=== PATIENT | female | born 1945 | race Caucasian/White ===

== ENCOUNTER 2017-03-14 08:41 | Outpatient (CLI) | payer MEDICARE | END 2017-03-14 08:42 | disposition home or self-care (01) | LOC: LAB.F 08:41 | PROVIDERS: ATTEND Family Medicine | DX: I82.409 Acute embolism and thrombosis of unspecified deep veins of unspecified lower extremity (principal) | CPT/HCPCS: 85610 ==

== ENCOUNTER 2017-03-22 14:11 | Outpatient (CLI) | payer MEDICARE ==
[2017-03-22 18:02] LABS: INR 2.2 (0.8-1.2); PT - PROTHROMBIN TIME 25.1 secs (9.9-12.6)
== END 2017-03-22 14:12 | disposition home or self-care (01) ==
LOC: LAB.F 14:11
PROVIDERS: ATTEND Emergency Medicine
DX: I74.9 Embolism and thrombosis of unspecified artery (principal)
CPT/HCPCS: 36415; 85610

== ENCOUNTER 2017-05-23 15:56 | Outpatient (CLI) | payer MEDICARE ==
[2017-05-23 18:32] LABS: INR 2.6 (0.8-1.2)
== END 2017-05-23 15:57 | disposition home or self-care (01) ==
LOC: LAB.F 15:56
PROVIDERS: ATTEND Emergency Medicine
DX: I74.9 Embolism and thrombosis of unspecified artery (principal)
CPT/HCPCS: 36415; 85610

== ENCOUNTER 2017-11-03 14:09 | Outpatient (CLI) | payer MEDICARE ==
[2017-11-03 18:35] LABS: PT - PROTHROMBIN TIME 32.9 secs (9.9-12.6)
== END 2017-11-03 14:10 | disposition home or self-care (01) ==
LOC: LAB.F 14:09
PROVIDERS: ATTEND Emergency Medicine
DX: I74.9 Embolism and thrombosis of unspecified artery (principal)
CPT/HCPCS: 36415; 85610

== ENCOUNTER 2018-01-25 14:53 | Outpatient (CLI) | payer MEDICARE ==
[2018-01-25 17:32] LABS: PT - PROTHROMBIN TIME 32.2 secs (9.9-12.6)
== END 2018-01-25 14:54 | disposition home or self-care (01) ==
LOC: LAB.F 14:53
PROVIDERS: ATTEND Emergency Medicine
DX: I74.9 Embolism and thrombosis of unspecified artery (principal)
CPT/HCPCS: 36415; 85610

== ENCOUNTER 2018-03-01 10:30 | Outpatient (CLI) | payer MEDICARE ==
[2018-03-01 17:17] LABS: PT - PROTHROMBIN TIME 55.5 secs (9.9-12.6)
[2018-03-01 17:40] LABS: INR 5.2 (0.8-1.2)
== END 2018-03-01 10:31 | disposition home or self-care (01) ==
LOC: LAB.F 10:30
PROVIDERS: ATTEND Emergency Medicine
DX: I74.9 Embolism and thrombosis of unspecified artery (principal)
CPT/HCPCS: 36415; 85610

== ENCOUNTER 2018-03-08 13:27 | Outpatient (CLI) | payer MEDICARE ==
[2018-03-08 18:07] LABS: INR 2.8 (0.8-1.2); PT - PROTHROMBIN TIME 30.9 secs (9.9-12.6)
== END 2018-03-08 13:28 | disposition home or self-care (01) ==
LOC: LAB.F 13:27
PROVIDERS: ATTEND Emergency Medicine
DX: I74.9 Embolism and thrombosis of unspecified artery (principal)
CPT/HCPCS: 36415; 85610

== ENCOUNTER 2018-04-11 10:18 | Outpatient (CLI) | payer MEDICARE ==
[2018-04-11 18:07] LABS: INR 3.2 (0.8-1.2); PT - PROTHROMBIN TIME 35.6 secs (9.9-12.6)
== END 2018-04-11 10:19 | disposition home or self-care (01) ==
LOC: LAB.F 10:18
PROVIDERS: ATTEND Emergency Medicine
DX: I74.9 Embolism and thrombosis of unspecified artery (principal)
CPT/HCPCS: 36415; 85610

== ENCOUNTER 2018-04-19 11:14 | Outpatient (CLI) | payer MEDICARE ==
[2018-04-19 18:10] LABS: INR 2.8 (0.8-1.2); PT - PROTHROMBIN TIME 31.2 secs (9.9-12.6)
== END 2018-04-19 11:15 | disposition home or self-care (01) ==
LOC: LAB.F 11:14
PROVIDERS: ATTEND Emergency Medicine
DX: I74.9 Embolism and thrombosis of unspecified artery (principal)
CPT/HCPCS: 36415; 85610

== ENCOUNTER 2018-05-02 09:50 | Outpatient (CLI) | payer MEDICARE ==
[2018-05-02 17:55] LABS: INR 2.1 (0.8-1.2); PT - PROTHROMBIN TIME 23.9 secs (9.9-12.6)
== END 2018-05-02 09:51 | disposition home or self-care (01) ==
LOC: LAB.F 09:50
PROVIDERS: ATTEND Emergency Medicine
DX: I74.9 Embolism and thrombosis of unspecified artery (principal)
CPT/HCPCS: 36415; 85610

== ENCOUNTER 2018-06-07 11:27 | Outpatient (CLI) | payer MEDICARE ==
[2018-06-07 18:03] LABS: INR 2.4 (0.8-1.2); PT - PROTHROMBIN TIME 27.2 secs (9.9-12.6)
== END 2018-06-07 11:28 | disposition home or self-care (01) ==
LOC: LAB.F 11:27
PROVIDERS: ATTEND Emergency Medicine
DX: I74.9 Embolism and thrombosis of unspecified artery (principal)
CPT/HCPCS: 36415; 85610

== ENCOUNTER 2018-08-21 13:51 | Outpatient (CLI) | payer MEDICARE ==
[2018-08-21 17:47] LABS: PT - PROTHROMBIN TIME 51.9 secs (9.9-12.6)
[2018-08-21 18:05] LABS: INR 4.7 (0.8-1.2)
== END 2018-08-21 13:52 | disposition home or self-care (01) ==
LOC: LAB.F 13:51
PROVIDERS: ATTEND Emergency Medicine
DX: I74.9 Embolism and thrombosis of unspecified artery (principal)
CPT/HCPCS: 36415; 85610

== ENCOUNTER 2018-09-11 11:07 | Outpatient (CLI) | payer MEDICARE ==
[2018-09-11 17:39] LABS: INR 3.1 (0.8-1.2); PT - PROTHROMBIN TIME 34.1 secs (9.9-12.6)
== END 2018-09-11 11:08 | disposition home or self-care (01) ==
LOC: LAB.F 11:07
PROVIDERS: ATTEND Emergency Medicine
DX: I74.9 Embolism and thrombosis of unspecified artery (principal)
CPT/HCPCS: 36415; 85610

== ENCOUNTER 2018-09-26 14:00 | Outpatient (CLI) | payer MEDICARE ==
[2018-09-26 18:05] LABS: INR 2.5 (0.8-1.2); PT - PROTHROMBIN TIME 28.1 secs (9.9-12.6)
== END 2018-09-26 14:01 | disposition home or self-care (01) ==
LOC: LAB.F 14:00
PROVIDERS: ATTEND Emergency Medicine
DX: I74.9 Embolism and thrombosis of unspecified artery (principal)
CPT/HCPCS: 36415; 85610

== ENCOUNTER 2018-11-12 10:19 | Outpatient (CLI) | payer MEDICARE ==
[2018-11-12 18:32] LABS: INR 2.4 (0.8-1.2); PT - PROTHROMBIN TIME 26.4 secs (9.9-12.6)
== END 2018-11-12 10:20 | disposition home or self-care (01) ==
LOC: LAB.F 10:19
PROVIDERS: ATTEND Emergency Medicine
DX: I74.9 Embolism and thrombosis of unspecified artery (principal)
CPT/HCPCS: 36415; 85610

== ENCOUNTER 2019-01-09 14:49 | Outpatient (CLI) | payer MEDICARE ==
[2019-01-09 17:54] LABS: INR 1.8 (0.8-1.2); PT - PROTHROMBIN TIME 20.4 secs (9.9-12.6)
== END 2019-01-09 14:50 | disposition home or self-care (01) ==
LOC: LAB.S 14:49
PROVIDERS: ATTEND Emergency Medicine
DX: I74.9 Embolism and thrombosis of unspecified artery (principal)
CPT/HCPCS: 36415; 85610

== ENCOUNTER 2019-01-17 13:49 | Outpatient (CLI) | payer MEDICARE ==
[2019-01-17 17:40] LABS: INR 2.3 (0.8-1.2); PT - PROTHROMBIN TIME 25.7 secs (9.9-12.6)
== END 2019-01-17 13:50 | disposition home or self-care (01) ==
LOC: LAB.S 13:49
PROVIDERS: ATTEND Emergency Medicine
DX: I74.9 Embolism and thrombosis of unspecified artery (principal)
CPT/HCPCS: 36415; 85610

== ENCOUNTER 2019-02-01 13:17 | Outpatient (CLI) | payer MEDICARE ==
[2019-02-01 17:41] LABS: INR 3.1 (0.8-1.2); PT - PROTHROMBIN TIME 34.3 secs (9.9-12.6)
== END 2019-02-01 13:18 | disposition home or self-care (01) ==
LOC: LAB.S 13:17
PROVIDERS: ATTEND Emergency Medicine
DX: I74.9 Embolism and thrombosis of unspecified artery (principal)
CPT/HCPCS: 36415; 85610

== ENCOUNTER 2019-03-06 13:41 | Outpatient (CLI) | payer MEDICARE ==
[2019-03-06 17:28] LABS: INR 2.4 (0.8-1.2); PT - PROTHROMBIN TIME 25.9 secs (9.9-12.6)
== END 2019-03-06 13:42 | disposition home or self-care (01) ==
LOC: LAB.S 13:41
PROVIDERS: ATTEND Emergency Medicine
DX: I74.9 Embolism and thrombosis of unspecified artery (principal)
CPT/HCPCS: 36415; 85610

== ENCOUNTER 2019-04-11 11:00 | Outpatient (CLI) | payer MEDICARE ==
[2019-04-11 17:39] LABS: BASOPHILS # (AUTO) 0.1 10^3/uL (0.0-0.1); BASOPHILS % (AUTO) 0.7 %; EOSINOPHILS # (AUTO) 0.2 10^3/uL (0.0-0.7); EOSINOPHILS % (AUTO) 1.9 %; HGB - HEMOGLOBIN 9.1 g/dL (12.0-16.0); LYMPHOCYTES # (AUTO) 1.6 10^3/uL (1.5-3.5); LYMPHOCYTES % (AUTO) 19.3 %; MEAN CORPUSCULAR HEMOGLOBIN 30.4 pg (27.0-31.0); MEAN PLATELET VOLUME 11.8 fL (7.9-10.8); MONOCYTES # (AUTO) 0.9 10^3/uL (0.0-1.0); MONOCYTES % (AUTO) 10.7 %; NEUTROPHILS # (AUTO) 5.6 10^3/uL (1.5-6.6); NEUTROPHILS % (AUTO) 66.7 %; PLT - PLATELET COUNT 265 10^3/uL (130-450); RED BLOOD COUNT 2.99 10^6/uL (4.20-5.40); RED CELL DISTRIBUTION WIDTH 14.3 % (12.0-15.0); WHITE BLOOD COUNT 8.3 x10^3/uL (4.8-10.8)
[2019-04-11 17:44] LABS: PT - PROTHROMBIN TIME 22.4 secs (9.9-12.6)
== END 2019-04-11 11:01 | disposition home or self-care (01) ==
LOC: LAB.S 11:00
PROVIDERS: ATTEND Emergency Medicine
DX: I74.9 Embolism and thrombosis of unspecified artery (principal); I82.5Y1 Chronic embolism and thrombosis of unspecified deep veins of right proximal lower extremity
CPT/HCPCS: 36415; 82565; 85025; 85610

== ENCOUNTER 2019-04-15 12:30 | Outpatient (CLI) | payer MEDICARE ==
[2019-04-15 18:14] LABS: INR 2.2 (0.8-1.2); PT - PROTHROMBIN TIME 23.6 secs (9.9-12.6)
== END 2019-04-15 12:31 | disposition home or self-care (01) ==
LOC: LAB.S 12:30
PROVIDERS: ATTEND Emergency Medicine
DX: I74.9 Embolism and thrombosis of unspecified artery (principal)
CPT/HCPCS: 36415; 85610

== ENCOUNTER 2019-05-01 10:13 | Outpatient (CLI) | payer MEDICARE ==
[2019-05-01 17:20] LABS: INR 4.3 (0.8-1.2); PT - PROTHROMBIN TIME 44.9 secs (9.9-12.6)
== END 2019-05-01 10:14 | disposition home or self-care (01) ==
LOC: LAB.S 10:13
PROVIDERS: ATTEND Emergency Medicine
DX: I74.9 Embolism and thrombosis of unspecified artery (principal)
CPT/HCPCS: 36415; 85610

== ENCOUNTER 2019-05-08 14:24 | Outpatient (CLI) | payer MEDICARE ==
[2019-05-08 17:18] LABS: INR 2.6 (0.8-1.2); PT - PROTHROMBIN TIME 27.8 secs (9.9-12.6)
== END 2019-05-08 14:25 | disposition home or self-care (01) ==
LOC: LAB.S 14:24
PROVIDERS: ATTEND Emergency Medicine
DX: I74.9 Embolism and thrombosis of unspecified artery (principal)
CPT/HCPCS: 36415; 85610

== ENCOUNTER 2019-06-10 13:15 | Outpatient (CLI) | payer MEDICARE ==
[2019-06-10 18:02] LABS: PT - PROTHROMBIN TIME 48.2 secs (9.9-12.6)
[2019-06-10 19:18] LABS: INR 4.6 (0.8-1.2)
== END 2019-06-10 13:16 | disposition home or self-care (01) ==
LOC: LAB.S 13:15
PROVIDERS: ATTEND Emergency Medicine
DX: I74.9 Embolism and thrombosis of unspecified artery (principal)
CPT/HCPCS: 36415; 85610

== ENCOUNTER 2019-06-17 13:13 | Outpatient (CLI) | payer MEDICARE ==
[2019-06-17 17:34] LABS: INR 3.5 (0.8-1.2); PT - PROTHROMBIN TIME 37.6 secs (9.9-12.6)
== END 2019-06-17 13:14 | disposition home or self-care (01) ==
LOC: LAB.S 13:13
PROVIDERS: ATTEND Emergency Medicine
DX: I74.9 Embolism and thrombosis of unspecified artery (principal)
CPT/HCPCS: 36415; 85610

== ENCOUNTER 2019-06-27 13:23 | Outpatient (CLI) | payer MEDICARE ==
[2019-06-27 17:21] LABS: INR 2.8 (0.8-1.2); PT - PROTHROMBIN TIME 30.3 secs (9.9-12.6)
== END 2019-06-27 13:24 | disposition home or self-care (01) ==
LOC: LAB.S 13:23
PROVIDERS: ATTEND Emergency Medicine
DX: I74.9 Embolism and thrombosis of unspecified artery (principal)
CPT/HCPCS: 36415; 85610

== ENCOUNTER 2019-07-11 13:40 | Outpatient (CLI) | payer MEDICARE ==
[2019-07-11 17:58] LABS: PT - PROTHROMBIN TIME 21.9 secs (9.9-12.6)
== END 2019-07-11 13:41 | disposition home or self-care (01) ==
LOC: LAB.S 13:40
PROVIDERS: ATTEND Emergency Medicine
DX: I74.9 Embolism and thrombosis of unspecified artery (principal)
CPT/HCPCS: 36415; 85610

== ENCOUNTER 2019-07-26 12:05 | Outpatient (CLI) | payer MEDICARE ==
[2019-07-26 17:34] LABS: INR 1.8 (0.8-1.2)
== END 2019-07-26 12:06 | disposition home or self-care (01) ==
LOC: LAB.S 12:05
PROVIDERS: ATTEND Emergency Medicine
DX: I74.9 Embolism and thrombosis of unspecified artery (principal)
CPT/HCPCS: 36415; 85610

== ENCOUNTER 2019-09-05 12:44 | Outpatient (CLI) | payer MEDICARE ==
[2019-09-05 16:12] LABS: INR 1.6 (0.8-1.2)
== END 2019-09-05 12:45 | disposition home or self-care (01) ==
LOC: LAB.S 12:44
PROVIDERS: ATTEND Emergency Medicine
DX: I74.9 Embolism and thrombosis of unspecified artery (principal)
CPT/HCPCS: 36415; 85610

== ENCOUNTER 2019-11-20 10:57 | Outpatient (CLI) | payer MEDICARE ==
[2019-11-20 15:17] LABS: INR 2.4 (0.8-1.2); PT - PROTHROMBIN TIME 25.5 secs (9.9-12.6)
== END 2019-11-20 10:58 | disposition home or self-care (01) ==
LOC: LAB.S 10:57
PROVIDERS: ATTEND Emergency Medicine
DX: I74.9 Embolism and thrombosis of unspecified artery (principal)
CPT/HCPCS: 36415; 85610

== ENCOUNTER 2019-12-19 13:59 | Outpatient (CLI) | payer MEDICARE ==
[2019-12-19 20:20] LABS: INR 2.2 (0.8-1.2); PT - PROTHROMBIN TIME 23.6 secs (9.9-12.6)
== END 2019-12-19 14:00 | disposition home or self-care (01) ==
LOC: LAB.S 13:59
PROVIDERS: ATTEND Emergency Medicine
DX: I74.9 Embolism and thrombosis of unspecified artery (principal)
CPT/HCPCS: 36415; 85610

== ENCOUNTER 2020-02-12 14:11 | Outpatient (CLI) | payer MEDICARE ==
[2020-02-12 20:12] LABS: INR 2.5 (0.8-1.2); PT - PROTHROMBIN TIME 26.7 secs (9.9-12.6)
== END 2020-02-12 14:12 | disposition home or self-care (01) ==
LOC: LAB.S 14:11
PROVIDERS: ATTEND Emergency Medicine
DX: I74.9 Embolism and thrombosis of unspecified artery (principal)
CPT/HCPCS: 36415; 85610

== ENCOUNTER 2020-03-12 14:30 | Outpatient (CLI) | payer MEDICARE ==
[2020-03-12 20:13] LABS: INR 1.8 (0.8-1.2); PT - PROTHROMBIN TIME 19.1 secs (9.9-12.6)
== END 2020-03-12 14:31 | disposition home or self-care (01) ==
LOC: LAB.S 14:30
PROVIDERS: ATTEND Emergency Medicine
DX: I74.9 Embolism and thrombosis of unspecified artery (principal)
CPT/HCPCS: 36415; 85610

== ENCOUNTER 2020-04-03 13:28 | Outpatient (CLI) | payer MEDICARE ==
[2020-04-03 15:57] LABS: INR 2.8 (0.8-1.2); PT - PROTHROMBIN TIME 29.5 secs (9.9-12.6)
== END 2020-04-03 13:29 | disposition home or self-care (01) ==
LOC: LAB.S 13:28
PROVIDERS: ATTEND Emergency Medicine
DX: I74.9 Embolism and thrombosis of unspecified artery (principal)
CPT/HCPCS: 36415; 85610

== ENCOUNTER 2020-04-23 13:16 | Outpatient (CLI) | payer MEDICARE ==
[2020-04-23 20:15] LABS: INR 3.4 (0.8-1.2); PT - PROTHROMBIN TIME 34.8 secs (9.9-12.6)
== END 2020-04-23 13:17 | disposition home or self-care (01) ==
LOC: LAB.S 13:16
PROVIDERS: ATTEND Emergency Medicine
DX: I74.9 Embolism and thrombosis of unspecified artery (principal)
CPT/HCPCS: 36415; 85610

== ENCOUNTER 2020-06-08 13:41 | Outpatient (CLI) | payer MEDICARE ==
[2020-06-08 20:09] LABS: INR 2.5 (0.8-1.2); PT - PROTHROMBIN TIME 26.4 secs (9.9-12.6)
== END 2020-06-08 13:42 | disposition home or self-care (01) ==
LOC: LAB.S 13:41
PROVIDERS: ATTEND Emergency Medicine
DX: I74.9 Embolism and thrombosis of unspecified artery (principal)
CPT/HCPCS: 36415; 85610

== ENCOUNTER 2020-07-02 14:18 | Outpatient (CLI) | payer MEDICARE ==
[2020-07-02 20:11] LABS: INR 3.1 (0.8-1.2)
== END 2020-07-02 14:19 | disposition home or self-care (01) ==
LOC: LAB.S 14:18
PROVIDERS: ATTEND Emergency Medicine
DX: I74.9 Embolism and thrombosis of unspecified artery (principal)
CPT/HCPCS: 36415; 85610

== ENCOUNTER 2020-07-15 13:25 | Outpatient (CLI) | payer MEDICARE ==
[2020-07-15 20:21] LABS: INR 2.4 (0.8-1.2); PT - PROTHROMBIN TIME 25.1 secs (9.9-12.6)
== END 2020-07-15 13:26 | disposition home or self-care (01) ==
LOC: LAB.S 13:25
PROVIDERS: ATTEND Emergency Medicine
DX: I74.9 Embolism and thrombosis of unspecified artery (principal)
CPT/HCPCS: 36415; 85610

== ENCOUNTER 2020-08-12 13:39 | Outpatient (CLI) | payer MEDICARE ==
[2020-08-12 20:35] LABS: INR 2.7 (0.8-1.2); PT - PROTHROMBIN TIME 28.6 secs (9.9-12.6)
== END 2020-08-12 13:40 | disposition home or self-care (01) ==
LOC: LAB.S 13:39
PROVIDERS: ATTEND Internal Medicine Clinical Cardiac Electrophysiology
DX: I82.509 Chronic embolism and thrombosis of unspecified deep veins of unspecified lower extremity (principal)
CPT/HCPCS: 36415; 85610

== ENCOUNTER 2020-08-25 13:34 | Outpatient (CLI) | payer MEDICARE ==
[2020-08-25 20:16] LABS: INR 2.6 (0.8-1.2)
== END 2020-08-25 13:35 | disposition home or self-care (01) ==
LOC: LAB.S 13:34
PROVIDERS: ATTEND Internal Medicine Clinical Cardiac Electrophysiology
DX: I82.509 Chronic embolism and thrombosis of unspecified deep veins of unspecified lower extremity (principal)
CPT/HCPCS: 36415; 85610

== ENCOUNTER 2020-09-16 13:14 | Outpatient (CLI) | payer MEDICARE ==
[2020-09-16 20:17] LABS: INR 2.4 (0.8-1.2); PT - PROTHROMBIN TIME 25.5 secs (9.9-12.6)
== END 2020-09-16 13:15 | disposition home or self-care (01) ==
LOC: LAB.S 13:14
PROVIDERS: ATTEND Internal Medicine Clinical Cardiac Electrophysiology
DX: I82.509 Chronic embolism and thrombosis of unspecified deep veins of unspecified lower extremity (principal)
CPT/HCPCS: 36415; 85610

== ENCOUNTER 2020-11-17 14:23 | Outpatient (CLI) | payer MEDICARE ==
[2020-11-17 20:11] LABS: PT - PROTHROMBIN TIME 45.9 secs (9.9-12.6)
[2020-11-17 20:33] LABS: INR 4.5 (0.8-1.2)
== END 2020-11-17 14:24 | disposition home or self-care (01) ==
LOC: LAB.S 14:23
PROVIDERS: ATTEND Internal Medicine Clinical Cardiac Electrophysiology
DX: I82.509 Chronic embolism and thrombosis of unspecified deep veins of unspecified lower extremity (principal)
CPT/HCPCS: 36415; 85610

== ENCOUNTER 2021-01-25 11:09 | Outpatient (CLI) | payer MEDICARE ==
[2021-01-25 15:32] LABS: PT - PROTHROMBIN TIME 21.4 secs (9.9-12.6)
== END 2021-01-25 11:10 | disposition home or self-care (01) ==
LOC: LAB.S 11:09
PROVIDERS: ATTEND Internal Medicine Clinical Cardiac Electrophysiology
DX: I82.509 Chronic embolism and thrombosis of unspecified deep veins of unspecified lower extremity (principal)
CPT/HCPCS: 36415; 85610

== ENCOUNTER 2021-02-08 11:08 | Outpatient (CLI) | payer MEDICARE ==
[2021-02-08 15:40] LABS: INR 2.8 (0.8-1.2); PT - PROTHROMBIN TIME 31.3 secs (9.9-12.6)
== END 2021-02-08 11:09 | disposition home or self-care (01) ==
LOC: LAB.S 11:08
PROVIDERS: ATTEND Internal Medicine Clinical Cardiac Electrophysiology
DX: I82.509 Chronic embolism and thrombosis of unspecified deep veins of unspecified lower extremity (principal)
CPT/HCPCS: 36415; 85610

== ENCOUNTER 2021-04-12 10:38 | Outpatient (CLI) | payer MEDICARE ==
[2021-04-12 14:31] LABS: INR 3.3 (0.8-1.2); PT - PROTHROMBIN TIME 37.2 secs (9.9-12.6)
== END 2021-04-12 10:39 | disposition home or self-care (01) ==
LOC: LAB.S 10:38
PROVIDERS: ATTEND Internal Medicine Clinical Cardiac Electrophysiology
DX: I82.509 Chronic embolism and thrombosis of unspecified deep veins of unspecified lower extremity (principal)
CPT/HCPCS: 36415; 85610

== ENCOUNTER 2021-04-20 11:22 | Outpatient (CLI) | payer MEDICARE ==
[2021-04-20 15:33] LABS: INR 3.4 (0.8-1.2); PT - PROTHROMBIN TIME 37.7 secs (9.9-12.6)
== END 2021-04-20 11:23 | disposition home or self-care (01) ==
LOC: LAB.S 11:22
PROVIDERS: ATTEND Internal Medicine Clinical Cardiac Electrophysiology
DX: I82.509 Chronic embolism and thrombosis of unspecified deep veins of unspecified lower extremity (principal)
CPT/HCPCS: 36415; 85610

== ENCOUNTER 2021-04-26 12:10 | Outpatient (CLI) | payer MEDICARE ==
[2021-04-26 16:15] LABS: INR 2.1 (0.8-1.2); PT - PROTHROMBIN TIME 23.1 secs (9.9-12.6)
== END 2021-04-26 12:11 | disposition home or self-care (01) ==
LOC: LAB.S 12:10
PROVIDERS: ATTEND Internal Medicine Clinical Cardiac Electrophysiology
DX: I82.509 Chronic embolism and thrombosis of unspecified deep veins of unspecified lower extremity (principal)
CPT/HCPCS: 36415; 85610

== ENCOUNTER 2021-05-11 12:27 | Outpatient (CLI) | payer MEDICARE ==
[2021-05-11 15:06] LABS: INR 1.9 (0.8-1.2); PT - PROTHROMBIN TIME 21.7 secs (9.9-12.6)
== END 2021-05-11 12:28 | disposition home or self-care (01) ==
LOC: LAB.S 12:27
PROVIDERS: ATTEND Internal Medicine Clinical Cardiac Electrophysiology
DX: I82.509 Chronic embolism and thrombosis of unspecified deep veins of unspecified lower extremity (principal)
CPT/HCPCS: 36415; 85610

== ENCOUNTER 2021-05-25 13:23 | Outpatient (CLI) | payer MEDICARE ==
[2021-05-25 20:07] LABS: INR 1.8 (0.8-1.2); PT - PROTHROMBIN TIME 20.5 secs (9.9-12.6)
== END 2021-05-25 13:24 | disposition home or self-care (01) ==
LOC: LAB.S 13:23
PROVIDERS: ATTEND Internal Medicine Clinical Cardiac Electrophysiology
DX: I82.509 Chronic embolism and thrombosis of unspecified deep veins of unspecified lower extremity (principal)
CPT/HCPCS: 36415; 36416; 85610

== ENCOUNTER 2021-06-01 13:30 | Outpatient (CLI) | payer MEDICARE ==
[2021-06-01 20:22] LABS: INR 2.1 (0.8-1.2); PT - PROTHROMBIN TIME 23.3 secs (9.9-12.6)
== END 2021-06-01 13:31 | disposition home or self-care (01) ==
LOC: LAB.S 13:30
PROVIDERS: ATTEND Internal Medicine Clinical Cardiac Electrophysiology
DX: I82.509 Chronic embolism and thrombosis of unspecified deep veins of unspecified lower extremity (principal)
CPT/HCPCS: 36415; 36416; 85610

== ENCOUNTER 2021-06-15 13:25 | Outpatient (CLI) | payer MEDICARE ==
[2021-06-15 20:49] LABS: INR 2.7 (0.8-1.2); PT - PROTHROMBIN TIME 29.8 secs (9.9-12.6)
== END 2021-06-15 13:26 | disposition home or self-care (01) ==
LOC: LAB.S 13:25
PROVIDERS: ATTEND Internal Medicine Clinical Cardiac Electrophysiology
DX: I82.509 Chronic embolism and thrombosis of unspecified deep veins of unspecified lower extremity (principal)
CPT/HCPCS: 36415; 36416; 85610

== ENCOUNTER 2021-07-06 10:49 | Outpatient (CLI) | payer MEDICARE ==
[2021-07-06 15:13] LABS: INR 2.4 (0.8-1.2); PT - PROTHROMBIN TIME 26.5 secs (9.9-12.6)
== END 2021-07-06 10:50 | disposition home or self-care (01) ==
LOC: LAB.S 10:49
PROVIDERS: ATTEND Internal Medicine Clinical Cardiac Electrophysiology
DX: I82.509 Chronic embolism and thrombosis of unspecified deep veins of unspecified lower extremity (principal)
CPT/HCPCS: 36415; 85610

== ENCOUNTER 2021-08-09 13:52 | Outpatient (CLI) | payer MEDICARE ==
[2021-08-09 19:59] LABS: INR 2.6 (0.8-1.2); PT - PROTHROMBIN TIME 28.5 secs (9.9-12.6)
== END 2021-08-09 13:53 | disposition home or self-care (01) ==
LOC: LAB.S 13:52
PROVIDERS: ATTEND Internal Medicine Clinical Cardiac Electrophysiology
DX: I82.509 Chronic embolism and thrombosis of unspecified deep veins of unspecified lower extremity (principal)
CPT/HCPCS: 36415; 85610

== ENCOUNTER 2021-10-08 10:42 | Outpatient (CLI) | payer MEDICARE ==
[2021-10-08 16:01] LABS: PT - PROTHROMBIN TIME 22.7 secs (9.9-12.6)
== END 2021-10-08 10:43 | disposition home or self-care (01) ==
LOC: LAB.S 10:42
PROVIDERS: ATTEND Internal Medicine Clinical Cardiac Electrophysiology
DX: I82.509 Chronic embolism and thrombosis of unspecified deep veins of unspecified lower extremity (principal)
CPT/HCPCS: 36415; 85610

== ENCOUNTER 2021-11-05 13:33 | Outpatient (CLI) | payer MEDICARE ==
[2021-11-05 20:04] LABS: INR 2.1 (0.8-1.2); PT - PROTHROMBIN TIME 23.1 secs (9.9-12.6)
== END 2021-11-05 13:34 | disposition home or self-care (01) ==
LOC: LAB.S 13:33
PROVIDERS: ATTEND Internal Medicine Clinical Cardiac Electrophysiology
DX: I82.509 Chronic embolism and thrombosis of unspecified deep veins of unspecified lower extremity (principal)
CPT/HCPCS: 36415; 85610

== ENCOUNTER 2022-02-09 13:45 | Outpatient (CLI) | payer MEDICARE ==
[2022-02-09 19:48] LABS: INR 4.1 (0.8-1.2); PT - PROTHROMBIN TIME 41.4 secs (9.9-12.6)
== END 2022-02-09 13:46 | disposition home or self-care (01) ==
LOC: LAB.S 13:45
PROVIDERS: ATTEND Internal Medicine Clinical Cardiac Electrophysiology
DX: I82.509 Chronic embolism and thrombosis of unspecified deep veins of unspecified lower extremity (principal)
CPT/HCPCS: 36415; 85610

== ENCOUNTER 2022-03-24 10:49 | Outpatient (CLI) | payer MEDICARE ==
[2022-03-24 15:23] LABS: INR 2.5 (0.8-1.2); PT - PROTHROMBIN TIME 26.4 secs (9.9-12.6)
== END 2022-03-24 10:50 | disposition home or self-care (01) ==
LOC: LAB.S 10:49
PROVIDERS: ATTEND Internal Medicine Clinical Cardiac Electrophysiology
DX: I82.509 Chronic embolism and thrombosis of unspecified deep veins of unspecified lower extremity (principal)
CPT/HCPCS: 36415; 85610

== ENCOUNTER 2022-06-14 11:15 | Outpatient (CLI) | payer MEDICARE ==
[2022-06-14 14:35] LABS: INR 4.3 (0.8-1.2); PT - PROTHROMBIN TIME 43.7 secs (9.9-12.6)
== END 2022-06-14 11:16 | disposition home or self-care (01) ==
LOC: LAB.S 11:15
PROVIDERS: ATTEND Internal Medicine Clinical Cardiac Electrophysiology
DX: I82.509 Chronic embolism and thrombosis of unspecified deep veins of unspecified lower extremity (principal)
CPT/HCPCS: 36415; 85610

== ENCOUNTER 2022-06-24 13:46 | Outpatient (CLI) | payer MEDICARE ==
[2022-06-24 20:28] LABS: INR 3.4 (0.8-1.2); PT - PROTHROMBIN TIME 35.1 secs (9.9-12.6)
== END 2022-06-24 13:47 | disposition home or self-care (01) ==
LOC: LAB.S 13:46
PROVIDERS: ATTEND Internal Medicine Clinical Cardiac Electrophysiology
DX: I82.509 Chronic embolism and thrombosis of unspecified deep veins of unspecified lower extremity (principal)
CPT/HCPCS: 36415; 85610

== ENCOUNTER 2022-07-21 13:43 | Outpatient (CLI) | payer MEDICARE ==
[2022-07-21 19:55] LABS: INR 2.8 (0.8-1.2); PT - PROTHROMBIN TIME 29.3 secs (9.9-12.6)
== END 2022-07-21 13:44 | disposition home or self-care (01) ==
LOC: LAB.S 13:43
PROVIDERS: ATTEND Internal Medicine Clinical Cardiac Electrophysiology
DX: I82.509 Chronic embolism and thrombosis of unspecified deep veins of unspecified lower extremity (principal)
CPT/HCPCS: 36415; 85610

== ENCOUNTER 2022-08-25 10:51 | Outpatient (CLI) | payer MEDICARE ==
[2022-08-25 14:34] LABS: INR 2.9 (0.8-1.2); PT - PROTHROMBIN TIME 30.4 secs (9.9-12.6)
== END 2022-08-25 10:52 | disposition home or self-care (01) ==
LOC: LAB.S 10:51
PROVIDERS: ATTEND Internal Medicine Clinical Cardiac Electrophysiology
DX: I82.509 Chronic embolism and thrombosis of unspecified deep veins of unspecified lower extremity (principal)
CPT/HCPCS: 36415; 85610

== ENCOUNTER 2022-09-08 10:13 | Outpatient (CLI) | payer MEDICARE ==
[2022-09-08 14:11] LABS: PT - PROTHROMBIN TIME 51.1 secs (9.9-12.6)
== END 2022-09-08 10:14 | disposition home or self-care (01) ==
LOC: LAB.S 10:13
PROVIDERS: ATTEND Internal Medicine Clinical Cardiac Electrophysiology
DX: I82.509 Chronic embolism and thrombosis of unspecified deep veins of unspecified lower extremity (principal)
CPT/HCPCS: 36415; 85610

== ENCOUNTER 2022-09-15 14:06 | Outpatient (CLI) | payer MEDICARE ==
[2022-09-15 19:43] LABS: INR 2.3 (0.8-1.2); PT - PROTHROMBIN TIME 24.5 secs (9.9-12.6)
== END 2022-09-15 14:07 | disposition home or self-care (01) ==
LOC: LAB.S 14:06
PROVIDERS: ATTEND Internal Medicine Clinical Cardiac Electrophysiology
DX: I82.509 Chronic embolism and thrombosis of unspecified deep veins of unspecified lower extremity (principal)
CPT/HCPCS: 36415; 85610

== ENCOUNTER 2022-10-12 14:22 | Outpatient (CLI) | payer MEDICARE ==
[2022-10-12 20:22] LABS: PT - PROTHROMBIN TIME 21.7 secs (9.9-12.6)
== END 2022-10-12 14:23 | disposition home or self-care (01) ==
LOC: LAB.S 14:22
PROVIDERS: ATTEND Internal Medicine Clinical Cardiac Electrophysiology
DX: I82.509 Chronic embolism and thrombosis of unspecified deep veins of unspecified lower extremity (principal)
CPT/HCPCS: 36415; 85610

== ENCOUNTER 2022-11-16 14:15 | Outpatient (CLI) | payer MEDICARE ==
[2022-11-16 19:42] LABS: PT - PROTHROMBIN TIME 56.2 secs (9.9-12.6)
[2022-11-16 20:12] LABS: INR 5.6 (0.8-1.2)
== END 2022-11-16 14:16 | disposition home or self-care (01) ==
LOC: LAB.S 14:15
PROVIDERS: ATTEND Internal Medicine Clinical Cardiac Electrophysiology
DX: I82.509 Chronic embolism and thrombosis of unspecified deep veins of unspecified lower extremity (principal)
CPT/HCPCS: 36415; 85610

== ENCOUNTER 2022-11-22 10:23 | Outpatient (CLI) | payer MEDICARE ==
[2022-11-22 14:50] LABS: INR 2.5 (0.8-1.2)
== END 2022-11-22 10:24 | disposition home or self-care (01) ==
LOC: LAB.S 10:23
PROVIDERS: ATTEND Internal Medicine Clinical Cardiac Electrophysiology
DX: I82.509 Chronic embolism and thrombosis of unspecified deep veins of unspecified lower extremity (principal)
CPT/HCPCS: 36415; 85610

== ENCOUNTER 2023-05-26 13:40 | Outpatient (CLI) | payer MEDICARE ==
[2023-05-26 19:46] LABS: BASOPHILS # (AUTO) 0.1 10^3/uL (0.0-0.1); BASOPHILS % (AUTO) 0.9 %; EOSINOPHILS # (AUTO) 0.2 10^3/uL (0.0-0.7); EOSINOPHILS % (AUTO) 3.1 %; HCT - HEMATOCRIT 40.4 % (37.0-47.0); HGB - HEMOGLOBIN 13.3 g/dL (12.0-16.0); LYMPHOCYTES # (AUTO) 1.6 10^3/uL (1.5-3.5); LYMPHOCYTES % (AUTO) 25.3 %; MEAN CORPUSCULAR HEMOGLOBIN 30.3 pg (27.0-31.0); MEAN CORPUSCULAR HGB CONC 32.9 g/dL (32.0-36.0); MEAN PLATELET VOLUME 10.8 fL (7.9-10.8); MONOCYTES # (AUTO) 0.6 10^3/uL (0.0-1.0); MONOCYTES % (AUTO) 9.3 %; NEUTROPHILS # (AUTO) 3.9 10^3/uL (1.5-6.6); NEUTROPHILS % (AUTO) 60.9 %; PLT - PLATELET COUNT 357 10^3/uL (130-450); RED BLOOD COUNT 4.39 10^6/uL (4.20-5.40); RED CELL DISTRIBUTION WIDTH 13.6 % (12.0-15.0); WHITE BLOOD COUNT 6.5 x10^3/uL (4.8-10.8)
[2023-05-26 20:02] LABS: CREATININE 1.1 mg/dL (0.6-1.3)
[2023-05-26 20:14] LABS: THYROID STIMULATING HORMONE 0.26 uIU/mL (0.34-5.60)
== END 2023-05-26 13:41 | disposition home or self-care (01) ==
LOC: LAB.S 13:40
PROVIDERS: ATTEND Family Medicine
DX: Z51.81 Encounter for therapeutic drug level monitoring (principal)
CPT/HCPCS: 36415; 82565; 84439; 84443; 84460; 85025

== ENCOUNTER 2023-11-24 07:18 | Emergency (ER) | payer MEDICARE ==
--- NOTE | 2023-11-24 08:44 | ED Physician Documentation ---
PD [place] HEENT - Stated complaint Stated Complaint: RT SWOLLEN JAW - Chief complaint Chief Complaint: Heent - History obtained from History obtained from: Patient - Additional information Additional information: The patient comes to the emergency department chief complaint of swelling and pain of right jaw. She was seen for what is presumed to be a dental infection yesterday in the walk-in clinic and was started on antibiotics in the form of amoxicillin. She states that she did not take her first dose until yesterday evening, and she has had a total of 3 doses so far. The patient states that she was told that if she developed increased swelling, that she should come to the ER for IV antibiotics and that is why she is here today. She states she was put on tramadol and had a miserable night and the tramadol did not seem to control the pain at all. Patient denies any drainage from around the tooth/abscessed area. She has not been running a fever. No facial swelling beyond the immediate area of her mandible. No other complaints at this time. PD PAST MEDICAL HISTORY - Past Medical History Cardiovascular: Deep vein thrombosis, Pulmonary embolism Endocrine/Autoimmune: HyPOthyroidism Musculoskeletal: Osteoarthritis - Past Surgical History Past Surgical History: Yes Ortho: Knee replacement - Present Medications Home Medications: Ambulatory Orders Medication Instructions Recorded Confirmed [place]-3 Fatty Acids [[place]-3] 1,000 mg PO 11/16/12 11/16/12 Citalopram [CeleXA] 10 mg PO DAILY 05/12/13 05/12/13 Levothyroxine [Synthroid] 112 mcg PO QDAC 05/12/13 05/12/13 Aspirin Chewable [[place] 81 mg PO DAILY 01/28/16 01/28/16 Aspirin] HYDROcod/ACETAM 5/325 [[place] 5/325] 1 - 2 ea PO Q6H PRN #20 tablet 01/28/16 carvediloL [Carvedilol] 3.125 mg PO BID 01/28/16 01/28/16 HYDROcod/ACETAM 5/325 [[place] 5/325] 1 - 2 tablet PO Q4H PRN #14 tablet 11/24/23 Ondansetron Odt [Zofran] 4 mg TL Q6H PRN #10 tablet 11/24/23 - Allergies Allergies/Adverse Reactions: Allergies Allergy/AdvReac Type Severity Reaction Status Date / Time codeine [Codeine] Allergy Severe Nausea Verified 11/24/23 07:25 lidocaine Allergy Severe Respiratory Verified 11/24/23 07:25 Morpholine Analogues Allergy Severe Respiratory Verified 11/24/23 07:25 - Social History Does the pt smoke?: No Smoking Status: Never smoker Does the pt drink ETOH?: No Does the pt have substance abuse?: No - Immunizations Immunizations are current?: Yes - POLST Patient has POLST: No PD ED PE NORMAL - Vitals Vital signs reviewed: Yes - General General: Alert and oriented X 3, Well developed/nourished, Other (The patient appears uncomfortable but otherwise in no apparent distress.) - HEENT HEENT: Atraumatic, EOMI, Moist mucous membranes, Other (Moderate swelling over right mandible with edema of the gingiva around the mandibular molars on that side. No swelling or pain in/tenderness of the floor the mouth. No drooling. Slight extension of swelling into right neck.) - Respiratory Respiratory: No respiratory distress - Derm Derm: Warm and dry - Extremities Extremities: No deformity - Neuro Neuro: Alert and oriented X 3 - Psych Psych: Normal mood, Normal affect Results - Vitals Vitals: Oxygen O2 Source Room air PD Medical Decision Making - ED course Complexity details: considered differential, d/w patient, d/w family ED course: I discussed with the patient that she has been on antibiotics less than 24 hours and that the antibiotics likely have not had a chance to adequately kick in. As such, I do not feel that a dose of IV antibiotics is likely to be helpful. Certainly, she is not at the point of needing repeated doses of IV antibiotics. The patient has been treated symptomatically with IV Toradol, Decadron, and Dilaudid. The patient was feeling symptomatically better and is stable for discharge home. We have discussed her need to continue antibiotics at home, and the usual indications for return. Departure - Departure Disposition: 01 Home, Self Care Clinical Impression: Dental infection Condition: Stable Instructions: ED Abscess Dental Prescriptions: HYDROcod/ACETAM 5/325 [[place] 5/325] 1 - 2 tablet PO Q4H PRN #14 tablet PRN Reason: Pain Ondansetron Odt [Zofran] 4 mg TL Q6H PRN #10 tablet PRN Reason: Nausea / Vomiting Comments: You have been on antibiotics for not even 24 hours yet and as such, not enough time has passed to determine whether the antibiotics are working effectively or not. The antibiotic you are on is the first choice for dental infections and Can generally be expected to work well. Most likely, you simply need more time before you are going to see results. As far as increasing facial swelling leading to IV antibiotics, we generally switch to IV if it has been a few days on oral antibiotics and the symptoms are either not resolving or getting worse, or if there is dramatic swelling of the face, neck, or intraoral structures. Neither of these is the case at this time, and as such, there is no role for IV antibiotics yet. If you feel you are not improving at all after the first 3 days of antibiotics, or if you begin to develop swelling that is encompassing your right face or or developing any swelling in your throat leading to difficulty breathing we need to see you back right away. At this time, however, you need to continue on your oral antibiotics and allow them more time to take effect. A prescription for stronger pain medication plus nausea medicine will be electronically transmitted to the pharmacy of your choice. Please pick that up today and begin taking it as needed for pain and nausea. Forms: PCP List Discharge Date/Time: 11/24/23 09:55
[2023-11-24] MEDS: KETOROLAC 30 MG/ML VIAL IVP STA (08:45)
[2023-11-24] MEDS: ONDANSETRON 4 MG/2 ML VIAL IVP STA (08:46)
[2023-11-24] MEDS: DEXAMETHASONE 10 MG/ML VIAL IV STA (08:46)
[2023-11-24] MEDS: HYDROmorphone 1 MG/ML CARPUJECT IVP STA (08:47)
[2023-11-24 10:02] VITALS: BP 112/52; O2SAT 96
== END 2023-11-24 09:55 | disposition home or self-care (01) ==
LOC: ED 07:18
DX: K04.7 Periapical abscess without sinus (principal); E03.9 Hypothyroidism, unspecified; Z79.899 Other long term (current) drug therapy; Z79.82 Long term (current) use of aspirin
CPT/HCPCS: 96374; 96375; 99283; J1170

== ENCOUNTER 2024-09-13 11:40 | Inpatient (IN) ==
--- NOTE | 2024-09-13 12:05 | ED Physician Documentation ---
PD HPI Fall Stated complaint Stated Complaint: GLF Chief complaint Chief Complaint: Trauma Hd/Nk Additional information Additional information: 79-year-old female with history of 2 pulmonary embolisms in the 1980s has been anticoagulated On Coumadin presents to emergency department via ambulance after patient had loss of consciousness. Patient says that she has been feeling unwell for last 2 to 3 days she is worried that maybe she is having UTI symptoms she has been having dysuria urinary urgency and frequency with lower back pain. Today she fell backwards after syncopal episode in the back of her head and there was loss of consciousness after waking she was having some nausea and vomiting. She denies any neck pain but does have some ongoing lower back pain and severe head throbbing. Patient arrived on backboard with c-collar on. Meds/Allgy Home Medications Ambulatory Orders Medication Instructions Recorded Confirmed omega-3 fatty acids 1,000 mg 1,000 mg PO DAILY 11/16/12 09/13/24 capsule citalopram 10 mg tablet 10 mg PO DAILY 05/12/13 09/13/24 levothyroxine 112 mcg tablet 112 mcg PO QDAC 05/12/13 09/13/24 aspirin 81 mg chewable tablet 81 mg PO DAILY 01/28/16 09/13/24 carvedilol 3.125 mg tablet 3.125 mg PO BID 01/28/16 09/13/24 apixaban 5 mg tablet (Eliquis) 5 mg PO DAILY 09/13/24 09/13/24 Allergies Allergies Allergy/AdvReac Type Severity Reaction Status Date / Time codeine (Codeine) Allergy Severe Nausea Verified 09/13/24 11:57 lidocaine Allergy Severe Respiratory Verified 09/13/24 11:57 Morpholine Analogues Allergy Severe Respiratory Verified 09/13/24 11:57 cillins Allergy Intermediate Rash Uncoded 09/13/24 11:57 PFSH Active Problems All Active Problems (Updated 09/13/24 @ 18:36 by Olga Martini DNP) Leukocytosis (Acute) Urinary tract infection (Acute) Syncope and collapse (Acute) Medical History Medical History (Updated 09/13/24 @ 18:36 by Olga Martini DNP) Pulmonary embolism Surgical History Surgical History (Updated 09/13/24 @ 12:04 by Mague Clarke RN) No pertinent past surgical history Social History Social History (Updated 09/13/24 @ 12:04 by Mague Clarke RN) Smoking Status: Never smoker Living arrangement: At home Living Condition: With spouse/s.o. Support Person: No Relationship: Level: Independent Do you feel safe in your home environment?: Yes Suffered physical, verbal, emotional, or financial abuse?: No History of Abuse: No Frequency: Daily POLST Patient has POLST: No Exam Exam Vital Signs: Vital Signs x48h Temp Pulse Resp BP Pulse Ox 09/13/24 16:00 67 20 97 09/13/24 14:43 70 20 190/93 H 95 09/13/24 12:07 60 20 150/93 H 97 09/13/24 11:48 36.4 C L 83 20 190/93 H 97 Constitutional normal general appearance, no apparent distress, average body habitus, no limitations and alert HENMT head/scalp traumatic (tenderness), (hematoma) and (laceration) 3cm posterior scalp laceration wtih hematoma Eyes PERRL, EOMs intact bilaterally and no nystagmus Neck/C-Spine visual inspection normal, trachea midline, cervical spine nontender, cervical full ROM noted and supple Chest inspection of chest normal and palpation of chest normal Respiratory breath sounds equal bilaterally, normal respiratory effort, clear to auscultation bilaterally and no wheezes Cardiovascular normal heart rate noted and regular rhythm noted Gastrointestinal abdomen normal to inspection and abdomen soft to palpation Genitourinary CVA tenderness noted Left CVA tenderness Back/Pelvis spine normal to inspection, no thoracic spine tenderness and no lumbar spine tenderness Extremities normal to inspection, normal to palpation, no tenderness, full ROM, no joint enlargement and no deformity Neurology telephone order clerk II-XII intact, no movement abnormality noted, no pronator drift noted and GCS 15 Psychiatry mental status grossly normal, oriented x3, thought process normal and cooperative Results Vitals Vitals: Vital Signs - 24 hr 09/13/24 11:48 09/13/24 12:07 09/13/24 12:40 Temperature 36.4 C L Temperature Source Temporal Artery Scan Pulse Rate 83 60 Respiratory Rate 20 20 Blood Pressure 190/93 H 150/93 H O2 Saturation 97 97 O2 Source Room air Room air Pain Intensity 5 5 7 09/13/24 14:30 09/13/24 14:43 09/13/24 16:00 Temperature Temperature Source Pulse Rate 70 67 Respiratory Rate 20 20 Blood Pressure 190/93 H O2 Saturation 95 97 O2 Source Room air Room air Pain Intensity 4 4 5 Oxygen O2 Source Room air EKG (time done) 1626: EKG releavant findings:: EKG personally interpreted by author of this note. Relevant findings are: Rate: Rate (enter#) (67) Rhythm: NSR and Other (Borderline low voltage) [place]: Normal Intervals: Normal [place] QRS: QRS normal Ischemia: Normal ST segments Computer interpretation: Agree with computer Labs Labs: Laboratory Tests 09/13/24 09/13/24 09/13/24 12:11 12:24 12:57 WBC 18.5 H RBC 4.40 Hgb 13.8 Hct 41.2 MCV 93.6 MCH 31.4 H MCHC 33.5 RDW 13.2 Plt Count 322 MPV 9.6 Neut # (Auto) 17.1 H Lymph # (Auto) 0.7 L [place] # (Auto) 0.5 Eos # (Auto) 0.0 Baso # (Auto) 0.1 Absolute Nucleated RBC 0.00 Nucleated RBC % 0.0 PT 16.8 H INR 1.6 H APTT 29.7 Sodium 133 L Potassium 4.2 Chloride 101 Carbon Dioxide 23 Anion Gap 9.0 BUN 19 Creatinine 1.4 H Estimated GFR (MDRD) 36 L Glucose 126 H Calcium 8.9 Total Bilirubin 0.7 AST 18 ALT 14 Alkaline Phosphatase 90 Troponin I High Sens 8.6 Total Protein 6.8 Albumin 3.7 Globulin 3.1 Albumin/Globulin Ratio 1.2 Lipase 13 Urine Color YELLOW Urine Clarity HAZY Urine pH 6.0 Ur Specific [place] 1.015 Urine Protein 30 H Urine Glucose (UA) NEGATIVE Urine Ketones TRACE Urine Occult Blood LARGE H Urine Nitrite POSITIVE H Urine Bilirubin NEGATIVE Urine Urobilinogen 0.2 (NORMAL) Ur Leukocyte Esterase SMALL H Urine RBC 11-25 H Urine WBC 11-25 H Urine WBC Clumps PRESENT Ur Squamous Epith Cells RARE Squamous Urine Bacteria Moderate H Ur Microscopic Review INDICATED Urine Culture Comments INDICATED Blood Type A POSITIVE Blood Type Recheck A POSITIVE Antibody Screen NEGATIVE Rads (name of study) Head CT wo: Relevant Findings:: Final report received and EMP independent interpretation of test Interpretation: IMPRESSION: 1. No acute intracranial process. 2. Moderate atrophy and chronic microvascular ischemic changes. CT cervical spine without: Relevant Findings:: Final report received and EMP independent interpretation of test Interpretation: IMPRESSION: No acute, displaced fracture or traumatic subluxation. Multilevel cervical spondylosis. Straightening of cervical lordosis likely related to positioning and/or concurrent muscle spasms. CT lumbar spine without: Relevant Findings:: Final report received and EMP independent interpretation of test Interpretation: IMPRESSION: Multilevel degenerative changes. No visualized fracture. PD Medical Decision Making ED course Complexity details: reviewed results, re-evaluated patient and d/w patient ED course: 79-year-old female presents emergency department after a syncopal episode losing consciousness hitting the back of her head. There is a 3 cm laceration to the posterior scalp patient has anaphylaxis to anything lidocaine or bupivacaine so she would like to forego stitches or hiram if at all possible so we opted for the hair apposition technique to repair the posterior scalp laceration. 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 Her white count is quite elevated at 18.5 no anemia, creatinine 1.4, GFR 36, she does have stage III chronic kidney disease but she was given a liter of IV fluids as this is most likely some dehydration contributing to these numbers. Urinalysis is positive for hematuria and nitrites and leukocytes. She has no pain out of proportion but she does have some left CVA tenderness I am concerned that she is experiencing pyelonephritis. 2 sets of blood cultures were collected and patient was started on IV Rocephin. she is anticoagulated on Eliquis due to history of pulmonary embolisms, head CT without as well as cervical spine without was completed for further evaluation do not reveal any acute abnormalities or findings no intracranial hemorrhage she is found to have moderate atrophy and chronic microvascular ischemic changes which is appropriate for her age and her CT cervical shows multilevel cervical spondylosis with no acute displaced fracture or traumatic subluxation. Patient was also complaining of some lower back pain CT lumbar was completed which did not reveal any acute fractures she does appear to have multilevel degenerative changes. CT scan does not show any hydronephrosis or dilated ureters it does not go all the way to the bladder but I do have a low suspicion that there is a possible infected stone. Every time patient attempts to sit up she is very dizzy having a hard time ambu lating I am do not feel comfortable discharging the patient at this point in time so I reached out to the hospitalist who have graciously agreed to admit the patient. Patient is agreeable to say although she is very worried about her who has dementia and they have limited support to care for him. Discharge Plan Discharge Patient Disposition: 66 [facility] DC/Xfer Condition: Good Clinical Impression: Syncope and collapse Urinary tract infection Qualifiers: Urinary tract infection type: site unspecified Hematuria presence: with hematuria Qualified Code(s): N39.0 - Urinary tract infection, site not specified Leukocytosis Qualifiers: Leukocytosis type: unspecified Qualified Code(s): D72.829 - Elevated white blood cell count, unspecified Interventions: ED Admission Assessment Last Done: 09/13/24 18:00
[2024-09-13] MEDS: BUPIVACAINE 0.25%-EPI 1:200000 PF 30 ML VIAL SUBQ ONE (12:14)
[2024-09-13 12:20] LABS: BASOPHILS # (AUTO) 0.1 10^3/uL (0.0-0.1); BASOPHILS % (AUTO) 0.3 %; HCT - HEMATOCRIT 41.2 % (37.0-47.0); HGB - HEMOGLOBIN 13.8 g/dL (12.0-16.0); LYMPHOCYTES # (AUTO) 0.7 10^3/uL (1.5-3.5); LYMPHOCYTES % (AUTO) 3.9 %; MEAN CORPUSCULAR HEMOGLOBIN 31.4 pg (27.0-31.0); MEAN CORPUSCULAR HGB CONC 33.5 g/dL (32.0-36.0); MEAN CORPUSCULAR VOLUME 93.6 fL (81.0-99.0); MEAN PLATELET VOLUME 9.6 fL (7.9-10.8); MONOCYTES # (AUTO) 0.5 10^3/uL (0.0-1.0); MONOCYTES % (AUTO) 2.5 %; NEUTROPHILS # (AUTO) 17.1 10^3/uL (1.5-6.6); NEUTROPHILS % (AUTO) 92.7 %; PLT - PLATELET COUNT 322 10^3/uL (130-450); RED CELL DISTRIBUTION WIDTH 13.2 % (12.0-15.0); WHITE BLOOD COUNT 18.5 x10^3/uL (4.8-10.8)
[2024-09-13 12:28] LABS: PARTIAL THROMBOPLASTIN TIME 29.7 secs (24.9-33.3)
[2024-09-13 12:33] LABS: INR 1.6 (0.8-1.2); PT - PROTHROMBIN TIME 16.8 secs (9.9-12.6)
[2024-09-13] MEDS: ACETAMINOPHEN 500 MG TABLET PO STA (12:40)
[2024-09-13 12:45] LABS: ALBUMIN 3.7 g/dL (3.2-5.5); ALBUMIN/GLOBULIN RATIO 1.2 (1.0-2.2); BILIRUBIN,TOTAL 0.7 mg/dL (0.2-1.0); CALCIUM 8.9 mg/dL (8.5-10.3); CREATININE 1.4 mg/dL (0.6-1.3); POTASSIUM 4.2 mmol/L (3.5-4.5); TOTAL PROTEIN 6.8 g/dL (6.4-8.9)
--- OUTSIDE RECORDS SUMMARY | 2024-09-13 12:50 | EXTERNAL MEDICAL SUMMARY RPT | Continuity of Care Document ---
Author Organization [facility] Address [address] [place] [id number] Phone Results/Labs test date facility value unit notes Result panel 1 NUCLEATED RED BLOOD CELLS AUTO 2024-09-13 12:11 [facility] 0.0 /100wbc (missing) EOSINOPHILS # (AUTO) 2024-09-13 12:11 [facility] 0.0 10 3/ul (missing) NRBC ABSOLUTE COUNT (AUTO) 2024-09-13 12:11 [facility] 0 .00 x10 3/ul (missing) BASOPHILS # (AUTO) 2024-09-13 12:11 [facility] 0.1 10 3/ul (missing) MONOCYTES # (AUTO) 2024-09-13 12:11 [facility] 0.5 10 3/ul (missing) LYMPHOCYTES # (AUTO) 2024-09-13 12:11 [facility] 0.7 10 3/ul (missing) RED CELL DISTRIBUTION WIDTH 2024-09-13 12:11 [facility] 13.2 % (missing) HGB - HEMOGLOBIN 2024-09-13 12:11 [facility] 13.8 g /dl (missing) NEUTROPHILS # (AUTO) 2024-09-13 12:11 [facility] 17.1 10 3/ul (missing) WHITE BLOOD COUNT 2024-09-13 12:11 [facility] 18.5 x10 3/ul (missing) MEAN CORPUSCULAR HEMOGLOBIN 2024-09-13 12:11 [facility] 31.4 pg (missing) PLT - PLATELET COUNT 2024-09-13 12:11 [facility] 322 10 3/ul (missing) MEAN CORPUSCULAR HGB CONC 2024-09-13 12:11 [facility] 33 .5 g/dl (missing) RED BLOOD COUNT 2024-09-13 12:11 [facility] 4.40 10 6/ul (missing) HCT - HEMATOCRIT 2024-09-13 12:11 [facility] 41.2 % (missing) MEAN PLATELET VOLUME 2024-09-13 12:11 [facility] 9.6 fl (missing) MEAN CORPUSCULAR VOLUME 2024-09-13 12:11 [facility] 93.6 fl (missing) Social History date description facility
[2024-09-13 13:09] LABS: BILIRUBIN,URINE NEGATIVE (NEGATIVE); GLUCOSE, URINE (UA) NEGATIVE (NEGATIVE); KETONES,URINE (UA) TRACE mg/dL (NEGATIVE); LEUKOCYTE ESTERASE, URINE SMALL (NEGATIVE); NITRITE,URINE POSITIVE (NEGATIVE); OCCULT BLOOD,URINE LARGE (NEGATIVE); PROTEIN,URINE 30 mg/dL (NEGATIVE); UROBILINOGEN,URINE 0.2 (NORMAL) E.U./dL (NORMAL)
[2024-09-13 13:11] LABS: CLARITY,URINE HAZY (CLEAR)
[2024-09-13 13:20] LABS: BACTERIA,URINE Moderate /HPF (None Seen); SQUAMOUS EPITHELIAL CELL,UR RARE Squamous (<= Few); WBC CLUMPS,URINE PRESENT
--- NOTE | 2024-09-13 13:46 | CT Report ---
PROCEDURE: CT Head WO INDICATIONS: Head trauma, Loss of consciousnes, Anticoagulated, TECHNIQUE: Noncontrast 4.5 mm thick angled axial sections acquired from the foramen magnum to the vertex. For r adiation dose reduction, the following was used: automated exposure control, adjustment of mA and/or kV according to patient size. COMPARISON: None. FINDINGS: Image quality: Excellent. The ventricular system and cortical sulci demonstrate atrophy, consistent for patient's stated age. There are areas of hypodensity in the periventricular and subcortical white matter. There is no acut e intra or extra-axial fluid collection. No acute hemorrhage, mass lesion or midline shift. Brainst em is unremarkable. Low-attenuation bifrontal subdural hygromas, chronic. Globes are symmetrical. Sinuses demonstrate occlusion of the maxillary sinuses bilaterally as well as frontal sinuses and partial opacification of the ethmoid air cells and sphenoid sinuses.. Osseous st ructures are intact. IMPRESSION: 1. No acute intracranial process. 2. Moderate atrophy and chronic microvascular ischemic changes. Reviewed by: Terri Delgadillo MD on 09/13/2024 1:44 PM PDT Approved by: Terri Delgadillo MD on 09/13/2024 1:44 PM PDT Station ID: [id number]
--- NOTE | 2024-09-13 13:49 | CT Report ---
PROCEDURE: CT Lumbar Spine WO INDICATIONS: back pain after GLF TECHNIQUE: Noncontrast 3 mm thick sections acquired from the T12 level to the sacrum. Sagittal and coronal refo rmats were constructed. For radiation dose reduction, the following was used: automated exposure co ntrol, adjustment of mA and/or kV according to patient size. COMPARISON: None. FINDINGS: Image quality: There is limited visualization of the pelvis secondary to artifact from hip arthropla sty. Bones: There is normal bony alignment. No acute vertebral body compression fractures. No suspiciou s lytic or blastic bony lesions. Multilevel disc bulges are present. Multilevel scattered mild spinal stenosis between L2-3 and L4-5. Multilevel foraminal narrowing is present most severe at L5-S1 demonstrating moderate to severe narro wing with slight compression of the exiting L5 nerve roots. Facet and ligamentum flavum hypertrophy a re present. Soft tissues: Perinephric stranding is present within the left kidney partially visualized. Visualize d aorta is normal in caliber. IMPRESSION: Multilevel degenerative changes. No visualized fracture. Reviewed by: Terri Delgadillo MD on 09/13/2024 1:48 PM PDT Approved by: Terri Delgadillo MD on 09/13/2024 1:48 PM PDT Station ID: [id number]
[2024-09-13] MEDS: SODIUM CHLORIDE 0.9% 1,000 ML IV STA (14:30)
[2024-09-13] MEDS: cefTRIAXone 1 GM in SODIUM CHLORIDE 0.9% MINIBAG 100 ML IV STA (14:30)
[2024-09-13] MEDS: ONDANSETRON 4 MG/2 ML VIAL IVP STA (14:36)
--- NOTE | 2024-09-13 14:49 | CT Report ---
PROCEDURE: CT Cervical Spine WO INDICATIONS: GLF, head injury, LOC TECHNIQUE: Noncontrast 3 mm thick sections acquired from the skull base to the T4 level. Sagittal and coronal r eformats were then constructed. For radiation dose reduction, the following was used: automated exp osure control, adjustment of mA and/or kV according to patient size. COMPARISON: None. FINDINGS: Image quality: Diagnostic. Bones: No acute fractures or dislocations. No acute compression fractures of the vertebral bodies. C raniocervical junction is intact. C1-C2 relationship is preserved. Visualized superior ribs are intac t. Moderate multilevel thrombosis. Straightening of cervical lordosis likely related to positioning and/or concurrent muscle spasms. Soft tissues: Prevertebral soft tissues are normal in thickness. No paravertebral hematomas. No ap ical pneumothoraces. IMPRESSION: No acute, displaced fracture or traumatic subluxation. Multilevel cervical spondylosis. Straightening of cervical lordosis likely related to positioning and/or concurrent muscle spasms. Reviewed by: Soto Horner MD on 09/13/2024 2:48 PM PDT Approved by: Soto Horner MD on 09/13/2024 2:48 PM PDT Station ID: [id number]
--- NOTE | 2024-09-13 15:42 | HISTORY & PHYSICAL EXAMINATION ---
Chief Complaint Chief Complaint Chief Complaint: Dizziness, syncope History of Present Illness Admitted From Admitted From:: Home History Obtained From Records Reviewed: EMR History obtained from: Patient Exam Limitations: None History of Present Illness HPI Comment/Other: Patient is a 79-year-old female with a history of PE on Eliquis, hypothyroidism who presented after syncopal episode. Patient states over the past 2 to 3 days, she has had increasing malaise and fatigue. She also had fevers and chills. She endorsed some dysuria, as well as urinary incontinence. She was wearing her 's diaper for the past few days because she said that with every step, she had some urine leakage, which is new for her. Earlier this morning, she was feeling very dizzy. She got up to make team, and then she does not remember the rest. She reports feeling lightheaded, and believes she hit her counter. As such she decided to come in. On admission, patient was afebrile with a temperature of 97.5, heart rate was 83, respiratory rate was 20, oxygen saturation was 97% on room air, she was hypertensive at 190/93. Lab work revealed leukocytosis of 18.5, sodium of 133, creatinine of 1.4, up from her baseline of around 1, UA showed large blood, positive nitrites, leukocyte esterase, RBCs, moderate bacteria. Patient was admitted for syncope, as well as urinary tract infection. Meds/Allgy Home Medications Ambulatory Orders Medication Instructions Recorded Confirmed omega-3 fatty acids 1,000 mg 1,000 mg PO DAILY 11/16/12 09/13/24 capsule citalopram 10 mg tablet 10 mg PO DAILY 05/12/13 09/13/24 levothyroxine 112 mcg tablet 112 mcg PO QDAC 05/12/13 09/13/24 aspirin 81 mg chewable tablet 81 mg PO DAILY 01/28/16 09/13/24 carvedilol 3.125 mg tablet 3.125 mg PO BID 01/28/16 09/13/24 apixaban 5 mg tablet (Eliquis) 5 mg PO DAILY 09/13/24 09/13/24 Allergies Allergies Allergy/AdvReac Type Severity Reaction Status Date / Time codeine (Codeine) Allergy Severe Nausea Verified 09/13/24 11:57 lidocaine Allergy Severe Respiratory Verified 09/13/24 11:57 Morpholine Analogues Allergy Severe Respiratory Verified 09/13/24 11:57 cillins Allergy Intermediate Rash Uncoded 09/13/24 11:57 PFSH Active Problems All Active Problems (Updated 09/13/24 @ 17:17 by Yaakov Sullivan MD) Leukocytosis (Acute) Urinary tract infection (Acute) Syncope and collapse (Acute) Medical History Medical History (Updated 09/13/24 @ 17:17 by Yaakov Sullivan MD) Pulmonary embolism Surgical History Surgical History (Updated 09/13/24 @ 12:04 by Mague Clarke, RN) No pertinent past surgical history Social History Social History (Updated 09/13/24 @ 12:04 by Mague Clarke RN) Smoking Status: Never smoker Living arrangement: At home Living Condition: With spouse/s.o. Support Person: No Relationship: Do you feel safe in your home environment?: Yes Suffered physical, verbal, emotional, or financial abuse?: No History of Abuse: No Frequency: Daily POLST Patient has POLST: No Review of Systems Constitutional Reports: Fatigue, Fever, Chills, Malaise and Weakness; Denies: Poor appetite Eyes Denies: Pain, Irritation, Blurry vision, Vision loss, Diplopia or Eye discomfort Ears, nose, mouth, and throat Denies: Ear pain, Hearing loss, Tinnitus, Nose bleeds, Nasal discharge, Mouth lesions, Bleeding gums or Neck pain Cardiovascular Reports: Syncope; Denies: Irregular heart rate, chest pain, palpitations, edema or shortness of breath with exertion Respiratory Denies: Shortness of breath, Cough, Sputum production or Wheezing Gastrointestinal Denies: Abdominal pain, Abdominal distention, Nausea, Vomiting, Heartburn, Diarrhea or Constipation Genitourinary Reports: Painful urination, Urinary frequency, Urinary urgency and Urinary incontinence Musculoskeletal Reports: Back pain; Denies: Neck pain, Extremity pain, Extremity swelling or Joint pain Integumentary/Breast Denies: Rash, Itching, Dryness, Redness or Skin pain Neurological Reports: General weakness; Denies: Headache, Weakness in extremities, Numbness in extremities, Abnormal gait or Dizziness Psychiatric Denies: Depression, Anxiety, Mood swings or Panic attacks Endocrine Reports: Excessive urination and Fatigue; Denies: Excessive thirst Hematologic/Lymphatic Denies: Anemia, Easy bruising or Easy bleeding Allergic/Immunologic Denies: Hives, Tongue swelling, Facial swelling or Wheezing Prior Level of Functionality: Independent of ADLs. Exam Exam Vital Signs: Vital Signs x48h Temp Pulse Resp BP Pulse Ox 09/13/24 16:00 67 20 97 09/13/24 14:43 70 20 190/93 H 95 09/13/24 12:07 60 20 150/93 H 97 09/13/24 11:48 97.5 F L 83 20 190/93 H 97 Constitutional normal general appearance, no apparent distress, abnormal body habitus (thin), no limitations and alert HENMT normocephalic and head/scalp traumatic (laceration) Eyes PERRL, EOMs intact bilaterally and conjunctivae normal Chest inspection of chest normal Respiratory breath sounds equal bilaterally, normal respiratory effort, clear to auscultation bilaterally, no wheezes and no rales Cardiovascular normal heart rate noted, regular rhythm noted, no gallop, no rub and no murmur Gastrointestinal abdomen normal to inspection, abdomen soft to palpation and nontender to palpation Genitourinary CVA tenderness noted (L sided CVA tenderness) and bladder normal to palpation Back/Pelvis spine normal to inspection and no thoracic spine tenderness Extremities normal to inspection, normal to palpation and no tenderness Neurology no movement abnormality noted, no focal motor deficit noted and no sensory deficits noted Psychiatry mental status grossly normal, oriented x3, thought process normal, cooperative and affect normal Skin skin color normal, no rash and no lesions Conclusion/Plan Problem List (1) Syncope and collapse: Plan: Likely due to profound dehydration which is continued, severe and persistent. Patient does have a cardiac history, including an arrhythmia for which she was advised to take carvedilol, although she does not remember what this was. Will continue aggressive IV fluid rehydration. Echo ordered, pending. (2) Urinary tract infection: Plan: Patient with dysuria, urinary incontinence, urinary frequency. UA showed positive for moderate bacteria. Urine culture ordered, pending. Blood cultures ordered. Continue IV Rocephin 1 g daily. Qualifiers: Hematuria presence: with hematuria Urinary tract infection type: site unspecified Qualified Code(s): N39.0 - Urinary tract infection, site not specified; R31.9 - Hematuria, unspecified (3) Leukocytosis: Plan: Likely secondary to above, continue to trend. Qualifiers: Leukocytosis type: unspecified Qualified Code(s): D72.829 - Elevated white blood cell count, unspecified (4) Pulmonary embolism: Plan: Continue Eliquis. Qualifiers: Acute cor pulmonale presence: unspecified Chronicity: unspecified P ulmonary embolism type: unspecified Qualified Code(s): I26.99 - Other pulmonary embolism without acute cor pulmonale Lab Results Lab results reviewed: Yes 09/13/24 12:11 09/13/24 12:11 Diagnostic Imaging Results Diagnostic Imaging Results: positive Final report reviewed EKG Results EKG Interpreted Independently: Yes Core Measures Anticipated LOS I expect patient to be DC'd or transferred within 96 hours.: Yes Issues Hospital Issues and Management Plan: None anticipated. DVT/VTE - Prophylaxis VTE/DVT Device ordered at admit?: Yes VTE/DVT Prophylaxis med ordered at admit?: Yes
--- OUTSIDE RECORDS SUMMARY | 2024-09-13 17:59 | EXTERNAL MEDICAL SUMMARY RPT | Continuity of Care Document ---
Author Organization [facility] Address [address] [place] [id number] Phone Results/Labs test date facility value unit notes Result panel 1 NUCLEATED RED BLOOD CELLS AUTO 2024-09-13 12:11 [facility] 0.0 /100wbc (missing) EOSINOPHILS # (AUTO) 2024-09-13 12:11 [facility] 0.0 10 3/ul (missing) NRBC ABSOLUTE COUNT (AUTO) 2024-09-13 12:11 [facility] 0.00 x10 3/ul (missing) BASOPHILS # (AUTO) 2024-09-13 12:11 [facility] 0.1 10 3/ul (missing) MONOCYTES # (AUTO) 2024-09-13 12:11 [facility] 0.5 10 3/ul (missing) LYMPHOCYTES # (AUTO) 2024-09-13 12:11 [facility] 0.7 10 3/ul (missing) BILIRUBIN,TOTAL 2024-09-13 12:11 [facility] 0.7 mg/dl As of December 2022 testing method has changed, this may include reference ranges. ALBUMIN/GLOBULIN RATIO 2024-09-13 12:11 [facility] 1.2 (missing) (missing) CREATININE 2024-09-13 12:11 [email or web address] 1.4 mg/dl As of December 2022 testing method has changed, this may include reference ranges. INR 2024-09-13 12:11 [facility] 1.6 (missing) Oral Anticoagulant Indication INR range Venous Thrombosis, P.E. 2.0 - 3.0 Mechanical Valve 2.5 - 3.5 CHLORIDE 2024-09-13 12:11 [facility] 101 mmol/l As of December 2022 testing method has changed, this may include reference ranges. GLUCOSE 2024-09-13 12:11 [facility] 126 mg/dl As of December 2022 testing method has changed, this may include reference ranges. LIPASE 2024-09-13 12[facility] 13 u/l As of December 2022 testing method has changed, this may include reference ranges. RED CELL DISTRIBUTION WIDTH 2024-09-13 12[facility] 13.2 % (missing) HGB - HEMOGLOBIN 2024-09-13 12:11 [facility] 13.8 g/dl (missing) SODIUM 2024-09-13 12:11 [facility] 133 mmol/l As of December 2022 testing method has changed, this may include reference ranges. ALT ALANINE AMINOTRANSFERASE 2024-09-13 12:11 [facility] 14 iu/l As of December 2022 testing method has changed, this may include reference ranges. PT - PROTHROMBIN TIME 2024-09-13 12:11 [facility] 16.8 secs (missing) NEUTROPHILS # (AUTO) 2024-09-13 12:11 [facility] 17.1 10 3/ul (missing) AST ASPARTATE AMINOTRANSFERASE 2024-09-13 12:11 [facility] 18 iu/l As of December 2022 testing method has changed, this may include reference ranges. WHITE BLOOD COUNT 2024-09-13 12:11 [facility] 18.5 x10 3/ul (missing) BUN - BLOOD UREA NITROGEN 2024-09-13 12:11 [facility] 19 mg/dl As of December 2022 testing method has changed, this may include reference ranges. CARBON DIOXIDE - CO2 2024-09-13 12:11 [facility] 23 mmol/l As of December 2022 testing method has changed, this may include reference ranges. PARTIAL THROMBOPLASTIN TIME 2024-09-13 12:11 [facility] 29.7 secs (missing) GLOBULIN 2024-09-13 12:11 [facility] 3.1 g/dl (missing) ALBUMIN 2024-09-13 12:11 [facility] 3.7 g/dl As of December 2022 testing method has changed, this may include reference ranges. MEAN CORPUSCULAR HEMOGLOBIN 2024-09-13 12:11 [facility] 31.4 pg (missing) PLT - PLATELET COUNT 2024-09-13 12:11 [facility] 322 10 3/ul (missing) MEAN CORPUSCULAR HGB CONC 2024-09-13 12:11 [facility] 33.5 g/dl (missing) GFR - MDRD 2024-09-13 12:11 [facility] 36 (missing) Social History date description facility
[2024-09-13] MEDS: LACTATED RINGERS 1,000 ML IV SCH (18:47)
[2024-09-13] MEDS: SODIUM CHLORIDE FLUSH 0.9% 10 ML SYRINGE IVP SCH (18:48)
--- NOTE | 2024-09-13 18:51 | PHARMACY PROGRESS NOTE ---
Best Possible Medication History Admit Date and Time: 09/13/24 1657 Home Medications Medication Instructions Recorded Confirmed Type omega-3 fatty acids 1,000 mg 1,000 mg PO DAILY 11/16/12 09/13/24 History capsule citalopram 10 mg tablet 10 mg PO DAILY 05/12/13 09/13/24 History levothyroxine 112 mcg tablet 112 mcg PO QDAC 05/12/13 09/13/24 History carvedilol 3.125 mg tablet 3.125 mg PO BID 01/28/16 09/13/24 History apixaban 5 mg tablet (Eliquis) 5 mg PO DAILY 09/13/24 09/13/24 History fluticasone propionate 50 1 spray intranasal BID 09/13/24 09/13/24 History mcg/actuation nasal spray,suspension Processed by: Pharmacy Medications reviewed in ED?: No Medication History completed: Yes Patient Interview: Completed Secondary Source(s): Insurance records [facility] Statement: Per [facility] interview with patient and review of [employer] insurance records. As the person ultimately responsible for medication therapy, providers are able to order a medication from an existing home medication list in [facility] via the "Reconcile Routine" prior to Confirmation of that medication by credit support counselor. Such practice is discouraged except when the physician, in their clinical judgment, deems that a medical need exists for a medication without regard to previous use.
[2024-09-13] MEDS: carvediloL 3.125 MG TABLET PO SCH (20:16)
[2024-09-13] MEDS: ACETAMINOPHEN 325 MG TABLET PO PRN (20:16)
[2024-09-14 06:07] LABS: HCT - HEMATOCRIT 36.3 % (37.0-47.0); HGB - HEMOGLOBIN 12.1 g/dL (12.0-16.0); MEAN CORPUSCULAR HEMOGLOBIN 31.3 pg (27.0-31.0); MEAN CORPUSCULAR HGB CONC 33.3 g/dL (32.0-36.0); RED BLOOD COUNT 3.86 10^6/uL (4.20-5.40); RED CELL DISTRIBUTION WIDTH 13.6 % (12.0-15.0); WHITE BLOOD COUNT 30.8 x10^3/uL (4.8-10.8)
[2024-09-14] MEDS: LEVOTHYROXINE 112 MCG TABLET PO SCH (06:24)
[2024-09-14 08:51] LABS: CALCIUM 8.4 mg/dL (8.5-10.3); CREATININE 2.1 mg/dL (0.6-1.3); MAGNESIUM 1.8 mg/dL (1.7-2.3); POTASSIUM 4.4 mmol/L (3.5-4.5)
[2024-09-14] MEDS ORDERED: CEFEPIME 2 GM VIAL IVP SCH (09:00)
[2024-09-14] MEDS ORDERED: cefTRIAXone 1 GM VIAL IVP SCH (09:00)
[2024-09-14] MEDS: CEFEPIME 1 GM in SODIUM CHLORIDE 0.9% MINIBAG 100 ML IV SCH (09:55)
[2024-09-14] MEDS: OMEGA-3 ACID ETHYL ESTERS 1 GM CAPSULE PO SCH (10:03)
[2024-09-14] MEDS: ASPIRIN CHEW 81 MG TABLET PO SCH (10:04)
[2024-09-14] MEDS: APIXABAN 5 MG TABLET PO SCH (10:05)
[2024-09-14] MEDS: CITALOPRAM 10 MG TABLET PO SCH (10:05)
[2024-09-14] MEDS: VANCOMYCIN INJ 1 GM, VANCOMYCIN INJ 250 MG in SODIUM CHLORIDE 0.9% 500 ML IV ONE (10:45)
--- NOTE | 2024-09-14 11:51 | PROVIDER PROGRESS NOTE ---
Subjective Subjective Subjective: Overnight, patient had an episode of rigors and chills. This morning, she does feel better. She denies any dysuria. She has some pain in her left flank, but she attributes this to gardening and bending over, which she states is fairly common for her. We talked about why I wanted to do a CT scan, but she would prefer not to. She is okay with a retroperitoneal ultrasound. Current Medications Current Medications Current Medications: Current Medications Generic Name Dose Route Start Last Admin Trade Name Freq PRN Reason Stop Dose Admin Acetaminophen 650 mg 09/13/24 18:14 09/13/24 20:16 Acetaminophen 325 Mg Tablet PO 650 mg Q4HR PRN Administration Pain 1 to 4, or Fever Apixaban 5 mg 09/14/24 09:00 09/14/24 10:05 Apixaban 5 Mg Tablet PO 5 mg DAILY TORIBIO Administration Aspirin 81 mg 09/14/24 09:00 09/14/24 10:04 Aspirin Chew 81 Mg Tablet PO Not Given DAILY TORIBIO Carvedilol 3.125 mg 09/13/24 21:00 09/14/24 10:05 Carvedilol 3.125 Mg Tablet PO 3.125 mg BID TORIBIO Administration Citalopram Hydrobromide 10 mg 09/14/24 09:00 09/14/24 10:05 Citalopram 10 Mg Tablet PO 10 mg DAILY TORIBIO Administration Cefepime HCl 1 gm/ Sodium 100 mls @ 200 mls/hr 09/14/24 09:00 09/14/24 10:25 Chloride IV Infused BID TORIBIO Infusion Vancomycin HCl 750 mg/ Sodium 250 mls @ 167 mls/hr 09/15/24 09:30 Chloride IV Q24H TORIBIO Levothyroxine Sodium 112 mcg 09/14/24 07:00 09/14/24 06:24 Levothyroxine 112 Mcg Tablet PO 112 mcg QDAC TORIBIO Administration [id number] Ethyl Esters 1 gm 09/14/24 09:00 09/14/24 10:03 [place]-3 Acid Ethyl Esters 1 Gm Capsule PO Not Given DAILY TORIBIO Ondansetron HCl 4 mg 09/13/24 18:14 Ondansetron Odt 4 Mg Tablet TL Q6HR PRN Nausea / Vomiting Ondansetron HCl 4 mg 09/13/24 18:14 Ondansetron 4 Mg/2 Ml Vial IVP Q6HR PRN Nausea / Vomiting Sodium Chloride 10 ml 09/13/24 18:14 Sodium Chloride Flush 0.9% 10 Ml Syringe IVP PRN PRN NEEDED PER PROVIDER ORDERS Sodium Chloride 10 ml 09/13/24 18:14 09/14/24 10:05 Sodium Chloride Flush 0.9% 10 Ml Syringe IVP 10 ml 0100,0900,1700 TORIBIO Administration Objective Vital Signs/Intake & Output Reviewed Vital Signs: Yes Vital Signs: Vital Signs x48h Temp Pulse Pulse Resp BP Pulse Ox O2 Flow Rate 09/14/24 07:53 97.5 F L 67 20 126/55 L 99 2 09/14/24 07:14 2 09/14/24 05:00 97.7 F 73 18 117/67 100 2 Intake & Output: Intake & Output 09/11/24 09/12/24 09/13/24 09/14/24 23:59 23:59 23:59 23:59 Intake Total 1462 / 1462 960 / 960 Output Total 400 / 400 200 / 200 Balance 1062 / 1062 760 / 760 Weight (kg) 58.967 kg Objective General Appearance: positive No acute distress and Alert; negative Anxious Eyes Bilateral: positive Normal inspection, PERRL and EOMI ENT: positive ENT inspection nml, Pharynx nml and No signs of dehydration Neck: positive Nml inspection, Thyroid nml and No JVD Respiratory: positive Chest non-tender and No respiratory distress; negative Wheezes, Rales or Rhonchi Cardiovascular: positive Regular rate & rhythm, No murmur and No gallop; negative Systolic murmur or Diastolic murmur Abdomen: positive Non-tender and Nml bowel sounds; negative Guarding, Hepatomegaly or Splenomegaly Back: positive Nml inspection and CVA tenderness (L) (mild tenderness ) Skin: positive Color nml, No rash and Warm Extremities: positive Non-tender, Full ROM and Nml appearance Neurologic/Psychiatric: positive Oriented x3, Motor nml and Mood/affect nml Lab Results 09/14/24 05:40 09/14/24 05:40 Other Labs: Lab Results x24hrs 09/14/24 09/14/24 09/13/24 Range/Units 10:05 05:40 17:33 WBC 30.8 H (4.8-10.8) x10^3/uL RBC 3.86 L (4.20-5.40) 10^6/uL Hgb 12.1 (12.0-16.0) g/dL Hct 36.3 L (37.0-47.0) % MCV 94.0 (81.0-99.0) fL MCH 31.3 H (27.0-31.0) pg MCHC 33.3 (32.0-36.0) g/dL RDW 13.6 (12.0-15.0) % Plt Count 304 (130-450) 10^3/uL MPV 10.0 (7.9-10.8) fL Neut # (Auto) (1.5-6.6) 10^3/uL Lymph # (Auto) (1.5-3.5) 10^3/uL [place] # (Auto) (0.0-1.0) 10^3/uL Eos # (Auto) (0.0-0.7) 10^3/uL Baso # (Auto) (0.0-0.1) 10^3/uL Absolute Nucleated RBC x10^3/uL Nucleated RBC % /100WBC PT (9.9-12.6) secs INR (0.8-1.2) APTT (24.9-33.3) secs Sodium 136 (135-145) mmol/L Potassium 4.4 (3.5-4.5) mmol/L Chloride 105 (101-111) mmol/L Carbon Dioxide 21 (21-32) mmol/L Anion Gap 10.0 (6-13) BUN 27 H (6-20) mg/dL Creatinine 2.1 H (0.6-1.3) mg/dL Estimated GFR (MDRD) 23 L (>89) Glucose 112 H (74-104) mg/dL Lactic Acid 0.7 (0.5-2.2) mmol/L Calcium 8.4 L (8.5-10.3) mg/dL Magnesium 1.8 (1.7-2.3) mg/dL Total Bilirubin (0.2-1.0) mg/dL AST (10-42) IU/L ALT (10-60) IU/L Alkaline Phosphatase (42-121) IU/L Total Creatine Kinase 43 (30-223) IU/L Troponin I High Sens 11.4 (2.3-14.8) ng/L B-Natriuretic Peptide (5-100) pg/mL Total Protein (6.4-8.9) g/dL Albumin (3.2-5.5) g/dL Globulin (2.1-4.2) g/dL Albumin/Globulin Ratio (1.0-2.2) Lipase (11-82) U/L Urine Color Urine Clarity (CLEAR) Urine pH (5.0-7.5) PH Ur Specific [place] (1.002-1.030) Urine Protein (NEGATIVE) mg/dL Urine Glucose (UA) (NEGATIVE) mg/dL Urine Ketones (NEGATIVE) mg/dL Urine Occult Blood (NEGATIVE) Urine Nitrite (NEGATIVE) Urine Bilirubin (NEGATIVE) Urine Urobilinogen (NORMAL) E.U./dL Ur Leukocyte Esterase (NEGATIVE) Urine RBC (0-5) /HPF Urine WBC (0-5) /HPF Urine WBC Clumps Ur Squamous Epith Cells (<= Few) Urine Bacteria (None Seen) /HPF Ur Microscopic Review Urine Culture Comments Blood Type Blood Type Recheck Antibody Screen 09/13/24 09/13/24 09/13/24 Range/Units 12:57 12:24 12:11 WBC 18.5 H (4.8-10.8) x10^3/uL RBC 4.40 (4.20-5.40) 10^6/uL Hgb 13.8 (12.0-16.0) g/dL Hct 41.2 (37.0-47.0) % MCV 93.6 (81.0-99.0) fL MCH 31.4 H (27.0-31.0) pg MCHC 33.5 (32.0-36.0) g/dL RDW 13.2 (12.0-15.0) % Plt Count 322 (130-450) 10^3/uL MPV 9.6 (7.9-10.8) fL Neut # (Auto) 17.1 H (1.5-6.6) 10^3/uL Lymph # (Auto) 0.7 L (1.5-3.5) 10^3/uL [place] # (Auto) 0.5 (0.0-1.0) 10^3/uL Eos # (Auto) 0.0 (0.0-0.7) 10^3/uL Baso # (Auto) 0.1 (0.0-0.1) 10^3/uL Absolute Nucleated RBC 0.00 x10^3/uL Nucleated RBC % 0.0 /100WBC PT 16.8 H (9.9-12.6) secs INR 1.6 H (0.8-1.2) APTT 29.7 (24.9-33.3) secs Sodium 133 L (135-145) mmol/L Potassium 4.2 (3.5-4.5) mmol/L Chloride 101 (101-111) mmol/L Carbon Dioxide 23 (21-32) mmol/L Anion Gap 9.0 (6-13) BUN 19 (6-20) mg/dL Creatinine 1.4 H (0.6-1.3) mg/dL Estimated GFR (MDRD) 36 L (>89) Glucose 126 H (74-104) mg/dL Lactic Acid (0.5-2.2) mmol/L Calcium 8.9 (8.5-10.3) mg/dL Magnesium (1.7-2.3) mg/dL Total Bilirubin 0.7 (0.2-1.0) mg/dL AST 18 (10-42) IU/L ALT 14 (10-60) IU/L Alkaline Phosphatase 90 (42-121) IU/L Total Creatine Kinase (30-223) IU/L Troponin I High Sens 8.6 (2.3-14.8) ng/L B-Natriuretic Peptide 228 H (5-100) pg/mL Total Protein 6.8 (6.4-8.9) g/dL Albumin 3.7 (3.2-5.5) g/dL Globulin 3.1 (2.1-4.2) g/dL Albumin/Globulin Ratio 1.2 (1.0-2.2) Lipase 13 (11-82) U/L Urine Color YELLOW Urine Clarity HAZY (CLEAR) Urine pH 6.0 (5.0-7.5) PH Ur Specific [place] 1.015 (1.002-1.030) Urine Protein 30 H (NEGATIVE) mg/dL Urine Glucose (UA) NEGATIVE (NEGATIVE) mg/dL Urine Ketones TRACE (NEGATIVE) mg/dL Urine Occult Blood LARGE H (NEGATIVE) Urine Nitrite POSITIVE H (NEGATIVE) Urine Bilirubin NEGATIVE (NEGATIVE) Urine Urobilinogen 0.2 (NORMAL) (NORMAL) E.U./dL Ur Leukocyte Esterase SMALL H (NEGATIVE) Urine RBC 11-25 H (0-5) /HPF Urine WBC 11-25 H (0-5) /HPF Urine WBC Clumps PRESENT Ur Squamous Epith Cells RARE Squamous (<= Few) Urine Bacteria Moderate H (None Seen) /HPF Ur Microscopic Review INDICATED Urine Culture Comments INDICATED Blood Type A POSITIVE Blood Type Recheck A POSITIVE Antibody Screen NEGATIVE Assessment/Plan Problem List (1) Syncope and collapse: Impression: Patient has had persistent dizziness over the last week or so. Likely due to profound dehydration which is continued, severe and persistent. She endorses a decreased p.o. intake due to generalized malaise, as well as urinary symptoms as outlined below. Patient states that she does have a cardiac history, including an arrhythmia for which she was advised to take carvedilol for in 1996. She does not recall what this is exactly. Patient is placed on cardiac telemetry, no abnormal heart rhythms have been noted at this time. EKG was reviewed, no ST segment elevations or depressions or any concern for cardiac ischemia noted. Troponin was negative. Continue aggressive IV fluid rehydration, patient remains on LR at 75 cc an hour. (2) Urinary tract infection: Impression: Patient presented with urinary incontinence, dysuria. UA is positive for leukocyte esterase, WBCs, bacteria. Urine culture has been sentpreliminary shows gram-negative rods. Patient was initially started on Rocephin. Overnight, her leukocytosis increased from 18-30. I have broaden her antibiotics to include cefepime and vancomycin. MRSA swab is ordered. Blood cultures are ordered, remain pending. Patient refused a CT scan to assess for perinephric abscess, versus infected stone. She is okay with the retroperitoneal ultrasound at this time. Bladder scan does not show retention. Qualifiers: Hematuria presence: with hematuria Urinary tract infection type: site unspecified Qualified Code(s): N39.0 - Urinary tract infection, site not specified; R31.9 - Hematuria, unspecified (3) Acute kidney injury: Impression: Creatinine continues to worsen, baseline around 1, it was 1.4 yesterday, and it is now 2.1. She is not retaining urine. Initially was attributed to be prerenal, due to dehydration, but she has been adequately hydrated. Concern for ATN due to active infection. Continue IV fluid rehydration, retroperitoneal ultrasound ordered, pending. (4) Leukocytosis: Impression: White count increased from 18.5-30.8. Management as above. Qualifiers: Leukocytosis type: unspecified Qualified Code(s): D72.829 - Elevated white blood cell count, unspecified (5) Pulmonary embolism: Impression: Continue her home medications. She was taking Eliquis 5 mg once a day. I have changed her to 2.5 mg twice daily, she is a candidate for lower dose Eliquis with her age, and renal function. Qualifiers: Acute cor pulmonale presence: unspecified Chronicity: unspecified P ulmonary embolism type: unspecified Qualified Code(s): I26.99 - Other pulmonary embolism without acute cor pulmonale
[2024-09-14] MEDS: LACTATED RINGERS 1,000 ML IV SCH (12:50)
--- NOTE | 2024-09-14 20:25 | XRAY Report ---
PROCEDURE: XR Chest 1V INDICATIONS: WAGNER TECHNIQUE: One view of the chest was acquired. COMPARISON: 05/12/2013. FINDINGS: Surgical changes and devices: None. Lungs and pleura: No pneumothorax. Mild blunting of the right costophrenic angle may represent pleur al thickening versus very small pleural effusion. No consolidation. Mediastinum: Mediastinal contours appear normal. Heart size is normal. Bones and chest wall: No suspicious bony lesions. Overlying soft tissues appear unremarkable. IMPRESSION: Mild blunting of the right costophrenic angle which may represent pleural thickening versus small ple ural effusion. Otherwise, no focal consolidation seen. No acute cardiopulmonary abnormalities identif ied. Reviewed by: Soto Horner MD on 09/14/2024 8:24 PM PDT Approved by: Soto Horner MD on 09/14/2024 8:24 PM PDT Station ID: [id number]
[2024-09-14] MEDS: APIXABAN 2.5 MG TABLET PO SCH (20:52)
--- NOTE | 2024-09-14 22:42 | Ultrasound Report ---
PROCEDURE: US Renal (Retroperitoneal) INDICATIONS: worsening SHAUNA, rule out hydro TECHNIQUE: Real-time scanning was performed of the retroperitoneal organs, with image documentation. COMPARISON: None. FINDINGS AND IMPRESSION: Slightly smaller right kidney measuring 8 cm. Left kidney measures 11 cm. 6 mm right lower pole suspe cted nonobstructing calculus. No hydronephrosis. Overall sonographic windows limited by rib artifact Reviewed by: Paresh Elias MD on 09/14/2024 10:41 PM PDT Approved by: Paresh Elias MD on 09/14/2024 10:41 PM PDT Station ID: [id number]
[2024-09-15 05:55] LABS: HCT - HEMATOCRIT 36.2 % (37.0-47.0); HGB - HEMOGLOBIN 12.3 g/dL (12.0-16.0); MEAN CORPUSCULAR HEMOGLOBIN 31.5 pg (27.0-31.0); MEAN CORPUSCULAR VOLUME 92.6 fL (81.0-99.0); MEAN PLATELET VOLUME 10.1 fL (7.9-10.8); RED BLOOD COUNT 3.91 10^6/uL (4.20-5.40); RED CELL DISTRIBUTION WIDTH 13.5 % (12.0-15.0); WHITE BLOOD COUNT 18.7 x10^3/uL (4.8-10.8)
[2024-09-15 06:05] LABS: MAGNESIUM 2.1 mg/dL (1.7-2.3)
[2024-09-15 06:11] LABS: CALCIUM 8.5 mg/dL (8.5-10.3); POTASSIUM 4.2 mmol/L (3.5-4.5)
[2024-09-15] MEDS ORDERED: MECLIZINE 12.5 MG TABLET PO PRN (06:22)
[2024-09-15] MEDS: ONDANSETRON ODT 4 MG TABLET TL PRN (06:44)
[2024-09-15] MEDS ORDERED: VANCOMYCIN INJ 750 MG in SODIUM CHLORIDE 0.9% 250 ML IV SCH (09:30)
[2024-09-15] MEDS: PROCHLORPERAZINE 10 MG/2 ML VIAL IVP PRN (10:05)
--- NOTE | 2024-09-15 10:18 | PROVIDER PROGRESS NOTE ---
Subjective Subjective Subjective: Patient has severe dizziness when she turns her head to the left. She also has rapid eye movements. This sounds typical of BPPV. We talked about repeating the CT scan, she because she did hit her head when she first got here. We talked about how the head CT did not show any acute intracranial process, so this will be a progression study. Our physical therapist is also going to attempt Ashley-Hallpike on her to see if she has any symptomatic relief. Current Medications Current Medications Current Medications: Current Medications Generic Name Dose Route Start Last Admin Trade Name Freq PRN Reason Stop Dose Admin Acetaminophen 650 mg 09/13/24 18:14 09/15/24 05:54 Acetaminophen 325 Mg Tablet PO 650 mg Q4HR PRN Administration Pain 1 to 4, or Fever Apixaban 2.5 mg 09/14/24 21:00 09/15/24 09:07 Apixaban 2.5 Mg Tablet PO 2.5 mg BID TORIBIO Administration Aspirin 81 mg 09/14/24 09:00 09/14/24 10:04 Aspirin Chew 81 Mg Tablet PO Not Given DAILY TORIBIO Carvedilol 3.125 mg 09/13/24 21:00 09/15/24 09:14 Carvedilol 3.125 Mg Tablet PO Not Given BID TORIBIO Citalopram Hydrobromide 10 mg 09/14/24 09:00 09/15/24 09:07 Citalopram 10 Mg Tablet PO 10 mg DAILY TORIBIO Administration Cefepime HCl 1 gm/ Sodium 100 mls @ 200 mls/hr 09/16/24 09:00 Chloride IV Q24H TORIBIO Levothyroxine Sodium 112 mcg 09/14/24 07:00 09/15/24 05:54 Levothyroxine 112 Mcg Tablet PO 112 mcg QDAC TORIBIO Administration Meclizine HCl 12.5 mg 09/15/24 06:22 Meclizine 12.5 Mg Tablet PO Q6HR PRN Dizziness Ondansetron HCl 4 mg 09/13/24 18:14 09/15/24 06:44 Ondansetron Odt 4 Mg Tablet TL 4 mg Q6HR PRN Administration Nausea / Vomiting Ondansetron HCl 4 mg 09/13/24 18:14 Ondansetron 4 Mg/2 Ml Vial IVP Q6HR PRN Nausea / Vomiting Prochlorperazine Edisylate 10 mg 09/15/24 09:41 09/15/24 10:05 Prochlorperazine 10 Mg/2 Ml Vial IVP 10 mg Q6HR PRN Administration Nausea / Vomiting Sodium Chloride 10 ml 09/13/24 18:14 Sodium Chloride Flush 0.9% 10 Ml Syringe IVP PRN PRN NEEDED PER PROVIDER ORDERS Sodium Chloride 10 ml 09/13/24 18:14 09/15/24 09:07 Sodium Chloride Flush 0.9% 10 Ml Syringe IVP 10 ml 0100,0900,1700 TORIBIO Administration Objective Vital Signs/Intake & Output Reviewed Vital Signs: Yes Vital Signs: Vital Signs x48h Temp Pulse Resp BP BP Pulse Ox 09/15/24 08:23 97.3 F L 60 16 151/74 H 98 09/15/24 04:43 97.9 F 61 16 154/70 H 96 Intake & Output: Intake & Output 09/12/24 09/13/24 09/14/24 09/15/24 23:59 23:59 23:59 23:59 Intake Total 1462 / 1462 3124 / 3124 100 / 100 Output Total 400 / 400 1100 / 1100 1100 / 1100 Balance 1062 / 1062 2023 / 2023 -1000 / -1000 Weight (kg) 58.967 kg Objective General Appearance: positive No acute distress and Alert; negative Anxious Eyes Bilateral: positive Normal inspection, PERRL and EOMI ENT: positive ENT inspection nml, Pharynx nml and No signs of dehydration Neck: positive Nml inspection, Thyroid nml and No JVD Respiratory: positive Chest non-tender and No respiratory distress; negative Wheezes, Rales or Rhonchi Cardiovascular: positive Regular rate & rhythm, No murmur and No gallop; negative Systolic murmur or Diastolic murmur Abdomen: positive Non-tender and Nml bowel sounds; negative Guarding, Hepatomegaly or Splenomegaly Back: positive Nml inspection and CVA tenderness (L) (mild tenderness ) Skin: positive Color nml, No rash and Warm Extremities: positive Non-tender, Full ROM and Nml appearance Neurologic/Psychiatric: positive Oriented x3, Motor nml and Mood/affect nml Lab Results 09/15/24 05:35 09/15/24 05:35 Other Labs: Lab Results x24hrs 09/15/24 09/14/24 09/14/24 Range/Units 05:35 15:15 10:05 WBC 18.7 H (4.8-10.8) x10^3/uL RBC 3.91 L (4.20-5.40) 10^6/uL Hgb 12.3 (12.0-16.0) g/dL Hct 36.2 L (37.0-47.0) % MCV 92.6 (81.0-99.0) fL MCH 31.5 H (27.0-31.0) pg MCHC 34.0 (32.0-36.0) g/dL RDW 13.5 (12.0-15.0) % Plt Count 292 (130-450) 10^3/uL MPV 10.1 (7.9-10.8) fL Sodium 135 (135-145) mmol/L Potassium 4.2 (3.5-4.5) mmol/L Chloride 107 (101-111) mmol/L Carbon Dioxide 22 (21-32) mmol/L Anion Gap 6.0 (6-13) BUN 35 H (6-20) mg/dL Creatinine 2.0 H (0.6-1.3) mg/dL Estimated GFR (MDRD) 24 L (>89) Glucose 114 H (74-104) mg/dL Calcium 8.5 (8.5-10.3) mg/dL Magnesium 2.1 (1.7-2.3) mg/dL Troponin I High Sens 11.4 (2.3-14.8) ng/L Nasal Screen MRSA (PCR) NEGATIVE (NEGATIVE) Assessment/Plan Problem List (1) Syncope and collapse: Impression: Patient has had persistent dizziness over the last week or so. Likely due to profound dehydration which is continued, severe and persistent. She endorses a decreased p.o. intake due to generalized malaise, as well as urinary symptoms as outlined below. This morning, she states the dizziness has changed. It is exacerbated by quick head movements, and associated with nystagmus. Repeat CT head ordered to assess for any delayed acute intracranial process. I have also asked our physical therapist to complete the Ashley-Hallpike maneuver, symptoms are very typical of BPPV. Patient states that she does have a cardiac history, including an arrhythmia for which she was advised to take carvedilol for in 1996. She does not recall what this is exactly. Patient is placed on cardiac telemetry, no abnormal heart rhythms have been noted at this time. EKG was reviewed, no ST segment elevations or depressions or any concern for cardiac ischemia noted. Troponin was negative. Continue to encourage P.O. intake. (2) Urinary tract infection: Impression: Patient presented with urinary incontinence, dysuria. UA is positive for leukocyte esterase, WBCs, bacteria. Urine culture has been sentpreliminary shows gram-negative rods. Patient was initially started on Rocephin. Yesterday, her leukocytosis increased from 18-30. Broadenrd her antibiotics to include cefepime and vancomycin. MRSA swab is ordered, was negative. Back down to just cefepime. White count improved today. Blood cultures are ordered, remain pending. Patient refused a CT scan to assess for perinephric abscess, versus infected stone. She is okay with the retroperitoneal ultrasound at this time which just showed non-obstructive stone. Qualifiers: Hematuria presence: with hematuria Urinary tract infection type: site unspecified Qualified Code(s): N39.0 - Urinary tract infection, site not specified; R31.9 - Hematuria, unspecified (3) Acute kidney injury: Impression: Creatinine stable around 2. She is not retaining urine. Initially was attributed to be prerenal, due to dehydration, but she has been adequately hydrated. Concern for ATN due to active infection. Continue to trend. (4) Leukocytosis: Impression: Stable, due to active infection. Qualifiers: Leukocytosis type: unspecified Qualified Code(s): D72.829 - Elevated white blood cell count, unspecified (5) Pulmonary embolism: Impression: Continue her home medications. She was taking Eliquis 5 mg once a day. I have changed her to 2.5 mg twice daily, she is a candidate for lower dose Eliquis with her age, and renal function. Qualifiers: Acute cor pulmonale presence: unspecified Chronicity: unspecified P ulmonary embolism type: unspecified Qualified Code(s): I26.99 - Other pulmonary embolism without acute cor pulmonale
--- NOTE | 2024-09-15 11:58 | CT Report ---
PROCEDURE: CT Head WO INDICATIONS: dizziness TECHNIQUE: Helical axial CT of the brain was obtained without contrast and reformatted in multiple p lanes. Radiation dose reduction was achieved using automated exposure control or adjustment of mA and /or kV according to patient size. COMPARISON: 09/13/2024 FINDINGS: CSF spaces: Ventricles are appropriate in size and position. No hydrocephalus. Basal cisterns unre markable. Brain: No midline shift. No intracranial masses or hemorrhage. Tran-white matter interface is norm al. Skull and face: Calvarium and skull base are unremarkable without suspicious lesion. Bilateral intr aocular lens replacements noted. Sinuses: Bilateral complete maxillary sinus opacification with osseous wall thickening reflecting ch ronic sinusitis, unchanged. Frontal and anterior ethmoid opacification noted as well IMPRESSION: Stable atrophy and chronic ischemic change without acute hemorrhage or mass effect. Chronic maxillary, ethmoid and frontal sinusitis Reviewed by: Glenn Hamm MD on 09/15/2024 10:57 AM KAREN Approved by: Glenn Hamm MD on 09/15/2024 10:57 AM AKMARTIN Station ID: [id number]
--- NOTE | 2024-09-15 14:03 | PT Plan of Care ---
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 Please see chart for complete medical hx. The pt was received resting comfortably supine in bed on her R side and presented today with good overall strength and mobility. She did have findings with L posterior canal dysfunction and was treated for this using an Epely maneuver 4x, each tx there was a decrease in duration of nystagmus and afterwards she was able to stand, ambulate, and sit up in a chair without vertigo. At this time recommend continued skilled PT intervention while in the acute setting and DC home once pt medically stable, it is anticipated that she will not require follow up PT after DC, however, if BPPV symptoms persist then recommend OPPT for this. This plan was discussed with the pt and she was in agreement with this. At the end of the session the pt was sitting up in a chair with call light in reach and all needs met while eating lunch and visiting with her and a friend. RN and hospitalist updated on pt's status and DC rec. PATIENT/FAMILY GOALS Patient/Family Goals: To stop the vertigo so that she can return to PLOF GOALS Improve supine to sit to:: Independent Improve sit to stand to:: Independent Improve pivot transfer ability to:: Independent Improve sit to supine to:: Independent Improve gait ability to:: Ind Advance Assistive Device to:: None Increase distance walked to (in feet):: 300 PLAN Frequency: 1-2x/day Duration: until BPPV have resolved DISCHARGE RECOMMENDATIONS Discharge Location: Previous Living Situation Support/Services Needed: No needs Other Discharge Equipment: pt owns all recommended DME Transport Needs at Discharge: Personal vehicle
[2024-09-16 05:30] LABS: HCT - HEMATOCRIT 36.9 % (37.0-47.0); HGB - HEMOGLOBIN 12.2 g/dL (12.0-16.0); MEAN CORPUSCULAR HEMOGLOBIN 31.1 pg (27.0-31.0); MEAN CORPUSCULAR HGB CONC 33.1 g/dL (32.0-36.0); MEAN CORPUSCULAR VOLUME 94.1 fL (81.0-99.0); MEAN PLATELET VOLUME 10.1 fL (7.9-10.8); RED BLOOD COUNT 3.92 10^6/uL (4.20-5.40); RED CELL DISTRIBUTION WIDTH 13.4 % (12.0-15.0); WHITE BLOOD COUNT 10.3 x10^3/uL (4.8-10.8)
[2024-09-16 05:44] LABS: CALCIUM 8.6 mg/dL (8.5-10.3); CREATININE 1.8 mg/dL (0.6-1.3); POTASSIUM 4.6 mmol/L (3.5-4.5)
[2024-09-16] MEDS ORDERED: CEFEPIME 1 GM in SODIUM CHLORIDE 0.9% MINIBAG 100 ML IV SCH (09:00)
--- NOTE | 2024-09-16 09:17 | PROVIDER PROGRESS NOTE ---
Subjective Subjective Subjective: After working with physical therapy yesterday, patient feels much improved symptoms of her dizziness. The physical therapist did the Ashley-Hallpike maneuver which provided her with relief. Her appetite is slowly returning. She has had no fevers or chills or shortness of breath. We are still awaiting an ECHO, hopefully to be completed sometime today. Later in the day, when she worked with PT/OT, she still had persistent dizziness. Current Medications Current Medications Current Medications: Current Medications Generic Name Dose Route Start Last Admin Trade Name Freq PRN Reason Stop Dose Admin Acetaminophen 650 mg 09/13/24 18:14 09/16/24 05:09 Acetaminophen 325 Mg Tablet PO 650 mg Q4HR PRN Administration Pain 1 to 4, or Fever Apixaban 2.5 mg 09/14/24 21:00 09/15/24 20:00 Apixaban 2.5 Mg Tablet PO 2.5 mg BID TORIBIO Administration Aspirin 81 mg 09/14/24 09:00 09/14/24 10:04 Aspirin Chew 81 Mg Tablet PO Not Given DAILY TORIBIO Ceftriaxone Sodium 1 gm 09/16/24 09:00 Ceftriaxone 1 Gm Vial IVP DAILY TORIBIO Citalopram Hydrobromide 10 mg 09/14/24 09:00 09/15/24 09:07 Citalopram 10 Mg Tablet PO 10 mg DAILY TORIBIO Administration Levothyroxine Sodium 112 mcg 09/14/24 07:00 09/16/24 06:06 Levothyroxine 112 Mcg Tablet PO 112 mcg QDAC TORIBIO Administration Meclizine HCl 12.5 mg 09/15/24 06:22 Meclizine 12.5 Mg Tablet PO Q6HR PRN Dizziness Ondansetron HCl 4 mg 09/13/24 18:14 09/15/24 06:44 Ondansetron Odt 4 Mg Tablet TL 4 mg Q6HR PRN Administration Nausea / Vomiting Ondansetron HCl 4 mg 09/13/24 18:14 Ondansetron 4 Mg/2 Ml Vial IVP Q6HR PRN Nausea / Vomiting Prochlorperazine Edisylate 10 mg 09/15/24 09:41 09/15/24 10:05 Prochlorperazine 10 Mg/2 Ml Vial IVP 10 mg Q6HR PRN Administration Nausea / Vomiting Sodium Chloride 10 ml 09/13/24 18:14 Sodium Chloride Flush 0.9% 10 Ml Syringe IVP PRN PRN NEEDED PER PROVIDER ORDERS Sodium Chloride 10 ml 09/13/24 18:14 09/16/24 00:05 Sodium Chloride Flush 0.9% 10 Ml Syringe IVP 10 ml 0100,0900,1700 [facility] Administration Objective Vital Signs/Intake & Output Reviewed Vital Signs: Yes Vital Signs: Vital Signs x48h Temp Pulse Pulse Resp BP BP Pulse Ox 09/16/24 07:42 97.5 F L 53 L 16 153/74 H 96 09/16/24 04:30 98.1 F 64 20 150/78 H 100 Intake & Output: Intake & Output 09/13/24 09/14/24 09/15/24 09/16/24 23:59 23:59 23:59 23:59 Intake Total 1462 / 1462 3124 / 3124 1490 / 1490 20 / 20 Output Total 400 / 400 1100 / 1100 2200 / 2200 100 / 100 Balance 1062 / 1062 2023 / 2023 -710 / -710 -80 / -80 Weight (kg) 58.967 kg Objective General Appearance: positive No acute distress and Alert; negative Anxious Eyes Bilateral: positive Normal inspection, PERRL and EOMI ENT: positive ENT inspection nml, Pharynx nml and No signs of dehydration Neck: positive Nml inspection, Thyroid nml and No JVD Respiratory: positive Chest non-tender and No respiratory distress; negative Wheezes, Rales or Rhonchi Cardiovascular: positive Regular rate & rhythm, No murmur and No gallop; negative Systolic murmur or Diastolic murmur Abdomen: positive Non-tender and Nml bowel sounds; negative Guarding, Hepatomegaly or Splenomegaly Back: positive Nml inspection and CVA tenderness (L) (mild tenderness ) Skin: positive Color nml, No rash and Warm Extremities: positive Non-tender, Full ROM and Nml appearance Neurologic/Psychiatric: positive Oriented x3, Motor nml and Mood/affect nml Lab Results 09/16/24 05:05 09/16/24 05:05 Other Labs: Lab Results x24hrs 09/16/24 Range/Units 05:05 WBC 10.3 (4.8-10.8) x10^3/uL RBC 3.92 L (4.20-5.40) 10^6/uL Hgb 12.2 (12.0-16.0) g/dL Hct 36.9 L (37.0-47.0) % MCV 94.1 (81.0-99.0) fL MCH 31.1 H (27.0-31.0) pg MCHC 33.1 (32.0-36.0) g/dL RDW 13.4 (12.0-15.0) % Plt Count 313 (130-450) 10^3/uL MPV 10.1 (7.9-10.8) fL Sodium 135 (135-145) mmol/L Potassium 4.6 H (3.5-4.5) mmol/L Chloride 106 (101-111) mmol/L Carbon Dioxide 24 (21-32) mmol/L Anion Gap 5.0 L (6-13) BUN 28 H (6-20) mg/dL Creatinine 1.8 H (0.6-1.3) mg/dL Estimated GFR (MDRD) 27 L (>89) Glucose 101 (74-104) mg/dL Calcium 8.6 (8.5-10.3) mg/dL Magnesium 2.0 (1.7-2.3) mg/dL Diagnostic Imaging Diagnostic Imaging Results: positive Final report reviewed Assessment/Plan Problem List (1) Syncope and collapse: Impression: Patient has had persistent dizziness over the last week or so. She endorses a decreased p.o. intake due to generalized malaise, as well as urinary symptoms as outlined below. Yesterday, patient had typical BPPV dizziness that was exacerbated by quick head movements, and associated with nystagmus. Repeat CT head ordered to assess for any delayed acute intracranial process, negative. Physical therapist completed the Ashley-Hallpike maneuver with relief of symptoms. This morning, the dizzeness has returned and PT/OT endorses a left leaning gait with ambulation. Consider MRI tomorrow if worsens. Patient states that she does have a cardiac history, including an arrhythmia for which she was advised to take carvedilol for in 1996. She does not recall what this is exactly. Since being here, she has been bradycardic, and I have held her Coreg. 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 EKG was reviewed, no ST segment elevations or depressions or any concern for cardiac ischemia noted. Troponin was negative. Continue to encourage P.O. intake. (2) Urinary tract infection: Impression: Patient presented with urinary incontinence, dysuria. UA is positive for leukocyte esterase, WBCs, bacteria. Urine culture has been sent grew E.Coli which is largely sensitive to most antibiotics. Patient was initially started on Rocephin. When her leukocytosis increased from 18-30, broadened her antibiotics to include cefepime and vancomycin. MRSA swab is ordered, was negative. Leukocytosis has now resolved, as of today, and she was de-escalated . Blood cultures are ordered, remain pending. Patient refused a CT scan to assess for perinephric abscess, versus infected stone. She is okay with the retroperitoneal ultrasound at this time which just showed non-obstructive stone. Qualifiers: Hematuria presence: with hematuria Urinary tract infection type: site unspecified Qualified Code(s): N39.0 - Urinary tract infection, site not specified; R31.9 - Hematuria, unspecified (3) Acute kidney injury: Impression: Creatinine stable around 2, and downtrending. She is not retaining urine. Attributed to be prerenal, due to dehydration, now has been adequately hydrated. Continue to trend. (4) Leukocytosis: Impression: Resolved and due to active infection. Qualifiers: Leukocytosis type: unspecified Qualified Code(s): D72.829 - Elevated white blood cell count, unspecified (5) Pulmonary embolism: Impression: Continue her home medications. She was taking Eliquis 5 mg once a day. I have changed her to 2.5 mg twice daily, she is a candidate for lower dose Eliquis with her age, and renal function. Qualifiers: Acute cor pulmonale presence: unspecified Chronicity: unspecified P ulmonary embolism type: unspecified Qualified Code(s): I26.99 - Other pulmonary embolism without acute cor pulmonale
[2024-09-16] MEDS: cefTRIAXone 1 GM VIAL IVP SCH (09:38)
[2024-09-16] MEDS: SODIUM CHLORIDE FLUSH 0.9% 10 ML SYRINGE IVP PRN (15:53)
[2024-09-17 05:37] LABS: HCT - HEMATOCRIT 38.6 % (37.0-47.0); MEAN CORPUSCULAR HEMOGLOBIN 31.3 pg (27.0-31.0); MEAN CORPUSCULAR HGB CONC 33.7 g/dL (32.0-36.0); MEAN CORPUSCULAR VOLUME 92.8 fL (81.0-99.0); MEAN PLATELET VOLUME 9.9 fL (7.9-10.8); RED BLOOD COUNT 4.16 10^6/uL (4.20-5.40); RED CELL DISTRIBUTION WIDTH 13.3 % (12.0-15.0); WHITE BLOOD COUNT 8.6 x10^3/uL (4.8-10.8)
[2024-09-17 06:01] LABS: CALCIUM 8.7 mg/dL (8.5-10.3); CREATININE 1.6 mg/dL (0.6-1.3); POTASSIUM 4.5 mmol/L (3.5-4.5)
--- NOTE | 2024-09-17 15:14 | PROVIDER PROGRESS NOTE ---
Subjective Prog Note Date Prog Note Date: 09/17/24 Prog Note Time: 15:12 Subjective Pt reports feeling: Improved Subjective: she is tired. Shocked at how weak she is and how much effort it takes to get out of bed to do hygeine or to sit up. Denies cp, sob, abd pain. Eating 100% of food. Oral intake 1780 for the last 24 hours. Current Medications Current Medications Current Medications: Current Medications Generic Name Dose Route Start Last Admin Trade Name Freq PRN Reason Stop Dose Admin Acetaminophen 650 mg 09/13/24 18:14 09/17/24 06:01 Acetaminophen 325 Mg Tablet PO 650 mg Q4HR PRN Administration Pain 1 to 4, or Fever Apixaban 2.5 mg 09/14/24 21:00 09/17/24 08:23 Apixaban 2.5 Mg Tablet PO 2.5 mg BID TORIBIO Administration Citalopram Hydrobromide 10 mg 09/14/24 09:00 09/17/24 08:23 Citalopram 10 Mg Tablet PO 10 mg DAILY TORIBIO Administration Levothyroxine Sodium 112 mcg 09/14/24 07:00 09/17/24 07:02 Levothyroxine 112 Mcg Tablet PO 112 mcg QDAC TORIBIO Administration Lorazepam 1 mg 09/17/24 10:42 Lorazepam 2 Mg/Ml Vial IVP 09/18/24 10:41 ONCE PRN 30 MINUTES PRIOR TO MRI Meclizine HCl 12.5 mg 09/15/24 06:22 Meclizine 12.5 Mg Tablet PO Q6HR PRN Dizziness Ondansetron HCl 4 mg 09/13/24 18:14 09/17/24 06:02 Ondansetron Odt 4 Mg Tablet TL 4 mg Q6HR PRN Administration Nausea / Vomiting Ondansetron HCl 4 mg 09/13/24 18:14 Ondansetron 4 Mg/2 Ml Vial IVP Q6HR PRN Nausea / Vomiting Prochlorperazine Edisylate 10 mg 09/15/24 09:41 09/15/24 10:05 Prochlorperazine 10 Mg/2 Ml Vial IVP 10 mg Q6HR PRN Administration Nausea / Vomiting Sodium Chloride 10 ml 09/13/24 18:14 09/16/24 15:53 Sodium Chloride Flush 0.9% 10 Ml Syringe IVP 10 ml PRN PRN Administration NEEDED PER PROVIDER ORDERS Sodium Chloride 10 ml 09/13/24 18:14 09/17/24 08:23 Sodium Chloride Flush 0.9% 10 Ml Syringe IVP 10 ml 0100,0900,1700 TORIBIO Administration Objective Vital Signs/Intake & Output Reviewed Vital Signs: Yes Vital Signs: Vital Signs x48h Temp Pulse Resp BP Pulse Ox 09/17/24 13:00 36.4 C L 62 18 161/81 H 97 09/17/24 09:00 36.5 C 60 18 166/86 H 98 Intake & Output: Intake & Output 09/14/24 09/15/24 09/16/24 09/17/24 23:59 23:59 23:59 23:59 Intake Total 3124 / 3124 1490 / 1490 1460 / 1460 1060 / 1060 Output Total 1100 / 1100 2200 / 2200 600 / 600 2800 / 2800 Balance 202 / 2023 -710 / -710 860 / 860 -1740 / -1740 Objective General Appearance: positive No acute distress and Other (5 foot, 58.9 kg.alert, speech normal. ) Eyes Bilateral: positive PERRL ENT: positive No signs of dehydration Neck: positive No JVD; negative Stiff neck Respiratory: positive No respiratory distress and Breath sounds nml Cardiovascular: positive Regular rate & rhythm and No murmur Abdomen: positive Non-tender, No organomegaly and Nml bowel sounds Skin: positive Warm and Dry Extremities: positive Non-tender, Full ROM and Nml appearance Neurologic/Psychiatric: positive Oriented x3, Mood/affect nml and Facial droop (right face with slight droop. new onset the day she completed the Yieldex. ); negative Slurred/abnml speech Lab Results 09/17/24 05:15 09/17/24 05:15 Other Labs: Lab Results x24hrs 09/17/24 Range/Units 05:15 WBC 8.6 (4.8-10.8) x10^3/uL RBC 4.16 L (4.20-5.40) 10^6/uL Hgb 13.0 (12.0-16.0) g/dL Hct 38.6 (37.0-47.0) % MCV 92.8 (81.0-99.0) fL MCH 31.3 H (27.0-31.0) pg MCHC 33.7 (32.0-36.0) g/dL RDW 13.3 (12.0-15.0) % Plt Count 363 (130-450) 10^3/uL MPV 9.9 (7.9-10.8) fL Sodium 135 (135-145) mmol/L Potassium 4.5 (3.5-4.5) mmol/L Chloride 103 (101-111) mmol/L Carbon Dioxide 26 (21-32) mmol/L Anion Gap 6.0 (6-13) BUN 27 H (6-20) mg/dL Creatinine 1.6 H (0.6-1.3) mg/dL Estimated GFR (MDRD) 31 L (>89) Glucose 103 (74-104) mg/dL Calcium 8.7 (8.5-10.3) mg/dL Magnesium 2.0 (1.7-2.3) mg/dL Assessment/Plan Problem List (1) Syncope and collapse: Impression: Patient has had persistent dizziness over the last week or so. She endorses a decreased p.o. intake due to generalized malaise, as well as urinary symptoms as outlined below. She got up to make tea, and then doesn't remember the rest. Hit the counter. Decided to come in. 09/15/24 patient had typical BPPV dizziness that was exacerbated by quick head movements, and associated with nystagmus. Repeat CT head ordered to assess for any delayed acute intracranial process, negative. Physical therapist completed the Ashley-Hallpike maneuver with relief of symptoms. On the morning of 09/16/24 dizzeness has returned and PT/OT endorses a left leaning gait with ambulation. Since her facial droop is still present today, I am ordering an MRI. Other than her face, I am not finding any other focal deficits. consider ? cranial nerve issue. She gets claustrophobic easily. I am ordering ativan 1 mg IVP 30 minutes before the MRI. Patient states that she does have a cardiac history, including an arrhythmia for which she was advised to take carvedilol for in 1996. She does not recall what this is exactly. Since being here, she has been bradycardic and her Coreg was held by the provider on service. She is advising to hold on discharge, and follow-up with primary care provider and director hematology to reassess need to take it. Echo was ordered and done 09/13 but no report as of yet. . (2) Urinary tract infection: Impression: Patient presented with urinary incontinence, dysuria. She felt as if she had a fever. Incontinent enough that she was wearing a diaper. UA is positive for leukocyte esterase, WBCs, bacteria. Urine culture has been sent grew E.Coli which is largely sensitive to most antibiotics (resistant to ampicillin). Patient was initially started on Rocephin. When her leukocytosis increased from 18-30, broadened her antibiotics to include cefepime and vancomycin. MRSA swab is ordered, was negative. Leukocytosis resolved 09/16 and she was de-escalated with vancomycin being discontinued. Blood cultures from 09/13 were negative at [address] refused a CT scan to assess for perinephric abscess, versus infected stone. She is okay with the retroperitoneal ultrasound at this time which just showed non-obstructive stone. - today is Day 5 of Rocephin. I will stop antibiotics. Qualifiers: Urinary tract infection type: site unspecified Hematuria presence: with hematuria Qualified Code(s): N39.0 - Urinary tract infection, site not specified; R31.9 - Hematuria, unspecified (3) Acute kidney injury: Impression: Baseline Creatinine is 1.0-1.1. Admitted at 2.0 and today is 1.6. Still not at baseline. She is not retaining urine. Attributed to be prerenal, due to dehydration, now has been adequately hydrated. Continue to trend. Continue to encourage po intake. (4) Leukocytosis: Impression: Due to infection Started at 18.5 and was normal 09/16 at 10.3 and is 8.6 today. Qualifiers: Leukocytosis type: unspecified Qualified Code(s): D72.829 - Elevated white blood cell count, unspecified (5) Pulmonary embolism: Impression: Continue her home medications. She was taking Eliquis 5 mg once a day. She has been changed her to 2.5 mg twice daily, she is a candidate for lower dose Eliquis with her age, and renal function. Qualifiers: Pulmonary embolism type: unspecified Chronicity: unspecified Acute cor pulmonale presence: unspecified Qualified Code(s): I26.99 - Other pulmonary embolism without acute cor pulmonale
[2024-09-17] MEDS: LORazepam 2 MG/ML VIAL IVP PRN (17:20)
--- NOTE | 2024-09-17 17:45 | ECHO Report ---
Version: 1 Study ID: [id number] [id number] Adult Echocardiogram Report Name: DANIEL TORRES Study Date: 09/17/2024, 10: 33 AM BP : 166 / 86 mmHg Patient Location: ^2203^01 HR: 58 bpm : 1945 (MM/DD/YYYY) Gender: Female He ight: 60 in Age: 79 Years Weight: 130 lb Reason For Study: syncope History: Syncope, Hypertension, Bradycardia Procedure: A complete two-dimensional transthoracic echocardiogram was performed (2D, M-mode, Doppler and color flow Doppler). Indication: Evaluate cardiac and valve function. The patient was comfortable and cooperative througho ut the procedure. The underlying rhythm was bradycardia. Interpretation Summary 1. The left ventricle is normal in size. There is normal left ventricular wall thickness. Global left ventricular systolic function is normal. LV EF 55-60%. 2. The right ventricle is normal size. The right ventricular systolic function is normal. 3. No significant valvular disease. 4. There is no pericardial effusion. Left Ventricle: The left ventricle is normal in size. There is normal left ventricular wall thickness. Global left ve ntricular systolic function is normal. The calculated ejection fraction, as determined by the biplane method of disks, i s 59%. No regional wall motion abnormalities are present. The overall diastolic pattern is most consistent with impaired left ventricular relaxation with low to normal filling pressures. Right Ventricle: The right ventricle is normal size. The right ventricular systolic function is normal. Aortic Valve: The aortic valve is trileaflet. The aortic valve is mildly thickened. Aortic valve sclerosis is prese nt without stenosis. No aortic regurgitation is present. Mitral Valve: The mitral valve leaflets appear thickened, but with normal motion. Mild mitral annular calcification is present. No evidence of mitral stenosis is seen. There is trace mitral regurgitation. Tricuspid Valve: The tricuspid valve is normal in structure and function. Trace tricuspid regurgitation present. Pulmonic Valve: The pulmonic valve is normal in structure and function. Trace pulmonic valvular regurgitation is pres ent. Left Atrium: The left atrial volume indexed to body surface area is 36 ml/m2. This refers to the maximal volume me asured prior to mitral valve opening. Left atrial volume index is mildly increased. Right Atrium: Right atrial size is normal. The inferior vena cava is normal in diameter (<2.1cm) and collapses >50% with sniff (estimated right atrial pressure 0-5mmHg). Atrial Septum: Lipomatous hypertrophy of the interatrial septum is present. The interatrial septum appears intact, w ithout evidence of shunt by 2D imaging and color Doppler. Aorta: The diameter of the ascending aorta is 3.3 cm. The aortic annulus measures 3.1cm in diameter. Pulmonary Artery: The pulmonary artery systolic pressure, calculated from a peak tricuspid regurgitant velocity in conj unction with an estimated right atrial pressure, is 27.5mmHg. Pericardium/Pleural Space: There is no pericardial effusion. CPT Codes: [id number]: Transthoracic Echo with Spectral and Color Doppler. Doppler Measurements & Calculations Ao max P.5 mmHg Ao mean P.6 mmHg Ao V2 max: 162.3 cm/sec Ao V2 mean: 113.2 cm/sec Ao V2 VTI: 40.1 cm LV V1 max: 89.6 cm/sec LV V1 max P.2 mmHg LV V1 mean: 64.3 cm/sec LV V1 mean P.85 mmHg LV V1 VTI: 23.5 cm MV A max aquiles: 79.7 cm/sec MV dec time: 0.23 sec MV DVI-pr_phl: 0.78 MV E max aquiles: 62.2 cm/sec PA max P.48 mmHg PA V2 max: 60.9 cm/sec Pulm A Revs Dur: 0.15 sec Pulm A Revs Aquiles: 35.4 cm/sec RAP systole: 5.0 mmHg TR max P.5 mmHg TR max aquiles: 237.2 cm/sec MMode/2D Measurements & Calculations Ao root diam: 3.1 cm EDV(MOD-sp4): 46.5 ml EF (est.): 58.9 % ESV(MOD-sp4): 20.5 ml ESV(sp4-el): 57.0 ml Heart Rate: 58.0 BPM Height (metric): 152.4 cm IVSd: 1.12 cm LA A4C-A/L_phl: 18.4 cm² LA dimension: 4.9 cm LA ESV-A/L_phl: 56.0 ml LAV(MOD-sp2): 47.5 ml LAV(MOD-sp4): 50.0 ml LVIDd: 3.4 cm LVIDs: 2.37 cm LVLd ap4: 6.6 cm LVLs ap4: 5.4 cm LVPWd: 1.08 cm Systolic Pressure: 166.0 mmHg Other Measurements & Calculations Ao mean P.6 mmHg Ao root diam: 3.1 cm Ao V2 max: 162.3 cm/sec Ao V2 mean: 113.2 cm/sec Ao V2 VTI: 40.1 cm BMI: 25.4 kilograms/m² BSA: 1.55 m² BSA([facility]): 1.59 m² Diastolic Pressure: 86.0 mmHg EDV(MOD-sp4): 46.5 ml EDV(Teich): 45.9 ml EF (est.): 58.9 % EF(MOD-sp4): 55.9 % EF(Teich): 57.6 % ESV(MOD-sp4): 20.5 ml ESV(sp4-el): 57.0 ml ESV(Teich): 19.5 ml FS: 29.4 % Heart Rate: 58.0 BPM Height (metric): 152.4 cm IVSd: 1.12 cm LA A4C-A/L_phl: 18.4 cm² LA dimension: 4.9 cm LA ESV-A/L_phl: 56.0 ml LAV(MOD-sp2): 47.5 ml LAV(MOD-sp4): 50.0 ml LV V1 max: 89.6 cm/sec LV V1 mean: 64.3 cm/sec LV V1 mean P.85 mmHg LVIDd: 3.4 cm LVIDs: 2.37 cm LVLd ap4: 6.6 cm LVLs ap4: 5.4 cm LVPWd: 1.08 cm MV A max aquiles: 79.7 cm/sec MV dec time: 0.23 sec MV DVI-pr_phl: 0.78 MV E max aquiles: 62.2 cm/sec MV E/A: 0.78 PA max P.48 mmHg PA V2 max: 60.9 cm/sec Pulm A Revs Dur: 0.15 sec Pulm A Revs Aquiles: 35.4 cm/sec RAP systole: 5.0 mmHg RVSP(TR): 27.5 mmHg SV(MOD-sp4): 26.0 ml Systolic Pressure: 166.0 mmHg TR max P.5 mmHg TR max aquiles: 237.2 cm/sec TV max P.5 mmHg Weight (metric): 59.0 kg Lat E/e': 10.4 Med E/e': 13.7 Tanner Verma MD 09/17/2024, 5: 44 PM Ordering Physician: Yaakov Sullivan Referring Physician: JAC, EMS Performed By: Radha Fairbanks RDCS
--- NOTE | 2024-09-17 18:56 | MRI Report ---
PROCEDURE: MRI Brain WO INDICATIONS: new R face droop TECHNIQUE: Noncontrast axial T1 spin echo, axial T2 fast spin echo, sagittal and axial FLAIR, coronal T2 fast sp in echo, axial gradient echo, axial diffusion and ADC through the brain. COMPARISON: CT head from 09/15/2024 and 09/13/2024. FINDINGS: Image quality: Excellent. CSF Spaces: Basal cisterns are patent. No extra-axial fluid collections. Ventricles are normal in size and shape. Brain: No intracranial masses or hemorrhage. Tran/white matter interface is normal. Brainstem appe ars normal. Diffusion-weighted images demonstrate small focus of restricted diffusion involving left frontal lobe periventricular white matter series 12 image 35 consistent with acute to subacute infar ction in this area. No other area of abnormal restricted diffusion is noted.. Moderate cerebral and c erebellar cortical atrophy. Moderate periventricular and deep white matter small vessel chronic ische lisa changes are seen. Normal intravascular flow voids are present. Skull and face: Calvarium has normal marrow signal. Orbits appear normal. Sinuses: Sinuses and mastoids are clear. IMPRESSION: 1. Acute to subacute lacunar infarction involving left frontal lobe periventricular white matter. No other area of acute infarction is seen. 2. No evidence of intracranial bleed, midline shift or mass effect. 3. Age-related volume loss and moderate white matter small vessel chronic ischemic changes. Reviewed by: Dimas Goncalves MD on 09/17/2024 6:55 PM PDT Approved by: Dimas Goncalves MD on 09/17/2024 6:55 PM PDT Station ID: [id number]
--- NOTE | 2024-09-18 01:41 | PROVIDER PROGRESS NOTE ---
Hospitalist Cross-cover Note Cross-Cover Note Cross-Cover Note: per rn "Pt admitted for syncope and hit to head along with UTI. Starting yesterday she was noted to have a slight right facial droop and a left lean. Tonight's MTI indicated acute lacunar infarct. PT has been having a frontal headache all day, tylenol not helping. Pt's more recent BP's were 197/93 and 207/114, heart rate in the 60's. Pt was given ativan for the MRI and feels very restless since the ativan, states that she has paridoxical reaction to many medications. Any new orders? Do you want to allow higher BP's? pt with allergy to codeine and has Cr 1.6 limited med options permissive htn for now up to sbp 220 continue close monitoring
[2024-09-18] MEDS: ONDANSETRON 4 MG/2 ML VIAL IVP PRN (05:22)
[2024-09-18] MEDS: carvediloL 3.125 MG TABLET PO SCH (08:36)
[2024-09-18] MEDS: KETOROLAC 15 MG/ML VIAL IVP STA (08:43)
--- NOTE | 2024-09-18 11:36 | PROVIDER PROGRESS NOTE ---
Subjective Prog Note Date Prog Note Date: 09/18/24 Prog Note Time: 11:26 Subjective Pt reports feeling: Worse Subjective: I had seen her again yesterday evening before I left shift. I let her know that, unfortunately, MRI of the brain did confirm an acute to subacute lacunar infarction involving the left frontal lobe periventricular white matter. No other area of acute infarction seen. There are no new focal neurological deficits. However she is complaining of a headache since yesterday. As completed by nausea. The headache is the back of her skull and radiates forward. No blurred vision. No dysarthria no apraxia. Last night telehealth was called because of systolics that were elevated. They are allowing permissive hypertension to 220. This morning her blood pressure was in the 180s. I did try and resume her Coreg but her pulse is 57 and she declined resuming her home Coreg. Current Medications Current Medications Current Medications: Current Medications Generic Name Dose Route Start Last Admin Trade Name Freq PRN Reason Stop Dose Admin Acetaminophen 650 mg 09/13/24 18:14 09/18/24 05:27 Acetaminophen 325 Mg Tablet PO 650 mg Q4HR PRN Administration Pain 1 to 4, or Fever Amlodipine Besylate 5 mg 09/18/24 12:00 Amlodipine 5 Mg Tablet PO DAILY TORIBIO Apixaban 2.5 mg 09/14/24 21:00 09/18/24 08:36 Apixaban 2.5 Mg Tablet PO 2.5 mg BID TORIBIO Administration Carvedilol 3.125 mg 09/18/24 09:00 09/18/24 08:36 Carvedilol 3.125 Mg Tablet PO Not Given BID TORIBIO Levothyroxine Sodium 112 mcg 09/14/24 07:00 09/18/24 05:26 Levothyroxine 112 Mcg Tablet PO 112 mcg QDAC TORIBIO Administration Meclizine HCl 12.5 mg 09/15/24 06:22 Meclizine 12.5 Mg Tablet PO Q6HR PRN Dizziness Ondansetron HCl 4 mg 09/13/24 18:14 09/17/24 06:02 Ondansetron Odt 4 Mg Tablet TL 4 mg Q6HR PRN Administration Nausea / Vomiting Ondansetron HCl 4 mg 09/13/24 18:14 09/18/24 05:22 Ondansetron 4 Mg/2 Ml Vial IVP 4 mg Q6HR PRN Administration Nausea / Vomiting Prochlorperazine Edisylate 10 mg 09/15/24 09:41 09/15/24 10:05 Prochlorperazine 10 Mg/2 Ml Vial IVP 10 mg Q6HR PRN Administration Nausea / Vomiting Sodium Chloride 10 ml 09/13/24 18:14 09/16/24 15:53 Sodium Chloride Flush 0.9% 10 Ml Syringe IVP 10 ml PRN PRN Administration NEEDED PER PROVIDER ORDERS Sodium Chloride 10 ml 09/13/24 18:14 09/18/24 08:36 Sodium Chloride Flush 0.9% 10 Ml Syringe IVP 10 ml 0100,0900,1700 TORIBIO Administration Objective Vital Signs/Intake & Output Reviewed Vital Signs: Yes Vital Signs: Vital Signs x48h Temp Pulse Resp BP Pulse Ox 09/18/24 08:28 36.4 C L 57 L 14 186/88 H 100 09/18/24 05:13 36.5 C 65 20 195/88 H 95 Intake & Output: Intake & Output 09/15/24 09/16/24 09/17/24 09/18/24 23:59 23:59 23:59 23:59 Intake Total 1490 / 1490 1460 / 1460 1460 / 1460 480 / 480 Output Total 2200 / 2200 600 / 600 3550 / 3550 1300 / 1300 Balance -710 / -710 860 / 860 -2090 / -2090 -820 / -820 Objective General Appearance: positive No acute distress, Alert, Mild distress (Headache and nausea) and Other (Slender, alert white female who looks younger than stated age. 5 foot tall, 58.96 kg) Eyes Bilateral: positive PERRL, EOMI and Other (Right facial droop) ENT: positive No signs of dehydration and Other (Right facial droop) Neck: positive Nml inspection, Thyroid nml and No JVD; negative Stiff neck or Carotid bruit Respiratory: positive Chest non-tender, No respiratory distress and Breath sounds nml (Slightly diminished at the bases) Cardiovascular: positive No murmur and Irregularly irregular Abdomen: positive Non-tender, No organomegaly, Nml bowel sounds, No distention and Other (Eating 50 to 100% of her food.) Skin: positive Warm and Dry Extremities: positive Non-tender, Full ROM, Nml appearance and No pedal edema Neurologic/Psychiatric: positive Oriented x3 and Motor nml (In spite of right facial droop, and confirmed stroke on MRI, no right body weakness); negative CN's nml (2-12) (Right facial droop but no tongue involvement.) Lab Results 09/17/24 05:15 09/17/24 05:15 Assessment/Plan Problem List (1) Lacunar infarct, acute: Impression: Patient had persistent dizziness for over a week. Her story was that of benign positional vertigo. Exacerbated by quick head movements. On September 15 underwent a Hallpike maneuver with relief of symptoms. On the morning of September 16 dizziness returned and PT and OT described a left leaning gait with ambulation. Facial droop was present September 17. We had thought that her left leaning gait was due to her vertigo and opted not to do an MRI. However with the facial droop present, MRI was done and confirms a lacunar infarct. Treatment will be statins, aspirin, permissive hypertension. Plan: -Aspirin 81 mg a day -Atorvastatin 40 mg a day -Fasting lipid panel in the am -Coreg attempted to bring down her blood pressure a little bit. That is her home medication. But because the pulse is 57 the patient has declined taking that medicine. As such we will put her on Norvasc 5 mg a day. While I do believe that permissive hypertension should be allowed, she seems to be having a headache with this. Would like her blood pressure to be at least 180 systolic -Physical therapy and Occupational Therapy feels this patient would benefit from inpatient rehab. As such we are pivoting from asking for [facility] facility for rehab (she had asked to go to [place]) we are now can ask if she go to inpatient rehab (2) Syncope and collapse: Impression: She presented as dizziness. And the dizziness was so severe that she fell at home and hit a counter on the way down. Differential diagnosis would include infection, hypotension from dehydration or anemia, stroke, arrhythmia, etc. Found to have a UTI in the emergency room. Then developed subsequent increased dizziness. Found to have a stroke. So far there have been no arrhythmias on telemetry. Echo was ordered and done on September 13 , report finally read today. Left ventricle is normal in size. Normal left ventricular wall thickness. Global left ventricular systolic function normal with an EF of 55 to 60%. The right ventricle is normal in size with right ventricular systolic function being normal. No significant valvular disease. No pericardial effusion. Left atrial volume indexed was 36 mL/m. Right atrial size was normal. No aortic stenosis. Pulmonary artery systolic pressure 27.5 mmHg. Patient states that she does have a cardiac history, including an arrhythmia for which she was advised to take carvedilol for in 1996. She does not recall what this is exactly. Since being here, she has been bradycardic and her Coreg was held by the provider on service. She is advising to hold on discharge, and follow-up with primary care provider and convict guard to reassess need to take it. I did try and use it today because of her hypertension. The patient declined. . (3) Urinary tract infection: Impression: Patient presented with urinary incontinence, dysuria. She felt as if she had a fever. Incontinent enough that she was wearing a diaper. UA is positive for leukocyte esterase, WBCs, bacteria. Urine culture has been sent grew E.Coli which is largely sensitive to most antibiotics (resistant to ampicillin). Patient was initially started on Rocephin. When her leukocytosis increased from 18-30, broadened her antibiotics to include cefepime and vancomycin. MRSA swab is ordered, was negative. Leukocytosis resolved 09/16 and she was de-escalated with vancomycin being discontinued. Blood cultures from 09/13 were negative at [address] refused a CT scan to assess for perinephric abscess, versus infected stone. She is okay with the retroperitoneal ultrasound at this time which just showed non-obstructive stone. - 09/17 was Day 5 of Rocephin. I stopped at day 5. Qualifiers: Urinary tract infection type: site unspecified Hematuria presence: with hematuria Qualified Code(s): N39.0 - Urinary tract infection, site not specified; R31.9 - Hematuria, unspecified (4) Acute kidney injury: Impression: Baseline Creatinine is 1.0-1.1. Admitted at 2.0 and today is not known since not ordered. Still not at baseline yesterday. She is not retaining urine. Attributed to be prerenal, due to dehydration, now has been adequately hydrated. Continue to trend. Continue to encourage po intake. I will order daily CBC and BMP again (5) Leukocytosis: Impression: Due to infection Started at 18.5 and was normal 09/16 at 10.3 and was 8.6 09/17/24. ABx stopped for UTI 09/17. Will monitor to make sure no rebound Qualifiers: Leukocytosis type: unspecified Qualified Code(s): D72.829 - Elevated white blood cell count, unspecified (6) Pulmonary embolism: Impression: Continue her home medications. She was taking Eliquis 5 mg once a day. She has been changed her to 2.5 mg twice daily, she is a candidate for lower dose Eliquis with her age, and renal function. Qualifiers: Pulmonary embolism type: unspecified Chronicity: unspecified Acute cor pulmonale presence: unspecified Qualified Code(s): I26.99 - Other pulmonary embolism without acute cor pulmonale
[2024-09-18] MEDS: ASPIRIN CHEW 81 MG TABLET PO SCH (12:11)
[2024-09-18] MEDS: amLODIPine 5 MG TABLET PO SCH (12:11)
[2024-09-18] MEDS: ATORVASTATIN 40 MG TABLET PO ONE (12:11)
--- NOTE | 2024-09-18 13:12 | PT Plan of Care ---
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 Initially arrived to the ED on 09/13/24 after a syncopal episode resulted in a fall and head laceration. Admitted with syncope and a UTI and treated by another PT for BPPV. Positional vertigo resolved but pt then began to present with gait impairments and R sided facial droop. MRI demonstrates L lacunar infarct. At baseline pt lives with who has dementia in a [facility] and she is the CG for her . Pt was fully indep with all ADL's, IADL's, driving, amb without an AD, gardening, and HH chores. Upon PT re-eval today, pt reports 5/10 headache pain, light sensitivity and presents with BP 205/88. Per hospitalist permissive HTN today, however given TAVERAS and discomfort with HTN, mobility assessment limited to sitting at EOB at this time. Pt presents with good mobility and strength of all 4 limbs but per PT session on 09/16/24 pt has significant gait impairments and balance deficits that put her at increased risk of falling. Pt will benefit from continue PT in acute setting to reduce fall risk, improve functional mobility, and progress gait training. When medically clear, PT now rec [facility] as she has a high baseline function and excellent rehab potential. Pt will be able to tolerate 3 hours of daily rehab. PATIENT/FAMILY GOALS Patient/Family Goals: To stop the vertigo so that she can return to PLOF GOALS Improve supine to sit to:: Independent Improve sit to stand to:: Contact Guard Improve pivot transfer ability to:: Contact Guard Improve sit to supine to:: Contact Guard Improve gait ability to:: CGA Advance Assistive Device to:: None (least restrictive AD) Increase distance walked to (in feet):: 300 Other gait goal:: gait training to be completed with least restrictive AD PLAN Frequency: 1-2x/day Duration: Until goals are met DISCHARGE RECOMMENDATIONS Discharge Location: [facility] Support/Services Needed: With assist Other Discharge Equipment: TBD Transport Needs at Discharge: [facility] van vs POV
--- NOTE | 2024-09-18 13:19 | OT Plan of Care ---
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 Originally presenting with vertigo likely triggered by head strike Underwent PT evaluation and DHP with success. On 09/16, noted development of R facial droop and L lateral lean in ambulation. MRI indicated acute lacunar infarct. Per Tele Neuro recs Permissive hypertension Max 220 systolic. Cleared for OT evaluation. Met supine in bed, A &Ox4, follows 100% 1 step simple commands. Reporting 5/10 TAVERAS and photophobia Denied all other sequela at this time. Presenting with mild R facial droop and mildly decreased coordination on R UE compared to L UE. MMT 3+/5 B UE. No acute neurological deficits noted in vision and sensation. Performed supine to sit EOB MIN A donning socks MIN A with increased time and attention to maintain midline in sitting; pt denied acute dizziness however does report increased TAVERAS upright. BP 205/88; HR 62. Pt requesting supine back to bed at this time with relief of increased TAVERAS. Currently MIN A Overall presents with decreased endurance, activity tolerance and ADL status. Will benefit from cont OT services during acute stay. 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 Goals - Activities of Daily Living Improve Upper Extremity Independent Dressing to: Improve Lower Extremity Independent Dressing to: Improve Grooming/Hygiene to: Independent Improve Bathing to: Independent Improve Toileting to: Independent Plan Treatment Frequency 1x/day -Discharge Recommendations Discharge Location [facility] Transport Needs at Discharge wc van vs POV
[2024-09-18] MEDS: ATORVASTATIN 40 MG TABLET PO SCH (20:50)
[2024-09-19 05:51] LABS: CHOLESTEROL 220 mg/dL; HDL CHOLESTEROL 44 mg/dL; LDL CHOLESTEROL,CALCULATED 135 mg/dL; LDL/HDL RATIO 3.1 (<4.4); TRIGLYCERIDES 204 mg/dL; VLDL CHOLESTEROL 41 mg/dL
[2024-09-19] MEDS ORDERED: PROCHLORPERAZINE 5 MG TABLET PO PRN (12:50)
--- NOTE | 2024-09-19 19:13 | PROVIDER PROGRESS NOTE ---
Subjective Prog Note Date Prog Note Date: 09/19/24 Prog Note Time: 19:11 Subjective Pt reports feeling: Improved Subjective: The patient really wants to go home. She feels like her deficits are not as severe as repeat them. I asked her if she could please get up and go to the bathroom by herself, pulling down her underwear, pulling up her underwear, standing, and going to the sink to wash her hands. Could she do this at home by herself? She said no. I asked her if she could go to the kitchen and cook for herself in her house? She said no. I asked if she could then take care of her elderly demented 02/01 and she said no. Is much as I understand her wanting to go home I feel like she understands that she is really not ready to be by herself. We had hoped to discharge her to a long term facility for rehab and on the day of discharge physical therapy has recommended inpatient rehab. That referral was sent this morning and this afternoon we have received word that they will accept her tomorrow. Current Medications Current Medications Current Medications: Current Medications Generic Name Dose Route Start Last Admin Trade Name Freq PRN Reason Stop Dose Admin Acetaminophen 650 mg 09/13/24 18:14 09/19/24 16:23 Acetaminophen 325 Mg Tablet PO 650 mg Q4HR PRN Administration Pain 1 to 4, or Fever Amlodipine Besylate 5 mg 09/18/24 12:00 09/19/24 08:50 Amlodipine 5 Mg Tablet PO 5 mg DAILY TORIBIO Administration Apixaban 2.5 mg 09/14/24 21:00 09/19/24 08:50 Apixaban 2.5 Mg Tablet PO 2.5 mg BID TORIBIO Administration Aspirin 81 mg 09/18/24 12:00 09/19/24 08:50 Aspirin Chew 81 Mg Tablet PO 81 mg DAILY TORIBIO Administration Atorvastatin Calcium 40 mg 09/18/24 21:00 09/18/24 20:50 Atorvastatin 40 Mg Tablet PO 40 mg QPM TORIBIO Administration Carvedilol 3.125 mg 09/18/24 09:00 09/19/24 08:51 Carvedilol 3.125 Mg Tablet PO Not Given BID TORIBIO Docusate Sodium 250 - 500 mg 09/20/24 21:00 Docusate Sodium 250 Mg Capsule PO DAILY TORIBIO Levothyroxine Sodium 112 mcg 09/14/24 07:00 09/19/24 06:17 Levothyroxine 112 Mcg Tablet PO 112 mcg QDAC TORIBIO Administration Meclizine HCl 12.5 mg 09/15/24 06:22 Meclizine 12.5 Mg Tablet PO Q6HR PRN Dizziness Ondansetron HCl 4 mg 09/13/24 18:14 09/19/24 06:19 Ondansetron Odt 4 Mg Tablet TL 4 mg Q6HR PRN Administration Nausea / Vomiting Polyethylene Glycol 17 gm 09/20/24 21:00 Polyethylene Glycol 3350 17 Gm Packet PO DAILY TORIBIO Prochlorperazine Maleate 10 mg 09/19/24 12:50 Prochlorperazine 5 Mg Tablet PO Q6HR PRN Nausea / Vomiting Senna 8.6 - 17.2 mg 09/20/24 21:00 Senna 8.6 Mg Tablet PO DAILY TORIBIO Sodium Chloride 10 ml 09/13/24 18:14 09/16/24 15:53 Sodium Chloride Flush 0.9% 10 Ml Syringe IVP 10 ml PRN PRN Administration NEEDED PER PROVIDER ORDERS Sodium Chloride 10 ml 09/13/24 18:14 09/19/24 16:26 Sodium Chloride Flush 0.9% 10 Ml Syringe IVP 10 ml 0100,0900,1700 TORIBIO Administration Objective Vital Signs/Intake & Output Reviewed Vital Signs: Yes Vital Signs: Vital Signs x48h Temp Pulse Resp BP Pulse Ox 09/19/24 16:03 36.5 C 70 20 142/78 H 100 09/19/24 13:52 36.3 C L 61 16 130/76 98 Intake & Output: Intake & Output 09/16/24 09/17/24 09/18/24 09/19/24 23:59 23:59 23:59 23:59 Intake Total 1460 / 1460 1460 / 1460 1400 / 1400 480 / 480 Output Total 600 / 600 3550 / 3550 2250 / 2250 1150 / 1150 Balance 860 / 860 -2090 / -2090 -850 / -850 -670 / -670 Objective General Appearance: positive No acute distress, Alert and Anxious Eyes Bilateral: positive PERRL and EOMI ENT: positive Other (Right facial droop) Neck: positive No JVD; negative Stiff neck Respiratory: positive Chest non-tender, No respiratory distress and Breath sounds nml; negative Wheezes, Rales or Rhonchi Cardiovascular: positive Regular rate & rhythm and No murmur Abdomen: positive Non-tender, No organomegaly, Nml bowel sounds and No distention Skin: positive Color nml Extremities: positive Non-tender, Full ROM, Nml appearance and No pedal edema Neurologic/Psychiatric: positive Oriented x3, Motor nml (I can understand why she feels normal. Her motor deficits are nonexistent in comparison to her right facial droop.) and Facial droop; negative CN's nml (2-12), Weakness or Slurred/abnml speech Lab Results 09/17/24 05:15 09/17/24 05:15 Other Labs: Lab Results x24hrs 09/19/24 Range/Units 05:19 Triglycerides 204 mg/dL Cholesterol 220 H ( - 200) mg/dL LDL Cholesterol, Calc 135 H ( - 129) mg/dL VLDL Cholesterol 41 mg/dL HDL Cholesterol 44 L (60 - ) mg/dL LDL/HDL Ratio 3.1 (<4.4) Cholesterol/HDL Ratio 5.0 (<4.4) Assessment/Plan Problem List (1) Lacunar infarct, acute: Impression: Patient had persistent dizziness for over a week. Her story was that of benign positional vertigo. Exacerbated by quick head movements. On September 15 underwent a Hallpike maneuver with relief of symptoms. On the morning of September 16 dizziness returned and PT and OT described a left leaning gait with ambulation. Facial droop was present September 17. We had thought that her left leaning gait was due to her vertigo and opted not to do an MRI. However with the facial droop present, MRI was done and confirms a lacunar infarct. Treatment will be statins, aspirin, permissive hypertension. Plan: -Aspirin 81 mg a day -Atorvastatin 40 mg a day -Fasting lipid panel in the am -I used Coreg in attempt to bring down her blood pressure a little bit. That is her home medication. But because the pulse is 57 the patient has declined taking that medicine. As such we will put her on Norvasc 5 mg a day. While I do believe that permissive hypertension should be allowed, she seems to be having a headache with this. Would like her blood pressure to be at least 180 systolic -Physical therapy and Occupational Therapy feels this patient would benefit from inpatient rehab. As such we are pivoting from asking for long term facility for rehab (she had asked to go to [facility]) we are now can ask if she go to inpatient rehab. 09/18 was an avoidable day -[facility] has accepted this patient but they do not have a bed until tomorrow, September 20. Today is another avoidable day. -She reluctantly agrees to go to inpatient rehab. She knows she needs to get stronger to get home to live alone or take care of her . I did gently remind her that this has been a life-changing event. She really should plan for more help. She feels like her children have very very busy lives and she does not want to rely on them to help her or her . Currently her is staying with her daughter and son-in-law. They have hired visiting [facility] in [place] to help take care of him in their home. Her goal is to return to home, independent living, but get visiting [facility] to help take care of [place] She has a list and states that she is going to start calling. She is a little overwhelmed. I did suggest that maybe her kids could do that but she again reiterates that her children are too busy and have their own lives. I told her that she might want to try asking them first before assuming. They may surprise her and actually reach out to help her. (2) Syncope and collapse: Impression: She presented as dizziness. And the dizziness was so severe that she fell at home and hit a counter on the way down. Differential diagnosis would include infection, hypotension from dehydration or anemia, stroke, arrhythmia, etc. Found to have a UTI in the emergency room. Then developed subsequent increased dizziness. Found to have a stroke. So far there have been no arrhythmias on telemetry. Echo was ordered and done on September 13 , report finally read today. Left ventricle is normal in size. Normal left ventricular wall thickness. Global left ventricular systolic function normal with an EF of 55 to 60%. The right ventricle is normal in size with right ventricular systolic function being normal. No significant valvular disease. No pericardial effusion. Left atrial volume indexed was 36 mL/m. Right atrial size was normal. No aortic stenosis. Pulmonary artery systolic pressure 27.5 mmHg. Patient states that she does have a cardiac history, including an arrhythmia for which she was advised to take carvedilol for in 1996. She does not recall what this is exactly. Since being here, she has been bradycardic and her Coreg was held by the provider on service. She is advising to hold on discharge, and follow-up with primary care provider and working manager to reassess need to take it. I did try and use it today because of her hypertension. The patient declined. . (3) Urinary tract infection: Impression: Patient presented with urinary incontinence, dysuria. She felt as if she had a fever. Incontinent enough that she was wearing a diaper. UA is positive for leukocyte esterase, WBCs, bacteria. Urine culture has been sent grew E.Coli which is largely sensitive to most antibiotics (resistant to ampicillin). Patient was initially started on Rocephin. When her leukocytosis increased from 18-30, broadened her antibiotics to include cefepime and vancomycin. MRSA swab is ordered, was negative. Leukocytosis resolved 09/16 and she was de-escalated with vancomycin being discontinued. Blood cultures from 09/13 were negative at [address] refused a CT scan to assess for perinephric abscess, versus infected stone. She is okay with the retroperitoneal ultrasound at this time which just showed non-obstructive stone. - 09/17 was Day 5 of Rocephin. I stopped at day 5. Qualifiers: Urinary tract infection type: site unspecified Hematuria presence: with hematuria Qualified Code(s): N39.0 - Urinary tract infection, site not specified; R31.9 - Hematuria, unspecified (4) Acute kidney injury: Impression: Baseline Creatinine is 1.0-1.1. Admitted at 2.0 and today is not known since not ordered. Still not at baseline yesterday. She is not retaining urine. Attributed to be prerenal, due to dehydration, now has been adequately hydrated. Continue to trend. Continue to encourage po intake. I will order daily CBC and BMP again (5) Leukocytosis: Impression: Due to infection Started at 18.5 and was normal 09/16 at 10.3 and was 8.6 09/17/24. ABx stopped for UTI 09/17. Will monitor to make sure no rebound Qualifiers: Leukocytosis type: unspecified Qualified Code(s): D72.829 - Elevated white blood cell count, unspecified (6) Pulmonary embolism: Impression: Continue her home medications. She was taking Eliquis 5 mg once a day. She has been changed her to 2.5 mg twice daily, she is a candidate for lower dose Eliquis with her age, and renal function. Qualifiers: Pulmonary embolism type: unspecified Chronicity: unspecified Acute cor pulmonale presence: unspecified Qualified Code(s): I26.99 - Other pulmonary embolism without acute cor pulmonale
[2024-09-20 05:36] LABS: BASOPHILS % (AUTO) 0.7 %; EOSINOPHILS % (AUTO) 2.7 %; HCT - HEMATOCRIT 42.5 % (37.0-47.0); HGB - HEMOGLOBIN 14.3 g/dL (12.0-16.0); LYMPHOCYTES % (AUTO) 18.6 %; MEAN CORPUSCULAR HEMOGLOBIN 31.2 pg (27.0-31.0); MEAN CORPUSCULAR HGB CONC 33.6 g/dL (32.0-36.0); MEAN CORPUSCULAR VOLUME 92.6 fL (81.0-99.0); MEAN PLATELET VOLUME 9.5 fL (7.9-10.8); MONOCYTES % (AUTO) 9.5 %; NEUTROPHILS % (AUTO) 63.9 %; PLT - PLATELET COUNT 451 10^3/uL (130-450); RED BLOOD COUNT 4.59 10^6/uL (4.20-5.40); RED CELL DISTRIBUTION WIDTH 13.2 % (12.0-15.0); WHITE BLOOD COUNT 11.5 x10^3/uL (4.8-10.8)
[2024-09-20 05:47] LABS: ABNORMAL LYMPHS % (MANUAL) 0 %; BAND NEUTROPHILS % (MANUAL) 0 %
[2024-09-20 06:16] LABS: POTASSIUM 5.2 mmol/L (3.5-4.5)
[2024-09-20 06:17] LABS: CALCIUM 9.2 mg/dL (8.5-10.3); CREATININE 1.5 mg/dL (0.6-1.3)
[2024-09-20 07:00] LABS: BASOPHILS # (MANUAL) 0.1 10^3/uL (0-0.1); BASOPHILS % (MANUAL) 1 %; EOSINOPHILS # (MANUAL) 0.3 10^3/uL (0-0.7); LYMPHOCYTES # (MANUAL) 0.9 10^3/uL (1.5-3.5); LYMPHOCYTES % (MANUAL) 8 %; MONOCYTES # (MANUAL) 1.5 10^3/uL (0.0-1.0); NEUTROPHILS # (MANUAL) 8.6 10^3/uL (1.5-6.6); PLATELET ESTIMATE, MANUAL NORMAL (130-450,000) (NORMAL); PLATELET MORPHOLOGY NORMAL APPEARANCE (NORMAL); RBC MORPHOLOGY (MULTIPLE) NORMAL APPEARANCE (NORMAL)
[2024-09-20 07:01] LABS: DIFFERENTIAL COMMENT MANUAL DIFFERENTIAL; WBC MORPHOLOGY (MULTIPLE) NORMAL APPEARANCE (NORMAL)
[2024-09-20] MEDS: SENNA 8.6 MG TABLET PO SCH (08:55)
[2024-09-20] MEDS: polyethylene glycoL 3350 17 GM PACKET PO SCH (08:56)
[2024-09-20] MEDS: DOCUSATE SODIUM 250 MG CAPSULE PO SCH (08:58)
--- NOTE | 2024-09-20 19:51 | PROVIDER PROGRESS NOTE ---
Subjective Prog Note Date Prog Note Date: 09/20/24 Prog Note Time: 19:44 Subjective Pt reports feeling: No change Subjective: At first glance this woman looks remarkably stable. Speech is normal. Cognition appears intact. But when you stand her up she lurch is to the left, continues to have the facial droop, off balance. Cannot do occupational therapy cues. We are still waiting for a bed for her to go to rehab. Current Medications Current Medications Current Medications: Current Medications Generic Name Dose Route Start Last Admin Trade Name Freq PRN Reason Stop Dose Admin Acetaminophen 650 mg 09/13/24 18:14 09/20/24 08:55 Acetaminophen 325 Mg Tablet PO 650 mg Q4HR PRN Administration Pain 1 to 4, or Fever Amlodipine Besylate 5 mg 09/18/24 12:00 09/20/24 08:55 Amlodipine 5 Mg Tablet PO 5 mg DAILY TORIBIO Administration Apixaban 2.5 mg 09/14/24 21:00 09/20/24 08:55 Apixaban 2.5 Mg Tablet PO 2.5 mg BID TORIBIO Administration Aspirin 81 mg 09/18/24 12:00 09/20/24 08:55 Aspirin Chew 81 Mg Tablet PO 81 mg DAILY TORIBIO Administration Atorvastatin Calcium 40 mg 09/18/24 21:00 09/19/24 21:18 Atorvastatin 40 Mg Tablet PO 40 mg QPM TORIBIO Administration Carvedilol 3.125 mg 09/18/24 09:00 09/20/24 08:58 Carvedilol 3.125 Mg Tablet PO 3.125 mg BID TORIBIO Administration Docusate Sodium 250 - 500 mg 09/20/24 09:00 09/20/24 08:58 Docusate Sodium 250 Mg Capsule PO Not Given DAILY TORIBIO Levothyroxine Sodium 112 mcg 09/14/24 07:00 09/20/24 05:59 Levothyroxine 112 Mcg Tablet PO 112 mcg QDAC TORIBIO Administration Meclizine HCl 12.5 mg 09/15/24 06:22 Meclizine 12.5 Mg Tablet PO Q6HR PRN Dizziness Ondansetron HCl 4 mg 09/13/24 18:14 09/19/24 06:19 Ondansetron Odt 4 Mg Tablet TL 4 mg Q6HR PRN Administration Nausea / Vomiting Polyethylene Glycol 17 gm 09/20/24 09:00 09/20/24 08:56 Polyethylene Glycol 3350 17 Gm Packet PO Not Given DAILY TORIBIO Prochlorperazine Maleate 10 mg 09/19/24 12:50 Prochlorperazine 5 Mg Tablet PO Q6HR PRN Nausea / Vomiting Senna 8.6 - 17.2 mg 09/20/24 09:00 09/20/24 08:55 Senna 8.6 Mg Tablet PO 8.6 mg DAILY TORIBIO Administration Objective Vital Signs/Intake & Output Reviewed Vital Signs: Yes Intake & Output: Intake & Output 09/17/24 09/18/24 09/19/24 09/20/24 23:59 23:59 23:59 23:59 Intake Total 1460 / 1460 1400 / 1400 720 / 720 840 / 840 Output Total 3550 / 3550 2250 / 2250 1350 / 1350 950 / 950 Balance -2090 / -2090 -850 / -850 -630 / -630 -110 / -110 Objective General Appearance: positive No acute distress and Alert Eyes Bilateral: positive PERRL and EOMI ENT: positive No signs of dehydration Neck: positive Nml inspection and No JVD; negative Stiff neck Respiratory: positive Chest non-tender, No respiratory distress and Breath sounds nml Cardiovascular: positive Regular rate & rhythm Abdomen: positive Non-tender, No organomegaly and Nml bowel sounds Skin: positive Warm and Dry Extremities: positive Non-tender, Full ROM and Nml appearance Neurologic/Psychiatric: positive Oriented x3 and Facial droop Lab Results 09/20/24 05:02 09/20/24 05:02 Other Labs: Lab Results x24hrs 09/20/24 Range/Units 05:02 WBC 11.5 H (4.8-10.8) x10^3/uL RBC 4.59 (4.20-5.40) 10^6/uL Hgb 14.3 (12.0-16.0) g/dL Hct 42.5 (37.0-47.0) % MCV 92.6 (81.0-99.0) fL MCH 31.2 H (27.0-31.0) pg MCHC 33.6 (32.0-36.0) g/dL RDW 13.2 (12.0-15.0) % Plt Count 451 H (130-450) 10^3/uL MPV 9.5 (7.9-10.8) fL Neut # (Auto) Not Reportable Lymph # (Auto) Not Reportable [place] # (Auto) Not Reportable Eos # (Auto) Not Reportable Baso # (Auto) Not Reportable Absolute Nucleated RBC Not Reportable Total Counted 100 Band Neuts % (Manual) 0 (0 - 10) % Abnorm Lymph % (Manual) 0 % Nucleated RBC % Not Reportable Neutrophils # (Manual) 8.6 H (1.5-6.6) 10^3/uL Lymphocytes # (Manual) 0.9 L (1.5-3.5) 10^3/uL Monocytes # (Manual) 1.5 H (0.0-1.0) 10^3/uL Eosinophils # (Manual) 0.3 (0-0.7) 10^3/uL Basophils # (Manual) 0.1 (0-0.1) 10^3/uL Differential Comment MANUAL DIFFERENTIAL WBC Morphology NORMAL APPEARANCE (NORMAL) Platelet Estimate NORMAL (130-450,000) (NORMAL) Platelet Morphology NORMAL APPEARANCE (NORMAL) RBC Morph Micro Appear NORMAL APPEARANCE (NORMAL) Sodium 134 L (135-145) mmol/L Potassium 5.2 H (3.5-4.5) mmol/L Chloride 99 L (101-111) mmol/L Carbon Dioxide 27 (21-32) mmol/L Anion Gap 8.0 (6-13) BUN 28 H (6-20) mg/dL Creatinine 1.5 H (0.6-1.3) mg/dL Estimated GFR (MDRD) 33 L (>89) Glucose 106 H (74-104) mg/dL Calcium 9.2 (8.5-10.3) mg/dL Assessment/Plan Problem List (1) Lacunar infarct, acute: Impression: Patient had persistent dizziness for over a week. Her story was that of benign positional vertigo. Exacerbated by quick head movements. On September 15 underwent a Hallpike maneuver with relief of symptoms. On the morning of September 16 dizziness returned and PT and OT described a left leaning gait with ambulation. Facial droop was present September 17. We had thought that her left leaning gait was due to her vertigo and opted not to do an MRI. However with the facial droop present, MRI was done and confirms a lacunar infarct. Treatment will be statins, aspirin, permissive hypertension. She remains here because we are waiting for a bed since 09/18/24. Today she is slowly made laps around [facility]. Using a walker. While she does not have focal deficits that I was noted on physical exam, she is moving her left foot slightly slower than right. 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 Plan: -Aspirin 81 mg a day -Atorvastatin 40 mg a day -Fasting lipid panel in the am -I used Coreg in attempt to bring down her blood pressure a little bit. That is her home medication. But because the pulse is 57 the patient has declined taking that medicine. As such we will put her on Norvasc 5 mg a day. While I do believe that permissive hypertension should be allowed, she seems to be having a headache with this. Would like her blood pressure to be at least 180 systolic. Today 141/88. -Physical therapy and Occupational Therapy feels this patient would benefit from inpatient rehab. As such we are pivoting from asking for jail facility for rehab (she had asked to go to [facility]) we are now can ask if she go to inpatient rehab. 09/18 and 09/19 were avoidable days as was today. -[facility] inpatient rehab has accepted this patient but they do not have a bed now until next week. -She reluctantly agrees to go to inpatient rehab. She knows she needs to get stronger to get home to live alone or take care of her . I did gently remind her that this has been a life-changing event. She really should plan for more help. She feels like her children have very very busy lives and she does not want to rely on them to help her or her . Currently her is staying with her daughter and son-in-law. They have hired visiting [facility] in [place] to help take care of him in their home. Her goal is to return to home, independent living, but get visiting [facility] to help [place] She has a list and states that she is going to start calling. She is a little overwhelmed. I did suggest that maybe her kids could do that but she again reiterates that her children are too busy and have their own lives. I told her that she might want to try asking them first before assuming. They may surprise her and actually reach out to help her. (2) Syncope and collapse: Impression: She presented as dizziness. And the dizziness was so severe that she fell at home and hit a counter on the way down. Differential diagnosis would include infection, hypotension from dehydration or anemia, stroke, arrhythmia, etc. Found to have a UTI in the emergency room. Then developed subsequent increased dizziness. Found to have a stroke. So far there have been no arrhythmias on telemetry. Echo was ordered and done on September 13 , report finally read today. Left ventricle is normal in size. Normal left ventricular wall thickness. Global left ventricular systolic function normal with an EF of 55 to 60%. The right ventricle is normal in size with right ventricular systolic function being normal. No significant valvular disease. No pericardial effusion. Left atrial volume indexed was 36 mL/m. Right atrial size was normal. No aortic stenosis. Pulmonary artery systolic pressure 27.5 mmHg. Patient states that she does have a cardiac history, including an arrhythmia for which she was advised to take carvedilol for in 1996. She does not recall what this is exactly. Since being here, she has been bradycardic and her Coreg was held by the provider on service. She is advising to hold on discharge, and follow-up with primary care provider and material analyst to reassess need to take it. I did try and use it today because of her hypertension. The patient declined. . (3) Urinary tract infection: Impression: Patient presented with urinary incontinence, dysuria. She felt as if she had a fever. Incontinent enough that she was wearing a diaper. UA is positive for leukocyte esterase, WBCs, bacteria. Urine culture has been sent grew E.Coli which is largely sensitive to most antibiotics (resistant to ampicillin). Patient was initially started on Rocephin. When her leukocytosis increased from 18-30, broadened her antibiotics to include cefepime and vancomycin. MRSA swab is ordered, was negative. Leukocytosis resolved 09/16 and she was de-escalated with vancomycin being discontinued. Blood cultures from 09/13 were negative at [address] a [address] scan to assess for perinephric abscess, versus infected stone. She is okay with the retroperitoneal ultrasound at this time which just showed non-obstructive stone. - 09/17 was Day 5 of Rocephin. I stopped at day 5. Qualifiers: Hematuria presence: with hematuria Urinary tract infection type: site unspecified Qualified Code(s): N39.0 - Urinary tract infection, site not specified; R31.9 - Hematuria, unspecified (4) Acute kidney injury: Impression: Baseline Creatinine is 1.0-1.1. Admitted at 2.0 and today she is 1.5. Still not at baseline yesterday. She is not retaining urine. Attributed to be prerenal, due to dehydration, now has been adequately hydrated. Continue to trend. Continue to encourage po intake. K is 5.2 today (5) Leukocytosis: Impression: Due to infection Started at 18.5 and was normal 09/16 at 10.3 and was 8.6 09/17/24. ABx stopped for UTI 09/17. Today she is 11.5 but no fever, no ss of uti or uri. Qualifiers: Leukocytosis type: unspecified Qualified Code(s): D72.829 - Elevated white blood cell count, unspecified (6) Pulmonary embolism: Impression: Continue her home medications. She was taking Eliquis 5 mg once a day. She has been changed her to 2.5 mg twice daily, she is a candidate for lower dose Eliquis with her age, and renal function. Qualifiers: Acute cor pulmonale presence: unspecified Chronicity: unspecified P ulmonary embolism type: unspecified Qualified Code(s): I26.99 - Other pulmonary embolism without acute cor pulmonale
[2024-09-21 05:39] LABS: BASOPHILS % (AUTO) 0.5 %; EOSINOPHILS % (AUTO) 3.8 %; HCT - HEMATOCRIT 42.3 % (37.0-47.0); HGB - HEMOGLOBIN 13.9 g/dL (12.0-16.0); LYMPHOCYTES % (AUTO) 21.4 %; MEAN CORPUSCULAR HEMOGLOBIN 30.5 pg (27.0-31.0); MEAN CORPUSCULAR HGB CONC 32.9 g/dL (32.0-36.0); MEAN CORPUSCULAR VOLUME 92.8 fL (81.0-99.0); MEAN PLATELET VOLUME 9.5 fL (7.9-10.8); NEUTROPHILS % (AUTO) 59.5 %; PLT - PLATELET COUNT 514 10^3/uL (130-450); RED BLOOD COUNT 4.56 10^6/uL (4.20-5.40); RED CELL DISTRIBUTION WIDTH 13.2 % (12.0-15.0)
[2024-09-21 05:48] LABS: ABNORMAL LYMPHS % (MANUAL) 0 %; BAND NEUTROPHILS % (MANUAL) 0 %
[2024-09-21 05:52] LABS: CREATININE 1.4 mg/dL (0.6-1.3); POTASSIUM 4.6 mmol/L (3.5-4.5)
[2024-09-21 06:08] LABS: DIFFERENTIAL COMMENT MANUAL DIFFERENTIAL; EOSINOPHILS # (MANUAL) 0.4 10^3/uL (0-0.7); LYMPHOCYTES # (MANUAL) 3.1 10^3/uL (1.5-3.5); LYMPHOCYTES % (MANUAL) 28 %; MONOCYTES # (MANUAL) 1.1 10^3/uL (0.0-1.0); NEUTROPHILS # (MANUAL) 6.4 10^3/uL (1.5-6.6); PLATELET ESTIMATE, MANUAL INCREASED (>450,000) (NORMAL); PLATELET MORPHOLOGY NORMAL APPEARANCE (NORMAL); RBC MORPHOLOGY (MULTIPLE) NORMAL APPEARANCE (NORMAL); WBC MORPHOLOGY (MULTIPLE) NORMAL APPEARANCE (NORMAL)
--- NOTE | 2024-09-21 20:45 | PROVIDER PROGRESS NOTE ---
Subjective Prog Note Date Prog Note Date: 09/21/24 Prog Note Time: 20:38 Subjective Pt reports feeling: Improved Subjective: No new problems. Denies chest pain, palpitations, shortness of breath. Current Medications Current Medications Current Medications: Current Medications Generic Name Dose Route Start Last Admin Trade Name Freq PRN Reason Stop Dose Admin Acetaminophen 650 mg 09/13/24 18:14 09/21/24 06:40 Acetaminophen 325 Mg Tablet PO 650 mg Q4HR PRN Administration Pain 1 to 4, or Fever Amlodipine Besylate 5 mg 09/18/24 12:00 09/21/24 08:35 Amlodipine 5 Mg Tablet PO 5 mg DAILY TORIBIO Administration Apixaban 2.5 mg 09/14/24 21:00 09/21/24 08:35 Apixaban 2.5 Mg Tablet PO 2.5 mg BID TORIBIO Administration Aspirin 81 mg 09/18/24 12:00 09/21/24 08:35 Aspirin Chew 81 Mg Tablet PO 81 mg DAILY TORIBIO Administration Atorvastatin Calcium 40 mg 09/18/24 21:00 09/20/24 22:07 Atorvastatin 40 Mg Tablet PO 40 mg QPM TORIBIO Administration Carvedilol 3.125 mg 09/18/24 09:00 09/21/24 08:35 Carvedilol 3.125 Mg Tablet PO 3.125 mg BID TORIBIO Administration Docusate Sodium 250 - 500 mg 09/20/24 09:00 09/21/24 08:36 Docusate Sodium 250 Mg Capsule PO 250 mg DAILY TORIBIO Administration Levothyroxine Sodium 112 mcg 09/14/24 07:00 09/21/24 06:40 Levothyroxine 112 Mcg Tablet PO 112 mcg QDAC TORIBIO Administration Meclizine HCl 12.5 mg 09/15/24 06:22 Meclizine 12.5 Mg Tablet PO Q6HR PRN Dizziness Ondansetron HCl 4 mg 09/13/24 18:14 09/19/24 06:19 Ondansetron Odt 4 Mg Tablet TL 4 mg Q6HR PRN Administration Nausea / Vomiting Polyethylene Glycol 17 gm 09/20/24 09:00 09/21/24 08:36 Polyethylene Glycol 3350 17 Gm Packet PO Not Given DAILY TORIBIO Prochlorperazine Maleate 10 mg 09/19/24 12:50 Prochlorperazine 5 Mg Tablet PO Q6HR PRN Nausea / Vomiting Senna 8.6 - 17.2 mg 09/20/24 09:00 09/21/24 08:36 Senna 8.6 Mg Tablet PO Not Given DAILY TORIBIO Objective Vital Signs/Intake & Output Reviewed Vital Signs: Yes Vital Signs: Vital Signs x48h Temp Pulse Resp BP Pulse Ox 09/21/24 15:35 36.8 C 67 16 153/72 H 99 Intake & Output: Intake & Output 09/18/24 09/19/24 09/20/24 09/21/24 23:59 23:59 23:59 23:59 Intake Total 1400 / 1400 720 / 720 1080 / 1080 878 / 878 Output Total 2250 / 2250 1350 / 1350 950 / 950 1350 / 1350 Balance -850 / -850 -630 / -630 130 / 130 -472 / -472 Objective General Appearance: positive No acute distress (Getting impatient at waiting for authorization for an inpatient bed. We do not have PT today.), Alert and Other (Thin white female looks younger than stated age,) ENT: positive No signs of dehydration Neck: positive No JVD; negative Stiff neck Respiratory: positive Chest non-tender, No respiratory distress, Breath sounds nml and Other Cardiovascular: positive Regular rate & rhythm (She has been off telemetry since the . Sinus rhythm.); negative Tachycardia Abdomen: positive Non-tender, No organomegaly, Nml bowel sounds and Other (Eating 100% of her food. Urine output was 1350 cc today) Skin: positive Color nml, Warm and Dry Extremities: positive Non-tender, Full ROM and Nml appearance Neurologic/Psychiatric: positive Oriented x3; negative CN's nml (2-12) (Facial droop) or Motor nml (Lurch is to the left when she stands. Does not even realize she is doing it.) Lab Results 09/21/24 05:20 09/21/24 05:20 Other Labs: Lab Results x24hrs 09/21/24 Range/Units 05:20 WBC 11.0 H (4.8-10.8) x10^3/uL RBC 4.56 (4.20-5.40) 10^6/uL Hgb 13.9 (12.0-16.0) g/dL Hct 42.3 (37.0-47.0) % MCV 92.8 (81.0-99.0) fL MCH 30.5 (27.0-31.0) pg MCHC 32.9 (32.0-36.0) g/dL RDW 13.2 (12.0-15.0) % Plt Count 514 H (130-450) 10^3/uL MPV 9.5 (7.9-10.8) fL Neut # (Auto) Not Reportable Lymph # (Auto) Not Reportable [place] # (Auto) Not Reportable Eos # (Auto) Not Reportable Baso # (Auto) Not Reportable Absolute Nucleated RBC Not Reportable Total Counted 100 Band Neuts % (Manual) 0 (0 - 10) % Abnorm Lymph % (Manual) 0 % Nucleated RBC % Not Reportable Neutrophils # (Manual) 6.4 (1.5-6.6) 10^3/uL Lymphocytes # (Manual) 3.1 (1.5-3.5) 10^3/uL Monocytes # (Manual) 1.1 H (0.0-1.0) 10^3/uL Eosinophils # (Manual) 0.4 (0-0.7) 10^3/uL Basophils # (Manual) 0.0 (0-0.1) 10^3/uL Differential Comment MANUAL DIFFERENTIAL WBC Morphology NORMAL APPEARANCE (NORMAL) Platelet Estimate INCREASED (>450,000) (NORMAL) Platelet Morphology NORMAL APPEARANCE (NORMAL) RBC Morph Micro Appear NORMAL APPEARANCE (NORMAL) Sodium 134 L (135-145) mmol/L Potassium 4.6 H (3.5-4.5) mmol/L Chloride 102 (101-111) mmol/L Carbon Dioxide 26 (21-32) mmol/L Anion Gap 6.0 (6-13) BUN 32 H (6-20) mg/dL Creatinine 1.4 H (0.6-1.3) mg/dL Estimated GFR (MDRD) 36 L (>89) Glucose 104 (74-104) mg/dL Calcium 9.0 (8.5-10.3) mg/dL Assessment/Plan Problem List (1) Lacunar infarct, acute: Impression: Patient had persistent dizziness for over a week. Her story was that of benign positional vertigo. Exacerbated by quick head movements. On September 15 underwent a Hallpike maneuver with relief of symptoms. On the morning of September 16 dizziness returned and PT and OT described a left leaning gait with ambulation. Facial droop was present September 17. We had thought that her left leaning gait was due to her vertigo and opted not to do an MRI. However with the facial droop present, MRI was done and confirms a lacunar infarct. Treatment will be statins, aspirin, permissive hypertension. She remains here because we are waiting for a bed since 09/18/24. 09/20 she is slowly made laps around [facility]. Using a walker. While she does not have focal deficits that I was noted on physical exam, she is moving her left foot slightly slower than right. 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 Plan: -Aspirin 81 mg a day -Atorvastatin 40 mg a day -Fasting lipid panel in the am -I used Coreg in attempt to bring down her blood pressure a little bit. That is her home medication. But because the pulse is 57 the patient has declined taking that medicine. As such we will put her on Norvasc 5 mg a day. While I do believe that permissive hypertension should be allowed, she seems to be having a headache with this. Would like her blood pressure to be at least 180 systolic. Today 141/88. -Physical therapy and Occupational Therapy feels this patient would benefit from inpatient rehab. As such we are pivoting from asking for [facility] facility for rehab (she had asked to go to [facility]) we are now can ask if she go to inpatient rehab. 09/18, 09/19, 09/20 and today are avoidable days. -[facility] has accepted this patient but they do not have a bed now until 09/23 or 09/24. Our pillowcase turner is sending over notes from yesterday for an update. Yesterday she demonstrated improve midline posture in the seated position and was able to self-correct 50% of the time standing. Rapid loss of midline with head turns, dual tasking and high distractibility environments. She is able to ambulate with a front wheel walker and contact-guard assist to min assist. Right lateral drift during turns. Step pattern noticeably reduced ariadne when she is distracted. Patient is unaware of changes in her gait pattern but demonstrates improved awareness of midline. Able to follow verbal and visual cues. PT continues to feel that she would recommend PT in an acute setting to improve safety and gait pattern. Goal is for her to return to home. 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 Daughter has already hired visiting [place] for the patient's . That is where he is currently staying with. His daughter in [place]. The plan is for visiting [place] when he returns to home and when the patient returns home. Patient already has a list of caregivers and is planning on making phone calls to higher independently as well. (2) Syncope and collapse: Impression: She presented as dizziness. And the dizziness was so severe that she fell at home and hit a counter on the way down. Differential diagnosis would include infection, hypotension from dehydration or anemia, stroke, arrhythmia, etc. Found to have a UTI in the emergency room. Then developed subsequent increased dizziness. Found to have a stroke. So far there have been no arrhythmias on telemetry. Echo was ordered and done on September 13 , report finally read today. Left ventricle is normal in size. Normal left ventricular wall thickness. Global left ventricular systolic function normal with an EF of 55 to 60%. The right ventricle is normal in size with right ventricular systolic function being normal. No significant valvular disease. No pericardial effusion. Left atrial volume indexed was 36 mL/m. Right atrial size was normal. No aortic stenosis. Pulmonary artery systolic pressure 27.5 mmHg. Patient states that she does have a cardiac history, including an arrhythmia for which she was advised to take carvedilol for in 1996. She does not recall what this is exactly. Since being here, she has been bradycardic and her Coreg was held by the provider on service. She is advising to hold on discharge, and follow-up with primary care provider and agricultural purchasing agent to reassess need to take it. I did try and use it today because of her hypertension. The patient declined. . (3) Urinary tract infection: Impression: Patient presented with urinary incontinence, dysuria. She felt as if she had a fever. Incontinent enough that she was wearing a diaper. UA is positive for leukocyte esterase, WBCs, bacteria. Urine culture has been sent grew E.Coli which is largely sensitive to most antibiotics (resistant to ampicillin). Patient was initially started on Rocephin. When her leukocytosis increased from 18-30, broadened her antibiotics to include cefepime and vancomycin. MRSA swab is ordered, was negative. Leukocytosis resolved 09/16 and she was de-escalated with vancomycin being discontinued. Blood cultures from 09/13 were negative at [address] a [address] scan to assess for perinephric abscess, versus infected stone. She is okay with the retroperitoneal ultrasound at this time which just showed non-obstructive stone. - 09/17 was Day 5 of Rocephin. I stopped at day 5. Qualifiers: Urinary tract infection type: site unspecified Hematuria presence: with hematuria Qualified Code(s): N39.0 - Urinary tract infection, site not specified; R31.9 - Hematuria, unspecified (4) Acute kidney injury: Impression: Baseline Creatinine is 1.0-1.1. Admitted at 2.0 and today she is 1.4. Still not at baseline yesterday. She is not retaining urine. Attributed to be prerenal, due to dehydration, now has been adequately hydrated. Continue to trend. Continue to encourage po intake. K is 4.6 today (5) Leukocytosis: Impression: Due to infection Started at 18.5 and was normal 09/16 at 10.3 and was 8.6 09/17/24. ABx stopped for UTI 09/17. Today she is 11.0 but no fever, no ss of uti or uri. Qualifiers: Leukocytosis type: unspecified Qualified Code(s): D72.829 - Elevated white blood cell count, unspecified (6) Pulmonary embolism: Impression: Continue her home medications. She was taking Eliquis 5 mg once a day. She has been changed her to 2.5 mg twice daily, she is a candidate for lower dose Eliquis with her age, and renal function. Qualifiers: Pulmonary embolism type: unspecified Chronicity: unspecified Acute cor pulmonale presence: unspecified Qualified Code(s): I26.99 - Other pulmonary embolism without acute cor pulmonale
[2024-09-22 05:47] LABS: BASOPHILS # (AUTO) 0.1 10^3/uL (0.0-0.1); BASOPHILS % (AUTO) 0.7 %; EOSINOPHILS # (AUTO) 0.6 10^3/uL (0.0-0.7); EOSINOPHILS % (AUTO) 4.9 %; HGB - HEMOGLOBIN 14.2 g/dL (12.0-16.0); LYMPHOCYTES # (AUTO) 2.4 10^3/uL (1.5-3.5); LYMPHOCYTES % (AUTO) 21.2 %; MEAN CORPUSCULAR HEMOGLOBIN 31.3 pg (27.0-31.0); MEAN CORPUSCULAR HGB CONC 33.8 g/dL (32.0-36.0); MEAN CORPUSCULAR VOLUME 92.7 fL (81.0-99.0); MEAN PLATELET VOLUME 9.4 fL (7.9-10.8); MONOCYTES # (AUTO) 0.9 10^3/uL (0.0-1.0); MONOCYTES % (AUTO) 8.3 %; NEUTROPHILS % (AUTO) 61.7 %; PLT - PLATELET COUNT 522 10^3/uL (130-450); RED BLOOD COUNT 4.53 10^6/uL (4.20-5.40); RED CELL DISTRIBUTION WIDTH 13.3 % (12.0-15.0); WHITE BLOOD COUNT 11.4 x10^3/uL (4.8-10.8)
[2024-09-22 05:59] LABS: CALCIUM 9.3 mg/dL (8.5-10.3); CREATININE 1.3 mg/dL (0.6-1.3); POTASSIUM 4.9 mmol/L (3.5-4.5)
--- NOTE | 2024-09-22 11:42 | PROVIDER PROGRESS NOTE ---
Subjective Prog Note Date Prog Note Date: 09/22/24 Prog Note Time: 11:39 Subjective Pt reports feeling: Improved Subjective: She laments the wait for authorization. Admits that she still has problems not realizing that she is allergic in 1 direction. She knows that I am thought process can sometimes get confused with regards to doing simple things. Such as getting up to go to the bathroom, the sequence of pulling down your panties, wiping yourself, and then washing her hand. She can do it but she is shocked to think, she has to think about it. She denies chest pain, palpitations, shortness of breath. Current Medications Current Medications Current Medications: Current Medications Generic Name Dose Route Start Last Admin Trade Name Freq PRN Reason Stop Dose Admin Acetaminophen 650 mg 09/13/24 18:14 09/22/24 06:37 Acetaminophen 325 Mg Tablet PO 650 mg Q4HR PRN Administration Pain 1 to 4, or Fever Amlodipine Besylate 5 mg 09/18/24 12:00 09/22/24 08:08 Amlodipine 5 Mg Tablet PO 5 mg DAILY TORIBIO Administration Apixaban 2.5 mg 09/14/24 21:00 09/22/24 08:08 Apixaban 2.5 Mg Tablet PO 2.5 mg BID TORIBIO Administration Aspirin 81 mg 09/18/24 12:00 09/22/24 08:08 Aspirin Chew 81 Mg Tablet PO 81 mg DAILY TORIBIO Administration Atorvastatin Calcium 40 mg 09/18/24 21:00 09/21/24 20:35 Atorvastatin 40 Mg Tablet PO 40 mg QPM TORIBIO Administration Carvedilol 3.125 mg 09/18/24 09:00 09/22/24 08:08 Carvedilol 3.125 Mg Tablet PO Not Given BID TORIBIO Docusate Sodium 250 - 500 mg 09/20/24 09:00 09/22/24 08:08 Docusate Sodium 250 Mg Capsule PO 250 mg DAILY TORIBIO Administration Levothyroxine Sodium 112 mcg 09/14/24 07:00 09/22/24 06:37 Levothyroxine 112 Mcg Tablet PO 112 mcg QDAC TORIBIO Administration Meclizine HCl 12.5 mg 09/15/24 06:22 Meclizine 12.5 Mg Tablet PO Q6HR PRN Dizziness Ondansetron HCl 4 mg 09/13/24 18:14 09/19/24 06:19 Ondansetron Odt 4 Mg Tablet TL 4 mg Q6HR PRN Administration Nausea / Vomiting Polyethylene Glycol 17 gm 09/20/24 09:00 09/22/24 08:08 Polyethylene Glycol 3350 17 Gm Packet PO Not Given DAILY TORIBIO Prochlorperazine Maleate 10 mg 09/19/24 12:50 Prochlorperazine 5 Mg Tablet PO Q6HR PRN Nausea / Vomiting Senna 8.6 - 17.2 mg 09/20/24 09:00 09/22/24 08:09 Senna 8.6 Mg Tablet PO Not Given DAILY TORIBIO Objective Vital Signs/Intake & Output Reviewed Vital Signs: Yes Vital Signs: Vital Signs x48h Temp Pulse Resp BP Pulse Ox O2 Flow Rate 09/22/24 08:03 36.4 C L 55 L 16 144/80 H 94 0 Intake & Output: Intake & Output 09/19/24 09/20/24 09/21/24 09/22/24 23:59 23:59 23:59 23:59 Intake Total 720 / 720 1080 / 1080 1358 / 1358 450 / 450 Output Total 1350 / 1350 950 / 950 1800 / 1800 Balance -630 / -630 130 / 130 -442 / -442 450 / 450 Objective General Appearance: positive No acute distress, Alert and Other (Elderly woman who looks younger than stated age. Facial droop. No dysarthria. Following commands. Able to feed herself by using a knife and fork.) Eyes Bilateral: positive PERRL and EOMI ENT: positive No signs of dehydration Neck: positive No JVD; negative Stiff neck Respiratory: positive No respiratory distress and Breath sounds nml; negative Wheezes, Rales or Rhonchi Cardiovascular: positive Regular rate & rhythm, No murmur and No gallop Abdomen: positive Non-tender, No organomegaly and Nml bowel sounds Extremities: positive Non-tender, Full ROM and Nml appearance Neurologic/Psychiatric: positive Oriented x3; negative CN's nml (2-12) or Motor nml (Still listing to the left. She recognizes that when she is looking at us that we are crooked. Like the entire "picture" is turned a little. And she started to realize that it is in the picture that is turned about herself. She is getting better as self-correcting. She is highly motivated to get) Lab Results 09/23/24 04:58 09/23/24 04:58 Other Labs: Lab Results x24hrs 09/22/24 Range/Units 05:26 WBC 11.4 H (4.8-10.8) x10^3/uL RBC 4.53 (4.20-5.40) 10^6/uL Hgb 14.2 (12.0-16.0) g/dL Hct 42.0 (37.0-47.0) % MCV 92.7 (81.0-99.0) fL MCH 31.3 H (27.0-31.0) pg MCHC 33.8 (32.0-36.0) g/dL RDW 13.3 (12.0-15.0) % Plt Count 522 H (130-450) 10^3/uL MPV 9.4 (7.9-10.8) fL Neut # (Auto) 7.0 H (1.5-6.6) 10^3/uL Lymph # (Auto) 2.4 (1.5-3.5) 10^3/uL [place] # (Auto) 0.9 (0.0-1.0) 10^3/uL Eos # (Auto) 0.6 (0.0-0.7) 10^3/uL Baso # (Auto) 0.1 (0.0-0.1) 10^3/uL Absolute Nucleated RBC 0.00 x10^3/uL Nucleated RBC % 0.0 /100WBC Sodium 134 L (135-145) mmol/L Potassium 4.9 H (3.5-4.5) mmol/L Chloride 101 (101-111) mmol/L Carbon Dioxide 28 (21-32) mmol/L Anion Gap 5.0 L (6-13) BUN 30 H (6-20) mg/dL Creatinine 1.3 (0.6-1.3) mg/dL Estimated GFR (MDRD) 39 L (>89) Glucose 105 H (74-104) mg/dL Calcium 9.3 (8.5-10.3) mg/dL Assessment/Plan Problem List (1) Lacunar infarct, acute: Impression: Patient had persistent dizziness for over a week. Her story was that of benign positional vertigo. Exacerbated by quick head movements. On September 15 underwent a Hallpike maneuver with relief of symptoms. On the morning of September 16 dizziness returned and PT and OT described a left leaning gait with ambulation. Facial droop was present September 17. We had thought that her left leaning gait was due to her vertigo and opted not to do an MRI. However with the facial droop present, MRI was done and confirms a lacunar infarct. Treatment has been statins, aspirin, permissive hypertension. At home she takes carvedilol but will get bradycardic. I did opt to resume it and add almodipine 5 mg a day on 09/18. Today's blood pressure is 169/81. Pulse is 55. I will increase the amlodipine to 7.5 mg po today. She has been medically stable since September 18. We are awaiting insurance authorization. Still listing to the left. She recognizes that when she is looking at us that we are crooked. Like the entire "picture" is turned a little. And she started to realize that it is in the picture that is turned about herself. She is getting better as self-correcting. She is highly motivated to get to rehab. She needs to be able to get to the goal of feeding herself, dressing herself, ambulating by herself. She lives independently. And the plan is for her to return to independent living. 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 She has agreed to hire caregivers to help her be at home independently. Right now her is staying with her daughter in [place]. Their daughter is hired [facility] [place] to take care of him. She thinks that she will stay with that same organization and hire [facility] [place] to help her and her stay at home. (2) Syncope and collapse: Impression: She presented as dizziness. And the dizziness was so severe that she fell at home and hit a counter on the way down. Differential diagnosis would include infection, hypotension from dehydration or anemia, stroke, arrhythmia, etc. Found to have a UTI in the emergency room. Then developed subsequent increased dizziness. Found to have a stroke. So far there have been no arrhythmias on telemetry. Echo was ordered and done on September 13 , report finally read today. Left ventricle is normal in size. Normal left ventricular wall thickness. Global left ventricular systolic function normal with an EF of 55 to 60%. The right ventricle is normal in size with right ventricular systolic function being normal. No significant valvular disease. No pericardial effusion. Left atrial volume indexed was 36 mL/m. Right atrial size was normal. No aortic stenosis. Pulmonary artery systolic pressure 27.5 mmHg. Patient states that she does have a cardiac history, including an arrhythmia for which she was advised to take carvedilol for in 1996. She does not recall what this is exactly. Since being here, she has been bradycardic and her Coreg was held by the provider on service. She is advising to hold on discharge, and follow-up with primary care provider and rubber mixer to reassess need to take it. I did try and use it 09/17 because of her hypertension. The patient declined. But she agreed 09/18/24. . (3) Urinary tract infection: Impression: Patient presented with urinary incontinence, dysuria. She felt as if she had a fever. Incontinent enough that she was wearing a diaper. UA is positive for leukocyte esterase, WBCs, bacteria. Urine culture has been sent grew E.Coli which is largely sensitive to most antibiotics (resistant to ampicillin). Patient was initially started on Rocephin. When her leukocytosis increased from 18-30, broadened her antibiotics to include cefepime and vancomycin. MRSA swab is ordered, was negative. Leukocytosis resolved 09/16 and she was de-escalated with vancomycin being discontinued. Blood cultures from 09/13 were negative at [address] a [address] scan to assess for perinephric abscess, versus infected stone. She is okay with the retroperitoneal ultrasound at this time which just showed non-obstructive stone. - 09/17 was Day 5 of Rocephin. I stopped at day 5. Qualifiers: Hematuria presence: with hematuria Urinary tract infection type: site unspecified Qualified Code(s): N39.0 - Urinary tract infection, site not specified; R31.9 - Hematuria, unspecified (4) Acute kidney injury: Impression: Baseline Creatinine is 1.0-1.1. Admitted at 2.0 and today she is 1.3. Still not at baseline yesterday. She is not retaining urine. Attributed to be prerenal, due to dehydration, now has been adequately hydrated. Continue to trend. Continue to encourage po intake. K is 4.4 today (5) Leukocytosis: Impression: Due to infection Started at 18.5 and was normal 09/16 at 10.3 and was 8.6 09/17/24. ABx stopped for UTI 09/17. Today she is 10.6 but no fever, no ss of uti or uri. Qualifiers: Leukocytosis type: unspecified Qualified Code(s): D72.829 - Elevated white blood cell count, unspecified (6) Pulmonary embolism: Impression: Continue her home medications. She was taking Eliquis 5 mg once a day. She has been changed her to 2.5 mg twice daily, she is a candidate for lower dose Eliquis with her age, and renal function. Qualifiers: Acute cor pulmonale presence: unspecified Chronicity: unspecified P ulmonary embolism type: unspecified Qualified Code(s): I26.99 - Other pulmonary embolism without acute cor pulmonale
[2024-09-23 05:32] LABS: BASOPHILS # (AUTO) 0.1 10^3/uL (0.0-0.1); BASOPHILS % (AUTO) 0.9 %; EOSINOPHILS # (AUTO) 0.7 10^3/uL (0.0-0.7); EOSINOPHILS % (AUTO) 6.5 %; HCT - HEMATOCRIT 43.6 % (37.0-47.0); HGB - HEMOGLOBIN 14.1 g/dL (12.0-16.0); LYMPHOCYTES # (AUTO) 2.2 10^3/uL (1.5-3.5); LYMPHOCYTES % (AUTO) 20.8 %; MEAN CORPUSCULAR HEMOGLOBIN 30.3 pg (27.0-31.0); MEAN CORPUSCULAR HGB CONC 32.3 g/dL (32.0-36.0); MEAN CORPUSCULAR VOLUME 93.8 fL (81.0-99.0); MEAN PLATELET VOLUME 9.5 fL (7.9-10.8); MONOCYTES # (AUTO) 0.7 10^3/uL (0.0-1.0); NEUTROPHILS # (AUTO) 6.6 10^3/uL (1.5-6.6); NEUTROPHILS % (AUTO) 62.9 %; PLT - PLATELET COUNT 545 10^3/uL (130-450); RED BLOOD COUNT 4.65 10^6/uL (4.20-5.40); RED CELL DISTRIBUTION WIDTH 13.3 % (12.0-15.0); WHITE BLOOD COUNT 10.6 x10^3/uL (4.8-10.8)
[2024-09-23 05:45] LABS: CALCIUM 9.3 mg/dL (8.5-10.3); CREATININE 1.3 mg/dL (0.6-1.3); POTASSIUM 4.4 mmol/L (3.5-4.5)
[2024-09-24 05:09] LABS: BASOPHILS # (AUTO) 0.1 10^3/uL (0.0-0.1); BASOPHILS % (AUTO) 0.7 %; EOSINOPHILS # (AUTO) 0.5 10^3/uL (0.0-0.7); EOSINOPHILS % (AUTO) 4.8 %; HCT - HEMATOCRIT 43.1 % (37.0-47.0); HGB - HEMOGLOBIN 13.9 g/dL (12.0-16.0); LYMPHOCYTES # (AUTO) 2.3 10^3/uL (1.5-3.5); LYMPHOCYTES % (AUTO) 22.8 %; MEAN CORPUSCULAR HEMOGLOBIN 30.3 pg (27.0-31.0); MEAN CORPUSCULAR HGB CONC 32.3 g/dL (32.0-36.0); MEAN CORPUSCULAR VOLUME 94.1 fL (81.0-99.0); MEAN PLATELET VOLUME 9.4 fL (7.9-10.8); MONOCYTES # (AUTO) 0.8 10^3/uL (0.0-1.0); MONOCYTES % (AUTO) 8.1 %; NEUTROPHILS # (AUTO) 6.4 10^3/uL (1.5-6.6); NEUTROPHILS % (AUTO) 61.9 %; PLT - PLATELET COUNT 544 10^3/uL (130-450); RED BLOOD COUNT 4.58 10^6/uL (4.20-5.40); RED CELL DISTRIBUTION WIDTH 13.2 % (12.0-15.0); WHITE BLOOD COUNT 10.3 x10^3/uL (4.8-10.8)
[2024-09-24 05:20] LABS: CALCIUM 9.3 mg/dL (8.5-10.3); CREATININE 1.4 mg/dL (0.6-1.3); POTASSIUM 5.2 mmol/L (3.5-4.5)
[2024-09-24] MEDS: SODIUM ZIRCONIUM CYCLOSILICATE 5 GM PACKET PO ONE (13:41)
--- NOTE | 2024-09-24 20:48 | PROVIDER PROGRESS NOTE ---
Subjective Prog Note Date Prog Note Date: 09/24/24 Prog Note Time: 17:00 Subjective Subjective: Pt feels improve ambulation. Sense of disequilibrium and tilting to the left gradually improved. No weakness in extremities, no problem with dexterity in hands. Frustrated about rehab auth process. Current Medications Current Medications Current Medications: Current Medications Generic Name Dose Route Start Last Admin Trade Name Freq PRN Reason Stop Dose Admin Acetaminophen 650 mg 09/13/24 18:14 09/24/24 16:14 Acetaminophen 325 Mg Tablet PO 650 mg Q4HR PRN Administration Pain 1 to 4, or Fever Amlodipine Besylate 5 mg 09/18/24 12:00 09/24/24 08:21 Amlodipine 5 Mg Tablet PO 5 mg DAILY TORIBIO Administration Apixaban 2.5 mg 09/14/24 21:00 09/24/24 20:34 Apixaban 2.5 Mg Tablet PO 2.5 mg BID TORIBIO Administration Aspirin 81 mg 09/18/24 12:00 09/24/24 08:21 Aspirin Chew 81 Mg Tablet PO 81 mg DAILY TORIBIO Administration Atorvastatin Calcium 40 mg 09/18/24 21:00 09/24/24 20:34 Atorvastatin 40 Mg Tablet PO 40 mg QPM TORIBIO Administration Carvedilol 3.125 mg 09/18/24 09:00 09/24/24 20:37 Carvedilol 3.125 Mg Tablet PO Not Given BID TORIBIO Docusate Sodium 250 - 500 mg 09/20/24 09:00 09/24/24 08:21 Docusate Sodium 250 Mg Capsule PO 250 mg DAILY TORIBIO Administration Levothyroxine Sodium 112 mcg 09/14/24 07:00 09/24/24 06:21 Levothyroxine 112 Mcg Tablet PO 112 mcg QDAC TORIBIO Administration Meclizine HCl 12.5 mg 09/15/24 06:22 Meclizine 12.5 Mg Tablet PO Q6HR PRN Dizziness Ondansetron HCl 4 mg 09/13/24 18:14 09/24/24 13:46 Ondansetron Odt 4 Mg Tablet TL 4 mg Q6HR PRN Administration Nausea / Vomiting Polyethylene Glycol 17 gm 09/20/24 09:00 09/24/24 08:22 Polyethylene Glycol 3350 17 Gm Packet PO Not Given DAILY TORIBIO Prochlorperazine Maleate 10 mg 09/19/24 12:50 Prochlorperazine 5 Mg Tablet PO Q6HR PRN Nausea / Vomiting Senna 8.6 - 17.2 mg 09/20/24 09:00 09/24/24 08:22 Senna 8.6 Mg Tablet PO Not Given DAILY [facility] Objective Vital Signs/Intake & Output Reviewed Vital Signs: Yes Vital Signs: Vital Signs x48h Temp Pulse Resp BP Pulse Ox 09/24/24 16:11 36.6 C 64 20 167/86 H 98 Intake & Output: Intake & Output 09/21/24 09/22/24 09/23/24 09/24/24 23:59 23:59 23:59 23:59 Intake Total 1358 / 1358 1230 / 1230 1400 / 1400 390 / 390 Output Total 1800 / 1800 400 / 400 850 / 850 401 / 401 Balance -442 / -442 830 / 830 550 / 550 -11 / -11 Objective Comments/Other: elderly woman sitting in chair, NAD, sclera anicteric LCTAB, RRR, S1S2, no edema abd soft, NT, ND, BS+ CN 2-12 intact, strength 5/5 UE and LE bilat, sensation intact, FNF and SHAUNA intact, normal tone, no tremor Lab Results 09/24/24 04:47 09/24/24 04:47 Other Labs: Lab Results x24hrs 09/24/24 Range/Units 04:47 WBC 10.3 (4.8-10.8) x10^3/uL RBC 4.58 (4.20-5.40) 10^6/uL Hgb 13.9 (12.0-16.0) g/dL Hct 43.1 (37.0-47.0) % MCV 94.1 (81.0-99.0) fL MCH 30.3 (27.0-31.0) pg MCHC 32.3 (32.0-36.0) g/dL RDW 13.2 (12.0-15.0) % Plt Count 544 H (130-450) 10^3/uL MPV 9.4 (7.9-10.8) fL Neut # (Auto) 6.4 (1.5-6.6) 10^3/uL Lymph # (Auto) 2.3 (1.5-3.5) 10^3/uL [place] # (Auto) 0.8 (0.0-1.0) 10^3/uL Eos # (Auto) 0.5 (0.0-0.7) 10^3/uL Baso # (Auto) 0.1 (0.0-0.1) 10^3/uL Absolute Nucleated RBC 0.00 x10^3/uL Nucleated RBC % 0.0 /100WBC Sodium 134 L (135-145) mmol/L Potassium 5.2 H (3.5-4.5) mmol/L Chloride 103 (101-111) mmol/L Carbon Dioxide 27 (21-32) mmol/L Anion Gap 4.0 L (6-13) BUN 27 H (6-20) mg/dL Creatinine 1.4 H (0.6-1.3) mg/dL Estimated GFR (MDRD) 36 L (>89) Glucose 98 (74-104) mg/dL Calcium 9.3 (8.5-10.3) mg/dL Assessment/Plan Problem List (1) Lacunar infarct, acute: Impression: 1. acute left frontal lacunar infarct, syncope, vertigo: persistent gait instability and disequilibrium. H/o BPPV s/p Hallpike maneuver. - continue asa, low dose apixaban, statin - PT/OT - pending auth for acute rehab placement 2. chronic PE: - cont apixaban 3. SHAUNA on CKD3: Cr stable today. - monitor 4. hyperkalemia: due in part to CKD. - give lokelma x 1, BMP in am dvt ppx: DOAC Dispo plan and GOC: Came from home with . PT rec acute rehab- appreciate SW help for placement.
[2024-09-25 06:17] LABS: CALCIUM 9.7 mg/dL (8.5-10.3); CREATININE 1.4 mg/dL (0.6-1.3); POTASSIUM 4.3 mmol/L (3.5-4.5)
--- NOTE | 2024-09-25 15:46 | PROVIDER PROGRESS NOTE ---
Subjective Prog Note Date Prog Note Date: 09/25/24 Prog Note Time: 15:45 Subjective Pt reports feeling: Improved Subjective: Mild improvement in disequilibrium and listing to left. Persistent headache. Continued difficulty ambulating. Over the past 24 hrs pt has expressed suicidal ideation, primarily related to her current medical condition and fear she may not receive the adequate resources for recovery. She is hopeful of getting to rehab. She has no active suicidal ideation or intent. 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 Current Medications Current Medications Current Medications: Current Medications Generic Name Dose Route Start Last Admin Trade Name Freq PRN Reason Stop Dose Admin Acetaminophen 650 mg 09/13/24 18:14 09/25/24 10:07 Acetaminophen 325 Mg Tablet PO 650 mg Q4HR PRN Administration Pain 1 to 4, or Fever Amlodipine Besylate 5 mg 09/18/24 12:00 09/25/24 09:01 Amlodipine 5 Mg Tablet PO 5 mg DAILY TORIBIO Administration Apixaban 2.5 mg 09/14/24 21:00 09/25/24 09:01 Apixaban 2.5 Mg Tablet PO 2.5 mg BID TORIBIO Administration Aspirin 81 mg 09/18/24 12:00 09/25/24 09:01 Aspirin Chew 81 Mg Tablet PO 81 mg DAILY TORIBIO Administration Atorvastatin Calcium 40 mg 09/18/24 21:00 09/24/24 20:34 Atorvastatin 40 Mg Tablet PO 40 mg QPM TORIBIO Administration Carvedilol 3.125 mg 09/18/24 09:00 09/25/24 09:01 Carvedilol 3.125 Mg Tablet PO 3.125 mg BID TORIBIO Administration Citalopram Hydrobromide 10 mg 09/25/24 15:31 Citalopram 10 Mg Tablet PO DAILY TORIBIO Docusate Sodium 250 - 500 mg 09/20/24 09:00 09/25/24 09:01 Docusate Sodium 250 Mg Capsule PO 250 mg DAILY TORIBIO Administration Levothyroxine Sodium 112 mcg 09/14/24 07:00 09/25/24 06:26 Levothyroxine 112 Mcg Tablet PO 112 mcg QDAC TORIBIO Administration Meclizine HCl 12.5 mg 09/15/24 06:22 Meclizine 12.5 Mg Tablet PO Q6HR PRN Dizziness Ondansetron HCl 4 mg 09/13/24 18:14 09/25/24 11:26 Ondansetron Odt 4 Mg Tablet TL 4 mg Q6HR PRN Administration Nausea / Vomiting Polyethylene Glycol 17 gm 09/20/24 09:00 09/25/24 09:01 Polyethylene Glycol 3350 17 Gm Packet PO Not Given DAILY TORIBIO Prochlorperazine Maleate 10 mg 09/19/24 12:50 Prochlorperazine 5 Mg Tablet PO Q6HR PRN Nausea / Vomiting Senna 8.6 - 17.2 mg 09/20/24 09:00 09/25/24 09:01 Senna 8.6 Mg Tablet PO 8.6 mg DAILY TORIBIO Administration Objective Vital Signs/Intake & Output Reviewed Vital Signs: Yes Vital Signs: Vital Signs x48h Temp Pulse Resp BP Pulse Ox 09/25/24 08:05 36.5 C 67 16 160/96 H 96 Intake & Output: Intake & Output 09/22/24 09/23/24 09/24/24 09/25/24 23:59 23:59 23:59 23:59 Intake Total 1230 / 1230 1400 / 1400 630 / 630 960 / 960 Output Total 400 / 400 850 / 850 401 / 401 800 / 800 Balance 830 / 830 550 / 550 229 / 229 160 / 160 Objective Comments/Other: elderly woman sitting in chair, NAD, sclera anicteric LCTAB, RRR, S1S2, no edema abd soft, NT, ND, BS+ CN 2-12 intact aside from slight R lower facial droop, strength 5/5 UE and LE bilat, sensation intact, normal tone, no tremor, normal speech sounds, tilts head to left at times labile mood, tearful at times Lab Results 09/24/24 04:47 09/25/24 05:08 Other Labs: Lab Results x24hrs 09/25/24 Range/Units 05:08 Sodium 136 (135-145) mmol/L Potassium 4.3 (3.5-4.5) mmol/L Chloride 102 (101-111) mmol/L Carbon Dioxide 28 (21-32) mmol/L Anion Gap 6.0 (6-13) BUN 22 H (6-20) mg/dL Creatinine 1.4 H (0.6-1.3) mg/dL Estimated GFR (MDRD) 36 L (>89) Glucose 93 (74-104) mg/dL Calcium 9.7 (8.5-10.3) mg/dL Assessment/Plan Problem List (1) Lacunar infarct, acute: Impression: 1. acute left frontal lacunar infarct, syncope, vertigo, fall: persistent gait instability and disequilibrium. H/o BPPV s/p Hallpike maneuver. Continued significant impairments in mobility and functional status that are improving with PT/OT. - continue asa, low dose apixaban, statin - PT/OT - pending acute rehab placement - posterior scalp with wound with dermabond c/d/i 2. chronic PE: - cont apixaban 3. SHAUNA on CKD3: Cr stable today. - monitor 4. hyperkalemia: due in part to CKD. Resolved. monitor 5. HTN, unspecified arrhythmia: - cont home carvedilol - cont amlodipine - BP uncontrolled at times overnight- may need to titrate meds 6. depression: - resume home citalopram - monitor for further suicidal ideation 7. hypothyroidism: - cont home synthroid dvt ppx: DOAC Dispo plan and GOC: Came from home with . PT rec acute rehab- appreciate SW help for placement.
[2024-09-25] MEDS: CITALOPRAM 10 MG TABLET PO SCH (16:39)
--- NOTE | 2024-09-26 16:00 | PROVIDER PROGRESS NOTE ---
Subjective Prog Note Date Prog Note Date: 09/26/24 Subjective Pt reports feeling: No change Subjective: No acute events overnight. Working with PT. Anxious about rehab placement. Current Medications Current Medications Current Medications: Current Medications Generic Name Dose Route Start Last Admin Trade Name Freq PRN Reason Stop Dose Admin Acetaminophen 650 mg 09/13/24 18:14 09/26/24 14:08 Acetaminophen 325 Mg Tablet PO 650 mg Q4HR PRN Administration Pain 1 to 4, or Fever Amlodipine Besylate 5 mg 09/18/24 12:00 09/26/24 08:05 Amlodipine 5 Mg Tablet PO 5 mg DAILY TORIBIO Administration Apixaban 2.5 mg 09/14/24 21:00 09/26/24 08:05 Apixaban 2.5 Mg Tablet PO 2.5 mg BID TORIBIO Administration Aspirin 81 mg 09/18/24 12:00 09/26/24 08:05 Aspirin Chew 81 Mg Tablet PO 81 mg DAILY TORIBIO Administration Atorvastatin Calcium 40 mg 09/18/24 21:00 09/25/24 20:02 Atorvastatin 40 Mg Tablet PO 40 mg QPM TORIBIO Administration Carvedilol 3.125 mg 09/18/24 09:00 09/26/24 08:05 Carvedilol 3.125 Mg Tablet PO 3.125 mg BID TORIBIO Administration Citalopram Hydrobromide 10 mg 09/25/24 15:31 09/26/24 08:05 Citalopram 10 Mg Tablet PO 10 mg DAILY TORIBIO Administration Docusate Sodium 250 - 500 mg 09/20/24 09:00 09/26/24 08:05 Docusate Sodium 250 Mg Capsule PO 250 mg DAILY TORIBIO Administration Levothyroxine Sodium 112 mcg 09/14/24 07:00 09/26/24 06:08 Levothyroxine 112 Mcg Tablet PO 112 mcg QDAC TORIBIO Administration Meclizine HCl 12.5 mg 09/15/24 06:22 Meclizine 12.5 Mg Tablet PO Q6HR PRN Dizziness Ondansetron HCl 4 mg 09/13/24 18:14 09/25/24 11:26 Ondansetron Odt 4 Mg Tablet TL 4 mg Q6HR PRN Administration Nausea / Vomiting Polyethylene Glycol 17 gm 09/20/24 09:00 09/26/24 08:06 Polyethylene Glycol 3350 17 Gm Packet PO Not Given DAILY TORIBIO Prochlorperazine Maleate 10 mg 09/19/24 12:50 Prochlorperazine 5 Mg Tablet PO Q6HR PRN Nausea / Vomiting Senna 8.6 - 17.2 mg 09/20/24 09:00 09/26/24 08:05 Senna 8.6 Mg Tablet PO 8.6 mg DAILY TORIBIO Administration Objective Vital Signs/Intake & Output Reviewed Vital Signs: Yes Intake & Output: Intake & Output 09/23/24 09/24/24 09/25/24 09/26/24 23:59 23:59 23:59 23:59 Intake Total 1400 / 1400 630 / 630 1440 / 1440 960 / 960 Output Total 850 / 850 401 / 401 800 / 800 800 / 800 Balance 550 / 550 229 / 229 640 / 640 160 / 160 Objective Comments/Other: elderly woman sitting in chair, NAD, sclera anicteric LCTAB, RRR, S1S2, no edema abd soft, NT, ND, BS+ CN 2-12 intact aside from slight R lower facial droop, strength 5/5 UE and LE bilat, sensation intact, normal tone, no tremor, normal speech sounds, tilts head to left at times labile mood, tearful at times Lab Results 09/24/24 04:47 09/25/24 05:08 Assessment/Plan Problem List (1) Lacunar infarct, acute: Impression: 1. acute left frontal lacunar infarct, syncope, vertigo, fall: persistent gait instability and disequilibrium. H/o BPPV s/p Hallpike maneuver. Continued significant impairments in mobility and functional status that are improving with PT/OT. - continue asa, low dose apixaban, statin - PT/OT - pending acute rehab placement - posterior scalp with wound with dermabond c/d/i 2. chronic PE: - cont apixaban 3. CKD3: Cr baseline 1-1.3. Cr stable at baseline today. - monitor 4. HTN, unspecified arrhythmia: - cont home carvedilol - cont amlodipine - BP uncontrolled at times overnight- may need to titrate meds 5. depression: - home citalopram - monitor for further suicidal ideation 6. hypothyroidism: - cont home synthroid dvt ppx: DOAC Dispo plan and GOC: Came from home with . PT rec acute rehab- appreciate SW help for placement. Completed peer to peer for inpt rehab denial today- awaiting final decision.
[2024-09-27] MEDS: amLODIPine 5 MG TABLET PO SCH (08:03)
[2024-09-27] MEDS: amLODIPine 5 MG TABLET PO ONE (12:20)
--- NOTE | 2024-09-27 14:28 | XRAY Report ---
PROCEDURE: XR Chest 2V INDICATIONS: transient hypoxia, L lower rib pain TECHNIQUE: 2 views of the chest were acquired. COMPARISON: 09/14/2024 FINDINGS: Surgical changes and devices: None. Lungs and pleura: No pleural effusions or pneumothorax. No consolidation. Mediastinum: Mediastinal contours appear normal. Heart size is normal. Bones and chest wall: No suspicious bony lesions. Overlying soft tissues appear unremarkable. IMPRESSION: No acute cardiopulmonary process. Reviewed by: Toni Blackwell MD on 09/27/2024 2:26 PM PDT Approved by: Toni Blackwell MD on 09/27/2024 2:26 PM PDT Station ID: [id number]
--- NOTE | 2024-09-27 14:46 | PROVIDER PROGRESS NOTE ---
Subjective Prog Note Date Prog Note Date: 09/27/24 Prog Note Time: 14:43 Subjective Subjective: Stable problems with gait- listing to the left, poor balance, disequilibrium. Epidsode of desat to 86% this morning after waking up. Denies any respiratory symptoms, no cough, no SOB. Notes persistent frontal headache that has been relatively constant since admission, helped by tylenol. Current Medications Current Medications Current Medications: Current Medications Generic Name Dose Route Start Last Admin Trade Name Freq PRN Reason Stop Dose Admin Acetaminophen 650 mg 09/13/24 18:14 09/27/24 12:22 Acetaminophen 325 Mg Tablet PO 650 mg Q4HR PRN Administration Pain 1 to 4, or Fever Amlodipine Besylate 10 mg 09/28/24 09:00 Amlodipine 5 Mg Tablet PO DAILY TORIBIO Apixaban 2.5 mg 09/14/24 21:00 09/27/24 08:02 Apixaban 2.5 Mg Tablet PO 2.5 mg BID TORIBIO Administration Aspirin 81 mg 09/18/24 12:00 09/27/24 08:02 Aspirin Chew 81 Mg Tablet PO 81 mg DAILY TORIBIO Administration Atorvastatin Calcium 40 mg 09/18/24 21:00 09/26/24 20:33 Atorvastatin 40 Mg Tablet PO 40 mg QPM TORIBIO Administration Carvedilol 3.125 mg 09/18/24 09:00 09/27/24 08:03 Carvedilol 3.125 Mg Tablet PO 3.125 mg BID TORIBIO Administration Citalopram Hydrobromide 10 mg 09/25/24 15:31 09/27/24 08:03 Citalopram 10 Mg Tablet PO 10 mg DAILY TORIBIO Administration Docusate Sodium 250 - 500 mg 09/20/24 09:00 09/27/24 08:02 Docusate Sodium 250 Mg Capsule PO 250 mg DAILY TORIBIO Administration Levothyroxine Sodium 112 mcg 09/14/24 07:00 09/27/24 04:23 Levothyroxine 112 Mcg Tablet PO 112 mcg QDAC TORIBIO Administration Meclizine HCl 12.5 mg 09/15/24 06:22 Meclizine 12.5 Mg Tablet PO Q6HR PRN Dizziness Ondansetron HCl 4 mg 09/13/24 18:14 09/25/24 11:26 Ondansetron Odt 4 Mg Tablet TL 4 mg Q6HR PRN Administration Nausea / Vomiting Polyethylene Glycol 17 gm 09/20/24 09:00 09/27/24 08:04 Polyethylene Glycol 3350 17 Gm Packet PO 17 gm DAILY TORIBIO Administration Prochlorperazine Maleate 10 mg 09/19/24 12:50 Prochlorperazine 5 Mg Tablet PO Q6HR PRN Nausea / Vomiting Senna 8.6 - 17.2 mg 09/20/24 09:00 09/27/24 08:03 Senna 8.6 Mg Tablet PO 8.6 mg DAILY TORIBIO Administration Objective Vital Signs/Intake & Output Intake & Output: Intake & Output 09/24/24 09/25/24 09/26/24 09/27/24 23:59 23:59 23:59 23:59 Intake Total 630 / 630 1440 / 1440 1950 / 1950 980 / 980 Output Total 401 / 401 800 / 800 800 / 800 550 / 550 Balance 229 / 229 640 / 640 1150 / 1150 430 / 430 Objective Comments/Other: elderly woman sitting in chair, NAD, sclera anicteric LCTAB, no wheeze, no crackles RRR, S1S2, no edema abd soft, NT, ND, BS+ CN 2-12 intact aside from slight R lower facial droop, strength 5/5 UE and LE bilat, sensation intact, normal tone, no tremor, normal speech sounds, tilts head to left at times lac on posterior scalp with dermabond c/d/i, healing Lab Results 09/24/24 04:47 09/25/24 05:08 Other Results/Comments Other Results/Comments: CXR: no infiltrate, no acute findings. Assessment/Plan Problem List (1) Lacunar infarct, acute: Impression: 1. acute left frontal lacunar infarct: persistent gait instability and disequilibrium. H/o BPPV s/p Hallpike maneuver. Continued significant impairments in mobility and functional status that are improving with PT/OT. - continue asa, low dose apixaban, statin - PT/OT 2. fall, syncope, vertigo, frontal headache, posterior scalp laceration: no vertigo now. Persistent headache may be postconcussive syndrome after head strike during syncopal episode prior to admission. Head CTs reviewed. - tylenol prn - posterior scalp with wound with dermabond c/d/i 3. chronic PE: - cont apixaban 4. HTN, unspecified arrhythmia: BP uncontrolled at times to 160s systolic. - cont home carvedilol - cont amlodipine- increase dose to 10 mg q day - monitor BP and may need further adjustments to medication in coming days 5. depression: - home citalopram - monitor for further suicidal ideation 6. hypoxia, suspect atelectasis: brief episode today of desat to mid 80s, quickly recovered, now on RA. CXR clear. - monitor dvt ppx: DOAC Dispo plan and GOC: Came from home with . PT rec acute rehab- Completed peer to peer today with updated PT notes sent. Discussed case with Dr. Clayton from [place] and he denied IPR based on her level of ambulation.
[2024-09-28] MEDS: amLODIPine 5 MG TABLET PO SCH (09:22)
--- NOTE | 2024-09-28 19:05 | PROVIDER PROGRESS NOTE ---
Subjective Prog Note Date Prog Note Date: 09/28/24 Prog Note Time: 19:01 Subjective Subjective: No acute events. No dyspnea or cough. Current Medications Current Medications Current Medications: Current Medications Generic Name Dose Route Start Last Admin Trade Name Freq PRN Reason Stop Dose Admin Acetaminophen 650 mg 09/13/24 18:14 09/28/24 18:55 Acetaminophen 325 Mg Tablet PO 650 mg Q4HR PRN Administration Pain 1 to 4, or Fever Amlodipine Besylate 10 mg 09/28/24 09:00 09/28/24 09:22 Amlodipine 5 Mg Tablet PO 10 mg DAILY TORIBIO Administration Apixaban 2.5 mg 09/14/24 21:00 09/28/24 09:22 Apixaban 2.5 Mg Tablet PO 2.5 mg BID TORIBIO Administration Aspirin 81 mg 09/18/24 12:00 09/28/24 09:22 Aspirin Chew 81 Mg Tablet PO 81 mg DAILY TORIBIO Administration Atorvastatin Calcium 40 mg 09/18/24 21:00 09/27/24 20:39 Atorvastatin 40 Mg Tablet PO 40 mg QPM TORIBIO Administration Carvedilol 3.125 mg 09/18/24 09:00 09/28/24 09:22 Carvedilol 3.125 Mg Tablet PO 3.125 mg BID TORIBIO Administration Citalopram Hydrobromide 10 mg 09/25/24 15:31 09/28/24 09:23 Citalopram 10 Mg Tablet PO 10 mg DAILY TORIBIO Administration Docusate Sodium 250 - 500 mg 09/20/24 09:00 09/28/24 09:22 Docusate Sodium 250 Mg Capsule PO 250 mg DAILY TORIBIO Administration Levothyroxine Sodium 112 mcg 09/14/24 07:00 09/28/24 06:31 Levothyroxine 112 Mcg Tablet PO 112 mcg QDAC TORIBIO Administration Meclizine HCl 12.5 mg 09/15/24 06:22 Meclizine 12.5 Mg Tablet PO Q6HR PRN Dizziness Ondansetron HCl 4 mg 09/13/24 18:14 09/25/24 11:26 Ondansetron Odt 4 Mg Tablet TL 4 mg Q6HR PRN Administration Nausea / Vomiting Polyethylene Glycol 17 gm 09/20/24 09:00 09/28/24 09:21 Polyethylene Glycol 3350 17 Gm Packet PO 17 gm DAILY TORIBIO Administration Prochlorperazine Maleate 10 mg 09/19/24 12:50 Prochlorperazine 5 Mg Tablet PO Q6HR PRN Nausea / Vomiting Senna 8.6 - 17.2 mg 09/20/24 09:00 09/28/24 09:22 Senna 8.6 Mg Tablet PO 8.6 mg DAILY TORIBIO Administration Objective Vital Signs/Intake & Output Reviewed Vital Signs: Yes Vital Signs: Vital Signs x48h Temp Pulse Resp BP Pulse Ox 09/28/24 16:00 36.4 C L 61 18 133/70 H 98 Intake & Output: Intake & Output 09/25/24 09/26/24 09/27/24 09/28/24 23:59 23:59 23:59 23:59 Intake Total 1440 / 1440 1950 / 1950 1100 / 1100 1340 / 1340 Output Total 800 / 800 800 / 800 550 / 550 500 / 500 Balance 640 / 640 1150 / 1150 550 / 550 840 / 840 Objective Comments/Other: elderly woman sitting in chair, NAD, sclera anicteric LCTAB, no wheeze, no crackles RRR, S1S2, no edema abd soft, NT, ND, BS+ CN 2-12 intact aside from slight R lower facial droop, strength 5/5 UE and LE bilat, sensation intact, normal tone, no tremor, normal speech sounds, tilts head to left at times Lab Results 09/24/24 04:47 09/25/24 05:08 Assessment/Plan Problem List (1) Lacunar infarct, acute: Impression: 1. acute left frontal lacunar infarct: persistent gait instability and disequilibrium. H/o BPPV s/p Hallpike maneuver. Continued significant impairments in mobility and functional status. - continue asa, low dose apixaban, statin - PT/OT 2. fall, syncope, vertigo, frontal headache, posterior scalp laceration: no vertigo now. Persistent headache may be postconcussive syndrome after head strike during syncopal episode prior to admission. Head CTs reviewed. - tylenol prn - posterior scalp with wound with dermabond c/d/i 3. chronic PE: - cont apixaban 4. HTN, unspecified arrhythmia: BP better controlled. - cont home carvedilol - cont amlodipine- - monitor BP and may need further adjustments to medication in coming days 5. depression: - home citalopram - monitor for further suicidal ideation dvt ppx: DOAC Dispo plan and GOC: Came from home with . PT rec inpt rehab which was denied by [facility]. Now planning home with services.
[2024-09-29 05:20] LABS: BASOPHILS # (AUTO) 0.2 10^3/uL (0.0-0.1); BASOPHILS % (AUTO) 2.2 %; EOSINOPHILS # (AUTO) 1.2 10^3/uL (0.0-0.7); EOSINOPHILS % (AUTO) 11.8 %; HCT - HEMATOCRIT 42.3 % (37.0-47.0); HGB - HEMOGLOBIN 13.8 g/dL (12.0-16.0); LYMPHOCYTES # (AUTO) 2.5 10^3/uL (1.5-3.5); LYMPHOCYTES % (AUTO) 25.5 %; MEAN CORPUSCULAR HEMOGLOBIN 30.7 pg (27.0-31.0); MEAN CORPUSCULAR HGB CONC 32.6 g/dL (32.0-36.0); MEAN CORPUSCULAR VOLUME 94.2 fL (81.0-99.0); MEAN PLATELET VOLUME 9.8 fL (7.9-10.8); MONOCYTES # (AUTO) 0.9 10^3/uL (0.0-1.0); NEUTROPHILS % (AUTO) 51.1 %; PLT - PLATELET COUNT 524 10^3/uL (130-450); RED BLOOD COUNT 4.49 10^6/uL (4.20-5.40); RED CELL DISTRIBUTION WIDTH 13.1 % (12.0-15.0); WHITE BLOOD COUNT 9.8 x10^3/uL (4.8-10.8)
[2024-09-29 05:40] LABS: CALCIUM 9.5 mg/dL (8.5-10.3); CREATININE 1.4 mg/dL (0.6-1.3); POTASSIUM 4.7 mmol/L (3.5-4.5)
[2024-09-29 06:14] LABS: DIFFERENTIAL COMMENT MANUAL=AUTO DIFF; PLATELET ESTIMATE, MANUAL INCREASED (>450,000) (NORMAL); PLATELET MORPHOLOGY NORMAL APPEARANCE (NORMAL); RBC MORPHOLOGY (MULTIPLE) NORMAL APPEARANCE (NORMAL); WBC MORPHOLOGY (MULTIPLE) NORMAL APPEARANCE (NORMAL)
--- NOTE | 2024-09-29 13:31 | PROVIDER PROGRESS NOTE ---
Subjective Prog Note Date Prog Note Date: 09/29/24 Prog Note Time: 13:27 Subjective Subjective: No acute events. Headache helped by tylenol. Current Medications Current Medications Current Medications: Current Medications Generic Name Dose Route Start Last Admin Trade Name Freq PRN Reason Stop Dose Admin Acetaminophen 650 mg 09/13/24 18:14 09/29/24 06:35 Acetaminophen 325 Mg Tablet PO 650 mg Q4HR PRN Administration Pain 1 to 4, or Fever Amlodipine Besylate 10 mg 09/28/24 09:00 09/29/24 08:21 Amlodipine 5 Mg Tablet PO 10 mg DAILY TORIBIO Administration Apixaban 2.5 mg 09/14/24 21:00 09/29/24 08:20 Apixaban 2.5 Mg Tablet PO 2.5 mg BID TORIBIO Administration Aspirin 81 mg 09/18/24 12:00 09/29/24 08:20 Aspirin Chew 81 Mg Tablet PO 81 mg DAILY TORIBIO Administration Atorvastatin Calcium 40 mg 09/18/24 21:00 09/28/24 20:31 Atorvastatin 40 Mg Tablet PO 40 mg QPM TORIBIO Administration Carvedilol 3.125 mg 09/18/24 09:00 09/29/24 08:21 Carvedilol 3.125 Mg Tablet PO 3.125 mg BID TORIBIO Administration Citalopram Hydrobromide 10 mg 09/25/24 15:31 09/29/24 08:21 Citalopram 10 Mg Tablet PO 10 mg DAILY TORIBIO Administration Docusate Sodium 250 - 500 mg 09/20/24 09:00 09/29/24 08:21 Docusate Sodium 250 Mg Capsule PO 250 mg DAILY TORIBIO Administration Levothyroxine Sodium 112 mcg 09/14/24 07:00 09/29/24 06:35 Levothyroxine 112 Mcg Tablet PO 112 mcg QDAC TORIBIO Administration Meclizine HCl 12.5 mg 09/15/24 06:22 Meclizine 12.5 Mg Tablet PO Q6HR PRN Dizziness Ondansetron HCl 4 mg 09/13/24 18:14 09/25/24 11:26 Ondansetron Odt 4 Mg Tablet TL 4 mg Q6HR PRN Administration Nausea / Vomiting Polyethylene Glycol 17 gm 09/20/24 09:00 09/29/24 08:21 Polyethylene Glycol 3350 17 Gm Packet PO Not Given DAILY TORIBIO Prochlorperazine Maleate 10 mg 09/19/24 12:50 Prochlorperazine 5 Mg Tablet PO Q6HR PRN Nausea / Vomiting Senna 8.6 - 17.2 mg 09/20/24 09:00 09/29/24 08:21 Senna 8.6 Mg Tablet PO 8.6 mg DAILY TORIBIO Administration Objective Vital Signs/Intake & Output Reviewed Vital Signs: Yes Vital Signs: Vital Signs x48h Temp Pulse Resp BP Pulse Ox 09/29/24 08:02 36.5 C 66 16 161/81 H 98 Intake & Output: Intake & Output 09/26/24 09/27/24 09/28/24 09/29/24 23:59 23:59 23:59 23:59 Intake Total 1950 / 1950 1100 / 1100 1690 / 1690 360 / 360 Output Total 800 / 800 550 / 550 500 / 500 725 / 725 Balance 1150 / 1150 550 / 550 1190 / 1190 -365 / -365 Objective Comments/Other: elderly woman sitting in chair, NAD, sclera anicteric LCTAB, RRR, S1S2, no edema abd soft, NT, ND, BS+ slight R lower facial droop, stable, strength 5/5 UE and LE bilat, sensation intact, normal tone, no tremor, normal speech sounds, tilts head to left at times Lab Results 09/29/24 04:41 09/29/24 04:41 Other Labs: Lab Results x24hrs 09/29/24 Range/Units 04:41 WBC 9.8 (4.8-10.8) x10^3/uL RBC 4.49 (4.20-5.40) 10^6/uL Hgb 13.8 (12.0-16.0) g/dL Hct 42.3 (37.0-47.0) % MCV 94.2 (81.0-99.0) fL MCH 30.7 (27.0-31.0) pg MCHC 32.6 (32.0-36.0) g/dL RDW 13.1 (12.0-15.0) % Plt Count 524 H (130-450) 10^3/uL MPV 9.8 (7.9-10.8) fL Neut # (Auto) 5.0 (1.5-6.6) 10^3/uL Lymph # (Auto) 2.5 (1.5-3.5) 10^3/uL [place] # (Auto) 0.9 (0.0-1.0) 10^3/uL Eos # (Auto) 1.2 H (0.0-0.7) 10^3/uL Baso # (Auto) 0.2 H (0.0-0.1) 10^3/uL Absolute Nucleated RBC 0.00 x10^3/uL Band Neuts % (Manual) Not Reportable Abnorm Lymph % (Manual) Not Reportable Nucleated RBC % 0.0 /100WBC Neutrophils # (Manual) Not Reportable Lymphocytes # (Manual) Not Reportable Monocytes # (Manual) Not Reportable Eosinophils # (Manual) Not Reportable Basophils # (Manual) Not Reportable Differential Comment MANUAL=AUTO DIFF WBC Morphology NORMAL APPEARANCE (NORMAL) Platelet Estimate INCREASED (>450,000) (NORMAL) Platelet Morphology NORMAL APPEARANCE (NORMAL) RBC Morph Micro Appear NORMAL APPEARANCE (NORMAL) Sodium 135 (135-145) mmol/L Potassium 4.7 H (3.5-4.5) mmol/L Chloride 102 (101-111) mmol/L Carbon Dioxide 29 (21-32) mmol/L Anion Gap 4.0 L (6-13) BUN 28 H (6-20) mg/dL Creatinine 1.4 H (0.6-1.3) mg/dL Estimated GFR (MDRD) 36 L (>89) Glucose 96 (74-104) mg/dL Calcium 9.5 (8.5-10.3) mg/dL Assessment/Plan Problem List (1) Lacunar infarct, acute: Impression: 1. acute left frontal lacunar infarct: persistent gait instability and disequilibrium. H/o BPPV s/p Hallpike maneuver. Continued significant impairments in mobility and functional status. - continue asa, low dose apixaban, statin - PT/OT 2. fall, syncope, vertigo, frontal headache, posterior scalp laceration: no vertigo now. Persistent headache may be postconcussive syndrome after head strike during syncopal episode prior to admission. Head CTs reviewed. - tylenol prn - posterior scalp with wound with dermabond c/d/i 3. chronic PE: - cont apixaban 4. HTN, unspecified arrhythmia: BP better controlled. - cont home carvedilol - cont amlodipine- - monitor BP and may need further adjustments to medication in coming days 5. depression: - home citalopram dvt ppx: DOAC Dispo plan and GOC: Came from home with . PT rec inpt rehab which was denied by [place]. Now planning home with services. Daughter involved and they are looking into private pay [employer]. Appreciate help. Pt is not safe for discharge until services and family assistance are in place.
[2024-09-30 00:02] VITALS: TEMP 97.7; O2SAT 99
[2024-09-30 09:14] VITALS: BP 155/63
--- NOTE | 2024-09-30 19:06 | Discharge Summary ---
Discharge Summary Admit Date: 09/13/24 Discharge Date: 09/30/24 Discharging Provider: Varun Larson MD DIAGNOSES Admission Diagnoses: 1. syncope and collapse 2. UTI 3. leukocytosis 4. chronic PE Discharge Diagnoses with Status of Each Condition: 1. acute left frontal lacunar infarct 2. gait instability 3. syncope and collapse 4. posterior scalp laceration 5. UTI, resolved 6. leukocytosis, resolved 7. chronic PE 8. HTN 9. chronic unspecified arrhythmia 10. depression HPI History of Present Illness: 79-year-old female with a history of PE on Eliquis, hypothyroidism who presented after syncopal episode. Patient states over the past 2 to 3 days, she has had increasing malaise and fatigue. She also had fevers and chills. She endorsed some dysuria, as well as urinary incontinence. She was wearing her 's diaper for the past few days because she said that with every step, she had some urine leakage, which is new for her. Earlier this morning, she was feeling very dizzy. She got up to make team, and then she does not remember the rest. She reports feeling lightheaded, and believes she hit her counter. As such she decided to come in. On admission, patient was afebrile with a temperature of 97.5, heart rate was 83, respiratory rate was 20, oxygen saturation was 97% on room air, she was hypertensive at 190/93. Lab work revealed leukocytosis of 18.5, sodium of 133, creatinine of 1.4, up from her baseline of around 1, UA showed large blood, positive nitrites, leukocyte esterase, RBCs, moderate bacteria. Patient was admitted for syncope, as well as urinary tract infection. HOSPITAL COURSE Hospital Course: 1. acute left frontal lacunar infarct, gait instability: The pt was noted to have a slight R lower facial droop. Her gait was unsteady with listing to the left, which persisted to time of discharge. She had disequilibrium with walking. An MRI revealed an acute stroke. She was treated with asa, statin, in addition to her chronic DOAC. TTE showed normal LVEF, no WMA, normal RV. She was monitored on telemetry and no events were recorded. PT and OT worked with pt extensively during her stay and she showed some improvements in functional deficits over time. We attempted inpatient rehab placement but it was denied by her insurance. As no rehab options were available, pt was discharged home with family support and home services, including PT/OT. 2. syncope and collapse: H/o BPPV and Hallpike maneuver in the past. Stroke and UTI likely played role in this episode. She had no further events during her stay. 3. posterior scalp laceration: Hit head during syncopal episode prior to arrival. Small laceration was closed with dermabond and healed well. 4. UTI, resolved: The pt received an appropriate antibiotic course in the hospital. 5. chronic PE: The pt's dose of apixaban was decreased to 2.5 mg BID given her age and wt. 6. HTN, chronic unspecified arrhythmia: The pt reported a history of an unspedified arrhythmia and has been on carvedilol for many years. She had bradycardia at times early in this stay but later tolerated carvedilol without problems. Her BP was elevated and amlodipine was added with good results. ALLERGIES Allergies Allergy/AdvReac Type Severity Reaction Status Date / Time codeine (Codeine) Allergy Severe Nausea Verified 09/13/24 11:57 lidocaine Allergy Severe Respiratory Verified 09/13/24 11:57 Morpholine Analogues Allergy Severe Respiratory Verified 09/13/24 11:57 cillins Allergy Intermediate Rash Uncoded 09/13/24 11:57 MEDICATIONS Ambulatory Orders Medication Instructions Recorded Confirmed omega-3 fatty acids 1,000 mg 1,000 mg PO DAILY 11/16/12 09/13/24 capsule citalopram 10 mg tablet 10 mg PO DAILY 05/12/13 09/13/24 levothyroxine 112 mcg tablet 112 mcg PO QDAC 05/12/13 09/13/24 fluticasone propionate 50 1 spray intranasal BID 09/13/24 09/13/24 mcg/actuation nasal spray,suspension acetaminophen 325 mg tablet 650 mg (2 x 325 mg) PO Q4HR PRN 09/29/24 Pain 1 to 4, or Fever #1 tab amlodipine 5 mg tablet 10 mg (2 x 5 mg) PO DAILY #30 tabs 09/29/24 apixaban 2.5 mg tablet (Eliquis) 2.5 mg PO BID #60 tabs 09/29/24 aspirin 81 mg chewable tablet 81 mg PO DAILY #30 tabs 09/29/24 atorvastatin 40 mg tablet 40 mg PO QPM #30 tabs 09/29/24 carvedilol 3.125 mg tablet 3.125 mg PO BID #60 tabs 09/29/24 meclizine 12.5 mg tablet 12.5 mg PO Q6HR PRN Dizziness #20 09/29/24 tabs PHYSICAL EXAM AT DISCHARGE Vital Signs: elderly woman sitting in chair, NAD, sclera anicteric LCTAB, RRR, S1S2, no edema abd soft, NT, ND, BS+ slight R lower facial droop, stable, strength 5/5 UE and LE bilat, sensation intact, normal tone, no tremor, normal speech sounds, tilts head to left at times LABS 09/29/24 04:41 09/29/24 04:41 TIME SPENT Time Spent in Discharge (Minutes): 20 Discharge Plan Discharge Patient Disposition: 01 Home, Self Care Condition: Good Medically Cleared Date:: 09/30/24 Prescriptions: New acetaminophen 325 mg Tablet 650 mg PO Q4HR PRN (Reason: Pain 1 to 4, or Fever) Qty: 1 0RF amlodipine 5 mg Tablet 10 mg PO DAILY Qty: 30 0RF Eliquis 2.5 mg Tablet 2.5 mg PO BID Qty: 60 0RF aspirin 81 mg Tablet,Chewable 81 mg PO DAILY Qty: 30 0RF atorvastatin 40 mg Tablet 40 mg PO QPM Qty: 30 0RF carvedilol 3.125 mg Tablet 3.125 mg PO BID Qty: 60 0RF meclizine 12.5 mg Tablet 12.5 mg PO Q6HR PRN (Reason: Dizziness) Qty: 20 0RF Continued omega-3 fatty acids 1,000 MG capsule 1,000 mg PO DAILY citalopram 10 MG tablet 10 mg PO DAILY levothyroxine 112 MCG tablet 112 mcg PO QDAC fluticasone propionate 50 mcg/actuation spray,suspension 1 spray INTRANASAL BID Discontinued carvedilol 3.125 MG tablet 3.125 mg PO BID Eliquis 5 mg tablet 5 mg PO DAILY Activity Restrictions: Activity as Tolerated Activity Restrictions/Additional Instructions: Contact your primary care provider or return to the hospital if you have increased weakness, difficulty walking, falls, severe headache, lightheadedness, chest pain, fainting, or for any other concerns. Your apixaban (Eliquis) dose has been decreased to 2.5 mg twice daily and your blood pressure medications were adjusted as noted on your medication list. Diet: Low Sodium Print Language: Estonian Patient Instructions: Stroke Ischemic Stand Alone Forms: PCP List Follow-up Care: CRISTIANO GARIBAY MD [Primary Care Provider] - (Call to schedule an appointment in 1-2 weeks. )
== END 2024-09-30 13:25 | disposition home or self-care (01) | DRG 312 ==
LOC: ED 11:40 → MS2 16:57
PROVIDERS: ADMIT Internal Medicine; ATTEND Internal Medicine
DX: I49.9 Cardiac arrhythmia, unspecified; N17.9 Acute kidney failure, unspecified; R45.851 Suicidal ideations; S01.01XA Laceration without foreign body of scalp, initial encounter; I12.9 Hypertensive chronic kidney disease with stage 1 through stage 4 chronic kidney disease, or unspecified chronic kidney disease; Z79.01 Long term (current) use of anticoagulants; H81.10 Benign paroxysmal vertigo, unspecified ear; R00.1 Bradycardia, unspecified; S06.9X9A Unspecified intracranial injury with loss of consciousness of unspecified duration, initial encounter; R09.02 Hypoxemia; R42 Dizziness and giddiness; J98.11 Atelectasis; R31.9 Hematuria, unspecified; E87.5 Hyperkalemia; I27.82 Chronic pulmonary embolism; N20.0 Calculus of kidney; R26.81 Unsteadiness on feet; M47.812 Spondylosis without myelopathy or radiculopathy, cervical region; R53.81 Other malaise; R55 Syncope and collapse; Z86.711 Personal history of pulmonary embolism; E86.0 Dehydration; D72.829 Elevated white blood cell count, unspecified; I63.81 Other cerebral infarction due to occlusion or stenosis of small artery; E03.9 Hypothyroidism, unspecified; R53.1 Weakness; N18.30 Chronic kidney disease, stage 3 unspecified; W18.30XA Fall on same level, unspecified, initial encounter; N39.0 Urinary tract infection, site not specified; M47.816 Spondylosis without myelopathy or radiculopathy, lumbar region; R29.810 Facial weakness; F32.A Depression, unspecified

== ENCOUNTER 2024-10-05 16:37 | Inpatient (IN) ==
--- NOTE | 2024-10-05 16:46 | ED Physician Documentation ---
History of Present Illness Stated complaint Stated Complaint: SYNCOPE Chief complaint Chief Complaint: Neuro History obtained from History obtained from: Patient Additonal information Additional information: This is an 79-year-old woman with history of PE on Eliquis Aida, hypothyroidism who was admitted to the hospital on September 13 with UTI, leukocytosis, syncope. During that admission she was identified of having a lacunar infarct leading to vertigo and she still having that. She saw my partner earlier in the day after a fall with a head injury. She had a diminutive laceration that was deemed not needing closure other than a little bit of glue. She had a head CT and cervical spine CT there were negative for acute findings. She did have a leukocytosis of 15,000, stable CKD and positive urinalysis. She was in the lobby awaiting a ride. She, I think, syncopized. She does not remember what happened, but thankfully was caught on camera which I am able to review. She was sitting in a wheelchair and leaned forward into her right. She was caught by a bystander so did not actually go to ground. She was brought back into the emergency department and she is nauseous and vomiting but again she says that is not necessarily new. There is no new head injury. Meds/Allgy Home Medications Ambulatory Orders Medication Instructions Recorded Confirmed omega-3 fatty acids 1,000 mg 1,000 mg PO DAILY 11/16/12 09/13/24 capsule citalopram 10 mg tablet 10 mg PO DAILY 05/12/13 09/13/24 levothyroxine 112 mcg tablet 112 mcg PO QDAC 05/12/13 09/13/24 fluticasone propionate 50 1 spray intranasal BID 09/13/24 09/13/24 mcg/actuation nasal spray,suspension acetaminophen 325 mg tablet 650 mg (2 x 325 mg) PO Q4HR PRN 09/29/24 Pain 1 to 4, or Fever #1 tab amlodipine 5 mg tablet 10 mg (2 x 5 mg) PO DAILY #30 tabs 09/29/24 apixaban 2.5 mg tablet (Eliquis) 2.5 mg PO BID #60 tabs 09/29/24 aspirin 81 mg chewable tablet 81 mg PO DAILY #30 tabs 09/29/24 atorvastatin 40 mg tablet 40 mg PO QPM #30 tabs 09/29/24 carvedilol 3.125 mg tablet 3.125 mg PO BID #60 tabs 09/29/24 meclizine 12.5 mg tablet 12.5 mg PO Q6HR PRN Dizziness #20 09/29/24 tabs meclizine 25 mg tablet 25 mg PO BID #30 tabs 10/05/24 Allergies Allergies Allergy/AdvReac Type Severity Reaction Status Date / Time codeine (Codeine) Allergy Severe Nausea Verified 10/05/24 16:42 lidocaine Allergy Severe Respiratory Verified 10/05/24 16:42 Morpholine Analogues Allergy Severe Respiratory Verified 10/05/24 16:42 cillins Allergy Intermediate Rash Uncoded 10/05/24 16:42 PFSH Active Problems All Active Problems (Updated 10/05/24 @ 18:26 by Modesto Araya MD) Urinary tract infection (Acute) Vertigo (Acute) Balance problem (Acute) Laceration of occipital region of scalp (Acute) Contusion of occipital region of scalp (Acute) Fall (Acute) Headache (Acute) HTN (hypertension) (Acute) Lacunar infarct, acute (Acute) Acute kidney injury (Acute) Syncope and collapse (Acute) Medical History Medical History (Updated 10/05/24 @ 18:26 by Modesto Araya MD) Pulmonary embolism Surgical History Surgical History (Updated 09/13/24 @ 12:04 by Mague Clarke RN) No pertinent past surgical history Social History Social History (Updated 09/13/24 @ 12:04 by Mague Clarke RN) Smoking Status: Never smoker Living arrangement: At home Living Condition: With spouse/s.o. Support Person: No Relationship: Level: Independent Do you feel safe in your home environment?: Yes Suffered physical, verbal, emotional, or financial abuse?: No History of Abuse: No Frequency: Daily POLST Patient has POLST: No Exam Exam Vital Signs: Vital Signs x48h Temp Pulse Resp BP Pulse Ox 10/05/24 21:30 58 L 16 116/55 L 94 10/05/24 21:00 65 20 128/66 95 10/05/24 20:29 65 19 134/62 H 93 10/05/24 19:53 78 22 133/65 H 96 10/05/24 19:30 36.8 C 78 22 126/71 96 10/05/24 19:00 79 26 H 151/78 H 97 10/05/24 18:06 36.5 C 78 18 139/75 H 97 10/05/24 16:38 68 14 160/82 H 95 Constitutional normal general appearance and no apparent distress HENMT She has a bandage on the head without blood on it Eyes PERRL Cardiovascular normal heart rate noted, regular rhythm noted and no murmur Gastrointestinal abdomen soft to palpation and nontender to palpation Neurology GCS 15 Results Vitals Vitals: Vital Signs - 24 hr 10/05/24 15:41 10/05/24 16:38 10/05/24 18:06 Temperature 36.5 C Temperature Source Oral Pulse Rate 68 78 Respiratory Rate 14 18 Blood Pressure 160/82 H 139/75 H O2 Saturation 95 97 Oxygen Delivery Method O2 Source Room air Room air Room air Pain Intensity 3 0 10/05/24 18:54 10/05/24 19:00 10/05/24 19:30 Temperature 36.8 C Temperature Source Pulse Rate 79 78 Respiratory Rate 26 H 22 Blood Pressure 151/78 H 126/71 O2 Saturation 97 96 Oxygen Delivery Method O2 Source Room air Room air Pain Intensity 7 7 3 10/05/24 19:38 10/05/24 19:53 10/05/24 20:29 Temperature Temperature Source Pulse Rate 78 65 Respiratory Rate 22 19 Blood Pressure 133/65 H 134/62 H O2 Saturation 96 93 Oxygen Delivery Method Room Air O2 Source Room air Room air Pain Intensity 5 10/05/24 21:00 10/05/24 21:30 Temperature Temperature Source Pulse Rate 65 58 L Respiratory Rate 20 16 Blood Pressure 128/66 116/55 L O2 Saturation 95 94 Oxygen Delivery Method O2 Source Room air Room air Pain Intensity 7 Oxygen O2 Source Room air EKG (time done) 1649: EKG releavant findings:: EKG personally interpreted by author of this note. Relevant findings are: Normal sinus rhythm with rate of 68, LAD with borderline T wave abnormalities. No ST elevation or depression. Given that she had syncope, specific attention was given to signs of Brugada, long QT, WPW, all of which were absent. Labs Labs: Laboratory Tests 10/05/24 10/05/24 17:07 18:50 WBC 13.3 H RBC 4.07 L Hgb 12.4 Hct 38.2 MCV 93.9 MCH 30.5 MCHC 32.5 RDW 12.9 Plt Count 405 MPV 10.2 Neut # (Auto) 10.4 H Lymph # (Auto) 1.7 [place] # (Auto) 0.9 Eos # (Auto) 0.1 Baso # (Auto) 0.1 Absolute Nucleated RBC 0.00 Nucleated RBC % 0.0 Sodium 134 L Potassium 4.1 Chloride 103 Carbon Dioxide 24 Anion Gap 7.0 BUN 19 Creatinine 1.3 Estimated GFR (MDRD) 39 L Glucose 139 H Lactic Acid 1.0 Calcium 8.8 Magnesium 1.9 Total Bilirubin 0.5 AST 19 ALT 16 Alkaline Phosphatase 84 Total Protein 6.5 Albumin 3.6 Globulin 2.9 Albumin/Globulin Ratio 1.2 Procalcitonin Immunoas 0.57 H Prolactin 30.71 Urine Color LIGHT YELLOW Urine Clarity HAZY Urine pH 6.0 Ur Specific [place] 1.010 Urine Protein NEGATIVE Urine Glucose (UA) NEGATIVE Urine Ketones NEGATIVE Urine Occult Blood MODERATE H Urine Nitrite POSITIVE H Urine Bilirubin NEGATIVE Urine Urobilinogen 0.2 (NORMAL) Ur Leukocyte Esterase MODERATE H Urine RBC 11-25 H Urine WBC 11-25 H Ur Squamous Epith Cells NONE SEEN Urine Bacteria Moderate H Ur Microscopic Review INDICATED Urine Culture Comments INDICATED PD Medical Decision Making ED course ED course: She presents with what looks like syncope in the lobby, less likely seizure. I was able to review the video. This is an 79-year-old woman seen earlier in the day and now had syncope in the emergency department waiting room after discharge. She had evidence of UTI and leukocytosis. She has normal vital signs. Will check labs including procalcitonin and prolactin. Will start some IV antibiotics after blood cultures. Previous culture from earlier in the month reviewed, it was E. coli resistant only to ampicillin. So we will start ceftriaxone. Repeat labs were checked and she has a persistent white count, mild elevation in procalcitonin, a prolactin level that is probably slightly elevated, but I still do not really suspect seizure having seen the episode on video. Decision to admit was made at 6 PM, but there are no beds in the available in the hospital but there may be later this evening so she is currently boarding in the emergency department. At the time of this dictation (9:30 PM) I have been told that a few beds were opening up at 11 PM so I placed a telehealth consultation request for observation. I spoke with Dr. Peacock at 10:43 PM for observation, he was hesitant to admit, but says he will write orders. Discharge Plan Discharge Patient Disposition: ED Place in Observation Condition: Serious Clinical Impression: Syncope and collapse, Urinary tract infection Prescriptions: No Action omega-3 fatty acids 1,000 MG capsule 1,000 mg PO DAILY citalopram 10 MG tablet 10 mg PO DAILY levothyroxine 112 MCG tablet 112 mcg PO QDAC fluticasone propionate 50 mcg/actuation spray,suspension 1 spray INTRANASAL BID acetaminophen 325 mg Tablet 650 mg PO Q4HR PRN (Reason: Pain 1 to 4, or Fever) Qty: 1 0RF amlodipine 5 mg Tablet 10 mg PO DAILY Qty: 30 0RF Eliquis 2.5 mg Tablet 2.5 mg PO BID Qty: 60 0RF aspirin 81 mg Tablet,Chewable 81 mg PO DAILY Qty: 30 0RF atorvastatin 40 mg Tablet 40 mg PO QPM Qty: 30 0RF carvedilol 3.125 mg Tablet 3.125 mg PO BID Qty: 60 0RF meclizine 12.5 mg Tablet 12.5 mg PO Q6HR PRN (Reason: Dizziness) Qty: 20 0RF meclizine 25 mg tablet 25 mg PO BID Qty: 30 0RF Print Language: Mongolian Stand Alone Forms: PCP List
--- OUTSIDE RECORDS SUMMARY | 2024-10-05 16:52 | EXTERNAL MEDICAL SUMMARY RPT | Continuity of Care Document ---
Author Organization [facility] Address [address] [place] [id number] Phone Problems date description facility 2024-09-13 17:56 Elevated white blood cell count , unspecified [facility] 2024-09-13 17:56 Other pulmonary embolism withou t acute cor pulmonale [facility] 2024-09-13 17:56 Urinary tract infection, site n ot specified [facility] 2024-09-13 17:56 Hematuria, unspecified [facility] 2024-09-13 17:56 Syncope and collapse [facility] 2024-09-13 18:29 Elevated white blood cell count , unspecified [facility] 2024-09-13 18:29 Other pulmonary embolism withou t acute cor pulmonale [facility] 2024-09-13 18:29 Urinary tract infection, site n ot specified [facility] 2024-09-13 18:29 Hematuria, unspecified [facility] 2024-09-13 18:29 Syncope and collapse [facility] 2024-09-14 16:10 Elevated white blood cell count , unspecified [facility] 2024-09-14 16:10 Other pulmonary embolism withou t acute cor pulmonale [facility] 2024-09-14 16:10 Acute kidney failure, unspecifi ed [facility] 2024-09-14 16:10 Urinary tract infection, site n ot specified [facility] 2024-09-14 16:10 Hematuria, unspecified [facility] 2024-09-14 16:10 Syncope and collapse [facility] 2024-09-16 08:28 Elevated white blood cell count , unspecified [facility] 2024-09-16 08:28 Other pulmonary embolism withou t acute cor pulmonale [facility] 2024-09-16 08:28 Acute kidney failure, unspecifi ed [facility] 2024-09-16 08:28 Urinary tract infection, site n ot specified [facility] 2024-09-16 08:28 Hematuria, unspecified [facility] 2024-09-16 08:28 Syncope and collapse [facility] 2024-09-22 13:48 Elevated white blood cell count , unspecified [facility] 2024-09-22 13:48 Other pulmonary embolism withou t acute cor pulmonale [facility] 2024-09-22 13:48 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 [facility] 2024-09-22 13:48 Acute kidney failure, unspecifi ed [facility] 2024-09-22 13:48 Urinary tract infection, site n ot specified [facility] 2024-09-22 13:48 Hematuria, unspecified [facility] 2024-09-22 13:48 Syncope and collapse [facility] 2024-09-23 08:52 Unspecified open wound of scalp , initial encounter [facility] 2024-09-29 17:00 Elevated white blood cell count , unspecified [facility] 2024-09-29 17:00 Other pulmonary embolism withou t acute cor pulmonale [facility] 2024-09-29 17:00 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 [facility] 2024-09-29 17:00 Acute kidney failure, unspecifi ed [facility] 2024-09-29 17:00 Urinary tract infection, site n ot specified [facility] 2024-09-29 17:00 Hematuria, unspecified [facility] 2024-09-29 17:00 Syncope and collapse [facility] 2024-09-29 17:10 Elevated white blood cell count , unspecified [facility] 2024-09-29 17:10 Other pulmonary embolism withou t acute cor pulmonale [facility] 2024-09-29 17:10 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 [facility] 2024-09-29 17:10 Acute kidney failure, unspecifi ed [facility] 2024-09-29 17:10 Urinary tract infection, site n ot specified [facility] 2024-09-29 17:10 Hematuria, unspecified [facility] 2024-09-29 17:10 Syncope and collapse [facility] 2024-09-29 17:11 Elevated white blood cell count , unspecified [facility] 2024-09-29 17:11 Other pulmonary embolism withou t acute cor pulmonale [facility] 2024-09-29 17:11 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 [facility] 2024-09-29 17:11 Acute kidney failure, unspecifi ed [facility] 2024-09-29 17:11 Urinary tract infection, site n ot specified [facility] 2024-09-29 17:11 Hematuria, unspecified [facility] 2024-09-29 17:11 Syncope and collapse [facility] 2024-09-30 12:36 Elevated white blood cell count , unspecified [facility] 2024-09-30 12:36 Other pulmonary embolism withou t acute cor pulmonale [facility] 2024-09-30 12:36 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 [facility] 2024-09-30 12:36 Acute kidney failure, unspecifi ed [facility] 2024-09-30 12:36 Urinary tract infection, site n ot specified [facility] 2024-09-30 12:36 Hematuria, unspecified [facility] 2024-09-30 12:36 Syncope and collapse [facility] 2024-09-30 12:42 Elevated white blood cell count , unspecified [facility] 2024-09-30 12:42 Other pulmonary embolism withou t acute cor pulmonale [facility] 2024-09-30 12:42 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 [facility] 2024-09-30 12:42 Acute kidney failure, unspecifi ed [facility] 2024-09-30 12:42 Urinary tract infection, site n ot specified [facility] 2024-09-30 12:42 Hematuria, unspecified [facility] 2024-09-30 12:42 Syncope and collapse [facility] 2024-09-30 13:38 Elevated white blood cell count , unspecified [facility] 2024-09-30 13:38 Other pulmonary embolism withou t acute cor pulmonale [facility] 2024-09-30 13:38 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 [facility] 2024-09-30 13:38 Acute kidney failure, unspecifi ed [facility] 2024-09-30 13:38 Urinary tract infection, site n ot specified [facility] 2024-09-30 13:38 Hematuria, unspecified [facility] 2024-09-30 13:38 Syncope and collapse [facility] 2024-10-01 11:22 Elevated white blood cell count , unspecified [facility] 2024-10-01 11:22 Other pulmonary embolism withou t acute cor [facility]ale [facility] 2024-10-01 11:22 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 [facility] 2024-10-01 11:22 Acute kidney failure, unspecifi ed [facility] 2024-10-01 11:22 Urinary tract infection, site n ot specified [facility] 2024-10-01 11:22 Dysuria [facility] 2024-10-01 11:22 Hematuria, unspecified [facility] 2024-10-01 11:22 Syncope and collapse [facility] 2024-10-01 11:22 Unspecified intracra nial injury with loss of consciousness of unspecified duration, initial encounter [facility] 2024-10-05 15:28 Dizziness and giddiness [facility] 2024-10-05 16:15 Dizziness and giddiness [facility] 2024-10-05 16:42 Dizziness and giddiness [facility] Results/Labs test date facility value unit notes Result panel 1 NUCLEATED RED BLOOD CELLS AUTO 2024-09-13 12:11 [facility] 0.0 /100wbc (missing) EOSINOPHILS # (AUTO) 2024-09-13 12:11 [facility] 0.0 10 3/ul (missing) NRBC ABSOLUTE COUNT (AUTO) 2024-09-13 12[facility]11 [facility] 0.00 x10 3/ul (missing) BASOPHILS # (AUTO) 2024-09-13 12:11 [facility] 0.1 10 3/ul (missing) MONOCYTES # (AUTO) 2024-09-13 12:11 [facility] 0.5 10 3/ul (missing) LYMPHOCYTES # (AUTO) 2024-09-13 12:11 [facility] 0.7 10 3/ul (missing) BILIRUBIN,TOTAL 2024-09-13 12:11 [facility] 0.7 mg/dl As of December 2022 testing method has changed, this may include reference ranges. ALBUMIN/GLOBULIN RATIO 2024-09-13 12:11 [facility] 1.2 (missing) (missing) CREATININE 2024-09-13 12:11 [facility] 1.4 mg/dl As of December 2022 testing method has changed, this may include reference ranges. INR 2024-09-13 12:11 [facility] 1.6 (missing) Oral Anticoagulant Indication INR range Venous Thrombosis, P.E. 2.0 - 3.0 Mechanical Valve 2.5 - 3.5 CHLORIDE 2024-09-13 12:11 [facility] 101 mmol/l As of December 2022 testing method has changed, this may include reference ranges. GLUCOSE 2024-09-13 12:11 [facility] 126 mg/dl As of December 2022 testing method has changed, this may include reference ranges. LIPASE 2024-09-13 12:11 [facility] 13 u/l As of December 2022 testing method has changed, this may include reference ranges. RED CELL DISTRIBUTION WIDTH 2024-09-13 12:11 [facility] 13.2 % (missing) HGB - HEMOGLOBIN 2024-09-13 12:11 [facility] 13.8 g/dl (missing) SODIUM 2024-09-13 12:11 [employer] [facility] 133 mmol/l As of December 2022 testing method has changed, this may include reference ranges. ALT ALANINE AMINOTRANSFERASE 2024-09-13 12:11 [facility] 14 iu/l As of December 2022 testing method has changed, this may include reference ranges. PT - PROTHROMBIN TIME 2024-09-13 12:11 [facility] 16.8 secs (missing) NEUTROPHILS # (AUTO) 2024-09-13 12:11 [facility] 17.1 10 3/ul (missing) AST ASPARTATE AMINOTRANSFERASE 2024-09-13 12:11 [employer] [facility] 18 iu/l As of December 2022 testing method has changed, this may include reference ranges. WHITE BLOOD COUNT 2024-09-13 12:11 [facility] 18.5 x10 3/ul (missing) BUN - BLOOD UREA NITROGEN 2024-09-13 12:11 [facility] 19 mg/dl As of December 2022 testing method has changed, this may include reference ranges. BNP - B-NATRIURETIC PEPTIDE 2024-09-13 12:11 [facility] 228 pg/ml (missing) CARBON DIOXIDE - CO2 2024-09-13 12:11 [facility] 23 mmol/l As of December 2022 testing method has changed, this may include reference ranges. PARTIAL THROMBOPLASTIN TIME 2024-09-13 12:11 [facility] 29.7 secs (missing) GLOBULIN 2024-09-13 12:11 [facility] 3.1 g/dl (missing) ALBUMIN 2024-09-13 12:11 [facility] 3.7 g/dl As of December 2022 testing method has changed, this may include reference ranges. MEAN CORPUSCULAR HEMOGLOBIN 2024-09-13 12:11 [facility] 31.4 pg (missing) PLT - PLATELET COUNT 2024-09-13 12:11 [facility] 322 10 3/ul (missing) MEAN CORPUSCULAR HGB CONC 2024-09-13 12:11 [facility] 33.5 g/dl (missing) GFR - MDRD 2024-09-13 12:11 [facility] 36 (missing) Social History date description facility
[2024-10-05 17:14] LABS: BASOPHILS # (AUTO) 0.1 10^3/uL (0.0-0.1); BASOPHILS % (AUTO) 0.8 %; EOSINOPHILS # (AUTO) 0.1 10^3/uL (0.0-0.7); EOSINOPHILS % (AUTO) 0.9 %; HCT - HEMATOCRIT 38.2 % (37.0-47.0); HGB - HEMOGLOBIN 12.4 g/dL (12.0-16.0); LYMPHOCYTES # (AUTO) 1.7 10^3/uL (1.5-3.5); LYMPHOCYTES % (AUTO) 12.9 %; MEAN CORPUSCULAR HEMOGLOBIN 30.5 pg (27.0-31.0); MEAN CORPUSCULAR HGB CONC 32.5 g/dL (32.0-36.0); MEAN CORPUSCULAR VOLUME 93.9 fL (81.0-99.0); MEAN PLATELET VOLUME 10.2 fL (7.9-10.8); MONOCYTES # (AUTO) 0.9 10^3/uL (0.0-1.0); MONOCYTES % (AUTO) 6.7 %; NEUTROPHILS # (AUTO) 10.4 10^3/uL (1.5-6.6); NEUTROPHILS % (AUTO) 78.3 %; PLT - PLATELET COUNT 405 10^3/uL (130-450); RED BLOOD COUNT 4.07 10^6/uL (4.20-5.40); RED CELL DISTRIBUTION WIDTH 12.9 % (12.0-15.0); WHITE BLOOD COUNT 13.3 x10^3/uL (4.8-10.8)
[2024-10-05] MEDS: cefTRIAXone 1 GM VIAL IVP STA (17:17)
[2024-10-05] MEDS: SODIUM CHLORIDE 0.9% 1,000 ML IV STA (17:18)
[2024-10-05 17:24] LABS: MAGNESIUM 1.9 mg/dL (1.7-2.3)
[2024-10-05 17:34] LABS: ALBUMIN 3.6 g/dL (3.2-5.5); ALBUMIN/GLOBULIN RATIO 1.2 (1.0-2.2); BILIRUBIN,TOTAL 0.5 mg/dL (0.2-1.0); CALCIUM 8.8 mg/dL (8.5-10.3); CREATININE 1.3 mg/dL (0.6-1.3); POTASSIUM 4.1 mmol/L (3.5-4.5); TOTAL PROTEIN 6.5 g/dL (6.4-8.9)
[2024-10-05 17:45] LABS: PROCALCITONIN 0.57 ng/mL (<0.5)
[2024-10-05 17:56] LABS: PROLACTIN 30.71 ng/mL
[2024-10-05] MEDS ORDERED: MECLIZINE 12.5 MG TABLET PO PRN (18:29)
[2024-10-05] MEDS: ACETAMINOPHEN 500 MG TABLET PO PRN (18:54)
[2024-10-05 19:00] LABS: BILIRUBIN,URINE NEGATIVE (NEGATIVE); GLUCOSE, URINE (UA) NEGATIVE (NEGATIVE); KETONES,URINE (UA) NEGATIVE (NEGATIVE); LEUKOCYTE ESTERASE, URINE MODERATE (NEGATIVE); NITRITE,URINE POSITIVE (NEGATIVE); OCCULT BLOOD,URINE MODERATE (NEGATIVE); PROTEIN,URINE NEGATIVE (NEGATIVE); UROBILINOGEN,URINE 0.2 (NORMAL) E.U./dL (NORMAL)
[2024-10-05 19:03] LABS: CLARITY,URINE HAZY (CLEAR)
[2024-10-05 19:06] LABS: SQUAMOUS EPITHELIAL CELL,UR NONE SEEN (<= Few)
[2024-10-05 19:07] LABS: BACTERIA,URINE Moderate /HPF (None Seen)
[2024-10-05] MEDS: ATORVASTATIN 40 MG TABLET PO SCH (20:23)
[2024-10-05] MEDS: APIXABAN 2.5 MG TABLET PO SCH (20:23)
--- OUTSIDE RECORDS SUMMARY | 2024-10-05 22:57 | EXTERNAL MEDICAL SUMMARY RPT | Continuity of Care Document ---
Author Organization [facility] Address [address] [place] [id number] Phone Problems date description facility 2024-09-13 17:56 [...] Elevated white blood cell count , unspecified 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 2024-09-29 17:00 Acute kidney failure, unspecifi ed [facility] 2024-09-29 17:00 Urinary tract infection, site n ot specified [facility] 2024-09-29 17:00 Hematuria, unspecified [facility] 2024-09-29 17:00 Syncope and collapse [facility] 2024-09-29 17:10 Elevated white blood cell count , unspecified [facility] 2024-09-29 17:10 Other pulmonary embolism withou t acute cor pulmonale 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 2024-10-01 11:22 Urinary tract infection, site n ot specified [facility] 2024-10-01 11:22 Dysuria [facility] 2024-10-01 11:22 Hematuria, unspecified [facility] 2024-10-01 11:22 Syncope and collapse [facility] 2024-10-01 11:22 Unspecified intracra nial injury with loss of consciousness of unspecified duration, initial encounter [email or web address] 2024-10-05 15:28 Dizziness and giddiness [facility] 2024-10-05 16:15 Dizziness and giddiness [facility] 2024-10-05 16:42 Dizziness and giddiness [facility] Results/Labs test date facility value unit notes Result panel 1 NUCLEATED RED BLOOD CELLS AUTO 2024-09-13 12:11 [facility] 0.0 /100wbc (missing) EOSINOPHILS # (AUTO) 2024-09-13 12:11 [facility] 0.0 10 3/ul (missing) NRBC ABSOLUTE COUNT (AUTO) 2024-09-13 12:11 [facility] 0.00 x10 3/ul (missing) BASOPHILS # (AUTO) 2024-09-13 12:11 [facility] 0.1 10 3/ul (missing) MONOCYTES # (AUTO) 2024-09-13 12:11 [facility] 0.5 10 3/ul (missing) LYMPHOCYTES # (AUTO) 2024-09-13 12:11 [facility] 0.7 10 3/ul (missing) BILIRUBIN,TOTAL 2024-09-13 12:11 [facility] 0.7 mg/dl As of December 2022 testing method has changed, this may include reference ranges. ALBUMIN/GLOBULIN RATIO 2024-09-13 12:11 [facility] 1.2 (missing) (missing) CREATININE 2024-09-13 12:11 [facility] 1.4 mg/dl As of December 2022 testing method has changed, this may include reference ranges. INR 2024-09-13 12:11 [facility] 1.6 (missing) Oral Anticoagulant Indication INR range Venous Thrombosis, P.E. 2.0 - 3.0 Mechanical Valve 2.5 - 3.5 CHLORIDE 2024-09-13 12:11 [facility] 101 mmol/l As of December 2022 testing method has changed, this may include reference ranges. GLUCOSE 2024-09-13 12:11 [facility] 126 mg/dl As of December 2022 testing method has changed, this may include reference ranges. LIPASE 2024-09-13 12:11 [facility] 13 u/l As of December 2022 testing method has changed, this may include reference ranges. RED CELL DISTRIBUTION WIDTH 2024-09-13 12:11 [facility] 13.2 % (missing) HGB - HEMOGLOBIN 2024-09-13 12:11 [facility] 13.8 g/dl (missing) SODIUM 2024-09-13 12:11 [facility] 133 mmol/l As of December 2022 testing method has changed, this may include reference ranges. ALT ALANINE AMINOTRANSFERASE 2024-09-13 12:11 [facility] 14 iu/l As of December 2022 testing method has changed, this may include reference ranges. PT - PROTHROMBIN TIME 2024-09-13 12:11 [facility] 16.8 secs (missing) NEUTROPHILS # (AUTO) 2024-09-13 12:11 [facility] 17.1 10 3/ul (missing) AST ASPARTATE AMINOTRANSFERASE 2024-09-13 12:11 [facility] 18 iu/l As of December 2022 testing method has changed, this may include reference ranges. WHITE BLOOD COUNT 2024-09-13 12:11 [facility] 18.5 x10 3/ul (missing) BUN - BLOOD UREA NITROGEN 2024-09-13 12:11 [facility] 19 mg/dl As of December 2022 testing method has changed, this may include reference ranges. BNP - B-NATRIURETIC PEPTIDE 2024-09-13 12:11 [facility] 228 pg/ml (missing) CARBON DIOXIDE - CO2 2024-09-13 12:11 [facility] 23 mmol/l As of December 2022 testing method has changed, this may include reference ranges. PARTIAL THROMBOPLASTIN TIME 2024-09-13 12:11 [facility] 29.7 secs (missing) GLOBULIN 2024-09-13 12:11 [facility] 3.1 g/dl (missing) ALBUMIN 2024-09-13 12:11 [facility] 3.7 g/dl As of December 2022 testing method has changed, this may include reference ranges. MEAN CORPUSCULAR HEMOGLOBIN 2024-09-13 12:11 [facility] 31.4 pg (missing) PLT - PLATELET COUNT 2024-09-13 12:11 [facility] 322 10 3/ul (missing) MEAN CORPUSCULAR HGB CONC 2024-09-13 12:11 [facility] 33.5 g/dl (missing) GFR - MDRD 2024-09-13 12:11 [facility] 36 (missing) Social History date description facility
--- NOTE | 2024-10-05 23:03 | HISTORY & PHYSICAL EXAMINATION ---
Chief Complaint Chief Complaint Chief Complaint: Head injury History of Present Illness History of Present Illness HPI Comment/Other: 79 y old female with PMH HTN, hyperlipidemia, CVA, Hypothyroidism, PE on Eliquis presented to ER s/p fall and head injury. Pt had laceration. CT head and C spine were done which were negative. Pt was about to be discahrged from the ED but apparently she had syncopal episode while in waiting area which lasted for a min. UA positive for UTI. Pt was given IV Abx Pt is admitted due to syncope and UTI Review of Systems Status of ROS: 10 or more systems reviewed and unremarkable except as noted in history and below PFSH Active Problems All Active Problems (Updated 10/05/24 @ 18:26 by Modesto Araya MD) Urinary tract infection (Acute) Vertigo (Acute) Balance problem (Acute) Laceration of occipital region of scalp (Acute) Contusion of occipital region of scalp (Acute) Fall (Acute) Headache (Acute) HTN (hypertension) (Acute) Lacunar infarct, acute (Acute) Acute kidney injury (Acute) Syncope and collapse (Acute) Medical History Medical History (Updated 10/05/24 @ 18:26 by Modesto Araya MD) Pulmonary embolism Surgical History Surgical History (Updated 09/13/24 @ 12:04 by Mague Clarke RN) No pertinent past surgical history Social History Social History (Updated 09/13/24 @ 12:04 by Mague Clarke RN) Smoking Status: Never smoker Living arrangement: At home Living Condition: With spouse/s.o. Support Person: No Relationship: Level: Independent Do you feel safe in your home environment?: Yes Suffered physical, verbal, emotional, or financial abuse?: No History of Abuse: No Frequency: Daily POLST Patient has POLST: No Meds/Allgy Home Medications Ambulatory Orders Medication Instructions Recorded Confirmed omega-3 fatty acids 1,000 mg 1,000 mg PO DAILY 11/16/12 09/13/24 capsule citalopram 10 mg tablet 10 mg PO DAILY 05/12/13 09/13/24 levothyroxine 112 mcg tablet 112 mcg PO QDAC 05/12/13 09/13/24 fluticasone propionate 50 1 spray intranasal BID 09/13/24 09/13/24 mcg/actuation nasal spray,suspension acetaminophen 325 mg tablet 650 mg (2 x 325 mg) PO Q4HR PRN 09/29/24 Pain 1 to 4, or Fever #1 tab amlodipine 5 mg tablet 10 mg (2 x 5 mg) PO DAILY #30 tabs 09/29/24 apixaban 2.5 mg tablet (Eliquis) 2.5 mg PO BID #60 tabs 09/29/24 aspirin 81 mg chewable tablet 81 mg PO DAILY #30 tabs 09/29/24 atorvastatin 40 mg tablet 40 mg PO QPM #30 tabs 09/29/24 carvedilol 3.125 mg tablet 3.125 mg PO BID #60 tabs 09/29/24 meclizine 12.5 mg tablet 12.5 mg PO Q6HR PRN Dizziness #20 09/29/24 tabs meclizine 25 mg tablet 25 mg PO BID #30 tabs 10/05/24 Allergies Allergies Allergy/AdvReac Type Severity Reaction Status Date / Time codeine (Codeine) Allergy Severe Nausea Verified 10/05/24 16:42 lidocaine Allergy Severe Respiratory Verified 10/05/24 16:42 Morpholine Analogues Allergy Severe Respiratory Verified 10/05/24 16:42 cillins Allergy Intermediate Rash Uncoded 10/05/24 16:42 Exam Exam Vital Signs: Vital Signs x48h Temp Pulse Resp BP Pulse Ox 10/05/24 21:30 58 L 16 116/55 L 94 10/05/24 21:00 65 20 128/66 95 10/05/24 20:29 65 19 134/62 H 93 10/05/24 19:53 78 22 133/65 H 96 10/05/24 19:30 36.8 C 78 22 126/71 96 10/05/24 19:00 79 26 H 151/78 H 97 10/05/24 18:06 36.5 C 78 18 139/75 H 97 10/05/24 16:38 68 14 160/82 H 95 Constitutional normal general appearance HENMT normocephalic Eyes PERRL Respiratory breath sounds equal bilaterally Cardiovascular normal heart rate noted Gastrointestinal abdomen soft to palpation Extremities no tenderness Neurology no focal motor deficit noted Skin no rash Conclusion/Plan Problem List (1) Urinary tract infection: Plan: A: Syncope UTI HTN Hyperlipidemia H/O CVA Hypothyroidism H/O PE of Eliquis Plan: Admit in tele Cardiac monitoring Seriel cardiac enzymes Echo Neurochecks Follow cultures Start Iv ceftriaxone Cont amlodipine Cont atorvastatin Cont Eliquis cont levothyroxine DVT prophylaxic: On Eliquis Full code Pt is admitted as inpatient as more than 2 midnight stay is expected Lab Results 10/05/24 17:07 10/05/24 17:07
[2024-10-06] MEDS: ONDANSETRON 4 MG/2 ML VIAL IVP PRN (01:40)
[2024-10-06 05:20] LABS: BASOPHILS # (AUTO) 0.1 10^3/uL (0.0-0.1); BASOPHILS % (AUTO) 1.2 %; EOSINOPHILS # (AUTO) 0.3 10^3/uL (0.0-0.7); EOSINOPHILS % (AUTO) 2.9 %; HCT - HEMATOCRIT 36.9 % (37.0-47.0); HGB - HEMOGLOBIN 11.8 g/dL (12.0-16.0); LYMPHOCYTES # (AUTO) 0.9 10^3/uL (1.5-3.5); LYMPHOCYTES % (AUTO) 8.6 %; MEAN CORPUSCULAR HEMOGLOBIN 30.2 pg (27.0-31.0); MEAN CORPUSCULAR VOLUME 94.4 fL (81.0-99.0); MEAN PLATELET VOLUME 9.9 fL (7.9-10.8); MONOCYTES # (AUTO) 1.1 10^3/uL (0.0-1.0); NEUTROPHILS # (AUTO) 7.7 10^3/uL (1.5-6.6); NEUTROPHILS % (AUTO) 75.9 %; PLT - PLATELET COUNT 357 10^3/uL (130-450); RED BLOOD COUNT 3.91 10^6/uL (4.20-5.40); RED CELL DISTRIBUTION WIDTH 12.9 % (12.0-15.0); WHITE BLOOD COUNT 10.2 x10^3/uL (4.8-10.8)
[2024-10-06 05:31] LABS: CALCIUM 8.8 mg/dL (8.5-10.3); CREATININE 1.4 mg/dL (0.6-1.3)
[2024-10-06] MEDS: PANTOPRAZOLE 40 MG TABLET PO SCH (06:22)
[2024-10-06] MEDS: LEVOTHYROXINE 112 MCG TABLET PO SCH (06:24)
[2024-10-06] MEDS: amLODIPine 5 MG TABLET PO SCH (09:06)
[2024-10-06] MEDS: CITALOPRAM 10 MG TABLET PO SCH (09:06)
[2024-10-06] MEDS: SODIUM CHLORIDE FLUSH 0.9% 10 ML SYRINGE IVP SCH (09:06)
[2024-10-06] MEDS: cefTRIAXone 1 GM in SODIUM CHLORIDE 0.9% MINIBAG 100 ML IV SCH (09:07)
[2024-10-06] MEDS: ACETAMINOPHEN 325 MG TABLET PO PRN (12:06)
--- NOTE | 2024-10-06 12:08 | PHARMACY PROGRESS NOTE ---
Best Possible Medication History Admit Date and Time: 10/05/24 2244 Home Medications Medication Instructions Recorded Confirmed Type citalopram 10 mg tablet 10 mg PO DAILY 05/12/13 10/06/24 History levothyroxine 112 mcg tablet 112 mcg PO QDAC 05/12/13 10/06/24 History fluticasone propionate 50 1 spray intranasal BID 09/13/24 10/06/24 History mcg/actuation nasal spray,suspension acetaminophen 325 mg tablet 650 mg (2 x 325 mg) PO Q4HR PRN 09/29/24 10/06/24 Rx Pain 1 to 4, or Fever #1 tab amlodipine 5 mg tablet 10 mg (2 x 5 mg) PO DAILY #30 tabs 09/29/24 10/06/24 Rx aspirin 81 mg chewable tablet 81 mg PO DAILY #30 tabs 09/29/24 10/06/24 Rx atorvastatin 40 mg tablet 40 mg PO QPM #30 tabs 09/29/24 10/06/24 Rx carvedilol 3.125 mg tablet 3.125 mg PO BID #60 tabs 09/29/24 10/06/24 Rx apixaban 5 mg tablet (Eliquis) 5 mg PO BID 10/06/24 10/06/24 History Processed by: Nursing Medications reviewed in ED?: No Medication History completed: Yes Patient Interview: Completed Secondary Source(s): Pharmacy records and Insurance records [facility] Statement: As the person ultimately responsible for medication therapy, providers are able to order a medication from an existing home medication list in [facility] via the "Reconcile Routine" prior to Confirmation of that medication by landing support specialist. Such practice is discouraged except when the physician, in their clinical judgment, deems that a medical need exists for a medication without regard to previous use.
[2024-10-06] MEDS: APIXABAN 2.5 MG TABLET PO ONE (12:47)
--- NOTE | 2024-10-06 16:20 | PT Plan of Care ---
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 At that time she was hospitalized with syncope and a UTI, imaging revealed a subacute lacunar infarction involving left frontal lobe periventricular white matter. She also had BPPV which was treated in the acute setting by this therapist, the pt reported resolution of her vertigo symptoms afterwards. However, she continued to feel dizzy with significant listing to the L, impaired balance, and had poor activity tolerance. She was DCd home with services on 09/30/24 although the therapy DC rec was for IPR. She arrived back at the ED on 10/05/24 due to another syncopal episode resulting in a fall and head strike. Please see chart for complete medical hx. The pt was received resting comfortably supine in bed with fair overall strength, limited mobility tolerance, and symptomatic postural hypotension only when standing. At this time recommend continued skilled PT intervention while in the acute setting and DC to [facility] for intensive rehab once pt medically stable. The pt is motivated and her PLOF was very high, she also requires interventions from all 3 disciplines. This plan was discussed with the pt and she was in agreement with this. At the end of the session the pt was sitting up in a chair with call light in reach, chair alarm on and in place, and all needs met. DNP updated on pt's status and DC rec. PATIENT/FAMILY GOALS Patient/Family Goals: To be able to return home only when able to safely care for myself and my GOALS Improve supine to sit to:: Independent Improve sit to stand to:: Modified Independent Improve pivot transfer ability to:: Modified Independent Improve sit to supine to:: Independent Improve gait ability to:: Ind Advance Assistive Device to:: Front Wheeled Walker Increase distance walked to (in feet):: 50 Improve Sitting Balance to:: Good PLAN Frequency: 1-2x/day Duration: Until discharge DISCHARGE RECOMMENDATIONS Discharge Location: [facility] Transport Needs at Discharge: Wheelchair van
--- NOTE | 2024-10-06 17:08 | PROVIDER PROGRESS NOTE ---
<Statement entered by Darryl Hair DNP - 10/06/24 17:24> Patient was seen and examined by me with a separate encounter after being seen by PATY student. I reviewed the student's documentation including patient history, physical examination, laboratory, imaging, clinical assessment and treatment plan. I have discussed the management of the patient with the student, and with the patient. There are no changes. 79-year-old female history of stroke here for syncope and fall. Found to have E. coli bacteremia as well as UTI. Continuing fluids, antibiotics. Following PT/OT recommendation Subjective Subjective Subjective: Patient reports that she is not feeling well. She complains of a headache that is exacerbated by light exposure. Headache pain is rated 7/10. She also reports that she becomes dizzy with any movement, which is associated with onset of nausea. She expresses significant distress about her ability to care for herself at home given her current health and act as a caregiver for her with late-stage dementia. 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 Current Medications Current Medications Current Medications: Current Medications Generic Name Dose Route Start Last Admin Trade Name Freq PRN Reason Stop Dose Admin Acetaminophen 650 mg 10/06/24 12:03 10/06/24 12:06 Acetaminophen 325 Mg Tablet PO 650 mg Q4HR PRN Administration Pain or Fever > 38C (100.4F) Amlodipine Besylate 10 mg 10/06/24 09:00 10/06/24 09:06 Amlodipine 5 Mg Tablet PO 10 mg DAILY TORIBIO Administration Apixaban 5 mg 10/06/24 21:00 Apixaban 5 Mg Tablet PO BID TORIBIO Atorvastatin Calcium 40 mg 10/05/24 21:00 10/05/24 20:23 Atorvastatin 40 Mg Tablet PO 40 mg QPM TORIBIO Administration Citalopram Hydrobromide 10 mg 10/06/24 09:00 10/06/24 09:06 Citalopram 10 Mg Tablet PO 10 mg DAILY TORIBIO Administration Ceftriaxone Sodium 1 gm/ 100 mls @ 200 mls/hr 10/06/24 09:00 10/06/24 09:40 Sodium Chloride IV Infused DAILY TORIBIO Infusion Levothyroxine Sodium 112 mcg 10/06/24 07:00 10/06/24 06:24 Levothyroxine 112 Mcg Tablet PO 112 mcg QDAC TORIBIO Administration Meclizine HCl 12.5 mg 10/05/24 18:29 Meclizine 12.5 Mg Tablet PO Q6HR PRN Dizziness Ondansetron HCl 4 mg 10/05/24 18:26 10/06/24 01:40 Ondansetron 4 Mg/2 Ml Vial IVP 4 mg Q6HR PRN Administration Nausea / Vomiting Pantoprazole Sodium 40 mg 10/06/24 07:00 10/06/24 06:22 Pantoprazole 40 Mg Tablet PO Not Given QDAC TORIBIO Sodium Chloride 10 ml 10/06/24 07:26 Sodium Chloride Flush 0.9% 10 Ml Syringe IVP PRN PRN NEEDED PER PROVIDER ORDERS Sodium Chloride 10 ml 10/06/24 07:26 10/06/24 11:16 Sodium Chloride Flush 0.9% 10 Ml Syringe IVP 10 ml 0100,0900,1700 [facility] Administration Objective Vital Signs/Intake & Output Vital Signs: Vital Signs x48h Temp Pulse Pulse Resp BP Pulse Ox 10/06/24 13:30 36.5 C 76 18 109/53 L 96 10/06/24 08:30 36.5 C 70 18 130/63 97 10/06/24 06:32 36.4 C L 70 16 152/73 H 96 Intake & Output: Intake & Output 10/03/24 10/04/24 10/05/24 10/06/24 23:59 23:59 23:59 23:59 Intake Total 1000 / 1000 1540 / 1540 Output Total 500 / 500 Balance 1000 / 1000 1040 / 1040 Weight (kg) 56.699 kg 61 kg Objective General Appearance: positive No acute distress and Alert Eyes Bilateral: positive Normal inspection ENT: positive ENT inspection nml Neck: positive Nml inspection Respiratory: positive Chest non-tender, No respiratory distress and Breath sounds nml Cardiovascular: positive Regular rate & rhythm Abdomen: positive Non-tender and Nml bowel sounds Back: positive Nml inspection Skin: positive Color nml Extremities: positive Non-tender, Nml appearance and No pedal edema Neurologic/Psychiatric: positive Oriented x3 and Depressed mood/affect Lab Results 10/06/24 05:09 10/06/24 05:09 Other Labs: Lab Results x24hrs 10/06/24 10/05/24 10/05/24 Range/Units 05:09 18:50 17:07 WBC 10.2 13.3 H (4.8-10.8) x10^3/uL RBC 3.91 L 4.07 L (4.20-5.40) 10^6/uL Hgb 11.8 L 12.4 (12.0-16.0) g/dL Hct 36.9 L 38.2 (37.0-47.0) % MCV 94.4 93.9 (81.0-99.0) fL MCH 30.2 30.5 (27.0-31.0) pg MCHC 32.0 32.5 (32.0-36.0) g/dL RDW 12.9 12.9 (12.0-15.0) % Plt Count 357 405 (130-450) 10^3/uL MPV 9.9 10.2 (7.9-10.8) fL Neut # (Auto) 7.7 H 10.4 H (1.5-6.6) 10^3/uL Lymph # (Auto) 0.9 L 1.7 (1.5-3.5) 10^3/uL Davison # (Auto) 1.1 H 0.9 (0.0-1.0) 10^3/uL Eos # (Auto) 0.3 0.1 (0.0-0.7) 10^3/uL Baso # (Auto) 0.1 0.1 (0.0-0.1) 10^3/uL Absolute Nucleated RBC 0.00 0.00 x10^3/uL Nucleated RBC % 0.0 0.0 /100WBC Sodium 136 134 L (135-145) mmol/L Potassium 4.0 4.1 (3.5-4.5) mmol/L Chloride 105 103 (101-111) mmol/L Carbon Dioxide 25 24 (21-32) mmol/L Anion Gap 6.0 7.0 (6-13) BUN 17 19 (6-20) mg/dL Creatinine 1.4 H 1.3 (0.6-1.3) mg/dL Estimated GFR (MDRD) 36 L 39 L (>89) Glucose 98 139 H (74-104) mg/dL Lactic Acid 1.0 (0.5-2.2) mmol/L Calcium 8.8 8.8 (8.5-10.3) mg/dL Magnesium 1.9 (1.7-2.3) mg/dL Total Bilirubin 0.5 (0.2-1.0) mg/dL AST 19 (10-42) IU/L ALT 16 (10-60) IU/L Alkaline Phosphatase 84 (42-121) IU/L Troponin I High Sens 6.0 (2.3-14.8) ng/L Total Protein 6.5 (6.4-8.9) g/dL Albumin 3.6 (3.2-5.5) g/dL Globulin 2.9 (2.1-4.2) g/dL Albumin/Globulin Ratio 1.2 (1.0-2.2) Procalcitonin Immunoas 0.57 H (<0.5) ng/mL Prolactin 30.71 ng/mL Urine Color LIGHT YELLOW Urine Clarity HAZY (CLEAR) Urine pH 6.0 (5.0-7.5) PH Ur Specific [place] 1.010 (1.002-1.030) Urine Protein NEGATIVE (NEGATIVE) mg/dL Urine Glucose (UA) NEGATIVE (NEGATIVE) mg/dL Urine Ketones NEGATIVE (NEGATIVE) mg/dL Urine Occult Blood MODERATE H (NEGATIVE) Urine Nitrite POSITIVE H (NEGATIVE) Urine Bilirubin NEGATIVE (NEGATIVE) Urine Urobilinogen 0.2 (NORMAL) (NORMAL) E.U./dL Ur Leukocyte Esterase MODERATE H (NEGATIVE) Urine RBC 11-25 H (0-5) /HPF Urine WBC 11-25 H (0-5) /HPF Ur Squamous Epith Cells NONE SEEN (<= Few) Urine Bacteria Moderate H (None Seen) /HPF Ur Microscopic Review INDICATED Urine Culture Comments INDICATED Assessment/Plan Problem List (1) Bacteremia: Impression: Preliminary blood culture + for E.Coli on 10/05 in setting of urinary tract infection (urine culture pending). Plan: Continue IV antibiotics for at least 7 days - currently receiving IV ceftriaxone daily (day 1) Plan to repeat blood culture in 48-72 hours and adjust antibiotics as necessary TTE to assess for vegetation (2) Urinary tract infection: Impression: UA + in ED for leukocyte esterase, WBCs, and bacteria; urine culture pendingpreliminary shows gram-negative rods. Patient denies any dysuria, urgency, or frequency with urination. Patient is afebrile. WBCs within normal limits at 10.2. This is the patient's second hospital admission with a UTI within a month. Plan: Continue IV antibiotics - IV ceftriaxone daily (3) Syncope and collapse: Impression: Patient presented to ED after falling at home and hitting her head. She attributes this fall to dizziness that began after having a stroke that was diagnosed during recent hospital admission. MRI brain on 09/17 showed evidence of a acute to subacute lacunar infarction. She then had a subsequent syncopal episode in the ED. CT head/cervical spine negative. Syncopal episodes likely due to orthostatic hypotension due to volume depletion and post-stroke dysequilibrium. Patient reports that PO intake has been very poor at home because she has been unable to care for herself as she is overwhelmed with providing care for her with late-stage dementia. PT evaluated patient and reports that patient was orthostatic upon standing at 88/62. Plan: Replete volume with IV fluids - LR@50/hr x2 bags ordered (4) Chronic kidney disease: Impression: Creatinine mildly elevated at 1.4, likely a result of dehydration. Based on recent hopsital admission, this is slightly elevated from the patient's baseline. Plan: Continue to monitor kidney function with daily BMP Receiving IV fluids r/t syncope (5) Balance problem: Impression: Patient reports that she becomes very dizzy and has difficulty with balance. This has been ongoing since her recent stroke. This dizziness is exacerbated with movement and relieved by laying down. Plan: Patient evaluated by physical therapy and deemed candidate for inpatient rehabilitation Continue fall precautions (6) Headache: Impression: Patient reports headache with associated photophobia. She reports having intermittent headaches since her recent stroke. Pain rated at 7/10. Reports that tylenol provides minimal relief. 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 NSAIDs inappropriate for pain relief due to increased risk for bleeding. Plan: Continue with PRN tylenol; adjusted to q4hr (7) Laceration of occipital region of scalp: Impression: Patient has laceration to right occipital scalp s/p fall with bandage in place. Plan: Continue to monitor for signs of infection
[2024-10-06] MEDS: LACTATED RINGERS 1,000 ML IV SCH (17:18)
[2024-10-06] MEDS: APIXABAN 5 MG TABLET PO SCH (21:09)
[2024-10-07 09:32] LABS: HCT - HEMATOCRIT 35.4 % (37.0-47.0); HGB - HEMOGLOBIN 11.7 g/dL (12.0-16.0); MEAN CORPUSCULAR HEMOGLOBIN 30.8 pg (27.0-31.0); MEAN CORPUSCULAR HGB CONC 33.1 g/dL (32.0-36.0); MEAN CORPUSCULAR VOLUME 93.2 fL (81.0-99.0); MEAN PLATELET VOLUME 9.7 fL (7.9-10.8); RED BLOOD COUNT 3.8 10^6/uL (4.20-5.40); WHITE BLOOD COUNT 6.5 x10^3/uL (4.8-10.8)
[2024-10-07 09:44] LABS: CALCIUM 8.6 mg/dL (8.5-10.3); CREATININE 1.3 mg/dL (0.6-1.3); POTASSIUM 3.5 mmol/L (3.5-4.5)
[2024-10-07] MEDS: cefTRIAXone 1 GM VIAL IVP ONE (10:59)
--- NOTE | 2024-10-07 12:09 | OT Plan of Care ---
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 At that time she was hospitalized with syncope and a UTI, imaging revealed a subacute lacunar infarction involving left frontal lobe periventricular white matter. She also had BPPV which was treated in the acute setting by this therapist, the pt reported resolution of her vertigo symptoms afterwards. However, she continued to feel dizzy with significant listing to the L, impaired balance, and had poor activity tolerance. She was DCd home with services on 09/30/24 although the therapy DC rec was for IPR. She arrived back at the ED on due to another syncopal episode resulting in a fall and head strike. CT head and C spine were done which were negative. Adm with UTI and syncope. Seen for OT evaluation. A&ox4 w illing to participate with therapy. Lethargic but alert and appropriate. Orthostatic as above with + symptoms resolving in sitting. RN and team updated. Follows 100% commands. No acute neurological deficits noted in vision and sensation B UE generally decreased strength deconditioning. Overall cognitive function appears slowed requiring extra time for processing and planning. 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 Reported TAVERAS, dizziness, photophobia, nausea, and fatigue sequela. Performed supine to sit EOB MIN A EOB sitting with L/R lateral lean noted with ability to correct to midline with cues from therapist. Currently MIN A UB, MOD A LB ADL (donning B socks and robe prior to mobility) with full set up, seated, and increased time. Pt performed sit to stand and SPT bed to chair MIN A using RW. R lateral lean present in standing and when sitting in recliner . Overall presents with decreased cognitive endurance, vestibular integration, strength, physical endurance, activity tolerance and ADL status. Will benefit from cont OT services during acute stay and shows good motivation and tolerance to 3hrs therapy pre day. 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 Goals - Activities of Daily Living Improve Upper Extremity Modified Independent Dressing to: Improve Lower Extremity Modified Independent Dressing to: Improve Grooming/Hygiene to: Modified Independent Improve Bathing to: Modified Independent Improve Toileting to: Modified Independent Plan Treatment Frequency 1x/day Duration Until discharge -Discharge Recommendations Discharge Location IPR Support/Services Needed Home Health O.T. Recommended Equipment Raised Toilet Seat,Commode,Shower/bath chair Transport Needs at Discharge Wheelchair van
--- NOTE | 2024-10-07 12:22 | PROVIDER PROGRESS NOTE ---
<Statement entered by Darryl Hair DNP - 10/07/24 16:00> Patient was seen and examined by me with a separate encounter after being seen by PATY student. I reviewed the student's documentation including patient history, physical examination, laboratory, imaging, clinical assessment and treatment plan. I have discussed the management of the patient with the student, and with the patient. There are no changes. Managing bacteremia with IV Rocephin. Leukocytosis has resolved, VSS. Plan for repeat blood cultures tomorrow, this will determine further course of management. Was evaluated by PT/OT, with recommendation for IPR. Subjective Subjective Pt reports feeling: No change Subjective: Patient is sitting up in chair, resting comfortably in no acute distress, with friend at the bedside. She reports no changes overnight. Current Medications Current Medications Current Medications: Current Medications Generic Name Dose Route Start Last Admin Trade Name Freq PRN Reason Stop Dose Admin Acetaminophen 650 mg 10/06/24 12:03 10/07/24 08:16 Acetaminophen 325 Mg Tablet PO 650 mg Q4HR PRN Administration Pain or Fever > 38C (100.4F) Amlodipine Besylate 10 mg 10/06/24 09:00 10/07/24 08:14 Amlodipine 5 Mg Tablet PO 10 mg DAILY TORIBIO Administration Apixaban 5 mg 10/06/24 21:00 10/07/24 08:14 Apixaban 5 Mg Tablet PO 5 mg BID TORIBIO Administration Atorvastatin Calcium 40 mg 10/05/24 21:00 10/06/24 21:09 Atorvastatin 40 Mg Tablet PO 40 mg QPM TORIBIO Administration Ceftriaxone Sodium 2 gm 10/08/24 09:00 Ceftriaxone 2 Gm Vial IVP DAILY TORIBIO Citalopram Hydrobromide 10 mg 10/06/24 09:00 10/07/24 08:14 Citalopram 10 Mg Tablet PO 10 mg DAILY TORIBIO Administration Levothyroxine Sodium 112 mcg 10/06/24 07:00 10/07/24 06:13 Levothyroxine 112 Mcg Tablet PO 112 mcg QDAC TORIBIO Administration Meclizine HCl 12.5 mg 10/05/24 18:29 Meclizine 12.5 Mg Tablet PO Q6HR PRN Dizziness Ondansetron HCl 4 mg 10/05/24 18:26 10/06/24 01:40 Ondansetron 4 Mg/2 Ml Vial IVP 4 mg Q6HR PRN Administration Nausea / Vomiting Pantoprazole Sodium 40 mg 10/06/24 07:00 10/07/24 06:16 Pantoprazole 40 Mg Tablet PO Not Given QDAC TORIBIO Sodium Chloride 10 ml 10/06/24 07:26 Sodium Chloride Flush 0.9% 10 Ml Syringe IVP PRN PRN NEEDED PER PROVIDER ORDERS Sodium Chloride 10 ml 10/06/24 07:26 10/07/24 08:14 Sodium Chloride Flush 0.9% 10 Ml Syringe IVP 10 ml 0100,0900,1700 TORIBIO Administration Sterile Water 20 ml 10/08/24 09:00 Water For Injection,Sterile 10 Ml Vial DAILY [facility] Objective Vital Signs/Intake & Output Vital Signs: Vital Signs x48h Temp Pulse Pulse Resp BP Pulse Ox 10/07/24 09:55 36.2 C L 66 19 121/68 98 10/07/24 08:24 36.6 C 66 18 145/68 H 97 10/07/24 04:03 36.4 C L 66 18 130/75 97 Intake & Output: Intake & Output 10/04/24 10/05/24 10/06/24 10/07/24 23:59 23:59 23:59 23:59 Intake Total 1000 / 1000 3210 / 3210 440 / 440 Output Total 1050 / 1050 950 / 950 Balance 1000 / 1000 2160 / 2160 -510 / -510 Weight (kg) 56.699 kg 61 kg Objective General Appearance: positive No acute distress Eyes Bilateral: positive Normal inspection ENT: positive ENT inspection nml Neck: positive Nml inspection Respiratory: positive No respiratory distress Cardiovascular: positive Regular rate & rhythm Abdomen: positive Non-tender Back: positive Nml inspection Skin: positive Color nml Extremities: positive Non-tender Neurologic/Psychiatric: positive Oriented x3 Lab Results 10/07/24 09:24 10/07/24 09:24 Other Labs: Lab Results x24hrs 10/07/24 Range/Units 09:24 WBC 6.5 (4.8-10.8) x10^3/uL RBC 3.80 L (4.20-5.40) 10^6/uL Hgb 11.7 L (12.0-16.0) g/dL Hct 35.4 L (37.0-47.0) % MCV 93.2 (81.0-99.0) fL MCH 30.8 (27.0-31.0) pg MCHC 33.1 (32.0-36.0) g/dL RDW 13.0 (12.0-15.0) % Plt Count 303 (130-450) 10^3/uL MPV 9.7 (7.9-10.8) fL Sodium 135 (135-145) mmol/L Potassium 3.5 (3.5-4.5) mmol/L Chloride 101 (101-111) mmol/L Carbon Dioxide 29 (21-32) mmol/L Anion Gap 5.0 L (6-13) BUN 14 (6-20) mg/dL Creatinine 1.3 (0.6-1.3) mg/dL Estimated GFR (MDRD) 39 L (>89) Glucose 167 H (74-104) mg/dL Calcium 8.6 (8.5-10.3) mg/dL Assessment/Plan Problem List (1) Bacteremia: Impression: PCR blood culture + for E.Coli on 10/05 in setting of urinary tract infection (urine culture pending). Preliminary blood culture #2 shows no growth after 24 hours. Plan: Continue IV antibiotics for at least 7 days - currently receiving IV ceftriaxone daily (day 2) increased to 2gm daily Repeat blood culture in 24-48 hours and adjust antibiotics as necessary TTE to assess for vegetation (2) Urinary tract infection: Impression: UA + in ED for leukocyte esterase, WBCs, and bacteria; urine culture pendingpreliminary shows gram-negative rods. Patient denies any dysuria, urgency, or frequency with urination. Patient remains afebrile. WBCs within normal limits at 6.5. This is the patient's second hospital admission with a UTI within a month. Plan: Continue IV antibiotics - IV ceftriaxone daily (3) Syncope and collapse: Impression: Patient presented to ED after falling at home and hitting her head. She attributes this fall to dizziness that began after having a stroke that was diagnosed during recent hospital admission. MRI brain on 09/17 showed evidence of a acute to subacute lacunar infarction. She then had a subsequent syncopal episode in the ED. CT head/cervical spine negative. Patient received 2L of LR for possible dehydration induced orthostatic hypotension. Per physical therapy, patient remains orthostatic today upon standing at 98/70 and symptomatic. Plan: Repeat volume repletion with IV fluids - LR@150/hr x2 bags ordered (4) Balance problem: Impression: Patient worked with physical therapy today. Reports that she became dizzy and unbalanced upon standing, which has been ongoing since her recent stroke. Denies any worsening of symptoms. Plan: Patient evaluated by physical therapy and deemed candidate for inpatient rehabilitation - case management discussed with patient Continue fall precautions (5) Headache: Impression: Patient reports headache with associated photophobia. She reports having intermittent headaches since her recent stroke. Pain is rated at 4-8/10. She reports that tylenol provides sufficient relief. 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 NSAIDs inappropriate for pain relief due to increased risk for bleeding. Plan: Continue with PRN tylenol (6) Laceration of occipital region of scalp: Impression: Patient has laceration to right occipital scalp s/p fall with bandage in place. Incision is closed with glue, dried blood present, tender to palpation. Replaced dressing today for comfort. No signs or symptoms of infection observed. Plan: Continue to monitor for signs of infection
[2024-10-07] MEDS: LACTATED RINGERS 1,000 ML IV SCH (13:43)
--- NOTE | 2024-10-07 16:56 | ECHO Report ---
Version: 1 Study ID: [id number] Adult Echocardiogram Report Name: DANIEL TORRES Study Date: 10/07/2024, 3: 52 PM BP : 101 / 66 mmHg Patient Location: ^2208^[id number] HR: 66 bpm : 1945 (MM/DD/YYYY) Gender: Female He ight: 64 in Age: 79 Years Weight: 134.482 lb Reason For Study: syncope History: Septic, rule out vegetation. Syncope Procedure: A complete two-dimensional transthoracic echocardiogram was performed (2D, M-mode, Doppler and color flow Doppler). The patient was comfortable and cooperative throughout the procedure. Interpretation Summary The left ventricle is normal in size. The calculated ejection fraction, as determined by the biplane method of disks, is 61%. The right ventricle is normal in size and function. No significant valvular pathology. Left Ventricle: The left ventricle is normal in size. There is normal left ventricular wall thickness. Global left ve ntricular systolic function is normal. The calculated ejection fraction, as determined by the biplane method of disks, i s 61%. No regional wall motion abnormalities are present. Right Ventricle: The right ventricle is normal in size and function. There is normal right ventricular wall thickness. Aortic Valve: The aortic valve is trileaflet. The aortic valve is mildly calcified. There is no aortic valve vegeta tion. No hemodynamically significant valvular aortic stenosis. No aortic regurgitation is present. Mitral Valve: The mitral valve leaflets are structurally normal with normal motion. Mild mitral annular calcificati on is present. There is no mitral valve vegetation. No evidence of mitral stenosis is seen. There is trace mitral re gurgitation. Tricuspid Valve: The tricuspid valve is normal in structure and function. There is no tricuspid valve vegetation. Ther e is no tricuspid stenosis. Trace tricuspid regurgitation present. Pulmonic Valve: The pulmonic valve is normal in structure and function. There is no pulmonic valve vegetation. There is no pulmonic valvular stenosis. Trace pulmonic valvular regurgitation is present. Left Atrium: The left atrial size is normal. Right Atrium: Right atrial size is normal. The inferior vena cava is normal in diameter (<2.1cm) and collapses >50% with sniff (estimated right atrial pressure 0-5mmHg). Atrial Septum: The interatrial septum appears normal, without evidence of shunt by 2D imaging and color Doppler. Aorta: The aortic root, proximal and mid ascending aorta, aortic arch, and proximal descending thoracic aort a and visualized portion of the abdominal aorta appear normal in size and structure. Pulmonary Artery: The pulmonary artery is normal size. Pericardium/Pleural Space: There is no pericardial effusion. Doppler Measurements & Calculations Ant A' Aquiles: 8.5 cm/sec Ant E' Aquiles: 6.3 cm/sec Ao max P.9 mmHg Ao V2 max: 164.9 cm/sec Desc Ao Vmax: 60.5 cm/sec LV V1 max: 87.2 cm/sec LV V1 max P.0 mmHg MV A max aquiles: 80.0 cm/sec MV dec time: 0.16 sec MV DVI-pr: 1.14 MV E max aquiles: 91.2 cm/sec PA max P.98 mmHg PA V2 max: 70.3 cm/sec Post A' Aquiles: 10.2 cm/sec Post E' Aquiles: 7.4 cm/sec RV A' Aquiles: 11.5 cm/sec RV E' Aquiles: 8.5 cm/sec TR max P.1 mmHg TR max aquiles: 229.5 cm/sec MMode/2D Measurements & Calculations Ao root diam: 2.9 cm desc Ao Diam: 1.54 cm EDV(MOD-sp4): 43.4 ml EDV(sp4-el): 44.0 ml ESV(MOD-sp4): 17.3 ml ESV(sp4-el): 17.2 ml Heart Rate: 66.0 BPM Height (metric): 162.6 cm IVSd: 1.01 cm LAV(MOD-bp): 49.6 ml LAV(MOD-bp) Indexed: 30.0 ml/m² LAV(MOD-sp2): 36.4 ml LAV(MOD-sp4): 60.6 ml LVAd ap4: 18.9 cm² LVAs ap4: 10.8 cm² LVIDd: 3.8 cm LVIDs: 2.39 cm LVLd ap4: 6.9 cm LVLs ap4: 5.8 cm LVOT diam: 2.05 cm LVPWd: 0.93 cm LVPWs: 1.24 cm RV Base: 3.1 cm Systolic Pressure: 101.0 mmHg TAPSE: 2.17 cm Other Measurements & Calculations Ant A' Aquiles: 8.5 cm/sec Ant E' Aquiles: 6.3 cm/sec Ao root diam: 2.9 cm Ao V2 max: 164.9 cm/sec JOSE(V,D): 1.74 cm² BMI: 23.1 kilograms/m² BSA: 1.65 m² BSA(Haycock): 1.67 m² desc Ao Diam: 1.54 cm Desc Ao Vmax: 60.5 cm/sec Diastolic Pressure: 66.0 mmHg EDV(MOD-sp4): 43.4 ml EDV(sp4-el): 44.0 ml EDV(Teich): 60.5 ml EF(MOD-sp4): 60.2 % EF(sp4-el): 61.0 % EF(Teich): 67.1 % ESV(MOD-sp4): 17.3 ml ESV(sp4-el): 17.2 ml ESV(Teich): 19.9 ml FS: 36.5 % Heart Rate: 66.0 BPM Height (metric): 162.6 cm IVSd: 1.01 cm LAV(MOD-bp): 49.6 ml LAV(MOD-bp) Indexed: 30.0 ml/m² LAV(MOD-sp2): 36.4 ml LAV(MOD-sp4): 60.6 ml LV V1 max: 87.2 cm/sec LVAd ap4: 18.9 cm² LVAs ap4: 10.8 cm² LVIDd: 3.8 cm LVIDs: 2.39 cm LVLd ap4: 6.9 cm LVLs ap4: 5.8 cm LVOT area: 3.3 cm² LVOT diam: 2.05 cm LVPWd: 0.93 cm LVPWs: 1.24 cm MV A max aquiles: 80.0 cm/sec MV dec time: 0.16 sec MV DVI-pr: 1.14 MV E max aquiles: 91.2 cm/sec MV E/A: 1.14 PA max P.98 mmHg PA V2 max: 70.3 cm/sec Post A' Aquiles: 10.2 cm/sec Post E' Aquiles: 7.4 cm/sec RV A' Aquiles: 11.5 cm/sec RV Base: 3.1 cm RV E' Aquiles: 8.5 cm/sec SV(MOD-sp4): 26.2 ml SV(sp4-el): 26.9 ml Systolic Pressure: 101.0 mmHg TAPSE: 2.17 cm TR max P.1 mmHg TR max aquiles: 229.5 cm/sec TV max P.1 mmHg Weight (metric): 61.0 kg EDV(MOD-sp2): 37.9 ml EDV(sp2-el): 37.5 ml ESV(MOD-sp2): 13.4 ml ESV(sp2-el): 13.0 ml LVAd ap2: 17.2 cm² LVAs ap2: 9.3 cm² LVLd ap2: 6.7 cm LVLs ap2: 5.7 cm EDV(MOD-bp): 41.0 ml EF(MOD-bp): 62.1 % EF(MOD-sp2): 64.7 % EF(sp2-el): 65.3 % ESV(MOD-bp): 15.5 ml Martín Hollis MD 10/07/2024, 4: 56 PM Ordering Physician: Deon Peacock Referring Physician: Modesto Araya Performed By: YOAV
[2024-10-07] MEDS ORDERED: carvediloL 3.125 MG TABLET PO SCH (21:00)
[2024-10-08 04:39] LABS: BASOPHILS % (AUTO) 1.5 %; EOSINOPHILS % (AUTO) 17.2 %; HCT - HEMATOCRIT 36.6 % (37.0-47.0); HGB - HEMOGLOBIN 12.1 g/dL (12.0-16.0); LYMPHOCYTES % (AUTO) 24.2 %; MEAN CORPUSCULAR HEMOGLOBIN 30.5 pg (27.0-31.0); MEAN CORPUSCULAR HGB CONC 33.1 g/dL (32.0-36.0); MEAN CORPUSCULAR VOLUME 92.2 fL (81.0-99.0); MEAN PLATELET VOLUME 10.5 fL (7.9-10.8); PLT - PLATELET COUNT 344 10^3/uL (130-450); RED BLOOD COUNT 3.97 10^6/uL (4.20-5.40); RED CELL DISTRIBUTION WIDTH 12.9 % (12.0-15.0); WHITE BLOOD COUNT 6.8 x10^3/uL (4.8-10.8)
[2024-10-08 04:51] LABS: CALCIUM 8.7 mg/dL (8.5-10.3); CREATININE 1.2 mg/dL (0.6-1.3); POTASSIUM 3.4 mmol/L (3.5-4.5)
[2024-10-08 05:15] LABS: ABNORMAL LYMPHS % (MANUAL) 0 %
[2024-10-08 06:43] LABS: BAND NEUTROPHILS % (MANUAL) 4 %; BASOPHILS # (MANUAL) 0.1 10^3/uL (0-0.1); BASOPHILS % (MANUAL) 1 %; EOSINOPHILS # (MANUAL) 1.2 10^3/uL (0-0.7); LYMPHOCYTES % (MANUAL) 28 %; MONOCYTES # (MANUAL) 1.2 10^3/uL (0.0-1.0); NEUTROPHILS # (MANUAL) 2.4 10^3/uL (1.5-6.6); REACTIVE LYMPHS % (MANUAL) 2 %
[2024-10-08 06:44] LABS: DIFFERENTIAL COMMENT MANUAL DIFFERENTIAL; PLATELET ESTIMATE, MANUAL NORMAL (130-450,000) (NORMAL); PLATELET MORPHOLOGY NORMAL APPEARANCE (NORMAL); RBC MORPHOLOGY (MULTIPLE) NORMAL APPEARANCE (NORMAL); WBC MORPHOLOGY (MULTIPLE) NORMAL APPEARANCE (NORMAL)
[2024-10-08] MEDS: cefTRIAXone 2 GM VIAL IVP SCH (08:41)
[2024-10-08] MEDS: DOCUSATE SODIUM 250 MG CAPSULE PO SCH (11:46)
[2024-10-08] MEDS: CIPROFLOXACIN IV 400 MG/200 ML IV SCH (11:46)
--- NOTE | 2024-10-08 12:13 | PROVIDER PROGRESS NOTE ---
<Statement entered by Darryl Hair, ROZ - 10/08/24 19:16> Patient was seen and examined by me with a separate encounter after being seen by PATY student. I reviewed the student's documentation including patient history, physical examination, laboratory, imaging, clinical assessment and treatment plan. I have discussed the management of the patient with the student, and with the patient. There are no changes. Urine cultures now showing E. faecalis as well as E. coli. Changed antibiotic regimen to ciprofloxacin. Added continuous LR for syncope Subjective Subjective Pt reports feeling: No change Subjective: Patient is sitting up in chair, visiting with friend at bedside. She reports that she had difficulty sleeping overnight. Current Medications Current Medications Current Medications: Current Medications Generic Name Dose Route Start Last Admin Trade Name Freq PRN Reason Stop Dose Admin Acetaminophen 650 mg 10/06/24 12:03 10/08/24 07:36 Acetaminophen 325 Mg Tablet PO 650 mg Q4HR PRN Administration Pain or Fever > 38C (100.4F) Amlodipine Besylate 10 mg 10/06/24 09:00 10/08/24 08:41 Amlodipine 5 Mg Tablet PO 10 mg DAILY TORIBIO Administration Apixaban 5 mg 10/06/24 21:00 10/08/24 08:41 Apixaban 5 Mg Tablet PO 5 mg BID TORIBIO Administration Atorvastatin Calcium 40 mg 10/05/24 21:00 10/07/24 20:38 Atorvastatin 40 Mg Tablet PO 40 mg QPM TORIBIO Administration Citalopram Hydrobromide 10 mg 10/06/24 09:00 10/08/24 08:41 Citalopram 10 Mg Tablet PO 10 mg DAILY TORIBIO Administration Ciprofloxacin 400 mg in 200 mls @ 200 mls/hr 10/08/24 11:00 Cipro 400 Mg/200 Ml IV Q12H TORIBIO Levothyroxine Sodium 112 mcg 10/06/24 07:00 10/08/24 06:37 Levothyroxine 112 Mcg Tablet PO 112 mcg QDAC TORIBIO Administration Meclizine HCl 12.5 mg 10/05/24 18:29 Meclizine 12.5 Mg Tablet PO Q6HR PRN Dizziness Ondansetron HCl 4 mg 10/05/24 18:26 10/06/24 01:40 Ondansetron 4 Mg/2 Ml Vial IVP 4 mg Q6HR PRN Administration Nausea / Vomiting Sodium Chloride 10 ml 10/06/24 07:26 Sodium Chloride Flush 0.9% 10 Ml Syringe IVP PRN PRN NEEDED PER PROVIDER ORDERS Sodium Chloride 10 ml 10/06/24 07:26 10/08/24 08:42 Sodium Chloride Flush 0.9% 10 Ml Syringe IVP 10 ml 0100,0900,1700 TORIBIO Administration Objective Vital Signs/Intake & Output Vital Signs: Vital Signs x48h Temp Pulse Resp BP Pulse Ox 10/08/24 10:00 36.2 C L 65 17 126/71 98 10/08/24 07:31 36.5 C 66 16 146/75 H 96 10/08/24 05:07 36.6 C 66 18 149/72 H 97 Intake & Output: Intake & Output 10/05/24 10/06/24 10/07/24 10/08/24 23:59 23:59 23:59 23:59 Intake Total 1000 / 1000 3210 / 3210 2440 / 2440 2600 / 2600 Output Total 1050 / 1050 5750 / 5750 2300 / 2300 Balance 1000 / 1000 2160 / 2160 -3310 / -3310 300 / 300 Weight (kg) 56.699 kg 61 kg Objective General Appearance: positive No acute distress and Alert Eyes Bilateral: positive Normal inspection ENT: positive ENT inspection nml Neck: positive Nml inspection Respiratory: positive Chest non-tender, No respiratory distress and Breath sounds nml Cardiovascular: positive Regular rate & rhythm Abdomen: positive Non-tender Back: positive Nml inspection Skin: positive Color nml and No rash Extremities: positive Non-tender and Nml appearance Neurologic/Psychiatric: positive Oriented x3 and Mood/affect nml Lab Results 10/08/24 03:58 10/08/24 03:58 Other Labs: Lab Results x24hrs 10/08/24 Range/Units 03:58 WBC 6.8 (4.8-10.8) x10^3/uL RBC 3.97 L (4.20-5.40) 10^6/uL Hgb 12.1 (12.0-16.0) g/dL Hct 36.6 L (37.0-47.0) % MCV 92.2 (81.0-99.0) fL MCH 30.5 (27.0-31.0) pg MCHC 33.1 (32.0-36.0) g/dL RDW 12.9 (12.0-15.0) % Plt Count 344 (130-450) 10^3/uL MPV 10.5 (7.9-10.8) fL Neut # (Auto) Not Reportable Lymph # (Auto) Not Reportable [place] # (Auto) Not Reportable Eos # (Auto) Not Reportable Baso # (Auto) Not Reportable Absolute Nucleated RBC Not Reportable Total Counted 100 Band Neuts % (Manual) 4 (0 - 10) % Reactive Lymphs % (Man) 2 % Abnorm Lymph % (Manual) 0 % Nucleated RBC % Not Reportable Neutrophils # (Manual) 2.4 (1.5-6.6) 10^3/uL Lymphocytes # (Manual) 2.0 (1.5-3.5) 10^3/uL Monocytes # (Manual) 1.2 H (0.0-1.0) 10^3/uL Eosinophils # (Manual) 1.2 H (0-0.7) 10^3/uL Basophils # (Manual) 0.1 (0-0.1) 10^3/uL Differential Comment MANUAL DIFFERENTIAL WBC Morphology NORMAL APPEARANCE (NORMAL) Platelet Estimate NORMAL (130-450,000) (NORMAL) Platelet Morphology NORMAL APPEARANCE (NORMAL) RBC Morph Micro Appear NORMAL APPEARANCE (NORMAL) Sodium 137 (135-145) mmol/L Potassium 3.4 L (3.5-4.5) mmol/L Chloride 101 (101-111) mmol/L Carbon Dioxide 30 (21-32) mmol/L Anion Gap 6.0 (6-13) BUN 14 (6-20) mg/dL Creatinine 1.2 (0.6-1.3) mg/dL Estimated GFR (MDRD) 43 L (>89) Glucose 100 (74-104) mg/dL Calcium 8.7 (8.5-10.3) mg/dL Assessment/Plan Problem List (1) Bacteremia: Impression: PCR blood culture + for E.Coli on 10/05 in setting of urinary tract infection. Urine culture + for e. coli and enterococcus faecalis on 10/08. Preliminary blood culture shows no growth after 24 hours. Plan: Continue IV antibiotics for at least 7 days - adjusted abx regimen to IV ciprofloxacin Repeat blood cultures today TTE completed 10/07 is unremarkable (2) Urinary tract infection: Impression: UA + in ED for leukocyte esterase, WBCs, and bacteria; urine culture + for e. coli and enterococcus faecalis on 10/08. Patient denies any dysuria, urgency, or frequency with urination. Patient remains afebrile and WBCs within normal limits at 6.8. Plan: Continue IV antibiotics - IV ceftriaxone changed to IV ciprofloxacin to address urine culture sensitivities (3) Syncope and collapse: Impression: Patient presented to ED after falling at home and hitting her head. She attributes this fall to dizziness that began after having a stroke that was diagnosed during recent hospital admission. MRI brain on 09/17 showed evidence of a acute to subacute lacunar infarction. She then had a subsequent syncopal episode in the ED. CT head/cervical spine negative. Continue volume repletion with LR @125mL/hr for possible dehydration induced orthostatic hypotension. (4) Balance problem: Impression: Patient worked with physical therapy today. Patient reports that she was able to take 4-5 steps with minimal assistance before requiring assistance. Patient reports that she continues to experience dizziness and imbalance upon standing. Denies any worsening of symptoms. Plan: Patient evaluated by physical therapy and deemed candidate for inpatient rehabilitation (5) Headache: Impression: Patient reports headache with associated photophobia. She reports having intermittent headaches since her recent stroke. Pain is rated at 4-8/10. She reports that tylenol provides sufficient relief. 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 NSAIDs inappropriate for pain relief due to increased risk for bleeding. Plan: Continue with PRN tylenol (6) Laceration of occipital region of scalp: Impression: Patient has laceration to right occipital scalp s/p fall with bandage in place for comfort. Incision is closed with glue, dried blood present at incision site. Plan: Continue to monitor for signs of infection
[2024-10-08] MEDS: LACTATED RINGERS 1,000 ML IV SCH (19:47)
[2024-10-09 05:13] LABS: BASOPHILS # (AUTO) 0.1 10^3/uL (0.0-0.1); BASOPHILS % (AUTO) 1.1 %; EOSINOPHILS # (AUTO) 0.9 10^3/uL (0.0-0.7); EOSINOPHILS % (AUTO) 12.2 %; HCT - HEMATOCRIT 35.6 % (37.0-47.0); HGB - HEMOGLOBIN 11.9 g/dL (12.0-16.0); LYMPHOCYTES % (AUTO) 27.8 %; MEAN CORPUSCULAR HEMOGLOBIN 30.6 pg (27.0-31.0); MEAN CORPUSCULAR HGB CONC 33.4 g/dL (32.0-36.0); MEAN CORPUSCULAR VOLUME 91.5 fL (81.0-99.0); MEAN PLATELET VOLUME 10.2 fL (7.9-10.8); MONOCYTES # (AUTO) 0.8 10^3/uL (0.0-1.0); MONOCYTES % (AUTO) 11.8 %; NEUTROPHILS # (AUTO) 3.3 10^3/uL (1.5-6.6); NEUTROPHILS % (AUTO) 46.8 %; PLT - PLATELET COUNT 339 10^3/uL (130-450); RED BLOOD COUNT 3.89 10^6/uL (4.20-5.40); RED CELL DISTRIBUTION WIDTH 12.7 % (12.0-15.0); WHITE BLOOD COUNT 7.1 x10^3/uL (4.8-10.8)
[2024-10-09 05:28] LABS: CALCIUM 8.8 mg/dL (8.5-10.3); CREATININE 1.2 mg/dL (0.6-1.3); POTASSIUM 4.1 mmol/L (3.5-4.5)
[2024-10-09] MEDS: polyethylene glycoL 3350 17 GM PACKET PO SCH (08:17)
[2024-10-09] MEDS: DOCUSATE SODIUM 250 MG CAPSULE PO SCH (08:17)
[2024-10-09] MEDS: SENNA 8.6 MG TABLET PO SCH (08:26)
--- NOTE | 2024-10-09 13:18 | PROVIDER PROGRESS NOTE ---
Subjective Prog Note Date Prog Note Date: 10/09/24 Subjective Pt reports feeling: No change Subjective: She has had a headache since she fell. Rates it as a 4-8/10. Improves to a 4 with Tylenol then back up to an 8. Does not seem to get any better. She is reading a book when I came in. states that her vision is at baseline close up, but notices it is somewhat worse when she is watching TV. She is eager to get to rehab. She states that she did not do well at home. She was dizzy and falling. Current Medications Current Medications Current Medications: Current Medications Generic Name Dose Route Start Last Admin Trade Name Freq PRN Reason Stop Dose Admin Acetaminophen 650 mg 10/06/24 12:03 10/09/24 07:55 Acetaminophen 325 Mg Tablet PO 650 mg Q4HR PRN Administration Pain or Fever > 38C (100.4F) Amlodipine Besylate 10 mg 10/06/24 09:00 10/09/24 08:14 Amlodipine 5 Mg Tablet PO 10 mg DAILY TORIBIO Administration Apixaban 5 mg 10/06/24 21:00 10/09/24 08:13 Apixaban 5 Mg Tablet PO 5 mg BID TORIBIO Administration Atorvastatin Calcium 40 mg 10/05/24 21:00 10/08/24 21:15 Atorvastatin 40 Mg Tablet PO 40 mg QPM TORIBIO Administration Citalopram Hydrobromide 10 mg 10/06/24 09:00 10/09/24 08:13 Citalopram 10 Mg Tablet PO 10 mg DAILY TORIBIO Administration Docusate Sodium 250 mg 10/09/24 09:00 10/09/24 08:17 Docusate Sodium 250 Mg Capsule PO 250 mg DAILY TORIBIO Administration Ciprofloxacin 400 mg in 200 mls @ 200 mls/hr 10/08/24 11:00 10/09/24 11:17 Cipro 400 Mg/200 Ml IV 200 mls/hr Q12H TORIBIO Administration Lactated Ringer's 1,000 mls @ 125 mls/hr 10/08/24 19:00 10/09/24 04:17 Lr IV 125 mls/hr .Q8H TORIBIO Administration Levothyroxine Sodium 112 mcg 10/06/24 07:00 10/09/24 06:33 Levothyroxine 112 Mcg Tablet PO 112 mcg QDAC TORIBIO Administration Meclizine HCl 12.5 mg 10/05/24 18:29 Meclizine 12.5 Mg Tablet PO Q6HR PRN Dizziness Ondansetron HCl 4 mg 10/05/24 18:26 10/06/24 01:40 Ondansetron 4 Mg/2 Ml Vial IVP 4 mg Q6HR PRN Administration Nausea / Vomiting Polyethylene Glycol 17 gm 10/09/24 09:00 10/09/24 08:17 Polyethylene Glycol 3350 17 Gm Packet PO Not Given DAILY TORIBIO Senna 8.6 - 17.2 mg 10/09/24 09:00 10/09/24 08:26 Senna 8.6 Mg Tablet PO 8.6 mg DAILY TORIBIO Administration Sodium Chloride 10 ml 10/06/24 07:26 Sodium Chloride Flush 0.9% 10 Ml Syringe IVP PRN PRN NEEDED PER PROVIDER ORDERS Sodium Chloride 10 ml 10/06/24 07:26 10/09/24 08:26 Sodium Chloride Flush 0.9% 10 Ml Syringe IVP 10 ml 0100,0900,1700 TORIBIO Administration Objective Vital Signs/Intake & Output Reviewed Vital Signs: Yes Vital Signs: Vital Signs x48h Temp Pulse Resp BP Pulse Ox 10/09/24 07:42 36.4 C L 62 16 157/76 H 97 10/09/24 05:12 36.6 C 58 L 18 110/78 96 Intake & Output: Intake & Output 10/06/24 10/07/24 10/08/24 10/09/24 23:59 23:59 23:59 23:59 Intake Total 3210 / 3210 2440 / 2440 3970 / 3970 1900 / 1900 Output Total 1050 / 1050 5750 / 5750 3700 / 3700 1250 / 1250 Balance 2160 / 2160 -3310 / -3310 270 / 270 650 / 650 Weight (kg) 61 kg Objective General Appearance: positive No acute distress and Alert Eyes Bilateral: positive Normal inspection, PERRL and Conjunctivae nml ENT: positive ENT inspection nml Neck: positive Nml inspection Respiratory: positive No respiratory distress and Breath sounds nml Cardiovascular: positive Regular rate & rhythm Abdomen: positive Non-tender Back: positive Nml inspection Skin: positive Color nml, No rash and Other (scalp caked with dried blood. ) Extremities: positive Non-tender, Nml appearance and No pedal edema Neurologic/Psychiatric: positive Oriented x3 and Mood/affect nml Lab Results 10/09/24 04:27 10/09/24 04:27 Other Labs: Lab Results x24hrs 10/09/24 Range/Units 04:27 WBC 7.1 (4.8-10.8) x10^3/uL RBC 3.89 L (4.20-5.40) 10^6/uL Hgb 11.9 L (12.0-16.0) g/dL Hct 35.6 L (37.0-47.0) % MCV 91.5 (81.0-99.0) fL MCH 30.6 (27.0-31.0) pg MCHC 33.4 (32.0-36.0) g/dL RDW 12.7 (12.0-15.0) % Plt Count 339 (130-450) 10^3/uL MPV 10.2 (7.9-10.8) fL Neut # (Auto) 3.3 (1.5-6.6) 10^3/uL Lymph # (Auto) 2.0 (1.5-3.5) 10^3/uL [place] # (Auto) 0.8 (0.0-1.0) 10^3/uL Eos # (Auto) 0.9 H (0.0-0.7) 10^3/uL Baso # (Auto) 0.1 (0.0-0.1) 10^3/uL Absolute Nucleated RBC 0.00 x10^3/uL Nucleated RBC % 0.0 /100WBC Sodium 135 (135-145) mmol/L Potassium 4.1 (3.5-4.5) mmol/L Chloride 101 (101-111) mmol/L Carbon Dioxide 30 (21-32) mmol/L Anion Gap 4.0 L (6-13) BUN 14 (6-20) mg/dL Creatinine 1.2 (0.6-1.3) mg/dL Estimated GFR (MDRD) 43 L (>89) Glucose 109 H (74-104) mg/dL Calcium 8.8 (8.5-10.3) mg/dL ABX Reporting Has patient been on IV antibiotics over the past 48 hours?: Yes Sepsis Event Note (H) Evaluation Possible source of Sepsis: positive Genitourinary Assessment/Plan Problem List (1) Bacteremia: Impression: PCR blood culture + for E.Coli on 10/05 in setting of urinary tract infection. Urine culture + for e. coli and enterococcus faecalis on 10/08. Blood culture confirms PCR, E Coli brown sensitive. Plan: Continue IV antibiotics for at least 7 days - adjusted abx regimen to IV ciprofloxacin,she is day 2/ Cipro. Repeat blood cultures will be drawn 10/09. TTE completed 10/07 is unremarkable (2) Urinary tract infection: Impression: UA + in ED for leukocyte esterase, WBCs, and bacteria; urine culture + for e. coli and enterococcus faecalis on 10/08. Patient denies any dysuria, urgency, or frequency with urination. Patient remains afebrile and WBCs within normal limits. Plan: Continue IV antibiotics - IV ceftriaxone changed to IV ciprofloxacin to address urine culture sensitivities (she is day 2 cipro) (3) Syncope and collapse: Impression: Patient presented to ED after falling at home and hitting her head. She attributes this fall to dizziness that began after having a stroke that was diagnosed during recent hospital admission. MRI brain on 09/17 showed evidence of a acute to subacute lacunar infarction. She then had a subsequent syncopal episode in the ED. CT head/cervical spine negative. She remains with a headache and postural dizziness that is persistent. negative CT head in the ED after fall. PT notes indicate the need for IPR. She is able to take 4-5 steps forward. unable to take steps backwards. She needs 2 person assist to transfer pivot from bed to chair. OT notes lateral lean and able to correct with cueing. Notes good tolerance of rehab and would be able to participate for 3 h a day. [employer] notes MOCA /. recommendation is for rehab with deficits in attention and visulospatial/executive function. (4) Balance problem: Impression: Patient reports that she continues to experience dizziness and imbalance upon standing. Denies any worsening of symptoms. Plan: Patient evaluated by physical therapy and deemed candidate for inpatient rehabilitation. records being sent to insurance and rehab facility. (5) Headache: Impression: Patient reports headache with associated photophobia. She reports having intermittent headaches since her recent stroke. Pain is rated at 4-8/10. She reports that tylenol provides sufficient relief. 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 NSAIDs inappropriate for pain relief due to increased risk for bleeding. continue PRN APAP (6) Laceration of occipital region of scalp: Impression: Patient has laceration to right occipital scalp s/p fall with bandage in place for comfort. Incision is closed with glue, dried blood present at incision site. She may shower today. She has blood caked on her scalp, and need to get these wounds cleaned up to more thoroughly assess. I have spent 36 minutes in the care of this patient today. This includes time [id number], review and ordering of diagnostic imaging and laboratory studies. Monitoring the patient's signs symptoms, evaluation of medication effectiveness and patient's response to treatment.
[2024-10-10 05:53] LABS: BASOPHILS % (AUTO) 1.1 %; EOSINOPHILS % (AUTO) 17.7 %; HCT - HEMATOCRIT 35.4 % (37.0-47.0); HGB - HEMOGLOBIN 11.6 g/dL (12.0-16.0); LYMPHOCYTES % (AUTO) 30.6 %; MEAN CORPUSCULAR HEMOGLOBIN 30.4 pg (27.0-31.0); MEAN CORPUSCULAR HGB CONC 32.8 g/dL (32.0-36.0); MEAN CORPUSCULAR VOLUME 92.9 fL (81.0-99.0); MEAN PLATELET VOLUME 9.9 fL (7.9-10.8); MONOCYTES % (AUTO) 11.8 %; NEUTROPHILS % (AUTO) 38.5 %; PLT - PLATELET COUNT 350 10^3/uL (130-450); RED BLOOD COUNT 3.81 10^6/uL (4.20-5.40); RED CELL DISTRIBUTION WIDTH 12.7 % (12.0-15.0); WHITE BLOOD COUNT 6.4 x10^3/uL (4.8-10.8)
[2024-10-10 06:11] LABS: CALCIUM 8.8 mg/dL (8.5-10.3); CREATININE 1.2 mg/dL (0.6-1.3); POTASSIUM 3.8 mmol/L (3.5-4.5)
[2024-10-10 06:20] LABS: ABNORMAL LYMPHS % (MANUAL) 0 %; BAND NEUTROPHILS % (MANUAL) 0 %
[2024-10-10 07:03] LABS: DIFFERENTIAL COMMENT MANUAL DIFFERENTIAL; EOSINOPHILS # (MANUAL) 0.9 10^3/uL (0-0.7); LYMPHOCYTES # (MANUAL) 1.4 10^3/uL (1.5-3.5); LYMPHOCYTES % (MANUAL) 19 %; MONOCYTES # (MANUAL) 0.8 10^3/uL (0.0-1.0); NEUTROPHILS # (MANUAL) 3.3 10^3/uL (1.5-6.6); PLATELET ESTIMATE, MANUAL NORMAL (130-450,000) (NORMAL); PLATELET MORPHOLOGY NORMAL APPEARANCE (NORMAL); RBC MORPHOLOGY (MULTIPLE) NORMAL APPEARANCE (NORMAL); REACTIVE LYMPHS % (MANUAL) 3 %; WBC MORPHOLOGY (MULTIPLE) NORMAL APPEARANCE (NORMAL)
--- NOTE | 2024-10-10 16:39 | PROVIDER PROGRESS NOTE ---
Subjective Prog Note Date Prog Note Date: 10/10/24 Subjective Pt reports feeling: No change Subjective: She is doing fine, frontal headache remains. no other complaints. she is eager to get to rehab. Current Medications Current Medications Current Medications: Current Medications Generic Name Dose Route Start Last Admin Trade Name Freq PRN Reason Stop Dose Admin Acetaminophen 650 mg 10/06/24 12:03 10/10/24 08:29 Acetaminophen 325 Mg Tablet PO 650 mg Q4HR PRN Administration Pain or Fever > 38C (100.4F) Amlodipine Besylate 10 mg 10/06/24 09:00 10/10/24 08:29 Amlodipine 5 Mg Tablet PO 10 mg DAILY TORIBIO Administration Apixaban 5 mg 10/06/24 21:00 10/10/24 08:29 Apixaban 5 Mg Tablet PO 5 mg BID TORIBIO Administration Atorvastatin Calcium 40 mg 10/05/24 21:00 10/09/24 20:21 Atorvastatin 40 Mg Tablet PO 40 mg QPM TORIBIO Administration Citalopram Hydrobromide 10 mg 10/06/24 09:00 10/10/24 08:29 Citalopram 10 Mg Tablet PO 10 mg DAILY TORIBIO Administration Docusate Sodium 250 mg 10/09/24 09:00 10/10/24 08:29 Docusate Sodium 250 Mg Capsule PO 250 mg DAILY TORIBIO Administration Ciprofloxacin 400 mg in 200 mls @ 200 mls/hr 10/08/24 11:00 10/10/24 12:10 Cipro 400 Mg/200 Ml IV Infused Q12H TORIBIO Infusion Levothyroxine Sodium 112 mcg 10/06/24 07:00 10/10/24 06:10 Levothyroxine 112 Mcg Tablet PO 112 mcg QDAC TORIBIO Administration Meclizine HCl 12.5 mg 10/05/24 18:29 Meclizine 12.5 Mg Tablet PO Q6HR PRN Dizziness Ondansetron HCl 4 mg 10/05/24 18:26 10/06/24 01:40 Ondansetron 4 Mg/2 Ml Vial IVP 4 mg Q6HR PRN Administration Nausea / Vomiting Polyethylene Glycol 17 gm 10/09/24 09:00 10/10/24 08:29 Polyethylene Glycol 3350 17 Gm Packet PO Not Given DAILY TORIBIO Senna 8.6 - 17.2 mg 10/09/24 09:00 10/10/24 08:29 Senna 8.6 Mg Tablet PO Not Given DAILY TORIBIO Sodium Chloride 10 ml 10/06/24 07:26 Sodium Chloride Flush 0.9% 10 Ml Syringe IVP PRN PRN NEEDED PER PROVIDER ORDERS Sodium Chloride 10 ml 10/06/24 07:26 10/10/24 08:30 Sodium Chloride Flush 0.9% 10 Ml Syringe IVP 10 ml 0100,0900,1700 TORIBIO Administration Objective Vital Signs/Intake & Output Reviewed Vital Signs: Yes Vital Signs: Vital Signs x48h Temp Pulse Resp BP BP Pulse Ox 10/10/24 16:15 37.0 C 68 16 143/69 H 97 10/10/24 13:00 36.6 C 72 18 135/74 H 96 Intake & Output: Intake & Output 10/07/24 10/08/24 10/09/24 10/10/24 23:59 23:59 23:59 23:59 Intake Total 2440 / 2440 3970 / 3970 4820 / 4820 3095 / 3095 Output Total 5750 / 5750 3700 / 3700 1950 / 1950 2450 / 2450 Balance -3310 / -3310 270 / 270 2870 / 2870 645 / 645 Objective General Appearance: positive No acute distress and Alert Eyes Bilateral: positive Normal inspection, PERRL and Conjunctivae nml ENT: positive ENT inspection nml Neck: positive Nml inspection Respiratory: positive No respiratory distress and Breath sounds nml Cardiovascular: positive Regular rate & rhythm Abdomen: positive Non-tender Back: positive Nml inspection Skin: positive Color nml, No rash and Other (scalp caked with dried blood. ) Extremities: positive Non-tender, Nml appearance and No pedal edema Neurologic/Psychiatric: positive Oriented x3 and Mood/affect nml Lab Results 10/10/24 05:10 10/10/24 05:10 Other Labs: Lab Results x24hrs 10/10/24 Range/Units 05:10 WBC 6.4 (4.8-10.8) x10^3/uL RBC 3.81 L (4.20-5.40) 10^6/uL Hgb 11.6 L (12.0-16.0) g/dL Hct 35.4 L (37.0-47.0) % MCV 92.9 (81.0-99.0) fL MCH 30.4 (27.0-31.0) pg MCHC 32.8 (32.0-36.0) g/dL RDW 12.7 (12.0-15.0) % Plt Count 350 (130-450) 10^3/uL MPV 9.9 (7.9-10.8) fL Neut # (Auto) Not Reportable Lymph # (Auto) Not Reportable [place] # (Auto) Not Reportable Eos # (Auto) Not Reportable Baso # (Auto) Not Reportable Absolute Nucleated RBC Not Reportable Total Counted 100 Band Neuts % (Manual) 0 (0 - 10) % Reactive Lymphs % (Man) 3 % Abnorm Lymph % (Manual) 0 % Nucleated RBC % Not Reportable Neutrophils # (Manual) 3.3 (1.5-6.6) 10^3/uL Lymphocytes # (Manual) 1.4 L (1.5-3.5) 10^3/uL Monocytes # (Manual) 0.8 (0.0-1.0) 10^3/uL Eosinophils # (Manual) 0.9 H (0-0.7) 10^3/uL Basophils # (Manual) 0.0 (0-0.1) 10^3/uL Differential Comment MANUAL DIFFERENTIAL WBC Morphology NORMAL APPEARANCE (NORMAL) Platelet Estimate NORMAL (130-450,000) (NORMAL) Platelet Morphology NORMAL APPEARANCE (NORMAL) RBC Morph Micro Appear NORMAL APPEARANCE (NORMAL) Sodium 137 (135-145) mmol/L Potassium 3.8 (3.5-4.5) mmol/L Chloride 102 (101-111) mmol/L Carbon Dioxide 29 (21-32) mmol/L Anion Gap 6.0 (6-13) BUN 13 (6-20) mg/dL Creatinine 1.2 (0.6-1.3) mg/dL Estimated GFR (MDRD) 43 L (>89) Glucose 106 H (74-104) mg/dL Calcium 8.8 (8.5-10.3) mg/dL ABX Reporting Has patient been on IV antibiotics over the past 48 hours?: Yes Sepsis Event Note (H) Evaluation Possible source of Sepsis: positive Genitourinary Assessment/Plan Problem List (1) Bacteremia: Impression: PCR blood culture + for E.Coli on 10/05 in setting of urinary tract infection. Urine culture + for e. coli and enterococcus faecalis on 10/08. Blood culture confirms PCR, E Coli brown sensitive. Plan: Continue IV antibiotics for at least 7 days - adjusted abx regimen to IV ciprofloxacin,she is day 3 Cipro. Repeat blood cultures NGTD TTE completed 10/07 is unremarkable She is medically clear for inpatient rehab. She can continue to get IV Abx there to complete 7 days for her bacteremia. She is accepted by [facility] and we are awaiting auth by [place]. This is an avoidable hospital day due to waiting for insurance authorization. (2) Urinary tract infection: Impression: UA + in ED for leukocyte esterase, WBCs, and bacteria; urine culture + for e. coli and enterococcus faecalis on 10/08. Patient denies any dysuria, urgency, or frequency with urination. Patient remains afebrile and WBCs within normal limits. Plan: Continue IV antibiotics - IV ceftriaxone changed to IV ciprofloxacin to address urine culture sensitivities (she is day 3 cipro) (3) Syncope and collapse: Impression: Patient presented to ED after falling at home and hitting her head. She attributes this fall to dizziness that began after having a stroke that was diagnosed during recent hospital admission. MRI brain on 09/17 showed evidence of a acute to subacute lacunar infarction. She then had a subsequent syncopal episode in the ED. CT head/cervical spine negative. She remains with a headache and postural dizziness that is persistent. negative CT head in the ED after fall. PT notes indicate the need for IPR. She is able to take 4-5 steps forward. unable to take steps backwards. She needs 2 person assist to transfer pivot from bed to chair. OT notes lateral lean and able to correct with cueing. Notes good tolerance of rehab and would be able to participate for 3 h a day. FINANCIAL ASSISTANCE ADVISOR notes MOCA 22/30. recommendation is for rehab with deficits in attention and visulospatial/executive function. (4) Balance problem: Impression: Patient reports that she continues to experience dizziness and imbalance upon standing. Denies any worsening of symptoms. Plan: Patient evaluated by physical therapy and deemed candidate for inpatient rehabilitation. She is accepted by [facility] and we are awaiting auth by [place]. This is an avoidable hospital day due to waiting for insurance authorization. . (5) Headache: Impression: Patient reports headache with associated photophobia. She reports having intermittent headaches since her recent stroke. Pain is rated at 4-8/10. She reports that tylenol provides sufficient relief. 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 NSAIDs inappropriate for pain relief due to increased risk for bleeding. continue PRN APAP (6) Laceration of occipital region of scalp: Impression: Patient has laceration to right occipital scalp s/p fall with bandage in place for comfort. Incision is closed with glue, dried blood present at incision site. I was able to assess the wound today, it is still with a large layer of skin glue, but appears closed without drainage, dehiscencse or edema. I have spent 36 minutes in the care of this patient today. This includes time [id number], review and ordering of diagnostic imaging and laboratory studies. Monitoring the patient's signs symptoms, evaluation of medication effectiveness and patient's response to treatment.
[2024-10-11 06:00] LABS: BASOPHILS % (AUTO) 1.1 %; EOSINOPHILS % (AUTO) 17.5 %; HCT - HEMATOCRIT 36.2 % (37.0-47.0); HGB - HEMOGLOBIN 12.1 g/dL (12.0-16.0); MEAN CORPUSCULAR HEMOGLOBIN 30.7 pg (27.0-31.0); MEAN CORPUSCULAR HGB CONC 33.4 g/dL (32.0-36.0); MEAN CORPUSCULAR VOLUME 91.9 fL (81.0-99.0); MEAN PLATELET VOLUME 9.8 fL (7.9-10.8); MONOCYTES % (AUTO) 11.3 %; NEUTROPHILS % (AUTO) 45.7 %; PLT - PLATELET COUNT 358 10^3/uL (130-450); RED BLOOD COUNT 3.94 10^6/uL (4.20-5.40); RED CELL DISTRIBUTION WIDTH 12.7 % (12.0-15.0); WHITE BLOOD COUNT 7.5 x10^3/uL (4.8-10.8)
[2024-10-11 06:08] LABS: ABNORMAL LYMPHS % (MANUAL) 0 %
[2024-10-11 06:14] LABS: CALCIUM 8.9 mg/dL (8.5-10.3); CREATININE 1.4 mg/dL (0.6-1.3); POTASSIUM 4.2 mmol/L (3.5-4.5)
[2024-10-11 06:39] LABS: BAND NEUTROPHILS % (MANUAL) 2 %; BASOPHILS # (MANUAL) 0.1 10^3/uL (0-0.1); BASOPHILS % (MANUAL) 1 %; LYMPHOCYTES # (MANUAL) 1.6 10^3/uL (1.5-3.5); LYMPHOCYTES % (MANUAL) 21 %; METAMYELOCYTES % (MANUAL) 1 %; MONOCYTES # (MANUAL) 0.6 10^3/uL (0.0-1.0); MYELOCYTES % (MANUAL) 1 %; NEUTROPHILS # (MANUAL) 4.1 10^3/uL (1.5-6.6); PLATELET MORPHOLOGY NORMAL APPEARANCE (NORMAL); RBC MORPHOLOGY (MULTIPLE) NORMAL APPEARANCE (NORMAL)
[2024-10-11 06:40] LABS: DIFFERENTIAL COMMENT MANUAL DIFFERENTIAL; PLATELET ESTIMATE, MANUAL NORMAL (130-450,000) (NORMAL); WBC MORPHOLOGY (MULTIPLE) NORMAL APPEARANCE (NORMAL)
--- NOTE | 2024-10-11 19:40 | PROVIDER PROGRESS NOTE ---
Subjective Prog Note Date Prog Note Date: 10/11/24 Subjective Subjective: Today, we found out about the approval for inpatient rehab; it was denied. Here at the hospital, our team has done a peer to peer and the denial was upheld. Patient and family have appealed the IPR denial. She is worried about the overall situation with her family and her care. She wants to get better and stronger, but right now, she is concerned about returning to home and falling. She has a negative impression of [facility]. She has had friends go there and she feels certain that they did not get the intensive rehab that they needed, and that the therapists are recommending for her at this time. She continues to be unsteady in her balance. her fall risk is very high. Current Medications Current Medications Current Medications: Current Medications Generic Name Dose Route Start Last Admin Trade Name Freq PRN Reason Stop Dose Admin Acetaminophen 650 mg 10/06/24 12:03 10/11/24 06:41 Acetaminophen 325 Mg Tablet PO 650 mg Q4HR PRN Administration Pain or Fever > 38C (100.4F) Amlodipine Besylate 10 mg 10/06/24 09:00 10/11/24 08:06 Amlodipine 5 Mg Tablet PO 10 mg DAILY TORIBIO Administration Apixaban 5 mg 10/06/24 21:00 10/11/24 08:06 Apixaban 5 Mg Tablet PO 5 mg BID TORIBIO Administration Atorvastatin Calcium 40 mg 10/05/24 21:00 10/10/24 21:03 Atorvastatin 40 Mg Tablet PO 40 mg QPM TORIBIO Administration Citalopram Hydrobromide 10 mg 10/06/24 09:00 10/11/24 08:06 Citalopram 10 Mg Tablet PO 10 mg DAILY TORIBIO Administration Docusate Sodium 250 mg 10/09/24 09:00 10/11/24 08:06 Docusate Sodium 250 Mg Capsule PO 250 mg DAILY TORIBIO Administration Ciprofloxacin 400 mg in 200 mls @ 200 mls/hr 10/08/24 11:00 10/11/24 12:15 Cipro 400 Mg/200 Ml IV Infused Q12H TORIBIO Infusion Levothyroxine Sodium 112 mcg 10/06/24 07:00 10/11/24 06:41 Levothyroxine 112 Mcg Tablet PO 112 mcg QDAC TORIBIO Administration Meclizine HCl 12.5 mg 10/05/24 18:29 Meclizine 12.5 Mg Tablet PO Q6HR PRN Dizziness Ondansetron HCl 4 mg 10/05/24 18:26 10/06/24 01:40 Ondansetron 4 Mg/2 Ml Vial IVP 4 mg Q6HR PRN Administration Nausea / Vomiting Polyethylene Glycol 17 gm 10/09/24 09:00 10/11/24 08:06 Polyethylene Glycol 3350 17 Gm Packet PO Not Given DAILY TORIBIO Senna 8.6 - 17.2 mg 10/09/24 09:00 10/11/24 08:06 Senna 8.6 Mg Tablet PO Not Given DAILY TORIBIO Sodium Chloride 10 ml 10/06/24 07:26 Sodium Chloride Flush 0.9% 10 Ml Syringe IVP PRN PRN NEEDED PER PROVIDER ORDERS Sodium Chloride 10 ml 10/06/24 07:26 10/11/24 17:15 Sodium Chloride Flush 0.9% 10 Ml Syringe IVP 10 ml 0100,0900,1700 TORIBIO Administration Objective Vital Signs/Intake & Output Reviewed Vital Signs: Yes Vital Signs: Vital Signs x48h Temp Pulse Resp BP Pulse Ox 10/11/24 18:00 36.5 C 67 16 128/73 98 10/11/24 15:37 36.5 C 63 16 121/70 99 10/11/24 13:00 36.4 C L 67 16 111/67 97 Intake & Output: Intake & Output 10/08/24 10/09/24 10/10/24 10/11/24 23:59 23:59 23:59 23:59 Intake Total 3970 / 3970 4820 / 4820 3775 / 3775 1560 / 1560 Output Total 3700 / 3700 1950 / 1950 2450 / 2450 250 / 250 Balance 270 / 270 2870 / 2870 1325 / 1325 1310 / 1310 Objective General Appearance: positive No acute distress and Alert Eyes Bilateral: positive Normal inspection, PERRL and Conjunctivae nml ENT: positive ENT inspection nml Neck: positive Nml inspection Respiratory: positive No respiratory distress and Breath sounds nml Cardiovascular: positive Regular rate & rhythm Abdomen: positive Non-tender Back: positive Nml inspection Skin: positive Color nml, No rash and Other (scalp caked with dried blood. ) Extremities: positive Non-tender, Nml appearance and No pedal edema Neurologic/Psychiatric: positive Oriented x3 and Mood/affect nml Lab Results 10/11/24 05:29 10/11/24 05:29 Other Labs: Lab Results x24hrs 10/11/24 Range/Units 05:29 WBC 7.5 (4.8-10.8) x10^3/uL RBC 3.94 L (4.20-5.40) 10^6/uL Hgb 12.1 (12.0-16.0) g/dL Hct 36.2 L (37.0-47.0) % MCV 91.9 (81.0-99.0) fL MCH 30.7 (27.0-31.0) pg MCHC 33.4 (32.0-36.0) g/dL RDW 12.7 (12.0-15.0) % Plt Count 358 (130-450) 10^3/uL MPV 9.8 (7.9-10.8) fL Neut # (Auto) Not Reportable Lymph # (Auto) Not Reportable [place] # (Auto) Not Reportable Eos # (Auto) Not Reportable Baso # (Auto) Not Reportable Absolute Nucleated RBC Not Reportable Total Counted 100 Band Neuts % (Manual) 2 (0 - 10) % Abnorm Lymph % (Manual) 0 % Metamyelocytes % 1 H ( - 0) % Myelocytes % 1 H ( - 0) % Nucleated RBC % Not Reportable Neutrophils # (Manual) 4.1 (1.5-6.6) 10^3/uL Lymphocytes # (Manual) 1.6 (1.5-3.5) 10^3/uL Monocytes # (Manual) 0.6 (0.0-1.0) 10^3/uL Eosinophils # (Manual) 1.0 H (0-0.7) 10^3/uL Basophils # (Manual) 0.1 (0-0.1) 10^3/uL Differential Comment MANUAL DIFFERENTIAL WBC Morphology NORMAL APPEARANCE (NORMAL) Platelet Estimate NORMAL (130-450,000) (NORMAL) Platelet Morphology NORMAL APPEARANCE (NORMAL) RBC Morph Micro Appear NORMAL APPEARANCE (NORMAL) Sodium 135 (135-145) mmol/L Potassium 4.2 (3.5-4.5) mmol/L Chloride 102 (101-111) mmol/L Carbon Dioxide 27 (21-32) mmol/L Anion Gap 6.0 (6-13) BUN 20 (6-20) mg/dL Creatinine 1.4 H (0.6-1.3) mg/dL Estimated GFR (MDRD) 36 L (>89) Glucose 107 H (74-104) mg/dL Calcium 8.9 (8.5-10.3) mg/dL ABX Reporting Has patient been on IV antibiotics over the past 48 hours?: Yes Sepsis Event Note (H) Evaluation Possible source of Sepsis: positive Genitourinary Assessment/Plan Problem List (1) Syncope and collapse: Impression: Patient presented to ED after falling at home and hitting her head. She attributes this fall to dizziness that began after having a stroke that was diagnosed during recent hospital admission. MRI brain on 09/17 showed evidence of a acute to subacute lacunar infarction. She then had a subsequent syncopal episode in the ED. CT head/cervical spine negative. She remains with a headache and postural dizziness that is persistent. negative CT head in the ED after fall. PT notes indicate the need for IPR. She is able to take 4-5 steps forward. unable to take steps backwards. She needs 2 person assist to transfer pivot from bed to chair. OT notes lateral lean and able to correct with cueing. Notes good tolerance of rehab and would be able to participate for 3 h a day. 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 recommendation is for rehab with deficits in attention and visulospatial/executive function. Following rehab notes forward in time, it is documented that patient needs minimal assist, in sit to stand and in pivot transfer, it is noted that she needs one person assist in sit to stand and 2 person in pivot transfer. it is on this basis that IPR is denied by [facility]. In peer to peer today, Dr Reyes pointed out to reviewer that patient needs mod to max mulitmodal cuing to maintain increased gait speed. she is unable to continue ambulation when cognitive challenges are presented by OT. She has truncal lean to the left and then overcorrects to the right. She displays post concussive symptomatology with difficulty attending to cognitive tasks while participating in motor activities. She becomes over stimulated when she goes out into the atrium where sounds echo and the light is streaming through the windows providing a highly stimulating environment. (2) Bacteremia: Impression: PCR blood culture + for E.Coli on 10/05 in setting of urinary tract infection. Urine culture + for e. coli and enterococcus faecalis on 10/08. Blood culture confirms PCR, E Coli brown sensitive. Plan: Continue IV antibiotics for at least 7 days - adjusted abx regimen to IV ciprofloxacin,she is day 09/16 Cipro. Repeat blood cultures NGTD TTE completed 10/07 is unremarkable She is medically clear for inpatient rehab. She can continue to get IV Abx there to complete 7 days for her bacteremia. She is accepted by [facility] but has been denied auth by [place].. This is an avoidable hospital day due to denial of benefits by insurance company. . (3) Urinary tract infection: Impression: UA + in ED for leukocyte esterase, WBCs, and bacteria; urine culture + for e. coli and enterococcus faecalis on 10/08. Patient denies any dysuria, urgency, or frequency with urination. Patient remains afebrile and WBCs within normal limits. Plan: Continue IV antibiotics - IV ceftriaxone changed to IV ciprofloxacin to address urine culture sensitivities (she is day 09/16 cipro) (4) Balance problem: Impression: Patient reports that she continues to experience dizziness and imbalance upon standing. Denies any worsening of symptoms. Plan: Patient evaluated by physical therapy and deemed candidate for inpatient rehabilitation. (5) Headache: Impression: Patient reports headache with associated photophobia. She reports having intermittent headaches since her recent stroke, and much worse since her fall and head strike CT neg. these are post concussive headaches. Pain is rated at 4-8/10. She reports that tylenol provides sufficient relief. 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 NSAIDs inappropriate for pain relief due to increased risk for bleeding. continue PRN APAP (6) Laceration of occipital region of scalp: Impression: Patient has laceration to right occipital scalp s/p fall with bandage in place for comfort. laceration is closed with glue, dried blood present at site. I have spent 45 minutes in the care of this patient today. This includes time [id number], review and ordering of diagnostic imaging and laboratory studies. This is an avoidable hospital day. Patient is a candidate for [facility] and has been accepted by [facility], however, insurance is declining to authorize.
[2024-10-12] MEDS ORDERED: ONDANSETRON 4 MG/2 ML VIAL IVP PRN (03:41)
[2024-10-12 05:44] LABS: EOSINOPHILS % (AUTO) 12.7 %; HCT - HEMATOCRIT 37.7 % (37.0-47.0); HGB - HEMOGLOBIN 12.1 g/dL (12.0-16.0); LYMPHOCYTES % (AUTO) 27.3 %; MEAN CORPUSCULAR HGB CONC 32.1 g/dL (32.0-36.0); MEAN CORPUSCULAR VOLUME 93.5 fL (81.0-99.0); MEAN PLATELET VOLUME 9.7 fL (7.9-10.8); MONOCYTES % (AUTO) 10.3 %; NEUTROPHILS % (AUTO) 48.2 %; PLT - PLATELET COUNT 361 10^3/uL (130-450); RED BLOOD COUNT 4.03 10^6/uL (4.20-5.40); RED CELL DISTRIBUTION WIDTH 12.8 % (12.0-15.0); WHITE BLOOD COUNT 8.2 x10^3/uL (4.8-10.8)
[2024-10-12 05:55] LABS: ABNORMAL LYMPHS % (MANUAL) 0 %; BAND NEUTROPHILS % (MANUAL) 0 %
[2024-10-12 05:59] LABS: CALCIUM 9.1 mg/dL (8.5-10.3); CREATININE 1.3 mg/dL (0.6-1.3); POTASSIUM 4.2 mmol/L (3.5-4.5)
[2024-10-12 06:24] LABS: BASOPHILS # (MANUAL) 0.2 10^3/uL (0-0.1); BASOPHILS % (MANUAL) 2 %; EOSINOPHILS # (MANUAL) 0.7 10^3/uL (0-0.7); LYMPHOCYTES # (MANUAL) 2.1 10^3/uL (1.5-3.5); LYMPHOCYTES % (MANUAL) 26 %; MONOCYTES # (MANUAL) 0.7 10^3/uL (0.0-1.0); NEUTROPHILS # (MANUAL) 4.5 10^3/uL (1.5-6.6)
[2024-10-12 06:25] LABS: PLATELET ESTIMATE, MANUAL NORMAL (130-450,000) (NORMAL); PLATELET MORPHOLOGY NORMAL APPEARANCE (NORMAL); RBC MORPHOLOGY (MULTIPLE) NORMAL APPEARANCE (NORMAL); WBC MORPHOLOGY (MULTIPLE) NORMAL APPEARANCE (NORMAL)
[2024-10-12 06:26] LABS: DIFFERENTIAL COMMENT MANUAL DIFFERENTIAL
--- NOTE | 2024-10-12 12:57 | PROVIDER PROGRESS NOTE ---
Subjective Prog Note Date Prog Note Date: 10/12/24 Subjective Subjective: her headache got worse overnight, at about 3am. She took tylenol, which helped, but it seems to be back. She knows that if she goes home, she is going to fall. I asked her why she will go home if she knows that she will fall there. She is adamant that she will not go to a SNF. She states that she has visited in the SNFs contracted with [employer] and she will not go to those places. She thinks that she will get less rehab than here. She sees no benefit in going there. She called [employer] yesterday to appeal denial of the IPR stay. Current Medications Current Medications Current Medications: Current Medications Generic Name Dose Route Start Last Admin Trade Name Freq PRN Reason Stop Dose Admin Acetaminophen 650 mg 10/06/24 12:03 10/12/24 03:04 Acetaminophen 325 Mg Tablet PO 650 mg Q4HR PRN Administration Pain or Fever > 38C (100.4F) Amlodipine Besylate 10 mg 10/06/24 09:00 10/12/24 08:27 Amlodipine 5 Mg Tablet PO 10 mg DAILY TORIBIO Administration Apixaban 5 mg 10/06/24 21:00 10/12/24 08:27 Apixaban 5 Mg Tablet PO 5 mg BID TORIBIO Administration Atorvastatin Calcium 40 mg 10/05/24 21:00 10/11/24 20:10 Atorvastatin 40 Mg Tablet PO 40 mg QPM TORIBIO Administration Citalopram Hydrobromide 10 mg 10/06/24 09:00 10/12/24 08:27 Citalopram 10 Mg Tablet PO 10 mg DAILY TORIBIO Administration Docusate Sodium 250 mg 10/09/24 09:00 10/12/24 08:27 Docusate Sodium 250 Mg Capsule PO 250 mg DAILY TORIBIO Administration Ciprofloxacin 400 mg in 200 mls @ 200 mls/hr 10/08/24 11:00 10/12/24 11:17 Cipro 400 Mg/200 Ml IV 200 mls/hr Q12H TORIBIO Administration Levothyroxine Sodium 112 mcg 10/06/24 07:00 10/12/24 05:12 Levothyroxine 112 Mcg Tablet PO 112 mcg QDAC TORIBIO Administration Meclizine HCl 12.5 mg 10/05/24 18:29 Meclizine 12.5 Mg Tablet PO Q6HR PRN Dizziness Ondansetron HCl 4 mg 10/05/24 18:26 10/12/24 03:17 Ondansetron 4 Mg/2 Ml Vial IVP 4 mg Q6HR PRN Administration Nausea / Vomiting Ondansetron HCl 4 mg 10/12/24 03:41 Ondansetron 4 Mg/2 Ml Vial IVP Q4HR PRN Nausea / Vomiting Polyethylene Glycol 17 gm 10/09/24 09:00 10/12/24 08:30 Polyethylene Glycol 3350 17 Gm Packet PO Not Given DAILY TORIBIO Senna 8.6 - 17.2 mg 10/09/24 09:00 10/12/24 08:27 Senna 8.6 Mg Tablet PO 8.6 mg DAILY TORIBIO Administration Sodium Chloride 10 ml 10/06/24 07:26 Sodium Chloride Flush 0.9% 10 Ml Syringe IVP PRN PRN NEEDED PER PROVIDER ORDERS Sodium Chloride 10 ml 10/06/24 07:26 10/12/24 08:28 Sodium Chloride Flush 0.9% 10 Ml Syringe IVP 10 ml 0100,0900,1700 TORIBIO Administration Objective Vital Signs/Intake & Output Reviewed Vital Signs: Yes Vital Signs: Vital Signs x48h Temp Pulse Resp BP Pulse Ox 10/12/24 07:18 36.3 C L 62 16 147/76 H 97 Intake & Output: Intake & Output 10/09/24 10/10/24 10/11/24 10/12/24 23:59 23:59 23:59 23:59 Intake Total 4820 / 4820 3775 / 3775 1760 / 1760 600 / 600 Output Total 1950 / 1950 2450 / 2450 250 / 250 900 / 900 Balance 2870 / 2870 1325 / 1325 1510 / 1510 -300 / -300 Objective General Appearance: positive No acute distress and Alert Eyes Bilateral: positive Normal inspection, PERRL and Conjunctivae nml ENT: positive ENT inspection nml Neck: positive Nml inspection Respiratory: positive No respiratory distress and Breath sounds nml Cardiovascular: positive Regular rate & rhythm Abdomen: positive Non-tender Back: positive Nml inspection Skin: positive Color nml Extremities: positive Non-tender, Nml appearance and No pedal edema Neurologic/Psychiatric: positive Oriented x3 and Mood/affect nml Lab Results 10/12/24 05:03 10/12/24 05:03 Other Labs: Lab Results x24hrs 10/12/24 Range/Units 05:03 WBC 8.2 (4.8-10.8) x10^3/uL RBC 4.03 L (4.20-5.40) 10^6/uL Hgb 12.1 (12.0-16.0) g/dL Hct 37.7 (37.0-47.0) % MCV 93.5 (81.0-99.0) fL MCH 30.0 (27.0-31.0) pg MCHC 32.1 (32.0-36.0) g/dL RDW 12.8 (12.0-15.0) % Plt Count 361 (130-450) 10^3/uL MPV 9.7 (7.9-10.8) fL Neut # (Auto) Not Reportable Lymph # (Auto) Not Reportable Lipscomb # (Auto) Not Reportable Eos # (Auto) Not Reportable Baso # (Auto) Not Reportable Absolute Nucleated RBC Not Reportable Total Counted 100 Band Neuts % (Manual) 0 (0 - 10) % Abnorm Lymph % (Manual) 0 % Nucleated RBC % Not Reportable Neutrophils # (Manual) 4.5 (1.5-6.6) 10^3/uL Lymphocytes # (Manual) 2.1 (1.5-3.5) 10^3/uL Monocytes # (Manual) 0.7 (0.0-1.0) 10^3/uL Eosinophils # (Manual) 0.7 (0-0.7) 10^3/uL Basophils # (Manual) 0.2 H (0-0.1) 10^3/uL Differential Comment MANUAL DIFFERENTIAL WBC Morphology NORMAL APPEARANCE (NORMAL) Platelet Estimate NORMAL (130-450,000) (NORMAL) Platelet Morphology NORMAL APPEARANCE (NORMAL) RBC Morph Micro Appear NORMAL APPEARANCE (NORMAL) Sodium 135 (135-145) mmol/L Potassium 4.2 (3.5-4.5) mmol/L Chloride 102 (101-111) mmol/L Carbon Dioxide 27 (21-32) mmol/L Anion Gap 6.0 (6-13) BUN 18 (6-20) mg/dL Creatinine 1.3 (0.6-1.3) mg/dL Estimated GFR (MDRD) 39 L (>89) Glucose 104 (74-104) mg/dL Calcium 9.1 (8.5-10.3) mg/dL ABX Reporting Has patient been on IV antibiotics over the past 48 hours?: Yes Sepsis Event Note (H) Evaluation Possible source of Sepsis: positive Genitourinary Assessment/Plan Problem List (1) Syncope and collapse: Impression: Patient presented to ED after falling at home and hitting her head. She attributes this fall to dizziness that began after having a stroke that was diagnosed during recent hospital admission. MRI brain on 09/17 showed evidence of a acute to subacute lacunar infarction. She then had a subsequent syncopal episode in the ED. CT head/cervical spine negative. She remains with a headache and postural dizziness that is persistent. negative CT head in the ED after fall. Headache with exacerbation overnight. PT notes indicate the need for IPR. She is able to take 4-5 steps forward. unable to take steps backwards. She needs 2 person assist to transfer pivot from bed to chair. OT notes lateral lean and able to correct with cueing. Notes good tolerance of rehab and would be able to participate for 3 h a day. EMERGENCY DEPT TECH notes MOCA 22/30. recommendation is for rehab with deficits in attention and visulospatial/executive function. Following rehab notes forward in time, it is documented that patient needs minimal assist, in sit to stand and in pivot transfer, it is noted that she needs one person assist in sit to stand and 2 person in pivot transfer. it is on this basis that IPR is denied by [employer]. In peer to peer today, Dr Reyes pointed out to reviewer that patient needs mod to max mulitmodal cuing to maintain increased gait speed. she is unable to continue ambulation when cognitive challenges are presented by OT. She has truncal lean to the left and then overcorrects to the right. She displays post concussive symptomatology with difficulty attending to cognitive tasks while participating in motor activities. She becomes over stimulated when she goes out into the atrium where sounds echo and the light is streaming through the windows providing a highly stimulating environment. The patient states that she knows that she will fall at home if she goes home. she refuses to go to SNF. denial with appeal by patient and family in process. Her friends and family are writing letters to the state insurance healthcare representative. (2) Bacteremia: Impression: PCR blood culture + for E.Coli on 10/05 in setting of urinary tract infection. Urine culture + for e. coli and enterococcus faecalis on 10/08. Blood culture confirms PCR, E Coli brown sensitive. Plan: Continue IV antibiotics for at least 7 days - adjusted abx regimen to IV ciprofloxacin,she is day 5/ Cipro. Repeat blood cultures NGTD TTE completed 10/07 is unremarkable She is medically clear for inpatient rehab. She can continue to get IV Abx there to complete 7 days for her bacteremia. She is accepted by [facility] but has been denied auth by [employer].. This is an avoidable hospital day due to denial of benefits by insurance company. . (3) Urinary tract infection: Impression: UA + in ED for leukocyte esterase, WBCs, and bacteria; urine culture + for e. coli and enterococcus faecalis on 10/08. Patient denies any dysuria, urgency, or frequency with urination. Patient remains afebrile and WBCs within normal limits. Plan: Continue IV antibiotics - IV ceftriaxone changed to IV ciprofloxacin to address urine culture sensitivities (she is day 5 cipro) (4) Balance problem: Impression: Patient reports that she continues to experience dizziness and imbalance upon standing. Denies any worsening of symptoms. Plan: Patient evaluated by physical therapy and deemed candidate for inpatient rehabilitation. (5) Headache: Impression: Patient reports headache with associated photophobia. She reports having intermittent headaches since her recent stroke, and much worse since her fall and head strike CT neg. these are post concussive headaches. Pain is rated at 4-8/10. She reports that tylenol provides sufficient relief. 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 NSAIDs inappropriate for pain relief due to increased risk for bleeding. The APAP is working for her. She does not take it around the clock, just when the headache is too disruptive for her to function. continue PRN APAP (6) Laceration of occipital region of scalp: Impression: Patient has laceration to right occipital scalp s/p fall open to air laceration is closed with glue, dried blood present at site. I have spent 26 minutes in the care of this patient today. This includes time [id number], review and ordering of diagnostic imaging and laboratory studies. This is an avoidable hospital day. Patient is a candidate for [facility] and has been accepted by [facility], however, insurance is declining to authorize Appeal in progress.
--- NOTE | 2024-10-13 17:41 | PROVIDER PROGRESS NOTE ---
Subjective Prog Note Date Prog Note Date: 10/12/24 Subjective Subjective: doing well today. She got up and took a shower today. She has had phone calls from friends, and now her friend Henna is at the bedside. Waiting to hear back from [facility]. no acute issues. Current Medications Current Medications Current Medications: Current Medications Generic Name Dose Route Start Last Admin Trade Name Freq PRN Reason Stop Dose Admin Acetaminophen 650 mg 10/06/24 12:03 10/13/24 08:28 Acetaminophen 325 Mg Tablet PO 650 mg Q4HR PRN Administration Pain or Fever > 38C (100.4F) Amlodipine Besylate 10 mg 10/06/24 09:00 10/13/24 08:28 Amlodipine 5 Mg Tablet PO 10 mg DAILY TORIBIO Administration Apixaban 5 mg 10/06/24 21:00 10/13/24 08:29 Apixaban 5 Mg Tablet PO 5 mg BID TORIBIO Administration Atorvastatin Calcium 40 mg 10/05/24 21:00 10/12/24 20:27 Atorvastatin 40 Mg Tablet PO 40 mg QPM TORIBIO Administration Citalopram Hydrobromide 10 mg 10/06/24 09:00 10/13/24 08:29 Citalopram 10 Mg Tablet PO 10 mg DAILY TORIBIO Administration Docusate Sodium 250 mg 10/09/24 09:00 10/13/24 08:29 Docusate Sodium 250 Mg Capsule PO 250 mg DAILY TORIBIO Administration Ciprofloxacin 400 mg in 200 mls @ 200 mls/hr 10/08/24 11:00 10/13/24 15:37 Cipro 400 Mg/200 Ml IV Infused Q12H TORIBIO Infusion Levothyroxine Sodium 112 mcg 10/06/24 07:00 10/13/24 05:16 Levothyroxine 112 Mcg Tablet PO 112 mcg QDAC TORIBIO Administration Meclizine HCl 12.5 mg 10/05/24 18:29 Meclizine 12.5 Mg Tablet PO Q6HR PRN Dizziness Ondansetron HCl 4 mg 10/05/24 18:26 10/13/24 15:35 Ondansetron 4 Mg/2 Ml Vial IVP 4 mg Q6HR PRN Administration Nausea / Vomiting Polyethylene Glycol 17 gm 10/09/24 09:00 10/13/24 08:29 Polyethylene Glycol 3350 17 Gm Packet PO Not Given DAILY TORIBIO Senna 8.6 - 17.2 mg 10/09/24 09:00 10/13/24 08:29 Senna 8.6 Mg Tablet PO 17.2 mg DAILY TORIBIO Administration Sodium Chloride 10 ml 10/06/24 07:26 Sodium Chloride Flush 0.9% 10 Ml Syringe IVP PRN PRN NEEDED PER PROVIDER ORDERS Sodium Chloride 10 ml 10/06/24 07:26 10/13/24 15:35 Sodium Chloride Flush 0.9% 10 Ml Syringe IVP 10 ml 0100,0900,1700 TORIBIO Administration Objective Vital Signs/Intake & Output Reviewed Vital Signs: Yes Vital Signs: Vital Signs x48h Temp Pulse Resp BP Pulse Ox 10/13/24 15:55 36.5 C 69 18 126/61 99 10/13/24 12:38 36.6 C 66 18 114/66 99 Intake & Output: Intake & Output 10/10/24 10/11/24 10/12/24 10/13/24 23:59 23:59 23:59 23:59 Intake Total 3775 / 3775 1760 / 1760 1700 / 1700 1370 / 1370 Output Total 2450 / 2450 250 / 250 1500 / 1500 1500 / 1500 Balance 1325 / 1325 1510 / 1510 200 / 200 -130 / -130 Objective General Appearance: positive No acute distress and Alert Eyes Bilateral: positive Normal inspection, PERRL and Conjunctivae nml ENT: positive ENT inspection nml Neck: positive Nml inspection Respiratory: positive No respiratory distress and Breath sounds nml Cardiovascular: positive Regular rate & rhythm Abdomen: positive Non-tender Back: positive Nml inspection Skin: positive Color nml and Other (occipital scalp laceration is healing well. no significant edema or tenderness. ) Extremities: positive Non-tender, Nml appearance and No pedal edema Neurologic/Psychiatric: positive Oriented x3 and Mood/affect nml Lab Results 10/12/24 05:03 10/12/24 05:03 Other Labs: Lab Results x24hrs 10/12/24 Range/Units 05:03 WBC 8.2 (4.8-10.8) x10^3/uL RBC 4.03 L (4.20-5.40) 10^6/uL Hgb 12.1 (12.0-16.0) g/dL Hct 37.7 (37.0-47.0) % MCV 93.5 (81.0-99.0) fL MCH 30.0 (27.0-31.0) pg MCHC 32.1 (32.0-36.0) g/dL RDW 12.8 (12.0-15.0) % Plt Count 361 (130-450) 10^3/uL MPV 9.7 (7.9-10.8) fL Neut # (Auto) Not Reportable Lymph # (Auto) Not Reportable Howard # (Auto) Not Reportable Eos # (Auto) Not Reportable Baso # (Auto) Not Reportable Absolute Nucleated RBC Not Reportable Total Counted 100 Band Neuts % (Manual) 0 (0 - 10) % Abnorm Lymph % (Manual) 0 % Nucleated RBC % Not Reportable Neutrophils # (Manual) 4.5 (1.5-6.6) 10^3/uL Lymphocytes # (Manual) 2.1 (1.5-3.5) 10^3/uL Monocytes # (Manual) 0.7 (0.0-1.0) 10^3/uL Eosinophils # (Manual) 0.7 (0-0.7) 10^3/uL Basophils # (Manual) 0.2 H (0-0.1) 10^3/uL Differential Comment MANUAL DIFFERENTIAL WBC Morphology NORMAL APPEARANCE (NORMAL) Platelet Estimate NORMAL (130-450,000) (NORMAL) Platelet Morphology NORMAL APPEARANCE (NORMAL) RBC Morph Micro Appear NORMAL APPEARANCE (NORMAL) Sodium 135 (135-145) mmol/L Potassium 4.2 (3.5-4.5) mmol/L Chloride 102 (101-111) mmol/L Carbon Dioxide 27 (21-32) mmol/L Anion Gap 6.0 (6-13) BUN 18 (6-20) mg/dL Creatinine 1.3 (0.6-1.3) mg/dL Estimated GFR (MDRD) 39 L (>89) Glucose 104 (74-104) mg/dL Calcium 9.1 (8.5-10.3) mg/dL ABX Reporting Has patient been on IV antibiotics over the past 48 hours?: Yes Sepsis Event Note (H) Evaluation Possible source of Sepsis: positive Genitourinary Assessment/Plan Problem List (1) Syncope and collapse: Impression: Patient presented to ED after falling at home and hitting her head. She attributes this fall to dizziness that began after having a stroke that was diagnosed during recent hospital admission. MRI brain on 09/17 showed evidence of a acute to subacute lacunar infarction. She then had a subsequent syncopal episode in the ED. CT head/cervical spine negative. She remains with a headache and postural dizziness that is persistent. negative CT head in the ED after fall. Headache is at her new baseline for headache PT notes indicate the need for IPR. She is able to take 4-5 steps forward. unable to take steps backwards. She needs 2 person assist to transfer pivot from bed to chair. OT notes lateral lean and able to correct with cueing. Notes good tolerance of rehab and would be able to participate for 3 h a day. [employer] notes MOCA . recommendation is for rehab with deficits in attention and visulospatial/executive function. Following rehab notes forward in time, it is documented that patient needs minimal assist, in sit to stand and in pivot transfer, it is noted that she needs one person assist in sit to stand and 2 person in pivot transfer. it is on this basis that IPR is denied by [facility]. In peer to peer, Dr Reyes pointed out to reviewer that patient needs mod to max mulitmodal cuing to maintain increased gait speed. she is unable to continue ambulation when cognitive challenges are presented by OT. She has truncal lean to the left and then overcorrects to the right. She displays post concussive symptomatology with difficulty attending to cognitive tasks while participating in motor activities. She becomes over stimulated when she goes out into the atrium where sounds echo and the light is streaming through the windows providing a highly stimulating environment. there are no PT or OT services available in the hospital 10/13, and no PT on 10/14. So, no therapy progress today, aside from getting up with RNs. The patient states that she knows that she will fall at home if she goes home. she refuses to go to SNF. denial with appeal by patient and family in process. Her friends and family are writing letters to the state insurance sales representative. I have assisted her in filing a written appeal to the state insurance sales representative. I am concerned about her safety and well being when she leaves the hospital. (2) Bacteremia: Impression: PCR blood culture + for E.Coli on 10/05 in setting of urinary tract infection. Urine culture + for e. coli and enterococcus faecalis on 10/08. Blood culture confirms PCR, E Coli brown sensitive. Plan: Continue IV antibiotics for at least 7 days - adjusted abx regimen to IV ciprofloxacin,she is day 6/7 Cipro. Repeat blood cultures NGTD TTE completed 10/07 is unremarkable She is medically clear for inpatient rehab. She can continue to get IV Abx there to complete 7 days for her bacteremia. She is accepted by [facility] but has been denied auth by [facility].. This is an avoidable hospital day due to denial of benefits by insurance company. . (3) Urinary tract infection: Impression: UA + in ED for leukocyte esterase, WBCs, and bacteria; urine culture + for e. coli and enterococcus faecalis on 10/08. Patient denies any dysuria, urgency, or frequency with urination. Patient remains afebrile and WBCs within normal limits. Plan: Continue IV antibiotics - IV ceftriaxone changed to IV ciprofloxacin to address urine culture sensitivities (she is day 6/7 cipro) (4) Balance problem: Impression: Patient reports that she continues to experience dizziness and imbalance upon standing. Denies any worsening of symptoms. Plan: Patient evaluated by physical therapy and deemed candidate for inpatient rehabilitation. (5) Headache: Impression: Patient reports headache with associated photophobia. She reports having intermittent headaches since her recent stroke, and much worse since her fall and head strike CT neg. these are post concussive headaches. Pain is rated at 4-8/10. She reports that tylenol provides sufficient relief. 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 NSAIDs inappropriate for pain relief due to increased risk for bleeding. The APAP is working for her. She does not take it around the clock, just when the headache is too disruptive for her to function. continue PRN APAP (6) Laceration of occipital region of scalp: Impression: Patient has laceration to right occipital scalp s/p fall open to air laceration is closed with glue, dried blood present at site. (7) USP current use of anticoagulant: Impression: She is anticoagulated due to an episode of pulmonary embolus in 1996. 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 She states that she had extensive workup for this PE. No DVT was ever found. There was no provocation of the clot. She states she has had several hypercoagulable workups and they have all come up negative. So, after this 1 episode of PE she has been anticoagulated since 1996. She was previously on warfarin she did have what sounds like was probably a retroperitoneal hematoma at some point. At that time, she was changed on to a DOAC and has been on Eliquis ever since.This medication costs are $500 every 3 months and she would love to not have that expense. Today I discussed with the patient that I think that the risk of harm in terms of a subdural or subarachnoid hemorrhage from head strike might be greater then the risk of benefit from a remote history of unprovoked PE. I think therefore if we transfer her out of the hospital into an environment where she could fall and have intracerebral bleeding secondary to head strike, we should send her out without anticoagulation. I have spent 25 minutes in the care of this patient today. This includes time [id number], review of records, medications. This is an avoidable hospital day. Patient is a candidate for [facility] and has been accepted by [facility], however, insurance is declining to authorize Appeal in progress.
[2024-10-14] MEDS: SODIUM CHLORIDE FLUSH 0.9% 10 ML SYRINGE IVP PRN (11:30)
--- NOTE | 2024-10-14 20:13 | PROVIDER PROGRESS NOTE ---
Subjective Prog Note Date Prog Note Date: 10/14/24 Subjective Subjective: She is happy today. She has won her appeal and she will be going to inpatient rehab. She wants to go tomorrow, because friends are not able to bring her things until tomorrow AM. She is eager to recover from these last several weeks and resume the care of her . Current Medications Current Medications Current Medications: Current Medications Generic Name Dose Route Start Last Admin Trade Name Freq PRN Reason Stop Dose Admin Acetaminophen 650 mg 10/06/24 12:03 10/14/24 14:26 Acetaminophen 325 Mg Tablet PO 650 mg Q4HR PRN Administration Pain or Fever > 38C (100.4F) Amlodipine Besylate 10 mg 10/06/24 09:00 10/14/24 09:52 Amlodipine 5 Mg Tablet PO 10 mg DAILY TORIBIO Administration Apixaban 5 mg 10/06/24 21:00 10/14/24 09:52 Apixaban 5 Mg Tablet PO 5 mg BID TORIBIO Administration Atorvastatin Calcium 40 mg 10/05/24 21:00 10/13/24 20:41 Atorvastatin 40 Mg Tablet PO 40 mg QPM TORIBIO Administration Citalopram Hydrobromide 10 mg 10/06/24 09:00 10/14/24 09:53 Citalopram 10 Mg Tablet PO 10 mg DAILY TORIBIO Administration Docusate Sodium 250 mg 10/09/24 09:00 10/14/24 09:51 Docusate Sodium 250 Mg Capsule PO 250 mg DAILY TORIBIO Administration Levothyroxine Sodium 112 mcg 10/06/24 07:00 10/14/24 05:14 Levothyroxine 112 Mcg Tablet PO 112 mcg QDAC TORIBIO Administration Meclizine HCl 12.5 mg 10/05/24 18:29 Meclizine 12.5 Mg Tablet PO Q6HR PRN Dizziness Ondansetron HCl 4 mg 10/05/24 18:26 10/14/24 06:12 Ondansetron 4 Mg/2 Ml Vial IVP 4 mg Q6HR PRN Administration Nausea / Vomiting Ondansetron HCl 4 mg 10/14/24 13:38 Ondansetron Odt 4 Mg Tablet TL Q4HR PRN Nausea / Vomiting Polyethylene Glycol 17 gm 10/09/24 09:00 10/14/24 09:54 Polyethylene Glycol 3350 17 Gm Packet PO Not Given DAILY TORIBIO Senna 8.6 - 17.2 mg 10/09/24 09:00 10/14/24 09:51 Senna 8.6 Mg Tablet PO 8.6 mg DAILY TORIBIO Administration Sodium Chloride 10 ml 10/06/24 07:26 10/14/24 11:30 Sodium Chloride Flush 0.9% 10 Ml Syringe IVP 10 ml PRN PRN Administration NEEDED PER PROVIDER ORDERS Sodium Chloride 10 ml 10/06/24 07:26 10/14/24 09:53 Sodium Chloride Flush 0.9% 10 Ml Syringe IVP 10 ml 0100,0900,1700 TORIBIO Administration Objective Vital Signs/Intake & Output Reviewed Vital Signs: Yes Vital Signs: Vital Signs x48h Temp Pulse Resp BP Pulse Ox 10/13/24 15:55 36.5 C 69 18 126/61 99 10/13/24 12:38 36.6 C 66 18 114/66 99 Intake & Output: Intake & Output 10/11/24 10/12/24 10/13/24 10/14/24 23:59 23:59 23:59 23:59 Intake Total 1760 / 1760 1700 / 1700 2310 / 2310 540 / 540 Output Total 250 / 250 1500 / 1500 1500 / 1500 700 / 700 Balance 1510 / 1510 200 / 200 810 / 810 -160 / -160 Objective General Appearance: positive No acute distress and Alert Eyes Bilateral: positive Normal inspection, PERRL and Conjunctivae nml ENT: positive ENT inspection nml Neck: positive Nml inspection Respiratory: positive No respiratory distress and Breath sounds nml Cardiovascular: positive Regular rate & rhythm Abdomen: positive Non-tender Back: positive Nml inspection Skin: positive Color nml and Other (occipital scalp laceration is healing well. no significant edema or tenderness. ) Extremities: positive Non-tender, Nml appearance and No pedal edema Neurologic/Psychiatric: positive Oriented x3 and Mood/affect nml Lab Results 10/12/24 05:03 10/12/24 05:03 Other Labs: Lab Results x24hrs 10/12/24 Range/Units 05:03 WBC 8.2 (4.8-10.8) x10^3/uL RBC 4.03 L (4.20-5.40) 10^6/uL Hgb 12.1 (12.0-16.0) g/dL Hct 37.7 (37.0-47.0) % MCV 93.5 (81.0-99.0) fL MCH 30.0 (27.0-31.0) pg MCHC 32.1 (32.0-36.0) g/dL RDW 12.8 (12.0-15.0) % Plt Count 361 (130-450) 10^3/uL MPV 9.7 (7.9-10.8) fL Neut # (Auto) Not Reportable Lymph # (Auto) Not Reportable Clarke # (Auto) Not Reportable Eos # (Auto) Not Reportable Baso # (Auto) Not Reportable Absolute Nucleated RBC Not Reportable Total Counted 100 Band Neuts % (Manual) 0 (0 - 10) % Abnorm Lymph % (Manual) 0 % Nucleated RBC % Not Reportable Neutrophils # (Manual) 4.5 (1.5-6.6) 10^3/uL Lymphocytes # (Manual) 2.1 (1.5-3.5) 10^3/uL Monocytes # (Manual) 0.7 (0.0-1.0) 10^3/uL Eosinophils # (Manual) 0.7 (0-0.7) 10^3/uL Basophils # (Manual) 0.2 H (0-0.1) 10^3/uL Differential Comment MANUAL DIFFERENTIAL WBC Morphology NORMAL APPEARANCE (NORMAL) Platelet Estimate NORMAL (130-450,000) (NORMAL) Platelet Morphology NORMAL APPEARANCE (NORMAL) RBC Morph Micro Appear NORMAL APPEARANCE (NORMAL) Sodium 135 (135-145) mmol/L Potassium 4.2 (3.5-4.5) mmol/L Chloride 102 (101-111) mmol/L Carbon Dioxide 27 (21-32) mmol/L Anion Gap 6.0 (6-13) BUN 18 (6-20) mg/dL Creatinine 1.3 (0.6-1.3) mg/dL Estimated GFR (MDRD) 39 L (>89) Glucose 104 (74-104) mg/dL Calcium 9.1 (8.5-10.3) mg/dL ABX Reporting Has patient been on IV antibiotics over the past 48 hours?: Yes Sepsis Event Note (H) Evaluation Possible source of Sepsis: positive Genitourinary Assessment/Plan Problem List (1) Syncope and collapse: Impression: Patient presented to ED after falling at home and hitting her head. She attributes this fall to dizziness that began after having a stroke that was diagnosed during recent hospital admission. MRI brain on 09/17 showed evidence of a acute to subacute lacunar infarction. She then had a subsequent syncopal episode in the ED. CT head/cervical spine negative. She remains with a headache and postural dizziness that is persistent. negative CT head in the ED after fall. Headache is at her new baseline for headache PT notes indicate the need for IPR. She is able to take 4-5 steps forward. unable to take steps backwards. She needs 2 person assist to transfer pivot from bed to chair. OT notes lateral lean and able to correct with cueing. Notes good tolerance of rehab and would be able to participate for 3 h a day. 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 recommendation is for rehab with deficits in attention and visulospatial/executive function. Following rehab notes forward in time, it is documented that patient needs minimal assist, in sit to stand and in pivot transfer, it is noted that she needs one person assist in sit to stand and 2 person in pivot transfer. it is on this basis that IPR is denied by [place]. In peer to peer, Dr Reyes pointed out to reviewer that patient needs mod to max mulitmodal cuing to maintain increased gait speed. she is unable to continue ambulation when cognitive challenges are presented by OT. She has truncal lean to the left and then overcorrects to the right. She displays post concussive symptomatology with difficulty attending to cognitive tasks while participating in motor activities. She becomes over stimulated when she goes out into the atrium where sounds echo and the light is streaming through the windows providing a highly stimulating environment. The patient states that she knows that she will fall at home if she goes home. she refuses to go to SNF. denial with appeal by patient and family, and appeal was won. Patient will be able to go to inpatient rehab. (2) Bacteremia: Impression: PCR blood culture + for E.Coli on 10/05 in setting of urinary tract infection. Urine culture + for e. coli and enterococcus faecalis on 10/08. Blood culture confirms PCR, E Coli brown sensitive. Plan: Continue IV antibiotics for at least 7 days - adjusted abx regimen to IV ciprofloxacin,she is day 12/16 Cipro. Repeat blood cultures NGTD TTE completed 10/07 is unremarkable She is medically clear for inpatient rehab. Today was an avoidable day due to finding out appeal was won, and needing to make arrangements to get patient to next phase of care. (3) Urinary tract infection: Impression: UA + in ED for leukocyte esterase, WBCs, and bacteria; urine culture + for e. coli and enterococcus faecalis on 10/08. Patient denies any dysuria, urgency, or frequency with urination. Patient remains afebrile and WBCs within normal limits. Plan: Continue IV antibiotics - IV ceftriaxone changed to IV ciprofloxacin to address urine culture sensitivities (she is day 12/16 cipro) (4) Balance problem: Impression: Patient reports that she continues to experience dizziness and imbalance upon standing. Denies any worsening of symptoms. Plan: Patient evaluated by physical therapy and deemed candidate for inpatient rehabilitation. (5) Headache: Impression: Patient reports headache with associated photophobia. She reports having intermittent headaches since her recent stroke, and much worse since her fall and head strike CT neg. these are post concussive headaches. Pain is rated at 4-8/10. She reports that tylenol provides sufficient relief. 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 NSAIDs inappropriate for pain relief due to increased risk for bleeding. The APAP is working for her. She does not take it around the clock, just when the headache is too disruptive for her to function. continue PRN APAP (6) Laceration of occipital region of scalp: Impression: Patient has laceration to right occipital scalp s/p fall open to air laceration is closed with glue, dried blood present at site. healing without evidence of infection. Glue should flake off as laceration heals. 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 She states that she had extensive workup for this PE. (this was actually 2 PEs, but all within the same episode of care) No DVT was ever found. There was no provocation of the clot. She states she has had several hypercoagulable workups and they have all come up negative. So, after this 1 episode of PE she has been anticoagulated since 1996. She was previously on warfarin; she did have what sounds like was probably a retroperitoneal hematoma at some point. At that time, she was changed on to a DOAC and has been on Eliquis ever since. This medication costs are $500 every 3 months and she would love to not have that expense. Today I discussed with the patient that I think that the risk of harm in terms of a subdural or subarachnoid hemorrhage from head strike might be greater then the risk of benefit from a remote history of unprovoked PE. I think therefore if we transfer her out of the hospital into an environment where she could fall and have intracerebral bleeding secondary to head strike, we should send her out without anticoagulation. We are, however, sending her to inpatient rehab, and presumably there she will get rehab and will improve such that fall with headstrike will become less of a risk. I would challenge her next attending provider to consider these issues again prior to discharge from inpatient rehab. I have spent 28 minutes in the care of this patient today. This includes time [id number], review of records, medications. This is an avoidable hospital day. Patient is a candidate for IPR and has been accepted by IPR, appeal was won, and patient will transfer to inpatient rehab on 10/15.
--- NOTE | 2024-10-14 21:40 | Discharge Summary ---
"Discharge Summary Admit Date: 10/05/24 Discharge Date: 10/15/24 Discharging Provider: Luz oCrrea PA-C Primary Care Provider: Zahida Freitas Code Status: Do Not Attempt Resuscitation DIAGNOSES Discharge Diagnoses with Status of Each Condition: Syncope and collapse Bacteremia Urinary tract infection Balance problem Headache Scalp laceration Long-term use of anticoagulant HPI History of Present Illness: 79 y old female with PMH HTN, hyperlipidemia, CVA, Hypothyroidism, PE on Eliquis presented to ER s/p fall and head injury. Pt had laceration. CT head and C spine were done which were negative. Pt was about to be discahrged from the ED but apparently she had syncopal episode while in waiting area which lasted for a min. UA positive for UTI. Pt was given IV Abx Pt is admitted due to syncope and UTI CONSULTS | PROCEDURES Procedures: CT C-spine: No fracture or traumatic malalignment. Multilevel degenerative disc disease and arthropathy associated with straightening of the cervical lordosis CT head: Right occipital scalp hematoma without underlying skull fracture or intracranial hemorrhage. Moderate atrophy and white matter chronic ischemic change. Chronic maxillary sinus disease bilaterally HOSPITAL COURSE Hospital Course: (1) Syncope and collapse: Patient presented to ED after falling at home and hitting her head. She attributes this fall to dizziness that began after having a stroke that was diagnosed during recent hospital admission. MRI brain on 09/17 showed evidence of a acute to subacute lacunar infarction. She then had a subsequent syncopal episode in the ED. CT head/cervical spine negative. She remains with a headache and postural dizziness that is persistent. negative CT head in the ED after fall. Headache is at her new baseline for headache PT notes indicate the need for IPR. She is able to take 4-5 steps forward. unable to take steps backwards. She needs 2 person assist to transfer pivot from bed to chair. OT notes lateral lean and able to correct with cueing. Notes good tolerance of rehab and would be able to participate for 3 h a day. LEAF BINNER notes MOCA 22/30. recommendation is for rehab with deficits in attention and visulospatial/executive function. Following rehab notes forward in time, it is documented that patient needs minimal assist, in sit to stand and in pivot transfer, it is noted that she needs one person assist in sit to stand and 2 person in pivot transfer. it is on this basis that IPR is denied by [place]. In peer to peer, Dr Reyes pointed out to reviewer that patient needs mod to max mulitmodal cuing to maintain increased gait speed. she is unable to continue ambulation when cognitive challenges are presented by OT. She has truncal lean to the left and then overcorrects to the right. She displays post concussive symptomatology with difficulty attending to cognitive tasks while participating in motor activities. She becomes over stimulated when she goes out into the atrium where sounds echo and the light is streaming through the windows providing a highly stimulating environment. The patient states that she knows that she will fall at home if she goes home. she refuses to go to SNF. denial with appeal by patient and family, and appeal was won. Patient will be able to go to inpatient rehab. (2) Bacteremia: PCR blood culture + for E.Coli on 10/05 in setting of urinary tract infection. Urine culture + for e. coli and enterococcus faecalis on 10/08. Blood culture confirms PCR, E Coli brown sensitive. She received 7 days of IV ciprofloxacin. Repeat blood cultures NGTD TTE completed 10/07 is unremarkable (3) Urinary tract infection: UA + in ED for leukocyte esterase, WBCs, and bacteria; urine culture + for e. coli and enterococcus faecalis on 10/08. Patient denies any dysuria, urgency, or frequency with urination. She was afebrile without elevated WBC. IV ceftriaxone changed to IV ciprofloxacin to address urine culture sensitivities (she completed 7d IV cipro) (4) Balance problem: Patient reports that she continues to experience dizziness and imbalance upon standing. Denies any worsening of symptoms. Patient evaluated by physical therapy and deemed candidate for inpatient rehabilitation. Selected Entries 10/14/24 05:12 10/14/24 10:00 10/14/24 16:10 Supine Blood Pressure 136/75 H 117/77 137/69 H Supine Heart Rate 70 63 64 Sitting Blood Pressure 144/74 H 134/70 H 150/80 H Sitting Heart Rate 75 70 70 Standing Blood Pressure 140/88 H 143/74 H 149/81 H Standing Heart Rate 92 82 (5) Headache: Patient reports headache with associated photophobia. She reports having intermittent headaches since her recent stroke, and much worse since her fall and head strike CT neg. these are post concussive headaches. Pain is rated at 4-8/10. She reports that tylenol provides sufficient relief. 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 NSAIDs inappropriate for pain relief due to increased risk for bleeding. The APAP is working for her. She does not take it around the clock, just when the headache is too disruptive for her to function. (6) Laceration of occipital region of scalp: Patient has laceration to right occipital scalp s/p fall open to air laceration is closed with glue, dried blood present at site. healing without evidence of infection. Glue should flake off as laceration heals. 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 She states that she had extensive workup for this PE. (this was actually 2 PEs, but all within the same episode of care) No DVT was ever found. There was no provocation of the clot. She states she has had several hypercoagulable workups and they have all come up negative. So, after this 1 episode of PE she has been anticoagulated since 1996. She was previously on warfarin; she did have what sounds like was probably a retroperitoneal hematoma at some point. At that time, she was changed on to a DOAC and has been on Eliquis ever since. This medication costs are $500 every 3 months and she would love to not have that expense. I discussed with the patient that I think that the risk of harm in terms of a subdural or subarachnoid hemorrhage from head strike might be greater then the risk of benefit from a remote history of unprovoked PE. I think therefore if we transfer her out of the hospital into an environment where she could fall and have intracerebral bleeding secondary to head strike, we should send her out without anticoagulation. We are, however, sending her to inpatient rehab, and presumably there she will get rehab and will improve such that fall with headstrike will become less of a risk. I would challenge her next attending provider to consider these issues again prior to discharge from inpatient rehab. ALLERGIES Allergies Allergy/AdvReac Type Severity Reaction Status Date / Time codeine (Codeine) Allergy Severe Nausea Verified 10/05/24 16:42 lidocaine Allergy Severe Respiratory Verified 10/05/24 16:42 Morpholine Analogues Allergy Severe Respiratory Verified 10/05/24 16:42 cillins Allergy Intermediate Rash Uncoded 10/05/24 16:42 MEDICATIONS Ambulatory Orders Medication Instructions Recorded Confirmed citalopram 10 mg tablet 10 mg PO DAILY 05/12/13 10/06/24 levothyroxine 112 mcg tablet 112 mcg PO QDAC 05/12/13 10/06/24 fluticasone propionate 50 1 spray intranasal BID 09/13/24 10/06/24 mcg/actuation nasal spray,suspension acetaminophen 325 mg tablet 650 mg (2 x 325 mg) PO Q4HR PRN 09/29/24 10/06/24 Pain 1 to 4, or Fever #1 tab amlodipine 5 mg tablet 10 mg (2 x 5 mg) PO DAILY #30 tabs 09/29/24 10/06/24 atorvastatin 40 mg tablet 40 mg PO QPM #30 tabs 09/29/24 10/06/24 apixaban 5 mg tablet (Eliquis) 5 mg PO BID 10/06/24 10/06/24 ondansetron 4 mg disintegrating 4 mg translingual Q4HR PRN Nausea 10/14/24 tablet / Vomiting #30 tabs PHYSICAL EXAM AT DISCHARGE Vital Signs: Vital Signs x48h Temp Pulse Resp BP Pulse Ox O2 Flow Rate 10/15/24 08:27 36.3 C L 66 16 137/69 H 97 0 Physical Exam Other/Comments: General Appearance: positive No acute distress and Alert Eyes Bilateral: positive Normal inspection, PERRL and Conjunctivae nml ENT: positive ENT inspection nml Neck: positive Nml inspection Respiratory: positive No respiratory distress and Breath sounds nml Cardiovascular: positive Regular rate & rhythm Abdomen: positive Non-tender Back: positive Nml inspection Skin: positive Color nml and Other (occipital scalp laceration is healing well. no significant edema or tenderness. ) Extremities: positive Non-tender, Nml appearance and No pedal edema Neurologic/Psychiatric: positive Oriented x3 and Mood/affect nml LABS 10/15/24 04:13 10/15/24 04:13 SEPSIS Possible source of Sepsis: Genitourinary FOLLOW UP Follow Up: PCP on discharge from inpatient rehab. TIME SPENT Time Spent in Discharge (Minutes): 45 Discharge Plan Discharge Patient Disposition: 62 IRF DC/Xfer Condition: Stable Prescriptions: New ondansetron 4 mg Tablet,Disintegrating 4 mg translingual Q4HR PRN (Reason: Nausea / Vomiting) Qty: 30 0RF Continued citalopram 10 MG tablet 10 mg PO DAILY levothyroxine 112 MCG tablet 112 mcg PO QDAC fluticasone propionate 50 mcg/actuation spray,suspension 1 spray INTRANASAL BID acetaminophen 325 mg Tablet 650 mg PO Q4HR PRN (Reason: Pain 1 to 4, or Fever) Qty: 1 0RF amlodipine 5 mg Tablet 10 mg PO DAILY Qty: 30 0RF atorvastatin 40 mg Tablet 40 mg PO QPM Qty: 30 0RF Eliquis 5 mg tablet 5 mg PO BID Discontinued aspirin 81 mg Tablet,Chewable 81 mg PO DAILY Qty: 30 0RF carvedilol 3.125 mg Tablet 3.125 mg PO BID Qty: 60 0RF Activity Restrictions: Activity as Tolerated Diet: Regular Health Concerns: You are an 79-year-old female who came into the hospital some weeks ago, on 13 September with vertigo. Subsequently you had a stroke. You had problems with balance and standing. Rehab services felt that you would benefit from inpatient rehab facility, however the services were denied. You went home and subsequently came back due to a syncopal episode at home which resulted in you striking your head on the kitchen counter and lacerating your scalp. Once again you were seen by rehab and it was recommended that you go to inpatient rehab facility. Through your appeal of the denial for benefits you have been granted the benefit of going to inpatient rehab facility. There you can work on your balance and getting stronger. You will get 3 hours of therapy a day. I hope that when you go home you will go home steady on your feet and able to undertake the duties of caring for your once again. While you are here in the hospital you were treated for urinary tract infection. This urinary tract infection also caused you to get bacteria in your blood. You have gotten 7 days of antibiotics and have recovered well from that. While you are here in the hospital we talked about you stopping your Eliquis. I am going to defer that decision to the next attending provider. I do think that if you are at risk of falls and striking your head we should seriously consider if Eliquis is a good medicine for you. Care Plan Goals: Transferred to inpatient rehab to get stronger and more steady on your feet Print Language: Yoruba Follow-up Care: zahida freitas [Other]"
[2024-10-15 04:58] LABS: BASOPHILS % (AUTO) 1.1 %; HCT - HEMATOCRIT 37.2 % (37.0-47.0); HGB - HEMOGLOBIN 12.1 g/dL (12.0-16.0); LYMPHOCYTES % (AUTO) 25.1 %; MEAN CORPUSCULAR HGB CONC 32.5 g/dL (32.0-36.0); MEAN CORPUSCULAR VOLUME 92.1 fL (81.0-99.0); MEAN PLATELET VOLUME 9.6 fL (7.9-10.8); MONOCYTES % (AUTO) 9.3 %; NEUTROPHILS % (AUTO) 51.6 %; PLT - PLATELET COUNT 432 10^3/uL (130-450); RED BLOOD COUNT 4.04 10^6/uL (4.20-5.40); RED CELL DISTRIBUTION WIDTH 12.8 % (12.0-15.0)
[2024-10-15 05:15] LABS: CALCIUM 9.1 mg/dL (8.5-10.3); CREATININE 1.4 mg/dL (0.6-1.3); POTASSIUM 4.7 mmol/L (3.5-4.5)
[2024-10-15 05:20] LABS: ABNORMAL LYMPHS % (MANUAL) 0 %; BAND NEUTROPHILS % (MANUAL) 0 %
[2024-10-15] MEDS: ONDANSETRON ODT 4 MG TABLET TL PRN (06:15)
[2024-10-15 06:28] LABS: EOSINOPHILS # (MANUAL) 1.2 10^3/uL (0-0.7); LYMPHOCYTES # (MANUAL) 2.2 10^3/uL (1.5-3.5); LYMPHOCYTES % (MANUAL) 19 %; MONOCYTES # (MANUAL) 0.6 10^3/uL (0.0-1.0); REACTIVE LYMPHS % (MANUAL) 5 %
[2024-10-15 06:29] LABS: DIFFERENTIAL COMMENT MANUAL DIFFERENTIAL; PLATELET ESTIMATE, MANUAL NORMAL (130-450,000) (NORMAL); PLATELET MORPHOLOGY NORMAL APPEARANCE (NORMAL); RBC MORPHOLOGY (MULTIPLE) NORMAL APPEARANCE (NORMAL); WBC MORPHOLOGY (MULTIPLE) NORMAL APPEARANCE (NORMAL)
[2024-10-15 11:28] VITALS: BP 138/69; TEMP 97.3; O2SAT 98
== END 2024-10-15 11:15 | DRG 872 ==
LOC: ED 16:37 → MS2 22:44
PROVIDERS: ADMIT Internal Medicine; ATTEND Internal Medicine
DX: W22.09XA Striking against other stationary object, initial encounter; R26.81 Unsteadiness on feet; Z86.711 Personal history of pulmonary embolism; I12.9 Hypertensive chronic kidney disease with stage 1 through stage 4 chronic kidney disease, or unspecified chronic kidney disease; R42 Dizziness and giddiness; R51.9 Headache, unspecified; S01.01XA Laceration without foreign body of scalp, initial encounter; W18.39XA Other fall on same level, initial encounter; F07.81 Postconcussional syndrome; H53.149 Visual discomfort, unspecified; I95.1 Orthostatic hypotension; Y92.009 Unspecified place in unspecified non-institutional (private) residence as the place of occurrence of the external cause; A41.51 Sepsis due to Escherichia coli [E. coli]; N39.0 Urinary tract infection, site not specified; Z91.81 History of falling; R55 Syncope and collapse; W18.30XA Fall on same level, unspecified, initial encounter; Z88.4 Allergy status to anesthetic agent; Z79.899 Other long term (current) drug therapy; E03.9 Hypothyroidism, unspecified; A41.81 Sepsis due to Enterococcus; Z79.01 Long term (current) use of anticoagulants; N18.9 Chronic kidney disease, unspecified; R26.89 Other abnormalities of gait and mobility; E86.0 Dehydration; I69.398 Other sequelae of cerebral infarction